=== PATIENT | female | born 1970 | race Caucasian/White ===

== ENCOUNTER 2020-02-17 15:15 | Outpatient (CLI) | payer OTHER, SELFPAY ==
--- NOTE | ~2020-02-17 | MM_ITS ---
EXAMINATION: MM screening kristi BI w case HISTORY: Screening mammogram, family history of breast cancer in her mother. TECHNIQUE: Craniocaudal and mediolateral oblique 3-D tomosynthesis images were obtained and synthetic 2-D images were generated. CAD analysis was submitted and interpreted. COMPARISON: 11/27/2017, 11/11/2016, 12/29/2010 BREAST PARENCHYMAL COMPOSITION: There are scattered areas of fibroglandular density. FINDINGS: There is no evidence of suspicious mass, calcification, or architectural distortion to sugg est malignancy in either breast. There has been no suspicious interval change. IMPRESSION: 1. No mammographic evidence of malignancy. 2. Recommend routine screening mammography in one year. BI-RADS Category 1: Negative Reviewed, dictated and finalized at location A.
== END 2020-02-17 15:16 | disposition home or self-care (01) ==
LOC: ANHIMG 15:18
PROVIDERS: PCP Registered Nurse; Visit Provider Registered Nurse
DX: Z12.31 Encounter for screening mammogram for malignant neoplasm of breast (principal)
CPT/HCPCS: 77063; 77067

== ENCOUNTER 2024-02-06 08:53 | Outpatient (CLI) | payer OTHER, SELFPAY ==
--- NOTE | ~2024-02-06 | XR_ITS ---
EXAMINATION: XR abdomen/kub 1V DATE: 02/06/2024 09:06 INDICATION: Microscopic hematuria. TECHNIQUE: A supine view of the abdomen on 2 radiographs was obtained. COMPARISON: None. FINDINGS: There are no dilated loops of bowel. Surgical clips in the right upper quadrant are likely from cholecystectomy. There is an intrauterine device in expected position. Calcifications in the pel vis are likely phleboliths. IMPRESSION: 1. No visible urolithiasis. Reviewed, dictated and finalized at location A. IMPRESSION: 1. No visible urolithiasis.
== END 2024-02-06 08:54 | disposition home or self-care (01) ==
PROVIDERS: PCP Registered Nurse; Visit Provider Nurse Practitioner Family
DX: R31.29 Other microscopic hematuria (principal)
CPT/HCPCS: 74018

== ENCOUNTER 2024-02-19 07:41 | Outpatient (CLI) | payer OTHER, SELFPAY ==
--- NOTE | 2024-02-19 07:58 | ECG_ITS ---
Test Date: 2024-02-19 08:19:23 Measurements Intervals [place] Rate: 65 P: 35 CT: 192 QRS: 4 QRSD: 122 T: 28 QT: 402 QTc: 419 Interpretive Statements SINUS RHYTHM RIGHT BUNDLE BRANCH BLOCK CONSIDER INFERIOR INFARCT, AGE INDETERMINATE BASELINE ARTIFACT- I, II, III, AVR, AVL, AVF ABNORMAL ECG No previous ECG available for comparison Electronically Signed On 02-19-2024 09:50:12 CDT by Merritt Velez D.O.
[2024-02-19 08:52] LABS: Partial Thromboplastin Time 24.9 Seconds (22.3-36.8); Prothrombin Time 13.1 Seconds (11.1-14.7)
[2024-02-19 08:53] LABS: Anion Gap 6 mmol/L (4-12); Blood Urea Nitrogen 16 mg/dL (7-17); Calcium 9.3 mg/dL (8.4-10.2); Carbon Dioxide 33 mmol/L (22-30); Chloride 98 mmol/L (98-107); Estimated Glomerular Filt Rate > 60; Glucose 123 mg/dL (65-110); Potassium 3.8 mmol/L (3.4-5.0); Sodium 137 mmol/L (137-145)
== END 2024-02-19 07:42 | disposition home or self-care (01) ==
PROVIDERS: Anesthesiology; PCP Registered Nurse; Visit Provider Urology
DX: Z01.812 Encounter for preprocedural laboratory examination (principal); I10 Essential (primary) hypertension; N23 Unspecified renal colic; Z79.899 Other long term (current) drug therapy
CPT/HCPCS: 36415; 80048; 85610; 85730; 87086; 93005

== ENCOUNTER 2024-02-23 04:47 | Day surgery (SDC) | payer OTHER, SELFPAY ==
[2024-02-15 08:54] VITALS: BMI 48.6
--- NOTE | 2024-02-15 09:03 | PC.NURSE ---
Report to the Outpatient Waiting Room, entrance under the green pavilion located off [facility], at time _0930_ on date _[id number]_. Planned Procedure Time: _1130_.? Time changes happen often and if your time is changed the preop area will call you the afternoon before. - You and your visitor will be asked to self-screen and do not enter if you have any COVID symptoms. Please call surgeon if you need to reschedule. - A mask is optional within the hospital at this time. Patients may have clear liquids (water, carbonated beverages, clear teas, apple juice) until 3 hours prior to surgery with a maximum of 20 ounces. - No food from midnight until time of surgery and no smoking Take only the following medications with a SIP of water on the morning of surgery: ___None DO NOT STOP ANY OF YOUR OTHER PRESCRIPTION MEDICATIONS PRIOR TO SURGERY EXCEPT THE FOLLOWING Medications to discontinue per physician Vitamins Date to take last clks__[phone] Krlqnnbdh Zepbound with patient who plans to not take it this week(Monday). Please no make-up, nail belgian, hairspray, perfume, deodorant, or body powder the day of surgery.? No jewelry (including any body piercings) or valuables the day of surgery, leave them at home.? Please take a shower or bath the night before, or the morning of, surgery with an antibacterial soap.? Wear comfortable, loose fitting clothing.? - Jewelry must be removed prior to entering the operating room.? Rings and piercings that are not removed may be cut off. - The hospital will not accept responsibility for valuables.? - Please leave all valuables, including medications, at home the day of surgery. If you are going home after surgery, a licensed cryogenic transport driver must drive you home.? - NO public transportation without another adult if you receive anesthesia. - We recommend that an adult stay with you for 24 hours following discharge. - We also recommend that you do not drive, make important decision, drink alcoholic beverages, or take any drugs that were not prescribed by your health care provider for at least 24 hours after your discharge time. Follow any additional instructions given to you from your surgeon. Telephone instructions given to __Yuridia__and asked if any additional questions and then verbalized understanding. Patient advised to call surgeon office or pre surgery nurse liaison [phone] if any additional questions.
[2024-02-23] VITALS (8 sets, daily range): BP systolic 95–123; BP diastolic 62–78; PULSE 74–97; RESP 12–24; TEMP 35.8–36.4; O2SAT 93–99
--- NOTE | ~2024-02-23 | XR_ITS ---
EXAMINATION: XR abdomen/kub 1V DATE: 02/23/2024 09:37 INDICATION: Left-sided nephrolithiasis for pre lithotripsy evaluation TECHNIQUE: A supine view of the abdomen on 2 radiographs was obtained. COMPARISON: 02/06/2024 FINDINGS: Unchanged 1.2 cm stone projecting over the mid to lower left kidney. Unchanged pattern of likely phle boliths in the pelvis. T-shaped IUD in expected position projecting over the central pelvis. Cholecys tectomy clips in right upper quadrant. Visualized lung bases are clear. Moderate to severe lower lumb ar predominant spondylosis with severe hypertrophic facet osteoarthritis on the left at L4-L5. Left-s ided partial sacralization of L5. Linear lucencies suspicious for bilateral pars intra-articular is d efects at L5 however specificity is limited on AP imaging. Mild right and moderate left sacroiliac os teoarthritis. IMPRESSION: 1. 1.2 cm left renal stone. 2. IUD in expected position. Reviewed, dictated and finalized at location A.
--- NOTE | 2024-02-23 06:29 | WPDHPUPDATE1 ---
History and Physical Update Update Date/Time: 02/23/24 06:29 History and Physical has been reviewed, including an updated exam of the patient. There are NO changes in the patient's condition. Risks, benefits, and alternatives have been discussed and questions answered. Patient agrees to proceed with procedure.
[2024-02-23] MEDS: LACTATED RINGERS 1,000 ML 30 ML IV CONT ×2 (10:05→12:16)
--- NOTE | 2024-02-23 10:09 | WPDANESEPPF ---
Anes - Initial Pre Proc Eval Procedure: Operation Date: 02/23/24 11:30 Proposed Procedures p Left Extracorporeal Shock Wave Lithotripsy, - Zeferino Kumari MD s Cystoscopy, Left Ureteroscopy, Left Retrograde Pyelogram, Possible Left Stent Placement - Zeferino Kumari MD Date/Time: 02/23/24 10:09 Surgeon: Zeferino Kumari MD Pre Op Diagnosis: left renal stone Patient Data Age: 53 Gender: F Height: 1.6 m Weight: 124.5 kg Allergies Allergy/AdvReac Type Severity Reaction Status Date / Time Iodinated Contrast Media Allergy Severe Hives Verified 02/23/24 09:37 Home Medications Medication Instructions Recorded Confirmed Type cholecalciferol (vitamin D3) 50 50 mcg PO DAILY 02/15/24 02/23/24 History mcg (2,000 unit) capsule (Vitamin D3) fexofenadine 180 mg tablet 180 mg PO DAILY 02/15/24 02/23/24 History hydrochlorothiazide 25 mg tablet 25 mg PO HS 02/15/24 02/23/24 History inulin-sorbitol 2 gram chewable 3 tablet PO DAILY 02/15/24 02/23/24 History tablet lisinopril 40 mg tablet 40 mg PO HS 02/15/24 02/23/24 History kcmfnogl-nxil-ttzc 8 mg-folic 400 1 tablet PO DAILY 02/15/24 02/23/24 History mcg-K 50 mcg-lutein 300 mcg tablet (Centrum Silver Women) tirzepatide (weight loss) 2.5 2.5 mg subcut WEEKLY 02/15/24 02/23/24 History mg/0.5 mL subcutaneous pen injector (Zepbound) Patient hx anesthesia problems: none Family hx anesthesia problems: none Results Review: All pre-operative results and documents have been reviewed as part of the pre-operative evaluation. [facility] Family History Family History Other Carcinoma of colon Family history of malignant neoplasm of breast in first degree relative Hypertension Social History Social History Years smoked: 10 Smoking status: Former smoker Tobacco type: cigarettes Smoking end date: 02/14/19 Alcohol intake: current Drinks per week: 2 Living arrangements: with family Spiritual care concerns: No Anes - Eval Final PreProcedure Day of Procedure 02/23/24 10:09 Patient weight: morbidly obese Heart: regular rate and rhythm Lungs: clear to auscultation Airway: Mallampati scale class II Neurological: alert and oriented Last oral intake: >/= 8 hours ASA classification: III Emergent: no Anesthetic plan: proceed Anesthesia type and monitoring: general LMA and standard monitoring Results Review: All pre-operative results and documents have been reviewed as part of the pre-operative evaluation. HTN, preDM, ex smoker quit 2018. Informed Consent: The patient's anesthetic plan and its attendant risks and benefits were discussed with the patient/family/POA. Questions were solicited and answers provided to the satisfaction of the patient/family/POA.
[2024-02-23 10:18] LABS: BEDSIDEPREGUCG Negative (Negative)
[2024-02-23] MEDS: ceFAZolin 3 GM/D5W 100 ML 100 ML IVPB (11:04)
--- NOTE | 2024-02-23 11:40 | W.PM.PROC2 ---
Procedure Note - Detailed Date of Procedure 02/23/24 Pre-op Diagnosis Left renal stone Post-op Diagnosis Other ( 1. Bilateral ureterocele (left larger than right) 2. 10 mm left renal calculus) Procedure Performed Cystoscopy, left retrograde pyelography, left ureteral stent placement, left ESWL Surgeon Zeferino Kumari MD Anesthesia General Description of Procedure Interesting procedure today. After the uneventful induction of LMA anesthetic she has prepped draped in routine sterile fashion while in dorsal lithotomy position. Cystoscopy was undertaken with a 19 F rigid cystoscope. 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 The ureterocele appears to be much larger on left. There was a very small opening which I was, with some difficulty, able to intubated with a 0.035 in glidewire. I then dilated the ureterocele to 10 F with ureteral dilator. Retrograde pyelography with a Hunter shows no filling defects with obvious ureterectasis to the ureterovesical junction. Because she has a large stone opted to place a 6 F variable length stent with proximal coil in the renal pelvis and distal coil in the bladder. We then proceeded with lithotripsy to her 10 mm left renal stone, delivering 2500 shocks at a power up to of 5. Patient tolerated the procedure well was taken recovery room good condition. Drains Yes
== END 2024-02-23 14:13 | disposition home or self-care (01) ==
PROVIDERS: PCP Registered Nurse; Visit Provider Urology
PROC: (CPT 50590; principal; 2024-02-23 11:30)
PROC: (CPT 52352; 2024-02-23 11:30)
DX: N20.0 Calculus of kidney (principal); R31.29 Other microscopic hematuria; I10 Essential (primary) hypertension; E66.01 Morbid (severe) obesity due to excess calories; Z68.42 Body mass index [BMI] 45.0-49.9, adult; Z79.85 Long-term (current) use of injectable non-insulin antidiabetic drugs; Z98.890 Other specified postprocedural states; Z90.49 Acquired absence of other specified parts of digestive tract; Z87.891 Personal history of nicotine dependence; Z80.0 Family history of malignant neoplasm of digestive organs; Z80.3 Family history of malignant neoplasm of breast
CPT/HCPCS: 52332; 50590; 36415; 74018; 80048; 85610; 85730; 87086; 93005; C1758; C1769; C2617; J0690; J2003; J2250; J2405; J2704; J3010; J7120; Q9966

== ENCOUNTER 2024-03-12 10:18 | Outpatient (CLI) | payer OTHER, SELFPAY ==
--- NOTE | ~2024-03-12 | XR_ITS ---
XR abdomen/kub 1V Ordering provider: Ivory Lane, [employer] History: . FU FROM ESWL . Comparison: None. FINDINGS: BOWEL: Nonobstructive bowel gas pattern. ORGANOMEGALY: February 23, 2024 SIGNIFICANT PATHOLOGIC CALCIFICATIONS: Stone in the left kidney lower pole. Left double-J stent. OTHER: No free air is seen under the diaphragm. IMPRESSION: NO ACUTE ABDOMINAL FINDINGS. Stone in the left kidney lower pole. Left double-J stent. Reviewed, dictated and finalized at location A.
== END 2024-03-12 10:19 | disposition home or self-care (01) ==
LOC: ANHIMG 10:20
PROVIDERS: PCP Registered Nurse; Visit Provider Nurse Practitioner Family
DX: N20.0 Calculus of kidney (principal)
CPT/HCPCS: 74018

== ENCOUNTER 2024-04-02 16:06 | Outpatient (CLI) | payer OTHER, SELFPAY ==
--- NOTE | ~2024-04-02 | XR_ITS ---
Exam: Abdomen 1V HISTORY: N20.0 - Calculus of kidney COMPARISON: 03/12/2024 TECHNIQUE: Supine images of the abdomen and pelvis. FINDINGS: Bowel gas pattern is non-obstructive. There is no free air or deep sulci. Redemonstration of a 12 mm calculus projecting over the interpolar region of the left kidney. Interval removal of the double J stent previously seen within the left kidney. No additional calculi project over the bilateral kidneys. Clips within the right upper quadrant consistent with prior cholecystectomy. Intrauterine device projecting over the pelvis Lung bases are unremarkable. Redemonstration of severe hypertrophic facet osteoarthritis at the level of L4/L5. IMPRESSION: Nonspecific, nonobstructive bowel gas pattern. Redemonstration of the 12 mm calculus projecting over the interpolar region of the left kidney. No additional calculi are identified projecting over the bilateral kidneys or along the expected cour se of the bilateral ureters Reviewed, dictated and finalized at location A. [facility] IMPRESSION: Nonspecific, nonobstructive bowel gas pattern. Redemonstration of the 12 mm calculus projecting over the interpolar region of the left kidney. No additional calculi are identified projecting over the bilateral kidneys or a long the expected course of the bilateral ureters
== END 2024-04-02 16:07 | disposition home or self-care (01) ==
LOC: ANHIMG 16:07
PROVIDERS: PCP Registered Nurse; Visit Provider Urology
DX: N20.0 Calculus of kidney (principal)
CPT/HCPCS: 74018

== ENCOUNTER 2024-05-28 08:16 | Outpatient (CLI) | payer OTHER, SELFPAY ==
[2024-05-28 08:57] LABS: Anion Gap 4 mmol/L (4-12); Blood Urea Nitrogen 17 mg/dL (7-17); Calcium 8.9 mg/dL (8.4-10.2); Carbon Dioxide 32 mmol/L (22-30); Chloride 105 mmol/L (98-107); Estimated Glomerular Filt Rate > 60; Glucose 129 mg/dL (65-110); Potassium 3.7 mmol/L (3.4-5.0); Sodium 141 mmol/L (137-145)
--- OUTSIDE RECORDS SUMMARY | 2024-06-03 20:28 | XMS_ITS | Encounter Summary ---
Author Organization [facility] Address [address] [place] [address]. [place] [address] [place] [address] Care Team Providers Care Social Work Instructor Name Role Phone Nisha Stokes GISELA Primary Care Provider [phone] Reason for Visit * Reason Comments Image (SCAN) Encounter Details Date Type Department Care Team (Latest Contact Info) Description 03/12/2024 Scan HEALTH INFO [facility] Scanned, Doc Med Group Image (SCAN) Social History Tobacco Use Types Packs/Day Years Used Date Smoking Tobacco: Former Cigarettes 0.3 5 2 016 - 2020 Passive Smoke Exposure: Past Smokeless Tobacco: Never Alcohol Use Standard Drinks/Week Comments Yes 6.7 (1 standard drink = 0.6 oz p ure alcohol) socially AUDIT-C Answer Date Recorded Frequency of Alcohol Consumption 2-3 times a wee k 09/26/2018 Average Number of Drinks 1 or 2 019 Frequency of Binge Drinking Not on file 12/2018 PHQ-2 Answer Date Recorded Patient Health Questionnaire-2 Score 1 12/07/2023 Comments No Sex and Gender Information Value Date Recorded Sex Assigned at Female 05/07/2024 12:02 PM ILLUSIONIST Legal Sex Female 8:55 PM CDT Gender Identity Female 05/07/2024 12:02 PM ILLUSIONIST Sexual Orientation Not on file documented as of this encounter Plan of Treatment Upcoming Encounters Date Type Department Care Team (Late st Contact Info) Description 06/12/2024 8:20 AM ILLUSIONIST Allied Health/Nurse Visit [facility] Medical Group Family & Internal Medicine [address] [phone] 11/11/2024 9:00 AM CDT Allied Health/Nurse Visit [facility] Medical Group Family & Internal Medicine - [place] [address] [place] [phone] Nisha Stokes APNP [address] [place] [address] documented as of this encounter Procedures Procedure Name Priority Date/Time Associated Diagnosis Comments IMAGE GENERIC 03/12/2024 documented in this encounter Results * IMAGE GENERIC (03/12/2024) Anatomical Region Laterality Modality Other 03/12/2024 us Doc Med [facility] Scanned SCANNING Final Resu lt documented in this encounter Visit Diagnoses Not on filedocumented in this encounter Additional Health Concerns Assessment Noted Time PHQ-9 Depression Total Score: 0 11/18/19 9:27 AM CDT documented as of this encounter Care Teams Social Work Instructor Relationship Specialty Start Date End Date Nisha Stokes APNP [address] [place] [id number] PCP - General NURSE PRACTITIONER 09/20/18 documented as of this encounter
--- OUTSIDE RECORDS SUMMARY | 2024-06-03 20:28 | XMS_ITS | Encounter Summary ---
Author Organization [facility] Address [address] [place] [address]. [place], [place] [address] [place] [id number] Care Team Providers Care Blending Supervisor Name Role Phone Divya Nisha Toño HIGGINS Primary Care Provider [phone] Encounter Details Date Type Department Care Team (Latest Contact Info) Description 01/25/2024 Travel Social History Tobacco Use Types Packs/Day Years [...] Sex Assigned at Female 05/07/2024 12:02 PM MATHEMATICS TECHNICIAN Legal Sex Female 8:55 PM CDT Gender Identity Female 05/07/2024 12:02 PM MATHEMATICS TECHNICIAN Sexual Orientation Not on file documented as of this encounter Plan of Treatment Upcoming Encounters Date Type Department Care Team (Late st Contact Info) Description 06/12/2024 8:20 AM MATHEMATICS TECHNICIAN Allied Health/Nurse Visit [facility] Medical [facility] Family & Internal Medicine [address] [phone] 11/11/2024 9:00 AM CDT Allied Health/Nurse Visit [facility] Family & Internal Medicine [address] [phone] Nisha Stokes APNP [address] [place] [address] documented as of this encounter Visit Diagnoses Not on filedocumented in this encounter Additional Health Concerns Assessment Noted Time PHQ-9 Depression Total Score: 0 11/18/19 22 9:27 AM CDT documented as of this encounter Care Teams Blending Supervisor Relationship Specialty Start Date End Date Nisha Stokes APNP [address] [place] [id number] PCP - General NURSE PRACTITIONER 09/20/18 documented as of this encounter
--- OUTSIDE RECORDS SUMMARY | 2024-06-03 20:28 | XMS_ITS | Data Portability ---
Author Organization [facility] Address [address] [place] [address] [place] [address] Care Team Providers Care Manager Alliance Name Role Phone KARSTEN RICHARD Primary Care Provider Assessment Encounter Date Assessment Date Assessment LastModified by Organization Details LastModified Time 12/03/2021 12/03/2021 Annual gynecological exam performed. Patient will come back in a year unless there are new symptoms. [email or web address] Not available 12/03/2021 10:37:31 09/06/2023 09/06/2023 Annual gynecological exam performed. Patient will come back in a year unless there are new symptoms. Not available 09/06/2023 16:24:33 Plan of Treatment Reminders Order Date Submit Date Provider Last Modified By Organization Details Last Modified Time Details Appointments None recorded. Lab None recorded. Referral None recorded. Procedures None recorded. Surgeries None recorded. Imaging MAMMO, screening, bilateral 2023 024 [email or web address] [facility], [address], [address], [place], [address], 16:03:00 Medication Orders None recorded. Patient TargetsNo targets recorded. Patient InstructionsNo instructions recorded. Reason for Referral None Reported. Results Created Date Observation Date Name Description Value Unit Range Abnormal Flag Note LastModifiedBy Organization Detail LastModifiedTime 12/04/1912/03/2021 IMAGE GUIDE D PAP AND HPV REGAR DLESS image guided Pap, HPV regardless of Pap result SEE RESULT S BELOW CASE REPOR T: Cytol ogy Gynec ologi andry Repor t Case: [id number] Autho david singh Provi ganesh: Winter garza , Brandie Culver cted: 12/03 1256 DIRECTOR OF SOLUTIONS ARCHITECTURE Order ing Locat ion: [place] Patho logcolt Recei rayo: 12/04 0214 First Scree n: Amanda Harris, CT Rescr een: Isabel Cardenas, CT Speci men: Scree margarita Pap - Image d, Cervi x STATE MENT OF ADEQU ACY: Satis facto ry for evalu ation Trans forma tion zone compo nent prese nt FINAL DIAGN OSIS: Negat della for Intra epith elial Lesio n or Katlyn cline (NIL) . Elect usman chino bc d by Isabel Cardenas, CT on 2021 at 8:47 PM ----- ----- ----- ----- ----- ----- ----- ----- ----- ----- ----- ----- ----- ----- ----- ----- ----- ---- HPV RESUL TS: HPV mRNA E6/E7 : No HPV mRNA Detec yaneth NOTE: This high risk HPV mRNA assay detec ts fourt een high- risk HPV types (16, 18, 31, 33, 35, 39, 45, 51, 52, 56, 58, 59, 66, 68) witho ut diffe renti ation . COMME NT: Note: This speci men was revie wed by a Cytot echno logis t and/o r Patho logis t (as indic ated in this repor t) after evalu ation using the Thinp rep Imagi ng Syste m. CLINI ANDRY INFOR MATIO N: Menst rual Statu s: LMP (if appli cable ): Clini andry Histo ry/Pr eviou s Pap: Type of Neopl gucci (if appli cable ): Signi fican t Clini andry Findi ngs: Other Histo ry: Hormo neida (if appli cable ): PAP EDUCA ALIRIO L NOTE: The Pap Test is a scree margarita test with an inher ent false negat della rate. Liqui d-bas ed sampl ing may decre ase, but will not elimi ximena, false negat della resul ts. A negat della resul t does not precl ude the prese nce and/o r devel opmen t of disea se, since the prese nce of abnor mal cells in the sampl e depen ds on the locat ion of the lesio n and sampl ing techn ique. Adriane nued regul ar scree margarita is the best metho d of cance r preve ntion . If repor yaneth cytol ogic findi ng do not corre late with physi andry and/o r histo rical findi ngs, furth er inves tigat ion is recom marta d, as clini josephien baltazar nted. Not Available [facility] [address] [place], [address], 12/08/2021 21:50:05 09/06/19 24 09/06/2023 IMAGE GUIDE D PAP AND HPV REGAR DLESS image guided Pap, HPV regardless of Pap result SEE RESULT S BELOW CASE REPOR T: Cytol ogy Gynec ologi andry Repor t Case: [id number] Autho david singh Provi ganesh: Jimenez Wilson Colle cted: 09/05 1719 DIRECTOR OF SOLUTIONS ARCHITECTURE Order ing Locat ion: [place] Patho logy Recei rayo: 09/06 0231 First Scree n: Marlene Villanueva , CT Rescr een: Carina Toure Speci men: Scree margarita Pap - Image d, Cervi x STATE MENT OF ADEQU ACY: Satis facto ry for evalu ation Trans forma tion zone compo nent prese nt FINAL DIAGN OSIS: Negat della for Intra epith elial Lesio n or Katlyn cline (NIL) . Elect usman chino bc d by Carina Toure on 2023 at 8:14 PM ----- ----- ----- ----- ----- ----- ----- ----- ----- ----- ----- ----- ----- ----- ----- ----- ----- ---- HPV RESUL TS: HPV mRNA E6/E7 : No HPV mRNA Detec yaneth NOTE: This high risk HPV mRNA assay detec ts fourt een high- risk HPV types (16, 18, 31, 33, 35, 39, 45, 51, 52, 56, 58, 59, 66, 68) witho ut diffe renti ation . COMME NT: This speci men was revie wed by a Cytot echno logis t and/o r Patho logis t (as indic ated in this repor t) after evalu ation using the Thinp rep Imagi ng Syste m. CLINI ANDRY INFOR MATIO N: Menst rual Statu s: LMP (if appli cable ): Clini andry Histo ry/Pr eviou s Pap: Type of Neopl gucci (if appli cable ): Signi fican t Clini andry Findi ngs: Other Histo ry: Hormo neida (if appli cable ): PAP EDUCA ALIRIO L NOTE: The Pap Test is a scree margarita test with an inher ent false negat della rate. Liqui d-bas ed sampl ing may decre ase, but will not elimi ximena, false negat della resul ts. A negat della resul t does not precl ude the prese nce and/o r devel opmen t of disea se, since the prese nce of abnor mal cells in the sampl e depen ds on the locat ion of the lesio n and sampl ing techn ique. Adriane nued regul ar scree margarita is the best metho d of cance r preve ntion . If repor yaneth cytol ogic findi ng do not corre late with physi andry and/o r histo rical findi ngs, furth er inves tigat ion is recom marta d, as clini josephine baltazar nted. Not Available [facility] ([facility]) [address], [place], [address], 09/11/2023 21:17:17 Result Notes None recorded. Problems Name Problem SNOMED Code Status Onset Date Resolution Date Notes Provider Name and Address Organization Details Recorded Time SNOMED CT Concept Completed 201712/02/2021 Encntr for drug and alcohol counselor exam (general) (routine) w/o abn findings; Practice ID: [id number] Karsten Michael [facility] 2 17:45:36 Insertio n of intraute rine contrace ptive device Completed 201612/02/2021 Encounter for insertion of intrauter ine contracep tive device;Re corded Elsewhere : No Locati on: [facility] So urce: EHR Chron ic: N Practic e ID: 0001 Bill able Time: 08:15:00 AM Karsten [facility] 2 17:45:37 Pregnanc y test negative [id number] Completed 201612/02/2021 Encounter for test, result negative; Recorded Elsewhere : No Locati on: [facility] So urce: EHR Chron ic: N Practic e ID: 0001 Bill able Time: 08:15:00 AM Karsten [facility] 2 17:45:36 Family planning surveill ance Completed 201112/02/2021 Contracep tive surveilla nce, unspecifi ed;Record ed Elsewhere : No Locati on: [facility] So urce: EHR Chron ic: N Practic e ID: 0001 Bill able Time: 08:45:00 AM Karsten [facility] 2 17:45:36 Removal of intraute rine device Completed 201612/02/2021 Encounter for removal of intrauter ine contracep tive device;Re corded Elsewhere : No Locati on: [facility] So urce: EHR Chron ic: N Practic e ID: 0001 Bill able Time: 09:15:00 AM Karsten [facility] 2 17:45:37 Screenin g for malignan t neoplasm of cervix Completed 201112/02/2021 Screening for malignant neoplasms of the cervix;Re corded Elsewhere : No Locati on: [facility] So urce: EHR Chron ic: N Practic e ID: 0001 Bill able Time: 08:45:00 AM Karsten Michael [facility] [address] 17:45:[address] Concept Completed 201612/02/2021 Encntr for general adult medical exam w/o abnormal findings; Recorded Elsewhere : No Locati on: [facility] So urce: EHR Chron ic: N Practic e ID: 0001 Bill able Time: 02:30:00 PM Karsten Michael [facility] 2 17:45:36 Screenin g for malignan t neoplasm of rectum Completed 201112/02/2021 Screening for malignant neoplasms of the rectum;Re corded Elsewhere : No Locati on: [facility] So urce: EHR Chron ic: N Practic e ID: 0001 Bill able Time: 08:45:00 AM Karsten Michael [facility] 2 17:45:36 Body mass index 30+ - obesity [id number] Completed 201712/02/2021 Body mass index (BMI) 50-59.9 , adult;Rec orded Elsewhere : No Locati on: [facility] So urce: EHR Chron ic: N Practic e ID: 0001 Bill able Time: 06:00:00 PM Karsten Michael [facility] 2 17:45:36 Speciali zed medical examinat ion Completed 201112/02/2021 Gynecolog ical Examinati on;Record ed Elsewhere : No Locati on: [facility] So urce: EHR Chron ic: N Practic e ID: 0001 Bill able Time: 08:45:00 AM Karsten Michael [facility] 2 17:45:37 Contrace ptive sheath status [id number] Completed 201612/02/2021 IUD follow up;Record ed Elsewhere : No Locati on: [facility] So urce: EHR Chron ic: N Practic e ID: 0001 Bill able Time: 03:00:00 PM Karsten Michael [facility] 17:45:36 Screenin g for malignan t neoplasm of colon Completed 201012/02/2021 Special screening for malignant neoplasms , colon;Pra ctice ID: 0001 Karsten [facility] 17:45:36 Problem Notes None recorded. Procedures Surgical History Date Name Laterality Status Provider Name and Address Organization Details Recorded Time 12/04/19 22 Date of Last Pap Smear completed [facility] 09/06/2023 16:26:34 05/22/19 22 Date of Last Mammogram completed [facility] 09/06/2023 16:27:21 10/18/19 18 completed [facility] 12/03/2021 10:39:08 10/18/19 18 Date of Last Colonoscopy completed [facility] 12/03/2021 10:39:08 10/06/19 16 Cholecystectomy completed [facility] 12/03/2021 10:44:19 Imaging Results None recorded. Procedure Notes None recorded. Medical Equipment None Reported. Allergies Allergen ID Allergen Name Allergen Category Reaction Reaction Severity Criticality Documentation Date Start Date Code Code System Note Provider Name and Address Organization Details Recorded Time 09446 lisinopri l medicatio n Not available Not available Not available 05/08/2020 50891 RxNorm Karsten [facility] 10:38:57 91939 iodine medicatio n Not available Not available Not available 05/08/2020 5933 RxNorm Comme nt: [facility]at [facility]; Not Available [facility] 0 14:14:57 20317 fexofenad ine medicatio n Not available Not available Not available 12/03/2021 95959 RxNorm Karsten [place], [place] - [facility] 2 10:39:41 Medications Name Sig Start Date Stop Date Status Note LastModified by Organization Details LastModified Time lisinopri l 20 mg-hydroc hlorothia zide 12.5 mg tablet TAKE 1 TABLET BY MOUTH DAILY. PT NEEDS AN APPOINTM ENT FOR FURTHER REFILLS. 12/03 completed Not Available Not Available Not Available fexofenad ine 180 mg tablet Take 1 tablet every day by oral route. 09/05 completed Not Available Not Available Not Available Advil 100 mg tablet take 2 tablet by oral route 4 - 6 hours as needed with food 11/03 completed Prescrib ed Elsewher e: Yes Loca tion: [facility] odify By: adarsh herrera DateTime : 11/08/19 12 08:45:00 AM Not Available Not Available Not Available cranberry fruit 400 mg capsule 11/03 completed Prescrib ed Elsewher e: Yes Loca tion: [facility] odify By: adarsh herrera DateTime : 11/08/19 12 08:45:00 AM Not Available Not Available Not Available hydrochlo rothiazid e 25 mg tablet TAKE 1 TABLET BY MOUTH EVERY DAY IN THE MORNING active Not Available Not Available No t Available Prozac 10 mg capsule take 2 capsule by oral route every day 12/06 completed Prescrib ed Elsewher e: Yes Loca tion: [facility] odify By: nirav herrera DateTime : 11/08/19 12 08:45:00 AM Not Available Not Available Not Available lisinopri l 40 mg tablet TAKE 1 TABLET BY MOUTH EVERY DAY active Not Available Not Available No t Available lisinopri l 2.5 mg tablet take 1 tablet by oral route every day 12/02 completed Prescrib ed Elsewher e: Yes Loca tion: [facility] odify By: janene randolph DateTime : 11/08/19 12 08:45:00 AM Not Available Not Available Not Available Vitamins and Minerals tablet 11/03 completed Prescrib ed Elsewher e: Yes Loca tion: [facility] deborah [facility] odify By: adarsh herrera DateTime : 11/08/19 12 08:45:00 AM Not Available Not Available Not Available NuvaRing 0.12 mg-0.015 mg/24 hr vaginal insert 1 vaginal ring by vaginal route every month leave in place for 3 weeks, remove for 1 week 11/03 completed Prescrib ed Elsewher e: No [facility] By: adarsh rosariounter DateTime : 09/20/19 12 01:56:55 PM Not Available Not Available Not Available Vitamin D3 active Not Available Not Available Not Available multivita min active Not Available Not Available Not Available Gladis 30 mg/5 mL oral suspensio n 12/02 completed Prescrib ed Elsewher e: Yes Loca tion: [facility] odify By: jnaene randolph DateTime : 11/08/19 12 08:45:00 AM Not Available Not Available Not Available Vitals Date Recorded Body height Body mass index (BMI) Body weight Systolic blood pressure Diastolic blood pressure Provider Name and Address Organization Details Last Updated DateTime 12/03/2021 158.75 cm 53.8 kg/m2 782930.1 2 g 110 mm[Hg] 80 mm[Hg] Karsten Michael [facility] 2 10:38:52 Date Recorded Body height Body mass index (BMI) Body weight Systolic blood pressure Diastolic blood pressure Provider Name and Address Organization Details Last Updated DateTime 09/06/2023 158.75 cm 50.4 kg/m2 001790.8 6 g 122 mm[Hg] 81 mm[Hg] Gloria Laura [facility] 4 16:25:13 Social History Question Answer Notes LastModified by Organizat ion Details LastModified Time Do You Have An Advance Directive? No Information n ot available 12/03/2021 What Is Your Level Of Alcohol Consumption? Occasional Information not available 12/03/2021 How Many Years Have You Consumed Alcohol? 30 Information not available 12/03/2021 Are You Blind Or Do You Have Difficulty Seeing? No Information n ot available 12/03/2021 What Is Your Level Of Caffeine Consumption? Moderate Information not available 12/03/2021 How Much Tobacco Do You Chew? None Information not available 12/03/2021 In The 14 Days Before Symptom Onset, Have You Had Close Contact With A Laboratory-confirm ed COVID-19 While That Case Was Ill? No Information n ot available 12/03/2021 In The 14 Days Before Symptom Onset, Have You Had Close Contact With A Person Who Is Under Investigation For COVID-19 While That Person Was Ill? No Information not available 12/03/2021 Have You Been To An Area Known To Be High Risk For COVID-19? No Information not available 12/03/2021 Are You Deaf Or Do You Have Serious Difficulty Hearing? No Information not available 12/03/2021 What Type Of Diet Are You Following? REGULAR Information n ot available 12/03/2021 What Is The Highest Grade Or Level Of School You Have Completed Or The Highest Degree You Have Received? 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 No Information not available 12/03/2021 Do You Use Protection During Sex? Always Information not available 09/06/2023 Do You Use Your Seat Belt Or Car Seat Routinely? Yes Information not available 12/03/2021 Do You Have Smoke And Carbon Monoxide Detectors In Your Home? Yes Information not available 12/03/2021 How Much Tobacco Do You Smoke? No Information not available 12/03/2021 Do You Feel Stressed (tense, Restless, Nervous, Or Anxious, Or Unable To Sleep At Night)? [id number] Information not available 12/03/2021 Do You Use Any Illicit Or Recreational Drugs? No Information not available 12/03/2021 Do You Use Sunscreen Routinely? Yes Information not available 12/03/2021 Have You Used IV Drugs? No Information not available 12/03/2021 Sex: Unknown Functional Status Question Answer Note LastModified by Organizat ion Details LastModified Time Do you have difficulty walking or climbing stairs? No Information not available 12/03/2021 Are you able to walk? YESWOREST Information not available 12/03/2021 Are you able to care for yourself? Yes Information not available 12/03/2021 Do you have difficulty dressing or bathing? No Information not available 12/03/2021 What is your exercise level? Occasional Information not available 12/03/2021 Mental Status None recorded. Family History Relationship Description Onset Age of this Age Resolved Age Notes LastModified by Organization Details LastModified Time Father Malignant tumor of colon 54 [email or web address] Not available 2023 16:25:26 Father Heart disease Not available 2021 10:42:32 Father Hypertensive disorder Not available 2021 10:42:53 Mother Malignant tumor of breast 38 [email or web address] Not available 2023 16:25:26 Mother Hypercholest erolemia Not available 2021 10:43:24 Mother Hypertensive disorder Not available 2021 10:43:30 Brother Heart disease Not available 2021 10:42:26 Brother Hypercholest erolemia Not available 2021 10:42:42 Brother Hypertensive disorder Not available 2021 10:42:53 Maternal Grandmother Malignant tumor of breast Not available 2021 10:43:10 Paternal Grandfather Hypertensive disorder Not available 2021 10:43:42 Paternal Grandfather Malignant tumor of lung Not available 2021 10:43:52 Medical History Condition Response Allergies (Food, seasonal, environmental ) Y Hypertension Y Gynecological History Statement/Question Response Abnormal Pap N Date of Last Mammogram 05/22/2021 Was last menstrual period normal Y STIs/STDs N HPV Vaccine N Duration of Flow (days) 0 Current Control Method IUD Are cycles usually normal Y Date of Last Colonoscopy 10/17/2017 Frequency of Cycle (Q days) 0 Sexually Active? N IUD Menses Monthly N Age of first menstrual cycle 10 Date of Last Pap Smear 12/03/2021 Sexual Problems? N Desired Control Method None LMP Unknown 10/17/2017 N Obstetrics History GPAL:G 0 P 0 0 0 0 Type Value Living 0 Total 0 Past Encounters Encounter ID Performer Location Encounter Start Date Encounter Closed Date Diagnosis/Indication Diagnosis SNOMED-CT Code Diagnosis ICD10 Code Diagnosis Note [id number] [facility] [address],[place] [address] 12/03/2021 09:48:36 12/03/2021 11:07:14 Gynecologic examination 39655127 Z01.419 Take Calcium with Vitamin D 12-1500mg daily. Do monthly self breast exams. It is advised to get annual flu shot in the fall and she could obtain at [facility] or [facility] care clinic. If you haven't received the Tdap vaccine in the last 10 years you should obtain one as well. Have mammogram yearly, bone density every 2-3 years and colonoscop y every 5-10 years depending on findings and history. Engage in daily exercise of low impact aerobic exercise 45-60 minutes 4-5 times weekly. Avoid tobacco and illicit drugs as well as using moderation with alcohol intake less than 1-2 8 oz beverages daily. This lifestyle behavior pattern will lead to less health conditions and longer life span. If BMI greater than 25 weight watchers or dietary consult advised. Questions have been answered. Patient appears to understand instructio ns, but if you have any further questions call or respond to this email Pap/hpv sentSTD Screen declinedGe netic Screen discussedC olon Screen UTD PCPDexa Screen naRoutine Labs UTD PCPmammo ordered [id number] [facility] [address],[place] [address] 09/06/2023 16:15:33 09/06/2023 21:39:10 Gynecologic examination 21657999 Z01.419 Z11.51 Take Calcium with Vitamin D 12-1500mg daily. Do monthly self breast exams. It is advised to get annual flu shot in the fall and [facility]. If you haven't received the Tdap vaccine in the last 10 years you should obtain one as well. Have mammogram yearly, bone density every 2-3 years and colonoscop y every 5-10 years depending on findings and history. Engage in daily exercise of low impact aerobic exercise 45-60 minutes 4-5 times weekly. Avoid tobacco and illicit drugs as well as using moderation with alcohol intake less than 1-2 8 oz beverages daily. This lifestyle behavior pattern will lead to less health conditions and longer life span. If BMI greater than 25 weight watchers or dietary consult advised. Questions have been answered. Patient appears to understand instructio ns, but if you have any further questions call or respond to this email Pap/hpv sentSTD Screen declinedGe netic Screen discussedC olon Screen UTD PCPDexa Screen naRoutine Labs UTD PCPmammo ordered Screening mammography 24 187394 Z12.31 Health Concerns Section Related Observation LastModified by Organization Detai ls LastModified Time None Recorded Concern Status LastModified by Organization Details LastModified Time None Recorded Advance Directives Directive N: Payers Encounter Date Sequence Insurance Name Policy Number Policy Vega Covered Member ID Vega Member ID Guarantor Name 12/03/2021 1 [facility] [id number] Yuridia Pleitez [id number] Yuridia Pleitez 09/06/[address] [place] [address] [id number] Yuridia Pleitez [id number] Yuridia Pleitez Notes Date Note Type Note Provider Name and Address Organization Details Recorded Time 12/03/2021 text/html Annual GYNReport ed bypatient.History: no gynecologic complaints Menstrual cycle:Normal menses (Amenorrheic on IUD) Urinary symptoms:No hematuria; No incontinence Vulva:No genital lesion Vagina:Normal vaginal discharge Breast:No breast pain; No breast lump; No nipple discharge Current Contraception:Sati sfied with current contraception; Intrauterine device (iud) Sexual complaints:No sexual complaints; No pain during intercourse; Normal libido Menopausal Symptoms:No menopausal symptoms; Normal vaginal lubrication Psychological symptoms:No depression; No anxiety; No PMDD Preventive measures:Encourage self breast examination; Encourage regular exercise; Encourage no tobacco use; Encourage regular mammograms starting age 40; Needs to schedule mammogram; Up to date on colonoscopy screening Vanessa Medina, [facility]- [address], [place], [address], [facility] 12/03/2021 10:59:15 09/06/2023 text/html Annual Last Marker Post-MenopausalRep orted bypatient.Menopaus al Symptoms:no menopausal symptoms; normal vaginal lubrication Vaginal Bleeding:history of menopause having occurred; no history of post menopausal bleeding Urinary Symptoms:no hematuria; no incontinence; no nocturia; no urinary frequency Vulva:no genital lesion; no vulvar atrophy Vagina:normal vaginal discharge; no vaginal atrophy Breast:no breast lump; no nipple discharge; no breast pain Sexual Complaints:no sexual complaints Psychological Symptoms:no depression; no anxiety Preventive Measures:encourage regular mammograms starting age 40; encourage self breast examination; encourage regular exercise; encourage no tobacco use; needs to schedule mammogram; history of recent colonoscopy [facility]- [address], [place], [address], [facility] 09/06/2023 19:14:35 OBGyn Episode No OBEpisode recorded.
--- OUTSIDE RECORDS SUMMARY | 2024-06-03 20:28 | XMS_ITS | Encounter Summary ---
Author Organization [facility] Address [address] [place] [address]. [place], [place] [address] [place] [address] Care Team Providers Care Acute Care Surgeon Name Role Phone Nisha Stokes Primary Care Provider [phone] Reason for Referral * Consultation (Routine) - Authorized Specialty Diagnoses / Procedures Referred By Contac t Referred To Contact HEART & VASCULAR CARE Diagnoses Abnormal EKG Family history of heart disease Procedures OFFICE/OUTPATIENT NEW LOW MDM 30-44 MINUTES OFFICE/OUTPT VISIT,NEW,LEVL IV OFFICE/OUTPT VISIT,NEW,LEVL V OFFICE/OUTPT VISIT,EST,LEVL III OFFICE/OUTPT VISIT,EST,LEVL IV OFFICE/OUTPT VISIT,EST,LEVL V Nisha Stokes APNP [address] [place] [address] Phone: tel: fax: Cole Spivey MD [address] [place] [address] Phone: tel: fax: Referral ID Status Reason Start Date Expiration Date Visits Requested Visits Authorized [id number] Authorized Specialty Services 03/08/2025 100 100 Scheduling Instructions Someone covered by pt's insurance---Dr. Velez, Dr. Spivey Reason for Visit * Reason Comments Hypertension Weight Check Ekg Encounter Details Date Type Department Care Team ([facility] Contact Info) Description 03/08/2024 2:20 PM CDT Office Visit [facility] Family & Internal Medicine - [place] [id number] [place] [address] Nisha Stokes APNP [address] [place] [address] Hypertension; Weight Check; Ekg Social History Tobacco Use Types Packs/Day Years Used Date Smoking Tobacco: Former Cigarettes 0.3 5 2 016 - 2020 Passive Smoke Exposure: Past Smokeless Tobacco: Never Tobacco Cessation:Counseling Given: Yes Alcohol Use Standard Drinks/Week Comments Yes 6.7 [...] Sex Assigned at Female 05/07/2024 12:02 PM CONDITIONER TENDER Legal Sex Female 8:55 PM CDT Gender Identity Female 05/07/2024 12:02 PM CONDITIONER TENDER Sexual Orientation Not on file documented as of this encounter Last Filed Vital Signs Vital Sign Reading Time Taken Comments Blood Pressure 114/68 03/08/2024 11:33 AM CDT Pulse 75 03/08/2024 11:33 AM CDT Temperature 36.2 ??C (97.2 ??F) 03/08/2024 11:33 AM C DT Respiratory Rate 16 03/08/2024 11:33 AM CDT Oxygen Saturation 95% 03/08/2024 11:33 AM CDT Inhaled Oxygen Concentration - - Weight 125 kg (275 lb 9.6 oz) 03/08/2024 11:33 A M CDT Height 160 cm (5' 3 ) 03/08/2024 11:33 AM CDT Body Mass Index 48.82 03/08/2024 11:33 AM CDT documented in this encounter Progress Notes * GISELA Gutierrez - 03/08/2024 2:20 PM CDT Images from the original note were not included. [facility] OFF[facility] VISIT Reason for Visit: Hypertension, Weight Check, and Ekg History of Present Illness: 53 yo female here today to follow up on a couple of different issues. She was on Zepbound, last dose was about a month ago. She has been having some insurance pharmacy issues regarding an increase in her dose. She was on 2.5 mg and we increased the dose to 5 mg and wasunable to obtain from the pharmacy. She has been told her pharmacy was not going to carry the lowe doses. She is also seeing a forestry extension specialist and is losing weight and she feels this is also helpful forher. She is just here now to discuss restarting meds or not. She had an EKG at [facility] prior to lithotripsy which showed SR, RBBB, consider inferior infarct age indeterminate. She has never seen a construction helper, does not have a previous EKG for comparison. Shedoes not have any issues with CP, but does have some SOB with exertion. She does have heart diseaseand stroke history in her family. She has had a recent renal stone. Typically takes her meds at night, wants to know if she can change her HCTZ to AM dosing. I feel this is reasonable. BP controlled today. ROS: Review of Systems Constitutional: Negative for chills and fever. Respiratory: Negative for cough and shortness of breath. Cardiovascular: Negative for chest pain and palpitations. Gastrointestinal: Negative for abdominal pain, diarrhea, nausea and vomiting. Neurological: Negative for dizziness and headaches. Medications: Current Outpatient Medications: cholecalciferol 125 MCG (5000 UT) Tab, Take 1 tablet (5,000 Units total) by mouth daily., Disp: , Rfl: fexofenadine 180 MG tablet, Take 1 tablet (180 mg total) by mouth daily., Disp: , Rfl: hydroCHLOROthiazide (HYDRODIURIL) 25 MG tablet, Take 1 tablet (25 mg total) by mouth every morning., Disp: 90 tablet, Rfl: 3 lisinopril (PRINIVIL) 40 MG tablet, Take 1 tablet (40 mg total) by mouth daily., Disp: 90 tablet, Rfl: 3 Misc Natural Products (FIBER 7 OR), , Disp: , Rfl: Multiple Vitamin (MULTI-VITAMIN) tablet, Take 1 tablet by mouth daily., Disp: , Rfl: tirzepatide (ZEPBOUND) 5 MG/0.5ML injection, Inject 5 mg into the skin once a week. Indications: Weight Loss (Patient not taking: Reported on 03/08/2024), Disp: 2 mL, Rfl: 5 Allergies: Review of patient's allergies indicates: Allergen Reactions Iodine Unknown Seasonal Unknown Medical History: Past Medical History: Diagnosis Date BMI 50.0-59.9, adult ([facility]) 10/13/2017 Elevated liver enzymes 09/29/2017 Hypertension Kidney stone Seasonal allergies 09/18/2020 Vitamin D deficiency 10/13/2017 Surgical History: Past Surgical History: Procedure Laterality Date CHOLECYSTECTOMY HERNIA REPAIR LITHOTRIPSY Social History: Social History Socioeconomic History Marital status: Tobacco Use Smoking status: Former Current packs/day: 0.00 Average packs/day: 0.3 packs/day for 5.0 years (1.3 ttl pk-yrs) Types: Cigarettes Start date: 2015 Quit date: 2020 Years since quittin.7 Passive exposure: Past Smokeless tobacco: Never Vaping Use Vaping status: Never Used Substance and Sexual Activity Alcohol use: Yes Alcohol/week: 6.7 standard drinks of alcohol Types: 3 Glasses of wine, 1 Shots of liquor per week Comment: socially Drug use: No Sexual activity: Not Currently Partners: Male control/protection: I.U.D. Family History: Family History Problem Relation Name Age of Onset Breast Cancer Mother Radha Umana Cancer Mother Radha Umana Breast Hypertension Mother Radha Umana Colon Cancer Father Shaun Umana Stroke Father Shaun Umana Heart Disease Father Shaun Umana Cancer Father Shaun Umana Colon Hypertension Father Shaun Umana Heart Disease Other Stroke Other Hypertension Other PE: Physical Exam Vitals and nursing note reviewed. HENT: Head: Normocephalic and atraumatic. Eyes: General: No scleral icterus. Conjunctiva/sclera: Conjunctivae normal. Neck: Trachea: No tracheal deviation. Cardiovascular: Rate and Rhythm: Normal rate and regular rhythm. Heart sounds: Normal heart sounds. No murmur heard. Pulmonary: Effort: Pulmonary effort is normal. No respiratory distress. Breath sounds: Normal breath sounds. No stridor. No wheezing. Musculoskeletal: General: No deformity. Normal range of motion. Cervical back: Normal range of motion and neck supple. Skin: General: Skin is warm and dry. Findings: No erythema. Neurological: Mental Status: She is alert and oriented to person, place, and time. Gait: Gait is intact. Psychiatric: Mood and Affect: Mood and affect normal. Filed Vitals: 03/08/24 1133 BP: 114/68 Pulse: 75 Resp: 16 Temp: 97.2 ??F (36.2 ??C) TempSrc: Skin SpO2: 95% Weight: 125 kg (275 lb 9.6 oz) Height: 1.6 m (5' 3 ) Labs: Labs Reviewed Diagnoses/Impression: 1. Class 3 severe obesity due to excess calories with serious comorbidity and body mass index (BMI)of 45.0 to 49.9 in adult ([facility]) 2. Abnormal EKG Ambulatory referral to Cardiology, Adult (OTHER) 3. Family history of heart disease Ambulatory referral to Cardiology, Adult (OTHER) 4. Primary hypertension Chronic Recommendations and Plan: 1. Abnormal EKG - Ambulatory referral to Cardiology, Adult (OTHER) 2. Family history of heart disease - Ambulatory referral to Cardiology, Adult (OTHER) 3. Primary hypertension Able to take meds as preferred 4. Class 3 severe obesity due to excess calories with serious comorbidity and body mass index (BMI)of 45.0 to 49.9 in adult ([facility]) She is to continue visits with forestry extension specialist. Suggested 1 pound per week of weight loss. Will hold off on restarting Zepbound for now. She will let me know if she changes her mind. Orders Placed This Encounter Ambulatory referral to Cardiology, Adult (OTHER) Cannot display discharge medications since this is not an admission. PCP: GISELA Gutierrez 03/08/2024 Cosigned by Jarrell Sevilla MD at 03/11/2024 8:23 AM CDT documented in this encounter Plan of Treatment Upcoming Encounters Date Type Department Care Team (Late st Contact Info) Description 06/12/2024 8:20 AM CONDITIONER TENDER Allied Health/Nurse Visit [facility] Family & Internal Medicine [address] [address] 11/11/2024 9:00 AM CDT Allied Health/Nurse Visit [facility] Family & Internal Medicine - [place] [address] [place] [address] Nisha Stokes APNP [address] [place] [address] Scheduled Referrals Name Type Priority Associated Diagnoses Orde r Schedule Ambulatory referral to Cardiology, Adult (OTHER) Referral Routine Abnormal EKG Family history of heart disease Ordered: 03/08/2024 documented as of this encounter Visit Diagnoses Diagnosis Class 3 severe obesity due to excess calories with serious comorbidity and body mass index (BMI) of 45.0 to 49.9 in adult ([facility])- Primary Abnormal EKG Nonspecific abnormal electrocardiogram (ECG) (EKG) Family history of heart disease Primary hypertension Unspecified essential hypertension documented in this encounter Additional Health Concerns Assessment Noted Time PHQ-9 Depression Total Score: 0 11/18/19 22 9:27 AM CDT documented as of this encounter Care Teams Acute Care Surgeon Relationship Specialty Start Date End Date Nisha Stokes APNP [address] [place] [address] PCP - General NURSE PRACTITIONER 09/20/18 documented as of this encounter
--- OUTSIDE RECORDS SUMMARY | 2024-06-03 20:28 | XMS_ITS | Encounter Summary ---
Author Organization [facility] Address [address] [place] [address]. [address] Care Team Providers Care Supervisor Slate Splitting Name Role Phone Nisha Stokes Primary Care Provider [phone] Reason for Referral * Consultation (Routine) - Authorized Specialty Diagnoses / Procedures Referred By Contjudit t Referred To Contact UROLOGY Diagnoses Hematuria Procedures OFFICE/OUTPATIENT NEW LOW MDM 30-44 MINUTES OFFICE/OUTPT VISIT,NEW,LEVL IV OFFICE/OUTPT VISIT,NEW,LEVL V OFFICE/OUTPT VISIT,EST,LEVL III OFFICE/OUTPT VISIT,EST,LEVL IV OFFICE/OUTPT VISIT,EST,LEVL V Nisha Stokes APNP [address] [place] [address] Phone: tel: fax: Ayan Rodriguez MD [address] [place] [address] Phone: tel: fax: Referral ID Status Reason Start Date Expiration Date Visits Requested Visits Authorized [id number] Authorized Specialty Services 12/27/2023 01/27/2025 100 100 Reason for Visit * Reason Onset Date Comments Lab Results 12/27/2023 Encounter Details Date Type Department Care Team (Late st Contact Info) Description 12/27/2023 Telephone [facility] Family & Internal Medicine [address] [phone] Nisha Stokes, GISELA [address] [place] [address] Lab Results Social History Tobacco Use Types Packs/Day Years [...] Sex Assigned at Female 05/07/2024 12:02 PM FLAT KNITTER Legal Sex Female 8:55 PM CDT Gender Identity Female 05/07/2024 12:02 PM FLAT KNITTER Sexual Orientation Not on file documented as of this encounter Progress Notes * Maranda Hoff MA - 12/27/2023 12:47 PM CDT Patient informed. Referral placed tn * Maranda Hoff MA - 12/27/2023 12:45 PM CDT ----- Message from Nisha Stokes sent at 12/26/2023 5:00 PM CDT ----- Lipids stable. Cont meds as ordered Glu 116, sl elevated---HGB A1C stable at 6.2. Still prediabetic Blood in urine--was she on her cycle? If not, she needs to see urology documented in this encounter Plan of Treatment Upcoming Encounters Date Type Department Care Team (Late st Contact Info) Description 06/12/2024 8:20 AM FLAT KNITTER Allied Health/Nurse Visit [facility] Family & Internal Medicine - [place] [address] [place] [address] 11/11/2024 9:00 AM CDT Allied Health/Nurse Visit [facility] Family & Internal [address] [address] Nisha Stokes APNP [address] [place] [address] Scheduled Referrals Name Type Priority Associated Diagnoses Orde r Schedule Ambulatory referral to Urology ([facility]) Referral Routine Hematuria Ordered: 12/27/2023 documented as of this encounter Visit Diagnoses Diagnosis Hematuria- Primary Hematuria, unspecified documented in this encounter Additional Health Concerns Assessment Noted Time PHQ-9 Depression Total Score: 0 11/18/19 22 9:27 AM CDT documented as of this encounter Care Teams Supervisor Slate Splitting Relationship Specialty Start Date End Date Nisha Stokes APNP [address] [place] [address] PCP - General NURSE PRACTITIONER 09/20/18 documented as of this encounter
--- OUTSIDE RECORDS SUMMARY | 2024-06-03 20:28 | XMS_ITS | Encounter Summary ---
Author Organization [facility] Address [address] [place] [address]. [place] [address] [place] [address] Care Team Providers Care School Psychologist Assistant Name Role Phone Nisha Stokes Primary Care Provider Reason for Visit * Reason Onset Date Comments Lab Results 05/16/2024 Encounter Details Date Type Department Care Team (Late st Contact Info) Description 05/16/2024 Telephone [facility] Family & Internal Medicine [facility] [address] [place] [address] Nisha Stokes APNP [address] [place] [address] Lab Results Social History Tobacco Use Types [...] Sex Assigned at Female 05/07/2024 12:02 PM GROUNDS MAINTENANCE WORKER Legal Sex Female 8:55 PM CDT Gender Identity Female 05/07/2024 12:02 PM GROUNDS MAINTENANCE WORKER Sexual Orientation Not on file documented as of this encounter Progress Notes * Dafen Fuller MA - 05/16/2024 3:10 PM CST Pt v/u. She is currently out of state. Rx has been sent to pharmacy in [place], [place] at pt request. ----- Message from Dr. Porter Abdalla sent at 05/16/2024 8:04 AM GROUNDS MAINTENANCE WORKER ----- Pt's culture shows a bacteria that may not be covered by the given agent. Recommend cefdinir 300 mgBID for 10 days. Stop current antibiotic. NDS MAINTENANCE WORKER NDS MAINTENANCE WORKER documented in this encounter Plan of Treatment Upcoming Encounters Date Type Department Care Team (Late st Contact Info) Description 06/12/2024 8:20 AM GROUNDS MAINTENANCE WORKER Allied Health/Nurse Visit [facility] Family & Internal Medicine [address] [address] 11/11/2024 9:00 AM CDT Allied Health/Nurse Visit [facility] Family & Internal [address] [address] Nisha Stokes APNP [address] [place] [address] documented as of this encounter Visit Diagnoses Diagnosis UTI (urinary tract infection)- Primary Urinary tract infection, site not specified documented in this encounter Additional Health Concerns Assessment Noted Time PHQ-9 Depression Total Score: 0 11/18/19 9:27 AM CDT documented as of this encounter Care Teams School Psychologist Assistant Relationship Specialty Start Date End Date Nisha Stokes APNP [address] [place] [address] PCP - General NURSE PRACTITIONER 09/20/18 documented as of this encounter
--- OUTSIDE RECORDS SUMMARY | 2024-06-03 20:28 | XMS_ITS | Encounter Summary ---
Author Organization [facility] Address [address] [place] [address]. [place], [place] [address] [place] [address] Care Team Providers Care Terrazzo Roller Name Role Phone Divya, Nisha Toño HIGGINS Primary Care Provider [phone] Encounter Details Date Type Department Care Team (Latest Contact Info) Description 03/08/2024 Travel Social History Tobacco Use Types Packs/Day [...] Sex Assigned at Female 05/07/2024 12:02 PM SOLDERING MACHINE OPERATOR AUTOMATIC Legal Sex Female 8:55 PM CDT Gender Identity Female 05/07/2024 12:02 PM SOLDERING MACHINE OPERATOR AUTOMATIC Sexual Orientation Not on file documented as of this encounter Plan of Treatment Upcoming Encounters Date Type Department Care Team (Late st Contact Info) Description 06/12/2024 8:20 AM SOLDERING MACHINE OPERATOR AUTOMATIC Allied Health/Nurse Visit [facility] Family & Internal Medicine [address] [address] 11/11/2024 9:00 AM CDT Allied Health/Nurse Visit [facility] Family & Internal Medicine [address] [address] Nisha Stokes APNP [address] [place] [address] documented as of this encounter Visit Diagnoses Not on filedocumented in this encounter Additional Health Concerns Assessment Noted Time PHQ-9 Depression Total Score: 0 11/18/19 22 9:27 AM CDT documented as of this encounter Care Teams Terrazzo Roller Relationship Specialty Start Date End Date Nisha Stokes APNP [address] [place] [address] PCP - General NURSE PRACTITIONER 09/20/18 documented as of this encounter
--- OUTSIDE RECORDS SUMMARY | 2024-06-03 20:28 | XMS_ITS | Encounter Summary ---
Author Organization [facility] Address [address] [place] [address]. [place], [place] [address] [place] [address] Care Team Providers Care Claims Processor Name Role Phone Nisha Stokes Primary Care Provider [phone] Reason for Visit * Reason Comments Weight Check Encounter Details Date Type Department Care Team (Late st Contact Info) Description 01/25/2024 3:20 PM CDT Office Visit [facility] Family & Internal Medicine [place] [address] [place] [phone] Nisha Stokes APNP [facility] [place] [address] Weight Check Social History Tobacco Use Types Packs/Day Years [...] Sex Assigned at Female 05/07/2024 12:02 PM COUNTER SUPERVISOR Legal Sex Female 8:55 PM CDT Gender Identity Female 05/07/2024 12:02 PM COUNTER SUPERVISOR Sexual Orientation Not on file documented as of this encounter Last Filed Vital Signs Vital Sign Reading Time Taken Comments Blood Pressure 116/72 01/25/2024 3:31 PM CDT Pulse 91 01/25/2024 3:31 PM CDT Temperature 36.4 ??C (97.6 ??F) 01/25/2024 3:31 PM CD T Respiratory Rate 16 01/25/2024 3:31 PM CDT Oxygen Saturation 96% 01/25/2024 3:31 PM CDT Inhaled Oxygen Concentration - - Weight 126.8 kg (279 lb 9.6 oz) 01/25/2024 3:31 PM CDT Height 160 cm (5' 3 ) 01/25/2024 3:31 PM CDT Body Mass Index 49.53 01/25/2024 3:31 PM CDT documented in this encounter Progress Notes * GISELA Gutierrez - 01/25/2024 3:20 PM CDT Images from the original note were not included. [facility] OFF[facility] VISIT Reason for Visit: Weight Check History of Present Illness: 53-year-old female here today to follow-up on her weight. Her last visit with me 6 weeks ago she was started on Zepbound 2.5 mg. She has lost 6 lbs in the last month. Overall, she had some nausea and vomiting, but this has resolved. She notes that her appetite has been curved and she finds this helpful. No issues with constipation. Drinks water throughout the day.Denies any abd pain. She would be interested in increasing her meds. ROS: Review of Systems Constitutional: Negative for chills, fever and malaise/fatigue. Respiratory: Negative for cough and shortness of breath. Cardiovascular: Negative for chest pain and palpitations. Gastrointestinal: Positive for nausea and vomiting. Negative for abdominal pain, blood in stool, constipation, diarrhea, heartburn and melena. Neurological: Negative for dizziness and headaches. Medications: [...] the skin once a week. Indications: Weight Loss, Disp: 2 mL, Rfl: 5 Allergies: Review of patient's allergies indicates: Allergen Reactions Iodine Unknown Seasonal Unknown Medical History: Past Medical History: Diagnosis Date BMI 50.0-59.9, adult ([facility]) 10/13/2017 Elevated liver enzymes 09/29/2017 Hypertension Seasonal allergies 09/18/2020 Vitamin D deficiency 10/13/2017 Surgical History: Past Surgical History: Procedure Laterality Date CHOLECYSTECTOMY HERNIA REPAIR Social History: Social History Socioeconomic History Marital status: Tobacco Use Smoking status: Former Current packs/day: 0.00 Average packs/day: 0.3 packs/day for 5.0 years (1.3 ttl pk-yrs) Types: Cigarettes Start date: 2015 Quit date: 2020 Years since quittin.6 Passive exposure: Past Smokeless tobacco: Never Vaping [...] regular rhythm. Heart sounds: Normal heart sounds. Pulmonary: Effort: Pulmonary effort is normal. No [...] Affect: Mood and affect normal. Filed Vitals: 01/25/24 1531 BP: 116/72 Pulse: 91 Resp: 16 Temp: 97.6 ??F (36.4 ??C) TempSrc: Skin SpO2: 96% Weight: 126.8 kg (279 lb 9.6 oz) Height: 1.6 m (5' 3 ) Labs: Labs Reviewed Diagnoses/Impression: 1. Class 3 severe obesity due to excess calories with serious comorbidity and body mass index (BMI)of 45.0 to 49.9 in adult ([facility]) tirzepatide (ZEPBOUND) 5 MG/0.5ML injection Recommendations and Plan: 1. Class 3 severe obesity due to excess calories with serious comorbidity and body mass index (BMI)of 45.0 to 49.9 in adult ([facility]) - tirzepatide (ZEPBOUND) 5 MG/0.5ML injection; Inject 5 mg into the skin once a week. Indications: Weight Loss Dispense: 2 mL; Refill: 5 Will increase the Mounjaro to 5 mg once weekly. Continue lower calorie, high protein diet Follow up in 2 months Orders Placed This Encounter [facility] (FIBER 7 OR) tirzepatide (ZEPBOUND) 5 MG/0.5ML injection Cannot display discharge medications since this is not an admission. PCP: GISELA Gutierrez 01/25/2024 documented in this encounter Plan of Treatment Upcoming Encounters Date Type Department Care Team (Late st Contact Info) Description 06/12/2024 8:20 AM COUNTER SUPERVISOR Allied Health/Nurse Visit [facility] Family & Internal Medicine [address] [address] 11/11/2024 9:00 AM CDT Allied Health/Nurse Visit [facility] Family & Internal Medicine - [place] [address] [place] [address] Nisha Stokes APNP [address] [place] [address] documented as of this encounter Visit Diagnoses Diagnosis Class 3 severe obesity due to excess calories with serious comorbidity and body mass index (BMI) of 45.0 to 49.9 in adult ([facility])- Primary documented in this encounter Additional Health Concerns Assessment Noted Time PHQ-9 Depression Total Score: 0 11/18/19 9:27 AM CDT documented as of this encounter Care Teams Claims Processor Relationship Specialty Start Date End Date Nisha Stokes APNP [address] [place] [address] PCP - General NURSE PRACTITIONER 09/20/18 documented as of this encounter
--- OUTSIDE RECORDS SUMMARY | 2024-06-03 20:28 | XMS_ITS | Encounter Summary ---
Author Organization [facility] Address [facility] [place] [address] [place] [address] Care Team Providers Care Weatherization And Housing Inspector Name Role Phone Nisha Stokes Primary Care Provider [phone] Reason for Referral * Consultation (Routine) - Authorized Specialty Diagnoses / Procedures Referred By Contac t Referred To Contact NUTRITION Diagnoses Prediabetes Procedures OFFICE/OUTPATIENT NEW LOW MDM 30-44 MINUTES OFFICE/OUTPT VISIT,NEW,LEVL IV OFFICE/OUTPT VISIT,NEW,LEVL V OFFICE/OUTPT VISIT,EST,LEVL III OFFICE/OUTPT VISIT,EST,LEVL IV OFFICE/OUTPT VISIT,EST,LEVL V Nisha Stokes APNP [address] [place] [address] Phone: tel: fax: Referral ID Status Reason Start Date Expiration Date V isits Requested Visits Authorized [id number] Authorized 02/12/2024 02/08/2025 99 99 Scheduling Instructions Adelia Bailey at [facility] Nutrition Counseling Reason for Visit * Reason Onset Date Comments Referral Request 02/09/2024 Encounter Details Date Type Department Care Team (Latest Contact Info) Description 02/09/2024 MyChart Message Enc [facility] Group Family & Internal Medicine [facility] [address] [place] [address] Nisha Stokes APNP [address] [place] [address] Need documentation of diagnosis Social History Tobacco Use Types Packs/Day Years [...] Sex Assigned at Female 05/07/2024 12:02 PM SENIOR HR MANAGER Legal Sex Female 8:55 PM CDT Gender Identity Female 05/07/2024 12:02 PM SENIOR HR MANAGER Sexual Orientation Not on file documented as of this encounter Progress Notes * Mackenzie Valerio MA - 02/12/2024 7:53 AM CDTAddended by: MACKENZIE VALERIO on: 02/12/2024 07:53 AM Modules accepted: Orders * Mackenzie Valerio MA - 02/12/2024 7:47 AM CDT Referral ordered. Faxed to number provided by pt along with last A1c result. * Mackenzie Valerio MA - 02/09/2024 12:24 PM CDTAddended by: MACKENZIE VALERIO on: 02/09/2024 12:24 PM Modules accepted: Orders documented in this encounter Plan of Treatment Upcoming Encounters Date Type Department Care Team (Late st Contact Info) Description 06/12/2024 8:20 AM SENIOR HR MANAGER Allied Health/Nurse Visit [facility] Family & Internal Medicine [address] [id number] [place] [address] 11/11/2024 9:00 AM CDT Allied Health/Nurse Visit [facility] Family & Internal [address] [address] Nisha Stokes APNP [address] [place] [address] Scheduled Referrals Name Type Priority Associated Diagnoses Orde r Schedule Ambulatory Referral to Dietitian/Nutrition Referral Routine Prediabetes Ordered: 02/12/2024 documented as of this encounter Visit Diagnoses Diagnosis Prediabetes- Primary Other abnormal glucose documented in this encounter Additional Health Concerns Assessment Noted Time PHQ-9 Depression Total Score: 0 11/18/19 22 9:27 AM CDT documented as of this encounter Care Teams Weatherization And Housing Inspector Relationship Specialty Start Date End Date Nisha Stokes APNP [address] [place] [address] PCP - General NURSE PRACTITIONER 09/20/18 documented as of this encounter
--- OUTSIDE RECORDS SUMMARY | 2024-06-03 20:28 | XMS_ITS | Encounter Summary ---
Author Organization [facility] Address [address] [place] [address]. [place], [place] [address] [place] [address] Care Team Providers Care Dress Operator Name Role Phone Divya Nisha Toño HIGGINS Primary Care Provider [phone] Encounter Details Date Type Department Care Team (Latest Contact Info) Description 05/07/2024 Travel Social History Tobacco Use Types Packs/Day [...] Sex Assigned at Female 05/07/2024 12:02 PM WORKFORCE MANAGEMENT ANALYST Legal Sex Female 8:55 PM CDT Gender Identity Female 05/07/2024 12:02 PM WORKFORCE MANAGEMENT ANALYST Sexual Orientation Not on file documented as of this encounter Plan of Treatment Upcoming Encounters Date Type Department Care Team (Late st Contact Info) Description 06/12/2024 8:20 AM WORKFORCE MANAGEMENT ANALYST Allied Health/Nurse Visit [facility] Medical [facility] Family & Internal Medicine [address] [address] 11/11/2024 9:00 AM CDT Allied Health/Nurse Visit [facility] Family & Internal Medicine [address] [address] Nisha Stokes APNP [address] [place] [address] documented as of this encounter Visit Diagnoses Not on filedocumented in this encounter Additional Health Concerns Assessment Noted Time PHQ-9 Depression Total Score: 0 11/18/19 22 9:27 AM CDT documented as of this encounter Care Teams Dress Operator Relationship Specialty Start Date End Date Nisha Stokes APNP [address] [place] [address] PCP - General NURSE PRACTITIONER 09/20/18 documented as of this encounter
--- OUTSIDE RECORDS SUMMARY | 2024-06-03 20:28 | XMS_ITS | Encounter Summary ---
Author Organization [facility] Address [address] [place] [address]. [place] [address] [place] [address] Care Team Providers Care Automation Tester Name Role Phone Nisha Stokes GISELA Primary Care Provider [phone] Reason for Visit * Reason Comments Image (SCAN) Encounter Details Date Type Department Care Team (Latest Contact Info) Description 04/02/2024 Scan HEALTH INFO [facility] Scanned, Doc Med [...] Sex Assigned at Female 05/07/2024 12:02 PM POWERHOUSE HELPER Legal Sex Female 8:55 PM CDT Gender Identity Female 05/07/2024 12:02 PM POWERHOUSE HELPER Sexual Orientation Not on file documented as of this encounter Plan of Treatment Upcoming Encounters Date Type Department Care Team (Late st Contact Info) Description 06/12/2024 8:20 AM POWERHOUSE HELPER Allied Health/Nurse Visit [facility] Medical Group Family & Internal Medicine [address] [address] 11/11/2024 9:00 AM CDT Allied Health/Nurse Visit [facility] Medical Group Family & Internal Medicine - [place] [address] [place] [address] Nisha Stokes APNP [address] [place] [address] documented as of this encounter Procedures Procedure Name Priority Date/Time Associated Diagnosis Comments IMAGE GENERIC 04/02/2024 documented in this encounter Results * IMAGE GENERIC (04/02/2024) Anatomical Region Laterality Modality Other 04/02/2024 us Doc Med Group Scanned SCANNING Final Resu lt documented in this encounter Visit Diagnoses Not on filedocumented in this encounter Additional Health Concerns Assessment Noted Time PHQ-9 Depression Total Score: 0 11/18/19 22 9:27 AM CDT documented as of this encounter Care Teams Automation Tester Relationship Specialty Start Date End Date Nisha Stokes APNP [address] [place] [address] PCP - General NURSE PRACTITIONER 09/20/18 documented as of this encounter
--- OUTSIDE RECORDS SUMMARY | 2024-06-03 20:28 | XMS_ITS | Encounter Summary ---
Author Organization [facility] Address [address] [place] [address]. [place], [place] [address] [place] [address] Care Team Providers Care Employment Services Director Name Role Phone Nisha Stokes Primary Care Provider Reason for Visit * Reason Onset Date Comments Information 05/06/2024 Appointment Request 05/06/2024 Encounter Details Date Type Department Care Team (Late st Contact Info) Description 05/06/2024 MyCImage Searchert Message Enc [facility] Medical [facility] Family & Internal Medicine [address] [place] [phone] Nisha Stokes APNP [address] [place] [address] Possible uti Social History Tobacco Use Types Packs/Day Years [...] Sex Assigned at Female 05/07/2024 12:02 PM BULK MAIL TECHNICIAN Legal Sex Female 8:55 PM CDT Gender Identity Female 05/07/2024 12:02 PM BULK MAIL TECHNICIAN Sexual Orientation Not on file documented as of this encounter Progress Notes * Rodolfo Wyatt, RTR - 05/06/2024 1:55 PM CST Called and scheduled pt. For appt tomorrow at 12p and informed pt. We will more than likely want a UA so to try and make sure not to use bathroom right before appt. Pt. States understanding. MAIL TECHNICIAN * Porter Abdalla DO - 05/06/2024 1:47 PM CST Can schedule appointment with myself for tomorrow. MAIL TECHNICIAN documented in this encounter Plan of Treatment Upcoming Encounters Date Type Department Care Team (Late st Contact Info) Description 06/12/2024 8:20 AM BULK MAIL TECHNICIAN Allied Health/Nurse Visit [facility] Family & Internal [address] [phone] 11/11/2024 9:00 AM CDT Allied Health/Nurse Visit [facility] Family & Internal [address] [address] Nisha Stokes APNP [address] [place] [address] documented as of this encounter Visit Diagnoses Not on filedocumented in this encounter Additional Health Concerns Assessment Noted Time PHQ-9 Depression Total Score: 0 11/18/19 9:27 AM CDT documented as of this encounter Care Teams Employment Services Director Relationship Specialty Start Date End Date Nisha Stokes APNP [address] [place] [address] PCP - General NURSE PRACTITIONER 09/20/18 documented as of this encounter
--- OUTSIDE RECORDS SUMMARY | 2024-06-03 20:28 | XMS_ITS | Encounter Summary ---
Author Organization [facility] Address [address] [place] [address]. [place], [place] [address] [place] [address] Care Team Providers Care Aerobics Instructor Name Role Phone Divya, Nisha Toño HIGGINS Primary Care Provider Encounter Details Date Type Department Care Team (Latest Contact Info) Description 05/07/2024 - 05/07/2024 11:59 PM GRINDING SUPERVISOR Hospital Encounter [facility] [address] [place] [address] Porter Abdalla P, DO [address] [place] [address] Discharge Disposition: Home or Self Care (Routine Discharge) Social History Tobacco Use Types Packs/Day Years [...] Sex Assigned at Female 05/07/2024 12:02 PM GRINDING SUPERVISOR Legal Sex Female 8:55 PM CDT Gender Identity Female 05/07/2024 12:02 PM GRINDING SUPERVISOR Sexual Orientation Not on file documented as of this encounter Medications at Time of Discharge cholecalciferol 125 MCG (5000 UT) Tab Take 1 tablet (5,000 Units total) by mouth daily. fexofenadine 180 MG tablet Take 1 tablet (180 mg total) by mouth daily. hydroCHLOROthiazid e (HYDRODIURIL) 25 MG tabletIndications: Primary hypertension Take 1 tablet (25 mg total) by mouth every morning. 90 tablet 3 12/07/2023 lisinopril (PRINIVIL) 40 MG tabletIndications: Primary hypertension Take 1 tablet (40 mg total) by mouth daily. 90 tablet 3 12/07/2023 Misc Natural Products (FIBER 7 OR) Multiple Vitamin (MULTI-VITAMIN) tablet Take 1 tablet by mouth daily. sulfamethoxazole-t rimethoprim (BACTRIM DS) 800-160 MG tabletIndications: UTI symptoms Take 1 tablet by mouth 2 (two) times daily for 10 days. 20 tablet 05/07/2024 05/17/2024 documented as of this encounter Plan of Treatment Upcoming Encounters Date Type Department Care Team (Late st Contact Info) Description 06/12/2024 8:20 AM GRINDING SUPERVISOR Allied Health/Nurse Visit [facility] Medical [facility] Family & Internal Medicine [address] [address] 11/11/2024 9:00 AM CDT Allied Health/Nurse Visit [facility] Family & Internal Medicine [address] [phone] Nisha Stokes APNP [address] [place] [address] documented as of this encounter Visit Diagnoses Not on filedocumented in this encounter Additional Health Concerns Assessment Noted Time PHQ-9 Depression Total Score: 0 11/18/19 9:27 AM CDT documented as of this encounter Care Teams Aerobics Instructor Relationship Specialty Start Date End Date Nisha Stokes APNP [address] [place] [address] PCP - General NURSE PRACTITIONER 09/20/18 documented as of this encounter
--- OUTSIDE RECORDS SUMMARY | 2024-06-03 20:28 | XMS_ITS | Continuity of Care Document ---
Author Organization [facility] Address [address] [address] Care Team Providers Care Assembly Inspector Name Role Phone Divya, GHOST WRITER Nisha Primary Care Provider MD Zeferino Kumari Attending Provider Care Teams Patient Care Team Team Status: Active Member Role Status Gordon Stokes , GHOST WRITER Primary Care Provider Active Visit Care Team Team Status: Inactive Member Role Status Gordon Stokes , GHOST WRITER Primary Care Provider Active Zeferino Kumari MD Attending Provider Active Visit Care Team Team Status: Inactive Member Role Status Gordon Stokes , GHOST WRITER Primary Care Provider Active Zeferino Kumari MD Attending Provider Active Visit Care Team Team Status: Inactive Member Role Status Gordon Stokes , GHOST WRITER Primary Care Provider Active Ivory Lane , INDUSTRIAL MAINTENANCE REPAIRER Attending Provider Active Chief Complaint and Reason for Visit Chief Complaint Microscopic hematuri a Testing 02-23-2024 left renal stone Allergies, Adverse Reactions, Alerts Allergen Type Severity Reaction Last Updated Verified Status Iodinated Contrast Media Allergy Severe Hives February 22 9:37am Yes Active Social History Smoking Status Status Start Date End Date Date of Observa tion Ex-smoker (finding) February 14, 2019 February 15, 2024 8:54am Observation Status Observation Response Date of Response alcohol intake current February 15, 2024 8:54am Additional Data Assigned Sex Female Gender Identity Cisgender/Not transg edilma (finding) Family History Relationship Condition Age at Onset Recorded Date/T anshu Not Specified Family history of ma lignant neoplasm of breast in first degree relative Unknown Carcinoma of colon Unknown Hypertension Unknown Problems Active Problems Medical Problem Onset Date Status Left renal stone Active Medications Medication Status Dose Units Route Directions Qty Days St art Date End Date Instructions Fexofenadine Active 180 MG PO DAILY Jan 12:00am Hydrochlorothi azide Active 25 MG PO BEDTIME 2023 12:00am Lisinopril Active 40 MG PO BEDTIME [facility] 2023 12:00am Cholecalcifero l (Vitamin D3) (Vitamin D3) 50 mcg (2,000 unit) Capsule Active 50 MCG PO DAILY 2023 12:00am Inulin-Sorbito l Active 3 TABLET PO DAILY 2023 12:00am Cimplsjb-Lzt-R farzana-Fa-Vit K-Lut (Centrum Silver Women) 8 mg iron-400 mcg-50 mcg Tablet Active 1 TABLET PO DAILY 2023 12:00am Tirzepatide (Weight Loss) (Zepbound) 2.5 mg/0.5 mL pen injector Active 2.5 MG SUB-Q WEEKLY 2023 12:00am Sundays Hydrocodone-Ac etaminophen Active 1 - 2 TABLET PO Q6H February 23, 2024 Cephalexin Active 500 MG PO Q8H 9 2023 12:00am Immunizations Immunization Event Date Not Given Reason Dose Number Blending Machine Feeder Lot Number Vaccine Information Statement (VIS) Detail Tetanus, Diphtheria, Pertussis (Tdap) August 03, 2009 Tetanus, Diphtheria, Pertussis (Tdap) September 04, 2017 Procedures Procedure Date Performed Status Extracorporeal Shock Wave Lithotripsy (Left) Oct nayan2023 11:30am completed Cysto, RPG, Stone Ext, Stent Placement (Left) Oc tober 2023 11:30am completed Urine Culture February 19, 2024 completed Procedure Notes Author Zeferino [facility] February 23, 2024 11:42am Note Date/Time February 23, 2024 11 :[address] [place], [place] [address] [address] [place] [address] Operative Note Signed Patient: Yuridia Pleitez MR#: [id number] : 1970 Acct:[id number] Age: 53 ADM Date: 02/23/24 Loc: ANHSURGERY Attending Dr: Zeferino Kumari M.D. cc: Zeferino Kumari MD; Divya, Nisha TORIBIO~ Procedure Note - Detailed Date of Procedure 02/23/24 Pre-op Diagnosis Left renal stone Post-op Diagnosis Other ( 1. Bilateral ureterocele (left larger than right) 2. 10 mm left renalcalculus) Procedure Performed Cystoscopy, left retrograde pyelography, left ureteral stent placement, left ESWL Surgeon Zeferino Kumari MD Anesthesia General Description of Procedure Interesting procedure today. After the uneventful induction of LMA anesthetic she has prepped draped in routine sterile fashion while in dorsal lithotomy position. Cystoscopy was undertaken with a 19 F rigid cystoscope. 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 The ureterocele appears to be much larger on left. There was a very small opening which I was, with some difficulty, able to intubated with a 0.035 in glidewire. I then dilated the ureterocele to 10 F with ureteraldilator. Retrograde pyelography with a [place] shows no filling defects with obvious ureterectasis to the ureterovesical junction. Because she has a large stone opted to place a 6 F variable length stent with proximal coil in the renalpelvis and distal coil in the bladder. We then proceeded with lithotripsy to her 10 mm left renal stone, delivering 2500 shocks at a power up to of 5. Patient tolerated the procedure well was taken recovery room good condition. Drains Yes This report may have been done utilizing a voice recognition system. Attempts have been made to correct errors. However, there may be uncorrected grammatical,spelling, and recognition errors present. Report Initialized date/time: Zeferino Kumari MD 02/23/24 / 1143 Electronically signed by: Zeferino Kumari MD 02/23/24 114 Relevant Diagnostic Tests and/or Laboratory Data Laboratory Results Test Date/Time Result Interpretation Reference Range Result Comment Performing Site Prothrombin Time February 19, 2024 8:13am 13.1 s 11.1-14.7 [facility] [id number] [address] [place] [address] Prothromb Time International Ratio February 19, 2024 8:13am 1.0 INR Indication---- ----- 0.9 - 1.1 Patients not on anticoagulant therapy.2.0 - 3.0 Routine therapy.2.5 - 3.5 Recurrent myocardial infarction or mechanical prosthetic valves. [facility] [id number] [address] [place] [address] Activated Partial Thromboplast Time February 19, 2024 8:13am 24.9 s 22.3-36.8 [facility] [id number] [address] [place] [address] Sodium Level February 19, 2024 8:13am 137 mmol/L 137-145 [facility] [id number] [address] [place] [address] Potassium Level February 19, 2024 8:13am 3.8 mmol/L 3.4-5.0 [facility] [id number] [address] [place] [address] Chloride Level February 19, 2024 8:13am 98 mmol/L 98-107 [facility] [id number] [address] [place] [address]326 Carbon Dioxide Level February 19, 2024 8:13am 33 mmol/L Above high normal [facility] [id number] [address] [place] [address] Anion Gap February 19, 2024 8:13am 6 mmol/L 4-12 [facility] [id number] [address] [place] [address] Blood Urea Nitrogen February 19, 2024 8:13am 16 mg/dL - [facility] [id number] [address] [place] [address] Creatinine February 19, 2024 8:13am 0.80 mg/dL 0.7-1.0 [facility] [id number] [address] [place] [address] Estimat Glomerular Filtration Rate February 19, 2024 8:13am > 60 >59 > OR = 60 ml/min/1.73 square metersThe MDRD formula used to calculate the eGFR result has not been validated in patients > 70 years of age. [facility] [id number] [address] [place] [address] Estimated Creatinine Clearance Calc February 19, 2024 8:13am Not Reportable [facility] [id number] [address] [place] [address] Glucose Level February 19, 2024 8:13am 123 mg/dL Above high normal 65-110 [facility] [id number] [address] [place] [address] Calcium Level February 19, 2024 8:13am 9.3 mg/dL 8.4-10.2 [facility] [id number] [address] [place] [address] Bedside Urine HCG, Qualitative February 23, 2024 9:25am Negative Negative Negative Telcor POC Microbiology Results Procedure Source Result Collection Date/Time Result Date/Time Result Comment Performing Site Urine Culture Clean Catch Midstream February 19, 2024 8:13am February 21, 2024 4:54pm [facility] Diagnostic Imaging Reports Author Jarrell [facility] February 23, 2024 9:46am Report Date/Time February 23, 2024 9: 47[address] [address] XRay Report Signed Patient: Yuridia Pleitez : 1970 MR#: [id number] Age: 53 Acct:[id number] Loc: ANHSURGERY ADM Date: 02/23/[address]: Zeferino Kumari M.D. Ordering Physician: Zeferino Kumari MD Date of Service: 02/23/24 Procedure(s): XR abdomen/kub 1V Accession Number(s): [id number] cc: Zeferino Kumari MD; Divya, Nisha TORIBIO~ EXAMINATION: XR abdomen/kub 1V DATE: 02/23/2024 09:37 INDICATION: Left-sided nephrolithiasis for pre lithotripsy evaluation TECHNIQUE: A supine view of the abdomen on 2 radiographs was obtained. COMPARISON: 02/06/2024 FINDINGS: Unchanged 1.2 cm stone projecting over the mid to lower left kidney. Unchanged pattern of likely phleboliths in the pelvis. T-shaped IUD in expected position projecting over the central pelvis. Cholecystectomy clips in right upper quadrant. Visualized lung bases are clear. Moderate to severe lower lumbar predominant spondylosis with severe hypertrophic facet osteoarthritis on the left at L4-L5. Left-sided partial sacralization of L5. Linear lucencies suspicious for bilateral pars intra-articular is defects at L5 however specificity is limited on AP imaging. Mild right and moderate left sacroiliac osteoarthritis. IMPRESSION: 1. 1.2 cm left renal stone. 2. IUD in expected position. Reviewed, dictated and finalized at location A. Dictated By: Jarrell Storm MD 02/23/24 0940 Signed By: <Electronically signed by Jarrell Storm MD in OV> 02/23/24 0946 Vital Signs Vital Reading Result Reference Range Collection Date/Time Height 63 [in_i] February 15, 2024 8:54am Weight 124.10 kg February 22 9:47am Body Temperature 97.6 [degF] 97.6-99.6 February 12:16pm Heart Rate 74 /min 60-100 February 22 1:55pm Respiratory rate 12 /min -February 1:55pm Oxygen saturation by Pulse oximetry 95 % 90-100 February 23, 2024 1: 15pm BP Systolic 115 mm[Hg] 100-140 February 22 1:55pm BP Diastolic 74 mm[Hg] 60-90 February 22 1:55pm BMI (Body Mass Index) 48.6 kg/m2 2023 8:54am Inhaled oxygen flow rate 1 L/min Feb 1:00pm Insurance Providers Guarantor Yuridia Pleitez Address [address] [place] [address] [place] [address] Contact Info. Home Phone: Payer Policy Id Coverage Id Subscriber's Name Subscriber Id Effective Date Expiration Date Self Pay Self N/A [facility] [id number] Yuridia Ramsay Pleitez [id number] 2017 Encounters Encounter Location(s) Arrival/Admit Date Discharge/Depart Date Provider(s) [facility] February 06, 2024 8:53am February 06, 2024 8:54am [address] , INDUSTRIAL MAINTENANCE REPAIRER [facility] February 19, 2024 7:41am February 19, 2024 7:42am Zeferino Kumari MD [facility] Day [facility] Surgery February 23, 2024 4:47am February 23, 2024 2:13pm Zeferino Kumari MD Plan of Treatment Future Tests Future scheduled test information is unavailable Pending Tests Test Name Ordered Date Scheduled Date XR abdomen/kub 1V February 23, 2024 11:43am 2 We eks Future Visits Future appointment information is unavailable Referrals to Other Providers Reason for Referral Referral Start Date Provider Provider Contact Information Provider Address Zeferino Kumari MD Work Phone: [phone] [place] [address] Future Procedures Procedure Name Ordered Date Scheduled Date Outpatient Surgery Discharge February 23, 2024 1 1:43am February 23, 2024 12:00am Future Medications Future medication information is unavailable Patient Instructions Patient instructions are unavailable Goals Acute Goals Author Authored Date Pt will Experience Minimal A nxiety Patient will Demonstrate/Verbalize Minimal Anxiety Prior to Surgery 1. Russell Patient by Explaining Room & Equipment 2. Allow Patient to Verbalize and Answer Questions 3. Monitor Patient Comfort i.e. Provide Warm Blankets 4. Indicate Special Needs r/t Development Age 5. Provide Emotional Support and Reassuring Atmosphere 6. Describe Sequence of Events During Pre-Op Period 7. Confirm Written and Verbal Consent for Operative Procedure HITESH MELGAR R.N. [facility] February 23, 2024 10:17am Demonstrate/Verbalize Minima l Pain Pt will Demonstrate/Verbalize Minimal Pain to Surgical Intervention 1. Assess Location, Duration, and Intensity of Pain 2. Change Position as Allowed 3. Use Therapeutic Communication 4. Relay Complaints of Pain to Primary Nurse Adelita [facility] February 23, 2024 12:24pm Minimal Nausea Patient will Verbalize Minimal Nausea Prior to Discharge 1. Assess Prior History of Post-Op Nausea 2. Monitor Intake and Output 3. Administer Adequate IV Fluids 4. Limit PO Intake 5. Administer Antiemetics as Ordered 6. Apply Supplemental Oxygen 7. Minimize Movement of Patient [facility] February 23, 2024 1:44pm Phase 2 Knowledge Deficit Patient will Demonstrate Knowledge Related to Outpatient Surgery Teaching Topics and Avoid Potential Injury 1. Medication Effects and Unwanted Outcomes 2. Proper Positioning & Ambulation 3. Diet/Activity - Restrictions and Progression 4. Application and Use of Appliances 5. Wound Care - Signs of Infection 6. Follow Up Appointments & Available Resources after Discharge [facility] February 23, 2024 1:44pm Demonstrate/Verbalize Minima l Pain Pt will Demonstrate/Verbalize Minimal Pain to Surgical Intervention 1. Assess Location, Duration, and Intensity of Pain 2. Change Position as Allowed 3. Use Therapeutic Communication 4. Relay Complaints of Pain to Primary Nurse [facility] February 23, 2024 1:44pm Hospital Discharge Instructions Additional Instructions 1) Activity: No driving or important decisions [id number]. No lifting/straining >15lbs. [id number]. 2) Strain urine until one stone fragment retrieved. Bring that fragment to your follow-up visit. 3) Diet: resume normal pre-admission diet. 4) Follow-up: 2-3 weeks with KUB / call for appointment ([phone]) 5) Prescription for pain medications was sent to your pharmacy -> to be picked- up only if needed. Page 1 of 1 [facility] PHYSICIAN ORDERS PATIENT CARE AFTER LITHOTRIPSY HIGH FLUID VOLUME TO PREVENT KIDNEY STONES A high fluid volume will result in a high urine output, which will decrease your kidney???s abilityto form kidney stones. HOW MUCH FLUID You should be drinking more than your think is enough; two or three quarts a day is our recommendation. A gallon of fluid should be consumed if you have a rigorous exercise program or if you are exposed to extreme heat. WHAT TYPE OF FLUID Water is the best fluid, and you should try to drink as much as possible. Other allowed fluids are: one to two cups of coffee a day, diet white sodas (rukhsana darrel, 7-Up, Sprite, etc.), fruit juices (apple, orange, grapefruit, pineapple), flavored seltzer and sugar-free powder packaged liquids. WHAT TO AVOID Hot or iced tea, yael (limit to 8-12 ounces per day) AM I DRINKING ENOUGH Your urine should be as clear as water. For the first few months you may want to check your progress by measuring your urine for a 24-hour interval. Your volume should be over two quarts. OTHER RECOMMENDATIONS Most stones are believed to form at night. It is important for you to drink one to two 10 ounce glasses of fluid before you go to bed. It is important that you wake to urinate. Then drink one to two more glasses of fluid. HOW LONG WILL I NEED TO DO THIS For the rest of your life to prevent kidney stones. HELPFUL HINTS 1. Never pass a water fountain without taking a drink. 2. Purchase a two quart thermos bottle, fill with fluid daily: a. At work, do not leave until finished b. On the go, do not go home until finished c. At home, finish daily As you have previously been told, treatment with ESWL does not make your stone magically disappear. The purpose of ESWL is to pulverize stones so that the fragments can be passed through the urinary tract. You may or may not be passing stone fragments when you leave the hospital. If you are not, do not be alarmed as some patients do not begin passing fragments until several weeks or, occasionally, one to two months after treatment. A high intake of fluids, at least 8 glasses for several days, will help the fragments pass. If you have passed stone fragments in the hospital and have given them to your nurse, you need not save any more fragments. However, if you have not passed any fragments prior to leaving the hospital, please strain your urine with the strainer which your nurse will give to you. Please save some stone fragments and give them to your urologist so that he can have them analyzed. You may have red-tinged urine for up to 24 hours following ESWL. You may also notice slight bruising on the treated side. Most patients after treatment will be placed on an antibiotic for approximately one week. Also, all patients will be given a prescription for pain medication, although the passage of small fragments is usually painless. You should resume taking any medication you were taking before lithotripsy unless you have been told to discontinue them. You can resume normal activities after discharge from the hospital. Walking and mild exercise is beneficial; physical activity will help stone fragments pass. However, if you are taking prescribed pain medication, you should not drive, operate any machinery, or sign any legal documents. If you have red-tinged urine longer than 72 hours, have persistent nausea and vomiting, experience severe pain which is unrelieved by the pain medication which was prescribed for you, or if you have fever greater than 101 degrees, you should call your urologist. Even if you do not experience any problems, you should call him and schedule an appointment for approximately 2 weeks after treatment at which time an x-ray may be taken of your kidneys. If you have any problems, please call your urologist. If you cannot reach your doctor, please call the exchange at . YOU HAVE AN ORDER FOR A KUB XRAY TO BE COMPLETED AT [facility] IN YOUR ELECTRONIC MEDICAL RECORD. THIS MUST BE COMPLETED IMMEDIATELY PRIOR TO YOUR FOLLOW UP APPOINTMENT.?? History & Physical Note Author Zeferino Kumari [facility] February 23, 2024 10:57am Note Date/Time February 23, 2024 6: 29am [facility] [address] [place] [address] History & Physical Update Signed with Addenda Patient: Yuridia Pleitez MR#: [id number] : 1970 Acct:[id number] Age: 53 ADM Date: 02/23/24 Loc: ANHSURGERY Attending Dr: Zeferino Kumari M.D. cc: ~ ADDENDUM Procedure: Left ESWL, cystoscopy, left retrograde pyelogram, possible left ureteroscopy and left stent placement. Addendum Documented By: Zeferino Kumari MD 02/23/24 1057 Addendum Signed By: <Electronically signed by Zeferino Kumari MD>02/22 105 History and Physical Update Update Date/Time: 02/23/24 06:29 History and Physical has been reviewed, including an updated exam of the patient. There are NO changes in the patient's condition. Risks, benefits, and alternatives have been discussed and questions answered. Patient agrees to proceed with procedure. This report may have been done utilizing a voice recognition system. Attempts have been made to correct errors. However, there may be uncorrected grammatical,spelling, and recognition errors present. Report Initialized date/time: Zeferino Kumari MD 02/23/24628 Electronically signed by: Zeferino Kumari MD 02/23/24628 Progress Note Author Albert Gabbywestonedu [facility] February 23, 2024 10:10am Note Date/Time February 23, 2024 10 :10am [facility] [address] [place] [address] Anesthesiology Progress Note Signed Patient: Yuridia Pleitez MR#: [id number] : 1970 Acct:[id number] Age: 53 ADM Date: 02/23/24 Loc: ANHSURGERY Attending Dr: Zeferino Kumari M.D. cc: ~ Anes - Initial Pre Proc Eval Procedure: Operation Date: 02/23/24 11:30 Proposed Procedures p Left Extracorporeal Shock Wave Lithotripsy, - Zeferino Kumari MD s Cystoscopy, Left Ureteroscopy, Left Retrograde Pyelogram, Possible Left Stent Placement - Zeferino Kumari MD Date/Time: 02/23/24 10:09 Surgeon: Zeferino Kumari MD Pre Op Diagnosis: left renal stone Patient Data Age: 53 Gender: F Height: 1.6 m Weight: 124.5 kg Allergies Allergy/AdvReac Type Severity Reaction Status Date / Time Iodinated Contrast Media Allergy Severe Hives Verified 02/23/24 09:37 Home Medications Medication Instructions Recorded Confirmed Type cholecalciferol (vitamin D3) 50 50 mcg PO DAILY 02/15/24 02/23/24 History mcg (2,000 unit) capsule (Vitamin D3) fexofenadine 180 mg tablet 180 mg PO DAILY 02/15/24 02/23/24 History hydrochlorothiazide 25 mg tablet 25 mg PO HS 02/15/24 02/23/24 History inulin-sorbitol 2 gram chewable 3 tablet PO DAILY 02/15/24 02/23/24 History tablet lisinopril 40 mg tablet 40 mg PO HS 02/15/24 02/23/24 History kkksfgcw-iykq-zffc 8 mg-folic 400 1 tablet PO DAILY 02/15/24 02/23/24 History mcg-K 50 mcg-lutein 300 mcg tablet (Centrum Silver Women) tirzepatide (weight loss) 2.5 2.5 mg subcut WEEKLY 02/15/24 02/23/24 History mg/0.5 mL subcutaneous pen injector (Zepbound) Patient hx anesthesia problems: none Family hx anesthesia problems: none Results Review: All pre-operative results and documents have been reviewed as part of the pre-operative evaluation. PMFSH Family History Family History Other Carcinoma of colon Family history of malignant neoplasm of breast in first degree relative Hypertension Social History Social History Years smoked: 10 Smoking status: Former smoker Tobacco type: cigarettes Smoking end date: 02/14/19 Alcohol intake: current Drinks per week: 2 Living arrangements: with family Spiritual care concerns: No Anes - Eval Final PreProcedure Day of Procedure 02/23/24 10:09 Patient weight: morbidly obese Heart: regular rate and rhythm Lungs: clear to auscultation Airway: Mallampati scale class II Neurological: alert and oriented Last oral intake: >/= 8 hours ASA classification: III Emergent: no Anesthetic plan: proceed Anesthesia type and monitoring: general LMA and standard monitoring Results Review: All pre-operative results and documents have been reviewed as part of the pre-operative evaluation. HTN, preDM, ex smoker quit 2018. Informed Consent: The patient's anesthetic plan and its attendant risks and benefits were discussed with the patient/family/POA. Questions were solicited and answers provided to the satisfaction of the patient/family/POA. This report may have been done utilizing a voice recognition system. Attempts have been made to correct errors. However, there may be uncorrected grammatical,spelling, and recognition errors present. Report Initialized date/time: Albert Jones DO 02/23/24 / 1010 Electronically signed by: Albert Jones DO 02/23/24 1010
--- OUTSIDE RECORDS SUMMARY | 2024-06-03 20:28 | XMS_ITS | Encounter Summary ---
Author Organization [facility] Address [address] [place] [address]. [place] [address] [place] [address] Care Team Providers Care Credit Collections Rep Name Role Phone Nisha Stokes GISELA Primary Care Provider [phone] Reason for Visit * Reason Comments Lab (SCAN) ECG (SCAN) Encounter Details Date Type Department Care Team (Late Contact Info) Description 02/19/2024 Scan HEALTH INFO SRVCS Scanned, Doc Med Group Lab (SCAN); ECG (SCAN) Social History Tobacco Use Types Packs/Day [...] Sex Assigned at Female 05/07/2024 12:02 PM FROZEN PIE MAKER Legal Sex Female 8:55 PM CDT Gender Identity Female 05/07/2024 12:02 PM FROZEN PIE MAKER Sexual Orientation Not on file documented as of this encounter Plan of Treatment Upcoming Encounters Date Type Department Care Team (Late Contact Info) Description 06/12/2024 8:20 AM FROZEN PIE MAKER Allied Health/Nurse Visit [facility] Family & Internal Medicine [address] [phone] 11/11/2024 9:00 AM CDT Allied Health/Nurse Visit [facility] Family & Internal Medicine - [place] [address] [place] [address] Nisha Stokes APNP [address] [place] [address] documented as of this encounter Procedures Procedure Name Priority Date/Time Associated Diagnosis Comments ECG GENERIC (SCAN ORDER) 02/19/2024 OUTSIDE PT/INR (SCAN ORDER) 02/19/2024 OUTSIDE LAB (SCAN ORDER) 02/19/2024 OUTSIDE LAB (SCAN ORDER) 02/19/2024 documented in this encounter Results * OUTSIDE PT/INR (SCAN ORDER) (02/19/2024) 02/19/2024 [facility] Scanned SCANNING Final Resu lt * OUTSIDE LAB (SCAN ORDER) (02/19/2024) 02/19/2024 [facility] Scanned SCANNING Final Resu lt * OUTSIDE LAB (SCAN ORDER) (02/19/2024) 02/19/2024 Result [facility] Scanned SCANNING Final Resu lt * ECG GENERIC (SCAN ORDER) (02/19/2024) 02/19/2024 Result [facility] Scanned SCANNING Final Resu lt documented in this encounter Visit Diagnoses Not on filedocumented in this encounter Additional Health Concerns Assessment Noted Time PHQ-9 Depression Total Score: 0 11/18/19 22 9:27 AM CDT documented as of this encounter Care Teams Credit Collections Rep Relationship Specialty Start Date End Date Nisha Stokes APNP [address] [place] [address] PCP - General NURSE PRACTITIONER 09/20/18 documented as of this encounter
--- OUTSIDE RECORDS SUMMARY | 2024-06-03 20:28 | XMS_ITS | Encounter Summary ---
Author Organization [facility] Address Formerly [facility] [place] [address] [place] [address] Care Team Providers Care Grades 1 Thru 6 Visiting Teacher Name Role Phone Divya, Nisha HIGGINS Primary Care Provider Reason for Visit * Reason Comments UTI Dysuria, decreased o utput. The patient is currently being treated for a kidney stone. The patient has a procedure scheduled for 05/2023. The patient states she had a teledoc visit and was prescribed an abx for 5 days. Encounter Details Date Type Department Care Team (Late st Contact Info) Description 05/07/2024 12:00 PM FIELD ASSISTANT Office Visit [facility] Group Family & Internal Medicine - [address] [phone] Porter Abdalla, [address] [place] [address] [phone] UTI (Dysuria, decreased output. The patient is currently being treated for a kidney stone. The patient has a procedure scheduled for 05/2023. The patient states she had a teledoc visit and was prescribed an abx for 5 days. ) Social History Tobacco Use Types Packs/Day Years [...] Sex Assigned at Female 05/07/2024 12:02 PM FIELD ASSISTANT Legal Sex Female 8:55 PM CDT Gender Identity Female 05/07/2024 12:02 PM FIELD ASSISTANT Sexual Orientation Not on file documented as of this encounter Last Filed Vital Signs Vital Sign Reading Time Taken Comments Blood Pressure 114/70 05/07/2024 12:04 PM FIELD ASSISTANT Pulse 100 05/07/2024 12:04 PM FIELD ASSISTANT Temperature 36.8 ??C (98.2 ??F) 05/07/2024 1 2:04 PM FIELD ASSISTANT Respiratory Rate 16 05/07/2024 12:0 4 PM FIELD ASSISTANT Oxygen Saturation 98% 05/07/2024 12: 04 PM FIELD ASSISTANT Inhaled Oxygen Concentration - - Weight 122.1 kg (269 lb 1.6 oz) 024 12:04 PM FIELD ASSISTANT Height 160 cm (5' 3 ) 05/07/2024 12:04 PM FIELD ASSISTANT Body Mass Index 47.67 05/07/2024 12:04 PM FIELD ASSISTANT documented in this encounter Progress Notes * Porter Abdalla, - 05/07/2024 12:00 PM CST Images from the original note were not included. GENERAL OFFICE VISIT Encounter Date: 05/07/2024 Chief Complaint: 53-year-old female presents for UTI (Dysuria, decreased output. The patient is currently being treated for a kidney stone. The patient has a procedure scheduled for 05/2023. The patient states she had a teledoc visit and was prescribed an abx for 5 days. ) HPI: Patient presents for urinary symptoms. Symptoms began 3 weeks ago. Symptoms include burning with urination, dull pain, and potential bladder spasms, and varying volumes. Pt has not taken Azo today. Pt has already been treated with Macrobid. Pt has been treated for kidney stones previously. Review of Systems Constitutional: Negative for fever. Gastrointestinal: Negative for vomiting. Genitourinary: See HPI Patient Active Problem List Diagnosis Elevated liver enzymes Hypertension Vitamin D deficiency Seasonal allergies Past Medical History: Diagnosis Date BMI 50.0-59.9, adult (CMS/HCC [facility]) 10/13/2017 Elevated liver enzymes 09/29/2017 Hypertension Kidney stone Seasonal allergies 09/18/2020 Vitamin D deficiency 10/13/2017 Past Surgical History: Procedure Laterality Date CHOLECYSTECTOMY HERNIA REPAIR LITHOTRIPSY Family History Problem Relation Name Age of Onset Breast Cancer Mother Radha Umana Cancer Mother Radha Umana Breast Hypertension Mother Radha Umana Colon Cancer Father Shaun Umana Stroke Father Shaun Umana Heart Disease Father Shaun Umana Cancer Father Shaun Umana Colon Hypertension Father Shaun Umana Heart Disease Other Stroke Other Hypertension Other Social History Tobacco Use Smoking status: Former Current packs/day: 0.00 Average packs/day: 0.3 packs/day for 5.0 years (1.3 ttl pk-yrs) Types: Cigarettes Start date: 2015 Quit date: 2020 Years since quittin.9 Passive exposure: Past Smokeless tobacco: Never Vaping Use Vaping status: Never Used Substance Use Topics Alcohol use: Yes Alcohol/week: 6.7 standard drinks of alcohol Types: 3 Glasses of wine, 1 Shots of liquor per week Comment: socially Drug use: No Immunization History Administered Date(s) Administered FLUCELVAX (ccIIV3, TRIVALENT, 0.5mL) 01/22/2024 Fluzone 6 Months+ Quad (0.5 mL Prefilled Syringe) 02/12/2020 Hepatitis B(Engerix B Adult) 05/07/2024 Influenza Adult (Generic) 02/13/2020, 02/01/2021, 02/06/2022 MODERNA COVID-19 (12+) MRNA, LNP-S, PF, 100 MCG/ 0.5 ML DOSE 10/09/2020, 11/09/2020 MODERNA COVID-19 (CNC GRINDER BOOSTER), MRNA, LNP-S, PF, 50 MCG/ 0.25 ML DOSE 06/12/2021, 10/16/2021 PFIZER COVID-19 (12+) MRNA, LNP-S, PF, TARAS-SUCROSE, 30 MCG/0.3 ML (COMIRNATY) 01/22/2024 Pneumococcal (Pneumovax 23) 11/17/2021 Shingrix 06/12/2021, 10/16/2021 Tdap (Generic) 09/04/2017 Current Outpatient Medications Medication Sig Dispense Refill cholecalciferol 125 MCG (5000 UT) Tab Take 1 tablet (5,000 Units total) by mouth daily. fexofenadine 180 MG tablet Take 1 tablet (180 mg total) by mouth daily. hydroCHLOROthiazide (HYDRODIURIL) 25 MG tablet Take 1 tablet (25 mg total) by mouth every morning. 90 tablet 3 lisinopril (PRINIVIL) 40 MG tablet Take 1 tablet (40 mg total) by mouth daily. 90 tablet 3 Misc Natural Products (FIBER 7 OR) Multiple Vitamin (MULTI-VITAMIN) tablet Take 1 tablet by mouth daily. sulfamethoxazole-trimethoprim (BACTRIM DS) 800-160 MG tablet Take 1 tablet by mouth 2 (two) times daily for 10 days. 20 tablet 0 No current facility-administered medications for this visit. Review of patient's allergies indicates: Allergen Reactions Iodine Unknown and Hives Seasonal Unknown Objective: Filed Vitals: 05/07/24 1204 BP: 114/70 Pulse: 100 Resp: 16 Temp: 98.2 ??F (36.8 ??C) TempSrc: Skin SpO2: 98% Weight: 122.1 kg (269 lb 1.6 oz) Height: 1.6 m (5' 3 ) Physical Exam Vitals and nursing note reviewed. HENT: Head: Normocephalic and atraumatic. Right Ear: External ear normal. Left Ear: External ear normal. Eyes: Conjunctiva/sclera: Conjunctivae normal. Cardiovascular: Rate and Rhythm: Normal rate and regular rhythm. Heart sounds: Normal heart sounds. No murmur heard. No friction rub. No gallop. Pulmonary: Effort: Pulmonary effort is normal. No respiratory distress. Breath sounds: Normal breath sounds. No wheezing or rales. Abdominal: Palpations: Abdomen is soft. Tenderness: There is no abdominal tenderness. There is no right CVA tenderness or left CVA tenderness. Neurological: Mental Status: She is alert. Office Visit on 05/07/2024 Component Date Value Ref Range Status COLOR (U) 05/07/2024 DARK YELLOW YELLOW Final TRANSPARENCY 05/07/2024 TURBID (A) CLEAR Final GLUCOSE (U) 05/07/2024 NEGATIVE NEGATIVE MG/DL Final BILIRUBIN (U) 05/07/2024 1+ (SMALL) (A) NEGATIVE Final KETONES MG/DL (U) 05/07/2024 15 (SMALL 1+) (A) NEGATIVE MG/DL Final SPECIFIC GRAVITY (U) 05/07/2024 1.025 1.001 - 1.035 Final BLOOD (U) 05/07/2024 MODERATE (Non Hemolyzed, Intact, About 50 rbc/uL) (A) NEGATIVE Final U PH 05/07/2024 5.5 5.0 - 9.0 Final PROTEIN (U) 05/07/2024 2+ (100) (A) NEGATIVE mg/dL Final UROBILINOGEN 05/07/2024 0.2 0.2 - 1.0 EU/dL = mg/dL Final NITRITES 05/07/2024 NEGATIVE NEGATIVE MG/DL Final LEUKOCYTES (U) 05/07/2024 1+ (SMALL) (A) NEGATIVE Final Assessment & Plan: Yuridia was seen today for uti. Diagnoses and all orders for this visit: UTI symptoms - URINALYSIS AUTO DIP - URINE BACTERIA CULTURE; Future - URINE BACTERIA CULTURE - sulfamethoxazole-trimethoprim (BACTRIM DS) 800-160 MG tablet; Take 1 tablet by mouth 2 (two) times daily for 10 days. Need for prophylactic vaccination against hepatitis B virus - [82362] Engerix Adult - 3 dose (Hep B) Benign essential microscopic hematuria - URINE BACTERIA CULTURE; Future - URINE BACTERIA CULTURE Discussion/Summary: Will treat as per above; discussed side effect profile. Discussed conservative and expected management. Will order urine culture today, but may not be able to process given small amount of urine. Call back if worsening or not improving as expected. Will also give Hep B vaccine today. F/u with regular appointments otherwise. Pt v/u. Porter Abdalla DO D ASSISTANT documented in this encounter Plan of Treatment Upcoming Encounters Date Type Department Care Team (Late st Contact Info) Description 06/12/2024 8:20 AM FIELD ASSISTANT Allied Health/Nurse Visit [facility] Family & Internal Medicine [address] [address] 11/11/2024 9:00 AM CDT Allied Health/Nurse Visit [facility] Family & Internal Medicine [address] [phone] Nisha Stokes ToñoGISELA [address] [place] [address] documented as of this encounter Procedures Procedure Name Priority Date/Time Associated Diagnosis Comments URINE BACTERIA CULTURE Routine 05/07/2024 12:20 PM FIELD ASSISTANT UTI symptoms Benign essential microscopic hematuria URINALYSIS AUTO DIP Routine 05/07/2024 UTI symptoms documented in this encounter Results * URINE BACTERIA CULTURE (05/07/2024 12:20 PM FIELD ASSISTANT) SPEC DESCRIPTION URINE CLEAN CATCH 05/07/2024 12:20 PM FIELD ASSISTANT [facility] SPECIAL REQUESTS NO SPECIAL REQUEST 05/07/2024 12:20 PM FIELD ASSISTANT [facility] CULTURE RESULT EQUAL OR >100,000 CFU/mL ENTEROCOCCUS FAECALIS 05/10/2024 9:55 AM FIELD ASSISTANT [facility] URINE SPECIMEN OBTAINED BY CLEAN CATCH PROCEDURE / Unknown 05/07/2024 12:20 PM FIELD ASSISTANT 05/07/2024 6:25 PM FIELD ASSISTANT Narrative Organism Antibiotic Method Susceptibility Enterococcus faecalis AMPICILLIN TARIK (VITEK) Sensitive Enterococcus faecalis NITROFURANTOIN TARIK (VITEK) Sensitive Enterococcus faecalis GENT. SYNERGY SCREEN TARIK (VITEK) Sensitive Enterococcus faecalis LINEZOLID TARIK (VITEK) Sensitive Enterococcus faecalis PENICILLIN G TARIK (VITEK) Sensitive Enterococcus faecalis STR. SYNERGY SCR TARIK (VITEK) Sensitive Enterococcus faecalis TETRACYCLINE TARIK (VITEK) Resistant Enterococcus faecalis TIGECYCLINE TARIK (VITEK) Sensitive Enterococcus faecalis VANCOMYCIN TARIK (VITEK) Sensitive us Porter Abdalla DO MICROBIOLOGY - GENERAL O RDERABLES Final Result [facility] [address] [place] [address], [phone] * (ABNORMAL) URINALYSIS AUTO DIP (05/07/2024) COLOR (U) DARK YELLOW YELLOW [facility] TRANSPARENCY TURBID(A) CLEAR [facility] GLUCOSE (U) NEGATIVE NEGATIVE MG/DL [facility] BILIRUBIN (U) 1+ (SMALL)(A) NEGATIVE [facility] KETONES MG/DL (U) 15 (SMALL 1+)(A) NEGATIVE MG/DL [facility] SPECIFIC GRAVITY (U) 1.025 1.001 - 1.035 [facility] BLOOD (U) MODERATE (Non Hemolyzed, Intact, About 50 rbc/uL)(A) NEGATIVE [facility] U PH 5.5 5.0 - 9.0 [facility] PROTEIN (U) 2+ (100)(A) NEGATIVE mg/dL [facility] UROBILINOGEN 0.2 0.2 - 1.0 EU/dL = mg/dL [facility] NITRITES NEGATIVE NEGATIVE MG/DL [facility] LEUKOCYTES (U) 1+ (SMALL)(A) NEGATIVE [facility] URINE SPECIMEN OBTAINED BY CLEAN CATCH PROCEDURE / Unknown 05/07/2024 us Porter Abdalla DO URINE ORDERABLES Final R esult Performing Organization Address City/State/[facility] [place] [address], documented in this encounter Visit Diagnoses Diagnosis UTI symptoms- Primary Need for prophylactic vaccination against hepatitis B virus Need for prophylactic vaccination and inoculation against viral hepatitis Benign essential microscopic hematuria Microscopic hematuria documented in this encounter Additional Health Concerns Assessment Noted Time PHQ-9 Depression Total Score: 0 11/18/19 22 9:27 AM CDT documented as of this encounter Care Teams Grades 1 Thru 6 Visiting Teacher Relationship Specialty Start Date End Date Nisha Stokes APNP [address] [place] [address] PCP - General NURSE PRACTITIONER 09/20/18 documented as of this encounter
--- OUTSIDE RECORDS SUMMARY | 2024-06-03 20:28 | XMS_ITS | Encounter Summary ---
Author Organization [facility] Address [address] [place] [address]. [place] [address] [place] [address] Care Team Providers Care Credit Risk Manager Name Role Phone Nisha Stokes GISELA Primary Care Provider [phone] Reason for Visit * Reason Comments Image (SCAN) Encounter Details Date Type Department Care Team (Latest Contact Info) Description 02/06/2024 Scan HEALTH INFO SRVCS Scanned, Doc Med [...] Sex Assigned at Female 05/07/2024 12:02 PM WHEEL ALIGNER Legal Sex Female 8:55 PM CDT Gender Identity Female 05/07/2024 12:02 PM WHEEL ALIGNER Sexual Orientation Not on file documented as of this encounter Plan of Treatment Upcoming Encounters Date Type Department Care Team (Late st Contact Info) Description 06/12/2024 8:20 AM WHEEL ALIGNER Allied Health/Nurse Visit [facility] Medical Group Family & Internal Medicine [address] [phone] 11/11/2024 9:00 AM CDT Allied Health/Nurse Visit [facility] Family & Internal Medicine - [place] [address] [place] [address] Nisha Stokes APNP [facility] [place] [address] documented as of this encounter Procedures Procedure Name Priority Date/Time Associated Diagnosis Comments IMAGE GENERIC 02/06/2024 IMAGE GENERIC 02/06/2024 documented in this encounter Results * IMAGE GENERIC (02/06/2024) Anatomical Region Laterality Modality Other 02/06/2024 us [facility] Scanned SCANNING Final Resu lt * IMAGE GENERIC (02/06/2024) Anatomical Region Laterality Modality Other 02/06/2024 [facility] Scanned SCANNING Final Resu lt documented in this encounter Visit Diagnoses Not on filedocumented in this encounter Additional Health Concerns Assessment Noted Time PHQ-9 Depression Total Score: 0 11/18/19 22 9:27 AM CDT documented as of this encounter Care Teams Credit Risk Manager Relationship Specialty Start Date End Date Nisha Stokes APNP [address] [place] [address] PCP - General NURSE PRACTITIONER 09/20/18 documented as of this encounter
--- OUTSIDE RECORDS SUMMARY | 2024-06-03 20:28 | XMS_ITS | Clinical Summary ---
Author Organization [facility] Address [facility] [place] [address] [place] [address] Care Team Providers Care Shoddy Mill Worker Name Role Phone Nisha Stokes Primary Care Provider Allergies Active Allergy Reactions Criticality Noted Date Comments Iodine Unknown,Hives Medium 09/04/2017 Seasonal Unknown 09/26/2018 Medications cholecalciferol 125 MCG (5000 UT) Tab Take 1 tablet (5,000 Units total) by mouth daily. Active fexofenadine 180 MG tablet Take 1 tablet (180 mg total) by mouth daily. Active Multiple Vitamin (MULTI-VITAMIN) tablet Take 1 tablet by mouth daily. Active lisinopril (PRINIVIL) 40 MG tabletIndication s:Primary hypertension Take 1 tablet (40 mg total) by mouth daily. 90 tablet 3 12/07/19 24 Active hydroCHLOROthiaz tamia (HYDRODIURIL) 25 MG tabletIndication s:Primary hypertension Take 1 tablet (25 mg total) by mouth every morning. 90 tablet 3 12/07/19 24 Active Misc Natural Products (FIBER 7 OR) Active cefdinir (OMNICEF) 300 MG Cap capsuleIndicatio ns:UTI (urinary tract infection) Take 1 capsule (300 mg total) by mouth 2 (two) times daily. 20 capsule 05/16/20 24 Active tirzepatide (ZEPBOUND) 5 MG/0.5ML injectionIndicat ions:Weight Loss Inject 5 mg into the skin once a week. Indications : Weight Loss 2 mL 5 01/25/20 24 024 Discontinued sulfamethoxazole -trimethoprim (BACTRIM DS) 800-160 MG tabletIndication s:UTI symptoms Take 1 tablet by mouth 2 (two) times daily for 10 days. 20 tablet 05/07/20 24 024 Active Problems Problem Noted Date Diagnosed Date Seasonal allergies 09/18/2020 Vitamin D deficiency 10/13/2017 Elevated liver enzymes 09/29/2017 Hypertension 09/04/2017 Resolved Problems Problem Noted Date Diagnosed Date Resolved Date BMI 50.0-59.9, adult ([facility]) 10/13/2017 01/25/2024 Encounters Date Type Department Care Team Description 05/16/2024 Telephone [facility] Family Internal [address] [phone] Nisha Stokes APNP Lab Results 05/07/2024 12:00 PM FRONT ELEVATOR OPERATOR Office Visit [address] [phone] Porter bAdalla, DO UTI (Dysuria, decreased output. The patient is currently being treated for a kidney stone. The patient has a procedure scheduled for 05/2023. The patient states she had a teledoc visit and was prescribed an abx for 5 days. ) 05/07/2024 - 05/07/2024 11:59 PM FRONT ELEVATOR OPERATOR Hospital Encounter [facility] [address] [place] [address] Porter Abdalla, DO Discharge Disposition: Home or Self Care (Routine Discharge) 05/07/2024 Travel 05/06/2024 [facility] Message Enc [facility] Internal [address] [phone] Nisha Stokes APNP Possible uti 04/02/2024 Scan [facility] INFO SRVCS Scanned, Doc Med Group Image (SCAN) 03/12/2024 Scan [facility] INFO SRVCS Scanned, Doc Med Group Image (SCAN) 03/08/2024 2:20 PM CDT Office Visit [facility] Internal [address] [address] Nisha tSokes APNP Hypertension; Weight Check; Ekg 03/08/2024 Travel from Last 3 Months Immunizations Name Administration Dates Next Due FLUCELVAX (ccIIV3, TRIVALENT, 0.5mL) 01/22/2024 Fluzone 6 Months+ Quad (0.5 mL Prefilled Syringe) 02/12/2020 Hepatitis B(Engerix B Adult) 05/07/2024 Influenza Adult (Generic) 02/06/2022,02/01/2021, 02/13/2020 MODERNA COVID-19 (12+) MRNA, LNP-S, PF, 100 MCG/ 0.5 ML DOSE 11/09/2020,10/09/2020 MODERNA COVID-19 (DIRECTOR OF CASEWORK SERVICES RA CHANTEL), MRNA, LNP-S, PF, 50 MCG/ 0.25 ML DOSE 10/16/2021,06/12/2021 Pneumococcal (Pneumovax 23) 11/17/2021 Shingrix 10/16/2021,06/12/2021 Tdap (Generic) 09/04/2017 Family History Medical History Relation Comments Cancer Father Colon Colon Cancer Father Heart Disease Father Hypertension Father Stroke Father Breast Cancer Mother Cancer Mother Breast Hypertension Mother Heart Disease Other Hypertension Other Stroke Other Relation Status Comments Father Mother Other Social History Tobacco Use Types Packs/Day Years Used Date Smoking Tobacco: Former Cigarettes 0.3 5 2 - 2020 Passive Smoke Exposure: Past Smokeless [...] Sex Assigned at Female 05/07/2024 12:02 PM FRONT ELEVATOR OPERATOR Legal Sex Female 8:55 PM CDT Gender Identity Female 05/07/2024 12:02 PM FRONT ELEVATOR OPERATOR Sexual Orientation Not on file Last Filed Vital Signs Vital Sign Reading Time Taken Comments Blood Pressure 114/70 05/07/2024 12:04 PM FRONT ELEVATOR OPERATOR Pulse 100 05/07/2024 12:04 PM FRONT ELEVATOR OPERATOR Temperature 36.8 ??C (98.2 ??F) 05/07/2024 1 2:04 PM FRONT ELEVATOR OPERATOR Respiratory Rate 16 05/07/2024 12:0 4 PM FRONT ELEVATOR OPERATOR Oxygen Saturation 98% 05/07/2024 12: 04 PM FRONT ELEVATOR OPERATOR Inhaled Oxygen Concentration - - Weight 122.1 kg (269 lb 1.6 oz) 024 12:04 PM FRONT ELEVATOR OPERATOR Height 160 cm (5' 3 ) 05/07/2024 12:04 PM FRONT ELEVATOR OPERATOR Body Mass Index 47.67 05/07/2024 12:04 PM FRONT ELEVATOR OPERATOR Plan of Treatment Upcoming Encounters Date Type Department Care Team (Late st Contact Info) Description 06/12/2024 8:20 AM FRONT ELEVATOR OPERATOR Allied Health/Nurse Visit [facility] Family & Internal [address] [phone] 11/11/2024 9:00 AM CDT Allied Health/Nurse Visit [facility] Internal [address] [phone] Nisha Stokes, GISELA [address] [place] [id number] Health Maintenance Due Date Last Done Comments Cervical Cancer Screening Pap with HPV Testing (Age 30 to 64) Every 5 Years 09/14/1999 Hepatitis B Vaccines (2 of 3 - 19+ 3-dose series) 06/04/2024 05/07/2024 Annual Physical 12/06/2024 12/07/2023, 10/21, 09/18/2020, Additional history exists Mammogram Screening 12/06/2024 02/17/2020 Postpone d from 02/16/2022 (Going to Outside Clinic) Cervical Cancer Screening Pap Smear (Age 30 to 64) Every 3 Years 09/05/2026 09/06/2023, 12/03/2021 Cervical Cancer Screening with HPV 09/05/2026 DTaP, Tdap and Td Vaccines (2 - Td or Tdap) 09/05/2027 09/04/2017 Colorectal Cancer Screening Colonoscopy (10 Years) 10/18/2027 10/17/2017 Hepatitis C Completed 09/26/2017 Zoster Vaccines Completed 10/16/2021, 06/12/2021 Pneumococcal Vaccine: Pediatrics (0 to 5 Years) and At-Risk Patients (6 to 64 Years) Aged Out 11/17/2021 No longer eligible based on patient's age to complete this topic COVID-19 Vaccine Completed 01/22/2024, , 06/12/2021, Additional history exists Influenza Adult Completed 01/22/2024, 01/20, 02/01/2021, Additional history exists Meningococcal Vaccine Aged Out No liana taty eligible based on patient's age to complete this topic RSV Immunizations Under 20 Months Aged Out No longer eligible based on patient's age to complete this topic Procedures Procedure Name Priority Date/Time Associated Diagnosis Comments URINE BACTERIA CULTURE Routine 05/07/2024 12:20 PM FRONT ELEVATOR OPERATOR UTI symptoms Benign essential microscopic hematuria URINALYSIS AUTO DIP Routine 05/07/2024 UTI symptoms IMAGE GENERIC 04/02/2024 IMAGE GENERIC 03/12/2024 MAMMOGRAM GENERIC (SCAN ORDER) 02/17/2020 COLONOSCOPY GENERIC (SCAN ORDER) 10/17/2017 HEPATITIS C ANTIBODY Routine 09/26/2017 8:32 AM CDT from Last 3 Months or Most Recently Relevant to Health Maintenance Results * URINE BACTERIA CULTURE (05/07/2024 12:20 PM FRONT ELEVATOR OPERATOR) SPEC DESCRIPTION URINE CLEAN CATCH 05/07/2024 12:20 PM FRONT ELEVATOR OPERATOR [facility] SPECIAL REQUESTS NO SPECIAL REQUEST 05/07/2024 12:20 PM FRONT ELEVATOR OPERATOR [facility] CULTURE RESULT EQUAL OR >100,000 CFU/mL ENTEROCOCCUS FAECALIS 05/10/2024 9:55 AM FRONT ELEVATOR OPERATOR [facility] URINE SPECIMEN OBTAINED BY CLEAN CATCH PROCEDURE / Unknown 05/07/2024 12:20 PM FRONT ELEVATOR OPERATOR 05/07/2024 6:25 PM FRONT ELEVATOR OPERATOR Narrative Organism Antibiotic Method Susceptibility Enterococcus faecalis [...] Sensitive Enterococcus faecalis VANCOMYCIN TARIK (VITEK) Sensitive Porter Abdalla DO MICROBIOLOGY - GENERAL O RDERABLES Final Result Performing Organization Address [facility] Co de Phone Number [facility] [address] [place] [address], [place] [phone] * (ABNORMAL) URINALYSIS AUTO DIP (05/07/2024) COLOR (U) DARK YELLOW YELLOW [facility] TRANSPARENCY TURBID(A) CLEAR [facility] GLUCOSE (U) NEGATIVE NEGATIVE MG/DL [facility] BILIRUBIN (U) 1+ (SMALL)(A) NEGATIVE [facility] KETONES MG/DL (U) 15 (SMALL 1+)(A) NEGATIVE MG/DL [facility] SPECIFIC GRAVITY (U) 1.025 1.001 - 1.035 [facility] BLOOD (U) MODERATE (Non Hemolyzed, Intact, About 50 rbc/uL)(A) NEGATIVE [facility] U PH 5.5 5.0 - 9.0 [facility] PROTEIN (U) 2+ (100)(A) NEGATIVE mg/dL [facility] UROBILINOGEN 0.2 0.2 - 1.0 EU/dL = mg/dL [facility] NITRITES NEGATIVE NEGATIVE MG/DL [facility] LEUKOCYTES (U) 1+ (SMALL)(A) NEGATIVE [facility] URINE SPECIMEN OBTAINED BY CLEAN CATCH PROCEDURE / Unknown 05/07/2024 Porter Abdalla DO URINE ORDERABLES Final R esult Performing Organization Address [facility]/State/ZIP Co de Phone Number [facility] [place] [id number] [place] [address], [place] * IMAGE GENERIC (04/02/2024) Only the most recent of2 resultswithin the time period is included. Anatomical Region Laterality Modality Other 04/02/2024 us Doc [facility] Scanned SCANNING Final Resu lt * MAMMOGRAM GENERIC (02/17/2020) Anatomical Region Laterality Modality Other 02/17/2020 Narrative 02/17/2020 Ordered by an unspecified provider. us Documents Scanned SCANNING Final Result * COLONOSCOPY GENERIC (10/17/2017) 10/17/2017 Narrative 10/17/2017 Ordered by an unspecified provider. us Documents Scanned SCANNING Final Result * HEPATITIS C ANTIBODY (09/26/2017 8:32 AM CDT) HEPATITIS C AB <0.1 0.0 - 0.9 s/co ratio [facility] TO EPIC CONVERSION Comment: Result Comment: ?Negative: ? < 0.8 ?Indeterminate: 0.8 - 0.9 ? Positive: ? > 0.9 ? . ?The CDC recommends that a positive HCV antibody result ?be followed up with a HCV Nucleic Acid Amplification ?test ([id number]). 09/26/2017 8:32 AM CDT 09/26/2017 8:32 AM CDT Narrative [facility] TO EPIC CONVERSION - 10/04/2017 1:14 PM CDT [id number] 8:49PM by Nisha Stokes: ??Will discuss labs at upcoming appt on 10/13/2017 Result Communication: No patient communication needed at this time us Nisha [facility] Final Resul t [facility] TO EPIC CONVERSION from Last 3 Months or Most Recently Relevant to Health Maintenance Insurance [facility] Care Teams Shoddy Mill Worker Relationship Specialty Start Date End Date Nisha Stokes APNP [address] [place] [id number] PCP - General NURSE PRACTITIONER 09/20/18
--- OUTSIDE RECORDS SUMMARY | 2024-06-03 20:28 | XMS_ITS | Encounter Summary ---
Author Organization [facility] Address [address] [place] [address]. [place], [place] [address] [place] [address] Care Team Providers Care Wire Inserter Name Role Phone Nisha Stokes GISELA Primary Care Provider [phone] Encounter Details Date Type Department Care Team (Latest Contact Info) Description 02/22/2024 Scan HEALTH INFO SRVCS Scanned, Doc Med Group Social History Tobacco Use Types Packs/Day Years [...] Sex Assigned at Female 05/07/2024 12:02 PM METAL GAUGE MAKER Legal Sex Female 8:55 PM CDT Gender Identity Female 05/07/2024 12:02 PM METAL GAUGE MAKER Sexual Orientation Not on file documented as of this encounter Plan of Treatment Upcoming Encounters Date Type Department Care Team (Late st Contact Info) Description 06/12/2024 8:20 AM METAL GAUGE MAKER Allied Health/Nurse Visit [facility] Medical Group Family & Internal Medicine [address] [phone] 11/11/2024 9:00 AM CDT Allied Health/Nurse Visit [facility] Family & Internal Medicine - [place] [address] [place] [address] Nisha Stokes APNP [facility] [place] [address] documented as of this encounter Visit Diagnoses Not on filedocumented in this encounter Additional Health Concerns Assessment Noted Time PHQ-9 Depression Total Score: 0 11/18/19 22 9:27 AM CDT documented as of this encounter Care Teams Wire Inserter Relationship Specialty Start Date End Date Nisha Stokes APNP [address] [place] [phone] PCP - General NURSE PRACTITIONER 09/20/18 documented as of this encounter
--- OUTSIDE RECORDS SUMMARY | 2024-06-03 20:28 | XMS_ITS | Encounter Summary ---
Author Organization [facility] Address [address] [place] [address]. [place] [address] [place] [address] Care Team Providers Care Director Of Sleep Name Role Phone Nisha Stokes GISELA Primary Care Provider [phone] Reason for Visit * Reason Comments Image (SCAN) Procedure (SCAN) Lab (SCAN) Encounter Details Date Type Department Care Team ([facility] Contact Info) Description 02/23/2024 Scan HEALTH INFO SRVCS Scanned, Doc Med Group Image (SCAN); Procedure (SCAN); Lab (SCAN) Social History Tobacco Use Types Packs/Day [...] Sex Assigned at Female 05/07/2024 12:02 PM ART MANAGER Legal Sex Female 8:55 PM CDT Gender Identity Female 05/07/2024 12:02 PM ART MANAGER Sexual Orientation Not on file documented as of this encounter Plan of Treatment Upcoming Encounters Date Type Department Care Team ([facility] Contact Info) Description 06/12/2024 8:20 AM ART MANAGER Allied Health/Nurse Visit [facility] Medical Group Family & Internal Medicine [address] [phone] 11/11/2024 9:00 AM CDT Allied Health/Nurse Visit [facility] Medical Group Family & Internal Medicine - [place] [address] [place] [address] Nisha Stokes APNP [address] [place] [address] documented as of this encounter Procedures Procedure Name Priority Date/Time Associated Diagnosis Comments OUTSIDE LAB (SCAN ORDER) 02/23/2024 IMAGE GENERIC 02/23/2024 PROCEDURE GENERIC (SCAN ORDER) 02/23/2024 documented in this encounter Results * PROCEDURE GENERIC (SCAN ORDER) (02/23/2024) 02/23/2024 [facility] Scanned SCANNING Final Resu lt * OUTSIDE LAB (SCAN ORDER) (02/23/2024) 02/23/2024 [facility] Scanned SCANNING Final Resu lt * IMAGE GENERIC (02/23/2024) Anatomical Region Laterality Modality Other 02/23/2024 [facility] Scanned SCANNING Final Resu lt documented in this encounter Visit Diagnoses Not on filedocumented in this encounter Additional Health Concerns Assessment Noted Time PHQ-9 Depression Total Score: 0 11/18/19 22 9:27 AM CDT documented as of this encounter Care Teams Director Of Sleep Relationship Specialty Start Date End Date Nisha Stokes APNP [address] [place] [id number] PCP - General NURSE PRACTITIONER 09/20/18 documented as of this encounter
--- OUTSIDE RECORDS SUMMARY | 2024-06-03 20:29 | XMS_ITS | Encounter Summary ---
Author Organization [facility] Address Formerly [facility] [facility] [place] [address] [place] [address] Care Team Providers Care Red Hat Engineer Name Role Phone Nisha Stokes Primary Care Provider [phone] Reason for Referral * Consultation (Routine) - Authorized Specialty Diagnoses / Procedures Referred By Contjudit t Referred To Contact GASTROENTEROLOGY Diagnoses Colon cancer screening Nisha Stokes APNP [address] [place] [address] Phone: tel: fax: [facility] - Gastroenterology [address] [facility] [address] [facility] [address] [place] [address] Phone: tel: fax: Referral ID Status Reason Start Date Expiration Date V isits Requested Visits Authorized [id number] Authorized 12/07/2023 01/06/2025 99 99 Scheduling Instructions Pt wishes to have done at [place] [facility] Reason for Visit * Reason Comments Physical Encounter Details Date Type Department Care Team (Late st Contact Info) Description 12/07/2023 8:20 AM CDT Office Visit [facility] Family & Internal Medicine - [address] [phone] Nisha Stokes APNP [address] [place], [place] [phone] Physical Social History Tobacco Use Types Packs/Day Years Used Date Smoking Tobacco: Former Cigarettes 0.3 5 2 016 - 2020 Passive Smoke Exposure: Past Smokeless Tobacco: Never Tobacco Cessation:Counseling Given: Not Answered Alcohol Use Standard Drinks/Week Comments Yes 6.7 [...] Sex Assigned at Female 05/07/2024 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 Legal Sex Female 8:55 PM CDT Gender Identity Female 05/07/2024 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 Sexual Orientation Not on file documented as of this encounter Last Filed Vital Signs Vital Sign Reading Time Taken Comments Blood Pressure 116/66 12/07/2023 8:20 AM CDT Pulse 75 12/07/2023 8:20 AM CDT Temperature 36.2 ??C (97.2 ??F) 12/07/2023 8:20 AM CD T Respiratory Rate 16 12/07/2023 8:20 AM CDT Oxygen Saturation 96% 12/07/2023 8:20 AM CDT Inhaled Oxygen Concentration - - Weight 129.7 kg (285 lb 14.4 oz) 12/07/2023 8:20 AM CDT Height 160 cm (5' 3 ) 12/07/2023 8:20 AM CDT Body Mass Index 50.64 12/07/2023 8:20 AM CDT documented in this encounter Progress Notes * GISELA Gutierrez - 12/07/2023 8:20 AM CDT Images from the original note were not included. [facility] OFFICE VISIT Reason for Visit: Physical History of Present Illness: The patient is being seen for a health maintenance evaluation. General Health: good Dental Health: Sees dentist regularly Vision Health: Last eye exam < 1 year ago Hearing Health: No hearing problems Immunizations Needed: UTD Weight: Body mass index is 50.64 kg/m??. Physical Activity: Some walking in small time amounts daily Cervical Cancer Screening: due this year----has IUD in place, sees RIGHT OF WAY CLEARER. Breast Cancer Screening: Due and has order at home Colorectal Cancer Screening: Due, referral placed today Metabolic Screening: Patient needs to be screened today. Labs ordered. PHQ-9 Screening Score: 1 Smoking Status: Smoking status: Quit smoking 3 years ago Types: Cigarettes Smokeless tobacco: Never Used Chronic health conditions: HTN - BP is OK today. She is taking meds as ordered. Tolerates well, no bothersome side effects. She denies any CP, SOB, LUKE, dizziness, heart palpitations or lower extremity edema. BMI - > 50 - Weight stable. Has tried to alter her diet but is having issues with regular exercise. She is motivated to lose weight. She denies any family hx of thyroid CA. We have been monitoringher for diabetes. Will check HGB A1C with upcoming labs. ROS: Review of Systems Constitutional: Negative for chills, fever, malaise/fatigue and weight loss. HENT: Negative for congestion, ear pain, sinus pain and sore throat. Respiratory: Negative for cough, shortness of breath and wheezing. Cardiovascular: Negative for chest pain, palpitations and leg swelling. Gastrointestinal: Negative for abdominal pain, constipation, diarrhea, heartburn, nausea and vomiting. Genitourinary: Negative for dysuria, frequency and urgency. Musculoskeletal: Negative for back pain, falls, joint pain and myalgias. Neurological: Negative for dizziness, speech change, loss of consciousness, weakness and headaches. Medications: Current Outpatient Medications: cholecalciferol [...] mouth daily., Disp: 90 tablet, Rfl: 3 Multiple Vitamin (MULTI-VITAMIN) tablet, Take 1 tablet by mouth daily., Disp: , Rfl: Allergies: Review of patient's allergies indicates: Allergen Reactions Iodine Unknown Seasonal Unknown Medical History: Past Medical History: Diagnosis Date BMI 50.0-59.9, adult (CMS/HCC HHS/HCC) 10/13/2017 Elevated liver enzymes 09/29/2017 Hypertension Seasonal allergies 09/18/2020 Vitamin D deficiency 10/13/2017 Surgical History: Past Surgical History: Procedure Laterality Date CHOLECYSTECTOMY HERNIA REPAIR Social History: Social History Socioeconomic History Marital status: Tobacco Use Smoking status: Former Current packs/day: 0.00 Average packs/day: 0.3 packs/day for 5.0 years (1.3 ttl pk-yrs) Types: Cigarettes Start date: 2015 Quit date: 2020 Years since quittin.5 Passive exposure: Past Smokeless tobacco: Never Vaping [...] Vitals and nursing note reviewed. HENT: Head: Atraumatic. Eyes: General: No scleral icterus. Conjunctiva/sclera: Conjunctivae normal. Neck: Thyroid: No thyromegaly. Vascular: No JVD. Trachea: No tracheal deviation. Cardiovascular: Rate and Rhythm: Normal rate and regular rhythm. Heart sounds: No murmur heard. No friction rub. No gallop. Pulmonary: Effort: Pulmonary effort is normal. No respiratory distress. Breath sounds: Normal breath sounds. No wheezing or rales. Chest: Chest wall: No tenderness. Abdominal: General: Bowel sounds are normal. There is no distension. Palpations: Abdomen is soft. There is no mass. Tenderness: There is no abdominal tenderness. There is no guarding or rebound. Musculoskeletal: General: No tenderness. Normal range of motion. Cervical back: Normal range of motion and neck supple. Lymphadenopathy: Cervical: No cervical adenopathy. Skin: General: Skin is warm and dry. Coloration: Skin is not pale. Findings: No erythema or rash. Neurological: Mental Status: She is alert and oriented to person, place, and time. Gait: Gait is intact. Deep Tendon Reflexes: Reflexes are normal and symmetric. Psychiatric: Mood and Affect: Mood and affect normal. Filed Vitals: 12/07/23 0820 BP: 116/66 Pulse: 75 Resp: 16 Temp: 97.2 ??F (36.2 ??C) TempSrc: Skin SpO2: 96% Weight: 129.7 kg (285 lb 14.4 oz) Height: 1.6 m (5' 3 ) Labs: Labs Reviewed Diagnoses/Impression: 1. General medical examination CBC W/DIFF AUTOMATED LIPID PANEL TSH W/REFLEX COMPREHENSIVE METABOLIC PANEL 2. Colon cancer screening Ambulatory referral to Gastroenterology (OTHER) 3. Primary hypertension Chronic LIPID PANEL TSH W/REFLEX URIC ACID BLOOD COMPREHENSIVE METABOLIC PANEL URINALYSIS lisinopril (PRINIVIL) 40 MG tablet hydroCHLOROthiazide (HYDRODIURIL) 25 MG tablet 4. BMI 50.0-59.9, adult ([facility]/HCC [facility]) Chronic CBC W/DIFF AUTOMATED LIPID PANEL TSH W/REFLEX COMPREHENSIVE METABOLIC PANEL HEMOGLOBIN, GLYCOSYLATED 5. Vitamin D deficiency Chronic VITAMIN D, 25 OH ([facility] ONLY) 6. Seasonal allergies Chronic 7. Hyperglycemia HEMOGLOBIN, GLYCOSYLATED Recommendations and Plan: 1. General medical examination - CBC W/DIFF AUTOMATED; Future - LIPID PANEL; Future - TSH W/REFLEX; Future - COMPREHENSIVE METABOLIC PANEL; Future - CBC W/DIFF AUTOMATED - LIPID PANEL - TSH W/REFLEX - COMPREHENSIVE METABOLIC PANEL Doing well. Will continue to discuss breast cancer screening and screen per patient preference and guidelines. Self-breast exams are a level D recommendation by the USPSTF. Follow up with PCM if any abnormalities are noted. Mammograms should continue annually. Reviewed with the patient BMI, blood pr essure, diet, exercise, and encouraged healthy lifestyle choices. I recommended weight-bearing exercise to decrease risks of osteoporosis. Screened for substance use, risk factors for STIs, diet and exercise habits, and symptoms of depression. Colon screening starting at 45. Recommended preventive immunizations according to age. 2. Colon cancer screening - Ambulatory referral to Gastroenterology (OTHER) 3. Primary hypertension - LIPID PANEL; Future - TSH W/REFLEX; Future - URIC ACID BLOOD; Future - COMPREHENSIVE METABOLIC PANEL; Future - URINALYSIS; Future - LIPID PANEL - TSH W/REFLEX - URIC ACID BLOOD - COMPREHENSIVE METABOLIC PANEL - URINALYSIS - lisinopril (PRINIVIL) 40 MG tablet; Take 1 tablet (40 mg total) by mouth daily. Dispense: 90 tablet; Refill: 3 - hydroCHLOROthiazide (HYDRODIURIL) 25 MG tablet; Take 1 tablet (25 mg total) by mouth every morning. Dispense: 90 tablet; Refill: 3 Stable. Cont meds 4. BMI 50.0-59.9, adult ([facility]/HCC HHS/HCC) - CBC W/DIFF AUTOMATED; Future - LIPID PANEL; Future - TSH W/REFLEX; Future - COMPREHENSIVE METABOLIC PANEL; Future - CBC W/DIFF AUTOMATED - LIPID PANEL - TSH W/REFLEX - COMPREHENSIVE METABOLIC PANEL - HEMOGLOBIN, GLYCOSYLATED; Future - HEMOGLOBIN, GLYCOSYLATED TLC's and lifestyle changes conducive to weight loss discussed today 5. Vitamin D deficiency - VITAMIN D, 25 OH ([facility] ONLY); Future - VITAMIN D, 25 OH ([facility] ONLY) 6. Seasonal allergies Stable. Cont meds 7. Hyperglycemia - HEMOGLOBIN, GLYCOSYLATED; Future - HEMOGLOBIN, GLYCOSYLATED More plan after results Orders Placed This Encounter CBC W/DIFF AUTOMATED LIPID PANEL TSH W/REFLEX URIC ACID BLOOD COMPREHENSIVE METABOLIC PANEL URINALYSIS VITAMIN D, 25 OH ([facility] ONLY) HEMOGLOBIN, GLYCOSYLATED Ambulatory referral to Gastroenterology (OTHER) lisinopril (PRINIVIL) 40 MG tablet hydroCHLOROthiazide (HYDRODIURIL) 25 MG tablet Cannot display discharge medications since this is not an admission. 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 Allied Health/Nurse Visit [facility] Family & Internal Medicine [address] [phone] 11/11/2024 9:00 AM CDT Allied Health/Nurse Visit [facility] Family & Internal Medicine [address] [phone] Nisha Stokes APNP [address] [place] [address] Scheduled Referrals Name Type Priority Associated Diagnoses Orde r Schedule Ambulatory referral to Gastroenterology (OTHER) Referral Routine Colon cancer screening Ordered: 12/07/2023 documented as of this encounter Procedures Procedure Name Priority Date/Time Associated Diagnosis Comments TSH W/REFLEX Routine 12/23/2023 8:57 AM CDT General medical examination Primary hypertension BMI 50.0-59.9, adult ([facility]) VITAMIN D, 25 OH TOTAL Routine 12/23/2023 8:57 AM CDT Vitamin D deficiency COMPREHENSIVE METABOLIC PANEL Routine 12/23/2023 8:57 AM CDT General medical examination Primary hypertension BMI 50.0-59.9, adult ([facility] HHS/HCC) LIPID PANEL Routine 12/23/2023 8:57 AM CDT General medical examination Primary hypertension BMI 50.0-59.9, adult ([facility] HHS/[facility]) CBC W/DIFF AUTOMATED Routine 12/23/2023 8:57 AM CDT General medical examination BMI 50.0-59.9, adult ([facility] HHS/[facility]) URIC ACID BLOOD Routine 12/23/2023 8:57 AM CDT Primary hypertension HEMOGLOBIN, GLYCOSYLATED Routine 12/23/2023 8:56 AM CDT BMI 50.0-59.9, adult ([facility] HHS/HCC) Hyperglycemia URINALYSIS Routine 12/23/2023 8:56 AM CDT Primary hypertension URINALYSIS MICRO ONLY 12/23/2023 8:56 AM CDT documented in this encounter Results * VITAMIN D, 25 OH ([facility] ONLY) (12/23/2023 8:57 AM CDT) VITAMIN D 25 HYDROXY S/P/B 51.7 30.0 - 100.0 ng/mL [facility] 1 Comment: Vitamin D deficiency has been defined by the [place] of [employer] and an Endocrine Society practice guideline as a level of serum 25-OH vitamin D less than 20 ng/mL (1,2). The Endocrine Society went on to further define vitamin D insufficiency as a level between 21 and 29 ng/mL (2). 1. IOM ([place] of Medicine). 2010. Dietary reference ?? intakes for calcium and D. [place]: The ?? National [employer]. 2. Jose MF, Maria Elena SALCEDO, Roxane LUKE, et al. ?? Evaluation, treatment, and prevention of vitamin D ?? deficiency: an Endocrine Society clinical practice ?? guideline. JCEM. 2010; 96(7):1911-30. 12/23/2023 8:57 AM CDT 12/23/2023 Narrative [facility] - 12/24/2023 12:07 PM CDT Performed at: ??01 - [address] ??[id number] Graphics Intern: Jovanny Hayden PhD, Phone: ??[phone] Nisha HIGGINS LABORATORY Final Resul t [facility] [address] [place] [address] [facility] 1 * (ABNORMAL) COMPREHENSIVE METABOLIC PANEL (12/23/2023 8:57 AM CDT) GLUCOSE 116(H) 70 - 99 mg/dL [facility] 1 BUN 19 6 - 24 mg/dL [facility] 1 CREATININE S/P/B 0.89 0.57 - 1.00 mg/dL [facility] 1 GFR ESTIMATE 77 >59 mL/min/1.7 3 [facility] 1 BUN CREATININE RATIO 21 9 - 23 [facility] 1 SODIUM S/P/B 138 134 - 144 mmol/L [facility] 1 POTASSIUM S/P/B 3.8 3.5 - 5.2 mmol/L [facility] 1 CHLORIDE S/P/B 98 96 - 106 mmol/L [facility] 1 CO2 27 20 - 29 mmol/L [facility] 1 CALCIUM S/P/B 10.1 8.7 - 10.2 mg/dL [facility] 1 TOTAL PROTEIN S/P/B 6.8 6.0 - 8.5 g/dL [facility] 1 ALBUMIN S/P/B 4.0 3.8 - 4.9 g/dL [facility] 1 GLOBULIN 2.8 1.5 - 4.5 g/dL [facility] 1 BILIRUBIN TOTAL S/P/B 0.3 0.0 - 1.2 mg/dL [facility] 1 ALKALINE PHOSPHATASE S/P/B 97 44 - 121 IU/L [facility] 1 AST 24 0 - 40 IU/L [facility] 1 ALT 26 0 - 32 IU/L [facility] 1 12/23/2023 8:57 AM CDT 12/23/2023 Narrative [facility] - 12/24/2023 12:07 PM CDT Performed at: ??01 - [address] ??[id number] Graphics Intern: Jovanny Hayden PhD, Phone: ??[phone] Nisha HIGGINS LABORAT[facility] Final Resul t Performing Organization Address [facility] Phone Number [facility] [address] [place] [address] [facility] * URIC ACID BLOOD (12/23/2023 8:57 AM CDT) URIC ACID 5.7 3.0 - 7.2 mg/dL [facility] 1 Comment:Therapeutic target f or gout patients: <6.0 12/23/2023 8:57 AM CDT 12/23/2023 Narrative [facility] - 12/24/2023 12:07 PM CDT Performed at: ??[address] - [address] ??[id number] Graphics Intern: Jovanny Hayden PhD, Phone: ??[phone] Nisha HIGGINS LABORAT[facility] Final Resul t Performing Organization Address [facility] de Phone Number [facility] [address] [phone] [facility] 1 * TSH W/REFLEX (12/23/2023 8:57 AM CDT) Pathologist [facility] TSH 1.700 0.450 - 4.50 uIU/mL [facility] 1 12/23/2023 8:57 AM CDT 12/23/2023 Narrative [facility] - 12/24/2023 12:07 PM CDT Performed at: ??01 - [facility] [address] ??[id number] Graphics Intern: Jovanny Hayden PhD, Phone: ??[phone] Nisha HIGGINS LABORAT[facility] Final Resul t Performing Organization Address [facility] Phone Number [facility] [address] [place] [address] [facility] 1 * (ABNORMAL) LIPID PANEL (12/23/2023 8:57 AM CDT) [facility] CHOLESTEROL 177 100 - 199 mg/dL [facility] 1 TRIGLYCERIDES 130 0 - 149 mg/dL [facility] 1 HDL 52 >39 mg/dL [facility] 1 VLDL CALCULATION 23 5 - 40 mg/dL [facility] 1 LDL (CALCULATED) 102(H) 0 - 99 mg/dL [facility] 1 12/23/2023 8:57 AM CDT 12/23/2023 Narrative [facility] - 12/24/2023 12:07 PM CDT Performed at: ??01 - [facility] [address] ??[id number] Graphics Intern: Jovanny Hayden PhD, Phone: ??[phone] Nisha HIGGINS LABORAT[facility] Final Resul t Performing Organization Address [facility] [place] [address] [facility] 1 * CBC W/DIFF AUTOMATED (12/23/2023 8:57 AM CDT) Pathologist [facility] WBC 7.5 3.4 - 10.8 x10E3/uL [facility] 1 RBC 4.99 3.77 - 5.28 x10E6/uL [facility] 1 HGB 15.2 11.1 - 15.9 g/dL [facility] 1 HCT 46.5 34.0 - 46.6 % [facility] 1 MCV 93 79 - 97 fL [facility] 1 MCH 30.5 26.6 - 33.0 pg [facility] 1 MCHC 32.7 31.5 - 35.7 g/dL [facility] 1 RDW 13.5 11.7 - 15.4 % [facility] 1 PLATELET COUNT 283 150 - 450 x10E3/uL [facility] 1 NEUTROPHILS % 53 Not Estab. % [facility] 1 LYMPHOCYTES % 34 Not Estab. % [facility] 1 MONOCYTES % 7 Not Estab. % [facility] 1 EOSINOPHILS % 5 Not Estab. % [facility] 1 BASOPHILS % 1 Not Estab. % [facility] 1 ABS. NEUTROPHILS 4.0 1.4 - 7.0 x10E3/uL [facility] 1 ABS. LYMPHOCYTES 2.6 0.7 - 3.1 x10E3/uL [facility] 1 MONOCYTES 0.5 0.1 - 0.9 x10E3/uL [facility] 1 ABS. EOSINOPHILS 0.4 0.0 - 0.4 x10E3/uL [facility] 1 ABS. BASOPHILS 0.1 0.0 - 0.2 x10E3/uL [facility] 1 ABS. IMMATURE GRANULOCYTES 0 Not Estab. % [facility] 1 ABS. IMMATURE GRANULOCYTES 0.0 0.0 - 0.1 x10E3/uL [facility] 1 12/23/2023 8:57 AM CDT 12/23/2023 Narrative [facility] - 12/24/2023 12:07 PM CDT Performed at: ??01 - [facility] [address] ??[id number] Graphics Intern: Jovanny Hayden PhD, Phone: ??[phone] us Nisha HIGGINS [facility]ORAT[facility] Final Resul t [facility] [address] [place] [address] [facility] 1 * (ABNORMAL) URINALYSIS MICRO ONLY (12/23/2023 8:56 AM CDT) WBC/HPF 0-5 0 - 5 /hpf [facility] 1 RBC/HPF >30(A) 0 - 2 /hpf [facility] 1 EPI/HPF 0-10 0 - 10 /hpf [facility] 1 URINE CASTS 1 QTY None seen None seen /lpf [facility] 1 BACTERIA (U) Few None seen/ [facility] 1 12/23/2023 8:56 AM CDT 12/23/2023 Narrative [facility] - 12/24/2023 12:07 PM CDT Performed at: ??01 - [facility] ??[id number] Graphics Intern: Jovanny Hayden PhD, Phone: ??[phone] Nisha HIGGINS URINE ORDERABLES Final Resu lt Performing Organization Address [facility] de Phone Number [place] [address] [facility] 1 * (ABNORMAL) HEMOGLOBIN, GLYCOSYLATED (12/23/2023 8:56 AM CDT) HGB A1C 6.2(H) 4.8 - 5.6 % [facility] 1 Comment: ? Prediabetes: 5.7 - 6.4 ? Diabetes: >6.4 ? Glycemic control for adults with diabetes: <7.0 12/23/2023 8:56 AM CDT 12/23/2023 Narrative [facility] - 12/24/2023 12:07 PM CDT Performed at: ?? - [facility] ??[id number] Graphics Intern: Jovanny Hayden PhD, Phone: ??[phone] Nisha HIGGINS LABORAT[facility] Final Resul t Performing Organization Address [facility] de Phone Number [facility] [address] [phone] [facility] 1 * (ABNORMAL) URINALYSIS (12/23/2023 8:56 AM CDT) SPECIFIC GRAVITY (U) 1.012 1.005 - 1.03 [facility] 1 PH (U) 6.5 5.0 - 7.5 [facility] 1 COLOR (U) Yellow Yellow [facility] 1 APPEARANCE SEMEN Clear Clear [facility] 1 LEUK ESTERASE (U) Trace(A) Negative [facility] 1 PROTEIN (U) Trace Negative/T [facility] 1 GLUCOSE (U) Negative Negative [facility] 1 KETONES MG/DL (U) Negative Negative [facility] 1 BLOOD (U) 3+(A) Negative [facility] 1 BILIRUBIN (U) Negative Negative [facility] 1 UROBILINOGEN 0.2 0.2 - 1.0 mg/dL [facility] 1 NITRITES Negative Negative [facility] 1 MICROSCOPIC DESCRIPTION See below: [facility] 1 Comment:Microscopic was cristóbal cated and was performed. URINE SPECIMEN OBTAINED BY CLEAN CATCH PROCEDURE / Unknown 12/23/2023 8:56 AM CDT 12/23/2023 Narrative [facility] - 12/24/2023 12:07 PM CDT Performed at: ??01 - [facility] [address] ??[id number] Graphics Intern: Jovanny Hayden PhD, Phone: ??[phone] us Nisha HIGGINS URINE ORDERABLES Final Resu lt Performing Organization Address City/State/[facility] Co de Phone Number [facility] [address] [place] [address] [facility] 1 documented in this encounter Visit Diagnoses Diagnosis General medical examination- Primary Unspecified general medical examination Colon cancer screening Special screening for malignant neoplasms, colon Primary hypertension Unspecified essential hypertension BMI 50.0-59.9, adult ([facility]) Body Mass Index 50.0-59.9, adult Vitamin D deficiency Unspecified vitamin D deficiency Seasonal allergies Allergic rhinitis, cause unspecified Hyperglycemia Other abnormal glucose documented in this encounter Additional Health Concerns Assessment Noted Time PHQ-9 Depression Total Score: 0 11/18/19 22 9:27 AM CDT documented as of this encounter Care Teams Red Hat Engineer Relationship Specialty Start Date End Date Nisha Stokes APNP [address] [place] [address] PCP - General NURSE PRACTITIONER 09/20/18 documented as of this encounter
--- OUTSIDE RECORDS SUMMARY | 2024-06-03 20:29 | XMS_ITS | Encounter Summary ---
Author Organization [facility] Address Formerly [facility] [place] [address] [place] [address] Care Team Providers Care Marine Service Operator Name Role Phone Nisha Stokes Primary Care Provider [phone] Reason for Referral * Consultation (Routine) - Closed Specialty Diagnoses / Procedures Referred By Laura holden Referred To Contact GASTROENTEROLOGY Diagnoses Colon cancer screening Nisha Stokes APNP [address] [place] [address] Phone: tel: fax: Ricardo Gibbs MD [address] [facility] [address] [facility] [address] [place] [address] Phone: tel: fax: Referral ID Status Reason Start Date Expiration Date Visits Re quested Visits Authorized [id number] Closed 11/17/2021 12/18/2022 99 99 * Imaging (Routine) - Closed Specialty Diagnoses / Procedures Referred By Laura holden Referred To Contact RADIOLOGY Diagnoses Encounter for screening mammogram for malignant neoplasm of breast Procedures MG SCREENING HOWARD DIGI Nisha Stokes APNP [address] [id number] Phone: tel: fax: [facility] [address] [place] [address] Phone: tel: fax: Referral ID Status Reason Start Date Expiration Date Visits Re quested Visits Authorized [id number] Closed 11/17/2021 11/18/2022 1 1 Reason for Visit * Reason Comments Physical Encounter Details Date Type Department Care Team (Late st Contact Info) Description 11/17/2021 8:20 AM CDT Office Visit [facility] Family & Internal Medicine - [id number] [place] [address] Nisha Stokes APNP [address] [place] [address] Physical Social History Tobacco Use Types Packs/Day Years Used Date Smoking Tobacco: Some Days Cigarettes Smokeless Tobacco: Never Alcohol Use Standard Drinks/Week Comments Yes 0 (1 standard drink = 0.6 oz pur e alcohol) AUDIT-C Answer Date Recorded Frequency of Alcohol Consumption 2-3 times a wee k 09/26/2018 Average Number of Drinks 1 or 2 019 Frequency of Binge Drinking Not on file 12/2018 PHQ-2 Answer Date Recorded PHQ-2 Score - If the patient scores above 3, please move on to questions 3-9 0 11/17/2021 Comments Unknown Sex and Gender Information Value Date Recorded Sex Assigned at Female 05/07/2024 12:02 PM MANAGER CARD Legal Sex Female 8:55 PM CDT Gender Identity Female 05/07/2024 12:02 PM MANAGER CARD Sexual Orientation Not on file COVID-19 Exposure Response Date Recorded In the last 10 days, have yo u been in contact with someone who was confirmed or suspected to have Coronavirus/COVID-19? No / Unsure 11/17/2021 8:00 AM CDT documented as of this encounter Last Filed Vital Signs Vital Sign Reading Time Taken Comments Blood Pressure 140/100 11/17/2021 9:24 AM CDT Pulse 69 11/17/2021 8:16 AM CDT Temperature 36.2 ??C (97.2 ??F) 11/17/2021 8:16 AM CD T Respiratory Rate 14 11/17/2021 8:16 AM CDT Oxygen Saturation 98% 11/17/2021 8:16 AM CDT Inhaled Oxygen Concentration - - Weight 139.3 kg (307 lb) 11/17/2021 8:16 AM CDT Height 160 cm (5' 3 ) 11/17/2021 8:16 AM CDT Body Mass Index 54.38 11/17/2021 8:16 AM CDT documented in this encounter Patient Instructions * Attachments The following attachments cannot be sent through Care Everywhere. * DASH Diet (Belarusian) documented in this encounter Progress Notes * GISELA Gutierrez - 11/17/2021 8:20 AM CDT Images from the original note were not included. [facility] FAMILY AND INTERNAL MEDICINE OFFICE VISIT Reason for Visit: Physical History of Present Illness: The patient is being seen for a health maintenance evaluation. General Health: good Dental Health: Sees dentist regularly Vision Health: Last eye exam < 1 year ago Hearing Health: No hearing problems Immunizations Needed: UTD, due for pneumovax Weight: Body mass index is 54.38 kg/m??. Physical Activity: Some walking in small time amounts daily Cervical Cancer Screening: due this year----due to have IUD removed Breast Cancer Screening: Due and Ordered today Colorectal Cancer Screening: Due Metabolic Screening: Patient needs to be screened today. PHQ-9 Screening Score: 0 Smoking Status: Smoking status: Current Some Day Smoker Types: Cigarettes Smokeless tobacco: Never Used Chronic health conditions: HTN - BP is quite elevated today. She is taking meds as ordered. Tolerates well, no bothersome sideeffects. She denies any CP, SOB, LUKE, dizziness, heart palpitations or lower extremity edema. BMI - > 50 - She has gained weight recently. Has tried to alter her diet but is having issues with regular exercise. She is motivated to lose weight. ROS: Review of Systems Constitutional: Negative for chills and fever. Eyes: Negative for blurred vision and double vision. Respiratory: Negative for cough and shortness of breath. Cardiovascular: Negative for chest pain and palpitations. Gastrointestinal: Negative for abdominal pain, diarrhea, nausea and vomiting. Musculoskeletal: Negative for myalgias. Neurological: Negative for dizziness and headaches. Psychiatric/Behavioral: Negative for depression. The patient is not nervous/anxious. Medications: Current Outpatient Medications: ??? cholecalciferol 125 MCG (5000 UT) Tab, Take 5,000 Units by mouth daily. , Disp: , Rfl: ??? fexofenadine 180 MG tablet, Take 1 tablet by mouth daily., Disp: , Rfl: ??? hydroCHLOROthiazide 25 MG tablet, Take 1 tablet (25 mg total) by mouth every morning., Disp: 90tablet, Rfl: 3 ??? lisinopril 40 MG tablet, Take 1 tablet (40 mg total) by mouth daily., Disp: 90 tablet, Rfl: 3 ??? Multiple Vitamin (MULTI-VITAMIN) tablet, Take 1 tablet by mouth daily. , Disp: , Rfl: Allergies: Allergies Allergen Reactions ??? Iodine Unknown ??? Seasonal Unknown Medical History: Past Medical History: Diagnosis Date ??? BMI 50.0-59.9, adult (CMS/HCC) 10/13/2017 ??? Elevated liver enzymes 09/29/2017 ??? Hypertension ??? Seasonal allergies 09/18/2020 ??? Vitamin D deficiency 10/13/2017 Surgical History: Past Surgical History: Procedure Laterality Date ??? CHOLECYSTECTOMY ??? HERNIA REPAIR Social History: Social History Socioeconomic History ??? Marital status: Tobacco Use ??? Smoking status: Current Some Day Smoker Types: Cigarettes ??? Smokeless tobacco: Never Used Vaping Use ??? Vaping Use: Never used Substance and Sexual Activity ??? Alcohol use: Yes ??? Drug use: No ??? Sexual activity: Yes control/protection: I.U.D. Family History: Family History Problem Relation Name Age of Onset ??? Breast Cancer Mother ??? Colon Cancer Father ??? Stroke Father ??? Heart Disease Father ??? Heart Disease Other ??? Stroke Other ??? Hypertension Other PE: Physical Exam Vitals and nursing note reviewed. HENT: Head: Atraumatic. Right Ear: Tympanic membrane normal. Left Ear: Tympanic membrane normal. Mouth/Throat: Mouth: Mucous membranes are moist. Pharynx: No posterior oropharyngeal erythema. Eyes: General: No scleral icterus. Extraocular Movements: Extraocular movements intact. Conjunctiva/sclera: Conjunctivae normal. Pupils: Pupils are equal, round, and reactive to light. Neck: Thyroid: No thyromegaly. Vascular: No JVD. [...] Affect: Mood and affect normal. Filed Vitals: 11/17/21 0816 11/17/21 0924 BP: (!) 162/100 (!) 140/100 Pulse: 69 Resp: 14 Temp: 97.2 ??F (36.2 ??C) SpO2: 98% Weight: (!) 139.3 kg (307 lb) Height: 5' 3 (1.6 m) Labs: Labs Reviewed Diagnoses/Impression: 1. Routine medical exam CBC W/DIFF AUTOMATED LIPID PANEL TSH W/REFLEX URINALYSIS WI REFLEX TO CULTURE COMPREHENSIVE METABOLIC PANEL VENIPUNC ARM DRAW 2. Primary hypertension TSH W/REFLEX URINALYSIS WI REFLEX TO CULTURE COMPREHENSIVE METABOLIC PANEL VENIPUNC ARM DRAW lisinopril 40 MG tablet hydroCHLOROthiazide 25 MG tablet 3. BMI 50.0-59.9, adult (CMS/HCC) Chronic CBC W/DIFF AUTOMATED LIPID PANEL TSH W/REFLEX URINALYSIS WI REFLEX TO CULTURE COMPREHENSIVE METABOLIC PANEL VENIPUNC ARM DRAW 4. Vitamin D deficiency Chronic VITAMIN D, 25 OH VENIPUNC ARM DRAW 5. Encounter for screening mammogram for malignant neoplasm of breast MG SCREENING HOWARD DIGI 6. Need for prophylactic vaccination against Streptococcus pneumoniae (pneumococcus) [94033] Pneumovax 23 (Pneumococcal) 7. Colon cancer screening Ambulatory referral to Gastroenterology (OTHER) Recommendations and Plan: 1. Routine medical exam - CBC W/DIFF AUTOMATED; Future - LIPID PANEL; Future - TSH W/REFLEX; Future - URINALYSIS WI REFLEX TO CULTURE; Future - COMPREHENSIVE METABOLIC PANEL; Future - VENIPUNC ARM DRAW 2. Primary hypertension - TSH W/REFLEX; Future - URINALYSIS WI REFLEX TO CULTURE; Future - COMPREHENSIVE METABOLIC PANEL; Future - VENIPUNC ARM DRAW - lisinopril 40 MG tablet; Take 1 tablet (40 mg total) by mouth daily. Dispense: 90 tablet; Refill:3 - hydroCHLOROthiazide 25 MG tablet; Take 1 tablet (25 mg total) by mouth every morning. Dispense: 90 tablet; Refill: 3 BP elevated---did not necessarily improve upon recheck. Med dose changes made today. Would like forpt to monitor her BP at home and send me results in the next couple of weeks. Will make med adjustments at that time if needed. 3. BMI 50.0-59.9, adult ([facility]) - CBC W/DIFF AUTOMATED; Future - LIPID PANEL; Future - TSH W/REFLEX; Future - URINALYSIS WI REFLEX TO CULTURE; Future - COMPREHENSIVE METABOLIC PANEL; Future - VENIPUNC ARM DRAW TLC's and dietary changes conducive to weight loss discussed with pt today. 4. Vitamin D deficiency - VITAMIN D, 25 OH; Future - VENIPUNC ARM DRAW 5. Encounter for screening mammogram for malignant neoplasm of breast - MG SCREENING HOWARD DIGI Orders Placed This Encounter ??? VENIPUNC ARM DRAW ??? CBC W/DIFF AUTOMATED ??? LIPID PANEL ??? TSH W/REFLEX ??? VITAMIN D, 25 OH ??? URINALYSIS WI REFLEX TO CULTURE ??? COMPREHENSIVE METABOLIC PANEL ??? Ambulatory referral to Gastroenterology (OTHER) ??? MG SCREENING HOWARD DIGI ??? [[id number]] Pneumovax 23 (Pneumococcal) ??? lisinopril 40 MG tablet ??? hydroCHLOROthiazide 25 MG tablet Cannot display discharge medications since this is not an admission. PCP: GISELA Gutierrez 11/17/2021 documented in this encounter Plan of Treatment Upcoming Encounters Date Type Department Care Team (Late st Contact Info) Description 06/12/2024 8:20 AM MANAGER CARD Allied Health/Nurse Visit [facility] Family & Internal Medicine [address] [place] [address] 11/11/2024 9:00 AM CDT Allied Health/Nurse Visit [facility] Family & Internal Medicine - [address] [phone] Nisha Stokes APNP [address] [place] [address] Scheduled Orders Name Type Priority Associated Diagnoses Orde r Schedule MG SCREENING HOWARD DIGI MAMMO Routine Encounter for screening mammogram for malignant neoplasm of breast Ordered: 11/17/2021 Scheduled Referrals Name Type Priority Associated Diagnoses Orde r Schedule Ambulatory referral to Gastroenterology (OTHER) Referral Routine Colon cancer screening Ordered: 11/17/2021 documented as of this encounter Procedures Procedure Name Priority Date/Time Associated Diagnosis Comments URINALYSIS WI REFLEX TO CULTURE Routine 11/17/2021 12:17 PM CDT Routine medical exam Primary hypertension BMI 50.0-59.9, adult (CMS/HCC HHS/HCC) TSH W/REFLEX Routine 11/17/2021 12:17 PM CDT Routine medical exam Primary hypertension BMI 50.0-59.9, adult (CMS/HCC HHS/HCC) COMPREHENSIVE METABOLIC PANEL Routine 11/17/2021 12:17 PM CDT Routine medical exam Primary hypertension BMI 50.0-59.9, adult (CMS/HCC HHS/HCC) LIPID PANEL Routine 11/17/2021 12:17 PM CDT Routine medical exam BMI 50.0-59.9, adult (CMS/HCC HHS/HCC) CBC W/DIFF AUTOMATED Routine 11/17/2021 12:17 PM CDT Routine medical exam BMI 50.0-59.9, adult (CMS/HCC HHS/HCC) VITAMIN D, 25 OH Routine 11/17/2021 12:1 7 PM CDT Vitamin D deficiency COLLECTION VENOUS BLOOD VENIPUNCTURE Routine 11/17/2021 8:58 AM CDT Routine medical exam Primary hypertension BMI 50.0-59.9, adult (CMS/HCC HHS/HCC) Vitamin D deficiency documented in this encounter Results * (ABNORMAL) COMPREHENSIVE METABOLIC PANEL (11/17/2021 12:17 PM CDT) [facility] SODIUM S/P/B 141 136 - 145 MMOL/L 11/17/2021 3:43 PM CDT [facility] [place] POTASSIUM S/P/B 3.9 3.5 - 5.1 MMOL/L 11/17/2021 3:43 PM CDT [facility] [place] CHLORIDE S/P/B 103 98 - 107 MMOL/L 11/17/2021 3:43 PM CDT [facility] [place] CO2 30.9 21 - 32 MMOL/L 11/17/2021 3:43 PM CDT [facility] [place] GLUCOSE 116(H) 70 - 99 MG/DL 11/17/2021 3:43 PM CDT [facility] BUN 8 7 - 18 MG/DL 11/17/2021 3:43 PM CDT [facility] CREATININE S/P/B 0.67 0.55 - 1.02 MG/DL 11/17/2021 3:43 PM CDT [facility] [place] CALCIUM S/P/B 8.8 8.4 - 10.5 MG/DL 11/17/2021 3:43 PM CDT [facility] [place] BILIRUBIN TOTAL S/P/B 0.4 0.2 - 1.0 MG/DL 11/17/2021 3:43 PM CDT [facility] ALKALINE PHOSPHATASE S/P/B 79 41 - 108 U/L 11/17/2021 3:43 PM CDT [facility] AST 31 15 - 37 U/L 11/17/2021 3:43 PM CDT [facility] ALT 51 14 - 59 U/L 11/17/2021 3:43 PM CDT -[facility] TOTAL PROTEIN S/P/B 7.0 6.4 - 8.2 G/DL 11/17/2021 3:43 PM CDT [facility] ALBUMIN S/P/B 3.5 3.4 - 5.0 G/DL 11/17/2021 3:43 PM CDT [facility] ANION GAP 7.1 5 - 15 MMOL/L 11/17/2021 3:43 PM CDT [facility] Comment:REFERENCE RANGE NOT ESTABLISHED OSMOLALITY (CALC) 291 MOSM/KG 022 3:43 PM CDT [facility] Comment:REFERENCE RANGE NOT ESTABLISHED GFR ESTIMATE >90 >90 ML/MIN/1. 73 M2 11/17/2021 3:43 PM CDT [facility] GFR NOTES GFR REFERENCE S: 11/17/2021 3:43 PM CDT [facility] Comment: THE ESTIMATED GFR IS CALCULATED USING THE 2020 CKD-EPI EQUATION. THE FOLLOWING CATEGORIES FOR GRADING RENAL FUNCTION ARE RECOMMENDED BY THE INTERNATIONAL SOCIETY OF NEPHROLOGY (KDIGO 2012 CLINICAL PRACTICE GUIDELINE). G1,NORMAL OR HIGH: >89 ml/min/1.73 m2 G2,MILDLY DECREASED: 60-89 ml/min/1.73 m2 G3A,MILDLY TO MODERATELY DECREASED: 45-59 ml/min/1.73 m2 G3B,MODERATELY TO SEVERELY DECREASED: 30-44 ml/min/1.73 m2 G4,SEVERELY DECREASED: 15-29 ml/min/1.73 m2 G5,KIDNEY FAILURE: <15 ml/min/1.73 m2 11/17/2021 12:1 7 PM CDT us Nisha [facility] Final Resul t -[facility] [place] [address] [place] [address], * (ABNORMAL) URINALYSIS WI REFLEX TO CULTURE (11/17/2021 12:17 PM CDT) COLOR (U) YELLOW 11/17/2021 3:11 PM CDT [facility] TRANSPARENCY CLEAR CLEAR 11/17/2021 3:11 PM T [facility] SPECIFIC GRAVITY (U) 1.020 1.003 - 1.040 11/17/2021 3:11 PM CDT [facility] U PH 7.0 5.0 - 9.0 11/17/2021 3:11 PM CDT [facility] PROTEIN (U) NEGATIVE NEGATIVE 11/17/2021 3:11 PM CDT [facility] URINE GLUCOSE NEGATIVE NEGATIVE 11/17/2021 3:11 PM T [facility] KETONES MG/DL (U) NEGATIVE NEGATIVE 11/17/2021 3:11 PM T [facility] BILIRUBIN (U) NEGATIVE NEGATIVE 11/17/2021 3:11 PM T [facility] BLOOD (U) 3+(A) NEGATIVE 11/17/2021 3:11 PM T [facility] UROBILINOGEN 0.2 0.0 - 2.0 EU/DL 11/17/2021 3:11 PM T [facility] NITRITES NEGATIVE NEGATIVE 11/17/2021 3:11 PM T [facility] LEUKOCYTES (U) NEGATIVE NEGATIVE 11/17/2021 3:11 PM T [facility] REFLEX URINE CULTURE: CULTURE IS NOT INDICATED 11/17/2021 3:11 PM T [facility] RBC/HPF 15-20(A) 0 - 3 /HPF 11/17/2021 3:11 PM T [facility] WBC/HPF 0-3 0 - 3 /HPF 11/17/2021 3:11 PM CDT [facility] EPI/HPF 4-9 /HPF 11/17/2021 3:11 PM CDT [facility] BACTERIA (U) NONE SEEN NONE SEEN 11/17/2021 3:11 PM CDT [facility] URINE SPECIMEN OBTAINED BY CLEAN CATCH PROCEDURE / Unknown 11/17/2021 12:17 PM CDT Nisha [facility] ORDERABLES Final Resu lt Performing Organization Address [facility] de Phone Number [facility] [address] [place] [address], * VITAMIN D, 25 OH (11/17/2021 12:17 PM CDT) VITAMIN D 25 HYDROXY TOTAL S/P/B 54.6 30 - 100 NG/ML 11/17/2021 3:43 PM CDT [facility] Comment: ? DEFICIENT ??<20 ?INSUFFICIENT 20-30 ?SUFFICIENT 30-100 11/17/2021 12:1 7 PM CDT Nisha [facility] Final Resul t Performing Organization Address [facility] de Phone Number [address] [address], * TSH W/REFLEX (11/17/2021 12:17 PM CDT) TSH 1.495 0.358 - 3.740 uIU/ML 11/17/2021 3:43 PM CDT [facility] 11/17/2021 12:1 7 PM CDT Nisha [facility] Final Resul t Performing Organization Address [facility] de Phone Number [facility] [address] [place] [address], * (ABNORMAL) LIPID PANEL (11/17/2021 12:17 PM CDT) Pathologist [facility] CHOLESTEROL 177 <200 MG/DL 11/17/2021 3:43 PM CDT [facility] TRIGLYCERIDES 84 <150 MG/DL 11/17/2021 3:43 PM CDT [facility] HDL 48 >40 MG/DL 11/17/2021 3:43 PM CDT [facility] LDL-C 112(H) <100 MG/DL 11/17/2021 3:43 PM CDT [facility] VLDL CALCULATION 17 5 - 28 MG/DL 11/17/2021 3:43 PM CDT [facility] CHOL/HDL RATIO 3.7 0.0 - 4.0 11/17/2021 3:43 PM CDT [facility] LDL/HDL 2.3(H) 0.41 - 2.13 11/17/2021 3:43 PM CDT [facility] NON HDL CHOLESTEROL 129 <140 MG/DL 11/17/2021 3:43 PM CDT [facility] 11/17/2021 12:1 7 PM CDT Nisha [facility] Final Resul t [facility] [address] [place] [address], * (ABNORMAL) CBC W/DIFF AUTOMATED (11/17/2021 12:17 PM CDT) Pathologist [facility] WBC 5.5 4.0 - 10.8 x10'3/uL 11/17/2021 3:02 PM CDT [facility] RBC 4.78 4.10 - 5.40 x10'6/uL 11/17/2021 3:02 PM CDT [facility] HGB 14.1 12.0 - 16.0 G/DL 11/17/2021 3:02 PM CDT [facility] HCT 43.3 36.0 - 47.0 % 11/17/2021 3:02 PM CDT [facility] MCV 90.6 78.0 - 100.0 FL 11/17/2021 3:02 PM CDT [facility] MCH 29.5 27.0 - 31.0 PG 11/17/2021 3:02 PM CDT [facility] MCHC 32.6(L) 33.0 - 36.0 G/DL 11/17/2021 3:02 PM T [facility] RDW 13.9 11.5 - 14.5 % 11/17/2021 3:02 PM T [facility] PLT 291 150 - 350 x10'3/uL 11/17/2021 3:02 PM CDT [facility] MPV 9.3 7.4 - 10.4 FL 11/17/2021 3:02 PM [facility] DIFFERENTIAL TYPE AUTOMATED DIFFERENTIAL 11/17/2021 3:02 PM [facility] NEUTROPHILS % 58.1 % 11/17/2021 3:02 PM [facility] LYMPHOCYTES % 30.3 % 11/17/2021 3:02 PM CDT [facility] MONOCYTES % 8.0 % 11/17/2021 3:02 PM CDT [facility] EOSINOPHILS % 2.9 % 11/17/2021 3:02 PM CDT [facility] BASOPHILS % 0.5 % 11/17/2021 3:02 PM CDT [facility] IMMATURE GRANS % 0.2 % 11/17/2021 3:02 PM T [facility] ABS. NEUTROPHILS 3.21 1.60 - 8.30 x10'3/uL 11/17/2021 3:02 PM CDT [facility] ABS. LYMPHOCYTES 1.67 0.80 - 4.70 x10'3/uL 11/17/2021 3:02 PM CDT [facility] ABS. MONOCYTES 0.44 0.00 - 1.50 x10'3/uL 11/17/2021 3:02 PM CDT [facility] ABS. EOSINOPHILS 0.16 0.00 - 0.40 x10'3/uL 11/17/2021 3:02 PM CDT [facility] ABS. BASOPHILS 0.03 0.00 - 0.20 x10'3/uL 11/17/2021 3:02 PM CDT [facility] ABS. IMMATURE GRANULOCYTES 0.01 0.00 - 0.03 x10'3/uL 11/17/2021 3:02 PM CDT [facility] 11/17/2021 12:1 7 PM CDT us Nisha [facility] Final Resul t [facility] [address] [place] [address], documented in this encounter Visit Diagnoses Diagnosis Routine medical exam- Primary Routine general medical examination at a health care facility Primary hypertension Unspecified essential hypertension BMI 50.0-59.9, adult ([facility]) Body Mass Index 50.0-59.9, adult Vitamin D deficiency Unspecified vitamin D deficiency Encounter for screening mammogram for malignant neoplasm of breast Other screening mammogram Need for prophylactic vaccination against Streptococcus pneumoniae (pneumococcus) Need for prophylactic vaccination against streptococcus pneumoniae (pneumococcus) Colon cancer screening Special screening for malignant neoplasms, colon documented in this encounter Additional Health Concerns Assessment Noted Time PHQ-9 Depression Total Score: 0 11/18/19 22 9:27 AM CDT documented as of this encounter Care Teams Marine Service Operator Relationship Specialty Start Date End Date Nisha Stokes APNP [facility] [place] [address] PCP - General NURSE PRACTITIONER 09/20/18 documented as of this encounter
--- OUTSIDE RECORDS SUMMARY | 2024-06-03 20:29 | XMS_ITS | Encounter Summary ---
Author Organization [facility] Address [address] [place] [address]. [place], [place] [address] [place] [id number] Care Team Providers Care Traffic Sign Supervisor Name Role Phone Nisha Stokes Primary Care Provider [phone] Reason for Visit * Reason Comments Follow Up Encounter Details Date Type Department Care Team (Late st Contact Info) Description 09/26/2018 9:00 AM CDT Office Visit [facility] Medical [facility] Family & Internal Medicine [id number] [place] [address] Nisha Stokes APNP [address], [place] [id number] Follow Up Social History Tobacco Use Types Packs/Day Years [...] 12/2018 PHQ-2 Answer Date Recorded PHQ-2 Score 0 09/26/2018 Comments Unknown Sex and Gender Information Value Date Recorded Sex Assigned at Female 05/07/2024 12:02 PM HYSTER MACHINE OPERATOR Legal Sex Female 8:55 PM CDT Gender Identity Female 05/07/2024 12:02 PM HYSTER MACHINE OPERATOR Sexual Orientation Not on file documented as of this encounter Last Filed Vital Signs Vital Sign Reading Time Taken Comments Blood Pressure 138/90 09/26/2018 9:04 AM CDT Pulse 69 09/26/2018 9:04 AM CDT Temperature 36.3 ??C (97.4 ??F) 09/26/2018 9:04 AM CD T Respiratory Rate 16 09/26/2018 9:04 AM CDT Oxygen Saturation 96% 09/26/2018 9:04 AM CDT Inhaled Oxygen Concentration - - Weight 130.6 kg (288 lb) 09/26/2018 9:04 AM CDT Height 160 cm (5' 3 ) 09/26/2018 9:04 AM CDT Body Mass Index 51.02 09/26/2018 9:04 AM CDT documented in this encounter Progress Notes * Merle Briceno MA - 09/26/2018 9:00 AM CDTAddended by: MERLE BRICENO on: 09/26/2018 02:25 PM Modules accepted: Orders * GISELA Gutierrez - 09/26/2018 9:00 AM CDT Images from the original note were not included. [facility] FAMILY AND INTERNAL MEDICINE OFFICE VISIT Reason for Visit: Follow Up History of Present Illness: Pt is here today for routine physical. HTN -blood pressure is somewhat controlled at today's visit at 138/90. She denies any chest pain, shortness breath, headache, dizziness, heart palpitations or lower extremity edema. She tolerates hermedications well. Denies any bothersome side effects including a cough or facial swelling. Monitorsher BP at home and states results are in the 130/80 range. Pap - Sees BUSINESS PROFESSOR. Has Mirena in place. Colonoscopy - 2018 - Clear--follow up in [address] Gibbs. Mammo - sees BUSINESS PROFESSOR who orders this. Denies any abnormals. Due for labs. Will be ordered today. Immunizations - updated Tdap in 2018. Keeps up with eye and dental exams. Sees dentist every 6 months[address] dr once yearly. She denies any signs and symptoms of depression or anxiety time. Denies any HI or SI. Feels safe athome. She has no new complaints or concerns ROS: Review of Systems Constitutional: Negative for chills, fever, malaise/fatigue and weight loss. HENT: Negative for congestion, ear pain, hearing loss, sinus pain and sore throat. Eyes: Negative for blurred vision and double vision. Respiratory: Negative for cough, shortness of breath and wheezing. Cardiovascular: Negative for chest pain, palpitations and leg swelling. Gastrointestinal: Negative for abdominal pain, constipation, diarrhea, heartburn, nausea and vomiting. Genitourinary: Negative for dysuria, frequency and urgency. Musculoskeletal: Negative for back pain, falls, joint pain and myalgias. Skin: Negative for itching and rash. Neurological: Negative for dizziness, speech change, loss of consciousness, weakness and headaches. Psychiatric/Behavioral: Negative for depression and suicidal ideas. The patient is not nervous/anxious. Medications: Current Outpatient Medications: ??? Cholecalciferol (VITAMIN D3) 65475 units Cap, , Disp: , Rfl: ??? fexofenadine 180 MG tablet, Take 1 tablet by mouth daily., Disp: , Rfl: ??? lisinopril-hydrochlorothiazide 20-12.5 MG tablet, Take 1 tablet by mouth daily., Disp: 180 tablet, Rfl: 1 ??? Multiple Vitamin (MULTI-VITAMIN) tablet, , Disp: , Rfl: ??? Vitamins-Lipotropics (BALANCE B-100) Tab, , Disp: , Rfl: Allergies: Allergies Allergen Reactions ??? Iodine Unknown ??? Seasonal Unknown Medical History: Past Medical History: Diagnosis Date ??? BMI 50.0-59.9, adult ([facility]/HCC) 10/13/2017 ??? Elevated liver enzymes 09/29/2017 ??? Hypertension ??? Vitamin D deficiency 10/13/2017 Surgical History: Past Surgical History: Procedure Laterality Date ??? CHOLECYSTECTOMY ??? HERNIA REPAIR Social History: Social History Socioeconomic History ??? Marital status: Unknown Spouse name: Not on file ??? Number of children: Not on file ??? Years of education: Not on file ??? Highest education level: Not on file Occupational History ??? Not on file Social Needs ??? Financial resource strain: Not on file ??? Food insecurity: Worry: Not on file Inability: Not on file ??? Transportation needs: Medical: Not on file Non-medical: Not on file Tobacco Use ??? Smoking status: Current Some Day Smoker Types: Cigarettes ??? Smokeless tobacco: Never Used Substance and Sexual Activity ??? Alcohol use: Yes Frequency: 2-3 times a week Drinks per session: 1 or 2 ??? Drug use: No ??? Sexual activity: Yes control/protection: IUD Lifestyle ??? Physical activity: Days per week: Not on file Minutes per session: Not on file ??? Stress: Not on file Relationships ??? Social connections: Talks on phone: Not on file Gets together: Not on file Attends adventism service: Not on file Active member of club or organization: Not on file Attends meetings of clubs or organizations: Not on file Relationship status: Not on file ??? Intimate partner violence: Fear of current or ex partner: Not on file Emotionally abused: Not on file Physically abused: Not on file Forced sexual activity: Not on file Other Topics Concern ??? Not on file Social History Narrative ??? Not on file Family History: Family History Problem Relation Name Age of Onset ??? Breast Cancer Mother ??? Colon Cancer Father ??? Stroke Father ??? Heart Disease Father ??? Heart Disease Other ??? Stroke Other ??? Hypertension Other PE: Physical Exam Constitutional: She is oriented to person, place, and time and well-developed, well-nourished, and in no distress. No distress. HENT: Head: Normocephalic and atraumatic. Mouth/Throat: Oropharynx is clear and moist. No oropharyngeal exudate. Eyes: Conjunctivae and EOM are normal. Pupils are equal, round, and reactive to light. No scleral icterus. Neck: Normal range of motion. Neck supple. No JVD present. No tracheal deviation present. No thyromegaly present. Cardiovascular: Normal rate, regular rhythm, normal heart sounds and intact distal pulses. Exam reveals no gallop and no friction rub. No murmur heard. Pulmonary/Chest: Effort normal and breath sounds normal. No stridor. No respiratory distress. She has no wheezes. She has no rales. She exhibits no tenderness. Abdominal: Soft. Bowel sounds are normal. She exhibits no distension and no mass. There is no tenderness. There is no rebound and no guarding. Musculoskeletal: Normal range of motion. She exhibits no edema, tenderness or deformity. Lymphadenopathy: She has no cervical adenopathy. Neurological: She is alert and oriented to person, place, and time. She has normal reflexes. Gait normal. Skin: Skin is warm and dry. No rash noted. She is not diaphoretic. No erythema. No pallor. Psychiatric: Mood and affect normal. Nursing note and vitals reviewed. Filed Vitals: 09/26/18 0904 BP: 138/90 Pulse: 69 Resp: 16 Temp: 97.4 ??F (36.3 ??C) SpO2: 96% Weight: 130.6 kg (288 lb) Height: 5' 3 (1.6 m) Labs: Labs Reviewed Diagnoses/Impression: 1. Healthcare maintenance 2. Elevated liver enzymes CBC W/DIFF AUTOMATED COMPREHENSIVE METABOLIC PANEL LIPID PANEL TSH W/REFLEX URIC ACID BLOOD URINALYSIS AUTO DIP VITAMIN D, 25 OH 3. Asymptomatic microscopic hematuria CBC W/DIFF AUTOMATED COMPREHENSIVE METABOLIC PANEL LIPID PANEL TSH W/REFLEX URIC ACID BLOOD URINALYSIS AUTO DIP VITAMIN D, 25 OH 4. Hyperglycemia CBC W/DIFF AUTOMATED COMPREHENSIVE METABOLIC PANEL LIPID PANEL TSH W/REFLEX URIC ACID BLOOD URINALYSIS AUTO DIP VITAMIN D, 25 OH 5. Essential hypertension CBC W/DIFF AUTOMATED COMPREHENSIVE METABOLIC PANEL LIPID PANEL TSH W/REFLEX URIC ACID BLOOD URINALYSIS AUTO DIP VITAMIN D, 25 OH 6. Vitamin D deficiency CBC W/DIFF AUTOMATED COMPREHENSIVE METABOLIC PANEL LIPID PANEL TSH W/REFLEX URIC ACID BLOOD URINALYSIS AUTO DIP VITAMIN D, 25 OH 7. BMI 50.0-59.9, adult (CMS/HCC) Chronic Recommendations and Plan: 1. Elevated liver enzymes - CBC W/DIFF AUTOMATED; Future - COMPREHENSIVE METABOLIC PANEL; Future - LIPID PANEL; Future - TSH W/REFLEX; Future - URIC ACID BLOOD; Future - URINALYSIS AUTO DIP - VITAMIN D, 25 OH; Future 2. Asymptomatic microscopic hematuria - CBC W/DIFF AUTOMATED; Future - COMPREHENSIVE METABOLIC PANEL; Future - LIPID PANEL; Future - TSH W/REFLEX; Future - URIC ACID BLOOD; Future - URINALYSIS AUTO DIP - VITAMIN D, 25 OH; Future 3. Hyperglycemia - CBC W/DIFF AUTOMATED; Future - COMPREHENSIVE METABOLIC PANEL; Future - LIPID PANEL; Future - TSH W/REFLEX; Future - URIC ACID BLOOD; Future - URINALYSIS AUTO DIP - VITAMIN D, 25 OH; Future 4. Essential hypertension - CBC W/DIFF AUTOMATED; Future - COMPREHENSIVE METABOLIC PANEL; Future - LIPID PANEL; Future - TSH W/REFLEX; Future - URIC ACID BLOOD; Future - URINALYSIS AUTO DIP - VITAMIN D, 25 OH; Future Blood pressure somewhat controlled today. She is to continue her current medications.. We will continue to monitor. She will continue to monitor her blood pressure at home and if her blood pressure is consistently greater than 130/80 at home she will let me know. 5. Vitamin D deficiency - CBC W/DIFF AUTOMATED; Future - COMPREHENSIVE METABOLIC PANEL; Future - LIPID PANEL; Future - TSH W/REFLEX; Future - URIC ACID BLOOD; Future - URINALYSIS AUTO DIP - VITAMIN D, 25 OH; Future 6. Healthcare maintenance Routine fasting labs ordered today. We will plan after results. Patient is to continue with routine dental and eye exams. Her size encouraged. Working up to 30 minutes of cardiovascular exercise 4 to 5 days/week. Colonoscopy not indicated at this time. 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 7. BMI 51 Weight loss encouraged today. Therapeutic lifestyle changes and dietary changes conducive to weightloss were discussed today. Per week of weight loss. We will continue to monitor. Orders Placed This Encounter ??? CBC W/DIFF AUTOMATED ??? COMPREHENSIVE METABOLIC PANEL ??? LIPID PANEL ??? TSH W/REFLEX ??? URIC ACID BLOOD ??? URINALYSIS AUTO DIP ??? VITAMIN D, 25 OH Cannot display discharge medications since this is not an admission. PCP: GISELA Gutierrez 09/26/2018 documented in this encounter Plan of Treatment Upcoming Encounters Date Type Department Care Team (Late st Contact Info) Description 06/12/2024 8:20 AM HYSTER MACHINE OPERATOR Allied Health/Nurse Visit [facility] Medical [facility] Family & Internal Medicine [address] [phone] 11/11/2024 9:00 AM CDT Allied Health/Nurse Visit [facility] Family & Internal Medicine [address] [place] [address] Nisha Stokes APNP [address] [place] [address] Scheduled Orders Name Type Priority Associated Diagnoses Orde r Schedule VENIPUNC ARM DRAW Procedures Routine Elevated liver enzymes Asymptomatic microscopic hematuria Hyperglycemia Essential hypertension Vitamin D deficiency Healthcare maintenance BMI 50.0-59.9, adult ([facility]/HCC HHS/HCC) Ordered: 09/26/2018 documented as of this encounter Results * VITAMIN D, 25 OH (09/26/2018 9:48 AM CDT) Pathologist [facility] VITAMIN D 25 HYDROXY S/P/B 47 30 - 100 NG/ML 09/26/2018 8:25 PM CDT [facility] Comment: ? INTERPRETATION ? DEFICIENT ??<20 ? INSUFFICIENT 20-29 ?SUFFICIENT 30-100 09/26/2018 9:48 AM CDT Nisha [facility]GINS [facility] Final Resul t Performing Organization Address [facility] Co de Phone Number [facility] [address] [place] [address], * URIC ACID BLOOD (09/26/2018 9:48 AM CDT) [facility] URIC ACID 4.7 2.6 - 6.0 MG/DL 09/26/2018 8:41 PM CDT [facility] 09/26/2018 9:48 AM CDT Nisha [facility]IGGINS [facility] Final Resul t Performing Organization Address City/[facility] Co de Phone Number [facility] [address] [place] [address], [place] [phone] * TSH W/REFLEX (09/26/2018 9:48 AM CDT) Pathologist [facility] TSH 1.000 0.358 - 3.74 uIU/ML 09/26/2018 8:41 PM CDT [facility] Comment: HIGH DOSES OF BIOTIN MAY INTERFERE WITH THIS TEST RESULT. CORRELATION TO CLINICAL HISTORY AND PRESENTATION RECOMMENDED. FREE T4 NOT INDICATED 09/26/2018 9:48 AM CDT us Nisha Lundberg Divya [facility] Final Resul t [facility] [address] [place] [address], * LIPID PANEL (09/26/2018 9:48 AM CDT) CHOLESTEROL 153 <200 MG/DL 09/26/2018 8:41 PM CDT [facility] TRIGLYCERIDES 132 <150 MG/DL 09/26/2018 8:41 PM CDT [facility] HDL 42 >40.0 MG/DL 09/26/2018 8:41 PM CDT [facility] LDL (CALCULATED) 85 <100 MG/DL 09/27/19 19 8:41 PM CDT [facility] NON HDL CHOLESTEROL 111 <130 MG/DL 09/26 8:41 PM T [facility] CHOL/HDL RATIO 3.6 0.0 - 4.5 09/26/2018 8:41 PM CDT [facility] VLDL CALCULATION 26 5 - 55 MG/DL 09/26/2018 8:41 PM CDT [facility] LIPID INTERPRETATION 09/26/2018 8:41 PM CDT [facility] Comment: NIH CONCENSUS REPORT RECOMMENDATIONS: ?ADULT ?CHILD ??LOW RISK: ?CHOLESTEROL ? <200 ? <170 ?TRIGLYCERIDE ?<150 ?--- ?HDL ? >=60 ?--- ?LDL ? <100 ? <110 ??BORDERLINE: ?CHOLESTEROL ? 200-239 ?? 170-199 ?TRIGLYCERIDE ?150-199 ? --- ?HDL ?40-59 ?--- ?LDL ? 100-159 ?? 110-129 ??HIGH RISK: ?CHOLESTEROL ? >=240 ?>=200 ?TRIGLYCERIDE ?>=200 ? --- ?HDL ?<40 ?--- ?LDL ? >=160 ?>=130 09/26/2018 9:48 AM CDT us Nisha Stokes APNP LABORATORY Final Resul t [facility] [address] [place] [address], * (ABNORMAL) COMPREHENSIVE METABOLIC PANEL (09/26/2018 9:48 AM CDT) GLUCOSE 102(H) 70 - 99 MG/DL 09/26/2018 8:41 PM CDT [facility] BUN 15 7 - 18 MG/DL 09/26/2018 8:41 PM CDT [facility] CREATININE S/P/B 0.76 0.55 - 1.02 MG/DL 09/26/2018 8:41 PM CDT [facility] SODIUM S/P/B 141 136 - 145 MMOL/L 09/26/2018 8:41 PM CDT [facility] POTASSIUM S/P/B 3.8 3.5 - 5.1 MMOL/L 09/26/2018 8:41 PM CDT [facility] CHLORIDE S/P/B 106 100 - 108 MMOL/L 09/26/2018 8:41 PM T [facility] CO2 30.1 21 - 32 MMOL/L 09/26/2018 8:41 PM CDT [facility] CALCIUM S/P/B 8.7 8.5 - 10.1 MG/DL 09/26/2018 8:41 PM CDT [facility] BILIRUBIN TOTAL S/P/B 0.5 0.2 - 1.2 MG/DL 09/26/2018 8:41 PM T [facility] TOTAL PROTEIN S/P/B 6.8 6.4 - 8.2 G/DL 09/26/2018 8:41 PM T [facility] ALBUMIN S/P/B 3.6 3.4 - 5.0 G/DL 09/26/2018 8:41 PM CDT [facility] AST 22 15 - 37 U/L 09/26/2018 8:41 PM CDT [facility] ALT 33 14 - 55 U/L 09/26/2018 8:41 PM T [facility] ALKALINE PHOSPHATASE S/P/B 84 50 - 136 U/L 09/26/2018 8:41 PM T [facility] ANION GAP 8.7 8 - 20 MMOL/L 09/26/2018 8:41 PM CDT [facility] BUN CREATININE RATIO 19.8 6 - 26 09/26/2018 8:41 PM CDT [facility] A/G RATIO 1.1 1.0 - 2.0 RATIO 09/26/2018 8:41 PM CDT [facility] EGFR NON-AFR. AMER. >90 >90 ML/MIN/1.7 3 M2 09/26/2018 8:41 PM CDT [facility] EGFR AFR. AMER. >90 >90 ML/MIN/1.7 3 M2 09/26/2018 8:41 PM CDT [facility] Comment: NOTE: eGFR is not calculated for patients <18 years of age. This is an estimated GFR (CKD EPI) and should not be used for calculating drug doses. 09/26/2018 9:48 AM CDT us Nisha HIGGINS [facility] Final Resul t [facility] [address] [place] [address], * CBC W/DIFF AUTOMATED (09/26/2018 9:48 AM CDT) WBC 7.3 4.5 - 11.0 x10'3/uL 09/26/2018 8:14 PM CDT [facility] RBC 4.77 4.20 - 5.40 x10'6/uL 09/26/2018 8:14 PM CDT [facility] HGB 14.3 12.0 - 16.0 G/DL 09/26/2018 8:14 PM CDT [facility] HCT 44.6 38.0 - 48.0 % 09/26/2018 8:14 PM CDT [facility] MCV 93.5 81.0 - 99.0 FL 09/26/2018 8:14 PM CDT [facility] MCH 30.0 27.0 - 31.0 PG 09/26/2018 8:14 PM CDT [facility] MCHC 32.1 32.0 - 36.0 G/DL 09/26/2018 8:14 PM CDT [facility] RDW 14.2 11.5 - 14.5 % 09/26/2018 8:14 PM CDT [facility] PLT 308 130 - 400 x10'3/uL 09/26/2018 8:14 PM CDT [facility] MPV 9.6 9.3 - 12.2 FL 09/26/2018 8:14 PM CDT [facility] DIFFERENTIAL TYPE AUTOMATED DIFFERENTIAL 09/26/2018 8:14 PM CDT [facility] NEUTROPHILS % 62.4 % 09/26/2018 8:14 PM CDT [facility] LYMPHOCYTES % 25.0 % 09/26/2018 8:14 PM CDT [facility] MONOCYTES % 8.2 % 09/26/2018 8:14 PM CDT [facility] EOSINOPHILS 3.6 % 09/26/2018 8:14 PM CDT [facility] BASOPHILS 0.5 % 09/26/2018 8:14 PM CDT [facility] IMMATURE GRANS % 0.3 % 09/27/19 19 8:14 PM CDT [facility] ABS. NEUTROPHILS TOTAL 4.54 1.80 - 7.70 x10'3/uL 09/26/2018 8:14 PM CDT [facility] ABS. LYMPHOCYTES 1.82 1.00 - 4.80 x10'3/uL 09/26/2018 8:14 PM CDT [facility] ABS. MONOCYTES 0.60 0.24 - 0.86 x10'3/uL 09/26/2018 8:14 PM CDT [facility] ABS. EOSINOPHILS 0.26 0.04 - 0.36 x10'3/uL 09/26/2018 8:14 PM CDT [facility] ABS. BASOPHILS 0.04 0.01 - 0.08 x10'3/uL 09/26/2018 8:14 PM CDT [facility] ABS. IMMATURE GRANULOCYTES 0.02 0.00 - 0.49 x10'3/uL 09/26/2018 8:14 PM CDT [facility] 09/26/2018 9:48 AM CDT Nisha [facility] Final Resul t [facility] [address] [place] [address], documented in this encounter Visit Diagnoses Diagnosis Healthcare maintenance- Primary Routine general medical examination at a health care facility Elevated liver enzymes Nonspecific elevation of levels of transaminase or lactic acid dehydrogenase (LDH) Asymptomatic microscopic hematuria Hyperglycemia Other abnormal glucose Essential hypertension Unspecified essential hypertension Vitamin D deficiency Unspecified vitamin D deficiency BMI 50.0-59.9, adult ([facility]) Body Mass Index 50.0-59.9, adult documented in this encounter Care Teams Traffic Sign Supervisor Relationship Specialty Start Date End Date Nisha Stokes APNP [address] [place] [phone] PCP - General NURSE PRACTITIONER 09/20/18 documented as of this encounter
--- OUTSIDE RECORDS SUMMARY | 2024-06-03 20:29 | XMS_ITS | Encounter Summary ---
Author Organization [facility] Address [address] [place] [address]. [place], [place] [id number] [place] [phone] Care Team Providers Care Director Of Recruitment And Admissions Name Role Phone Nisha Stokes Primary Care Provider Reason for Visit * Reason Comments Hyperglycemia Encounter Details Date Type Department Care Team (Late st Contact Info) Description 12/02/2021 8:00 AM CDT Allied Health/Nurse Visit [facility] Family & Internal Medicine [facility] [address] [place] [address] Nisha Stokes APNP [address] [place], [place] [id number] Hyperglycemia Social History Tobacco Use Types Packs/Day Years [...] Sex Assigned at Female 05/07/2024 12:02 PM 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 No / Unsure 12/02/2021 7:35 AM CDT documented as of this encounter Plan of Treatment Upcoming Encounters Date Type Department Care Team (Late st Contact Info) Description 06/12/2024 8:20 AM COMMERCIAL FISHER Allied Health/Nurse Visit [facility] Family & Internal [address] [phone] 11/11/2024 9:00 AM CDT Allied Health/Nurse Visit [facility] Family & Internal [address] [phone] Nisha Stokes APNP [address] [place] [phone] documented as of this encounter Procedures Procedure Name Priority Date/Time Associated Diagnosis Comments COLLECT.CAPILLARY (FNGR,HEEL,EAR) Routine 12/02/2021 Blood glucose elevated HEMOGLOBIN, GLYCOSYLATED Routine 12/02/2021 Blood glucose elevated documented in this encounter Results * COLLECT.CAPILLARY (FNGR,HEEL,EAR) (12/02/2021) Nisha HIGGINS PROCEDURES-UNRESULTED Final Result * A1C (BACK OFFICE) (12/02/2021) HGB A1C 5.7 % [facility] 12/02/2021 Nisha [facility]IGGINS [facility] Final Resul t [address] [address], documented in this encounter Visit Diagnoses Diagnosis Blood glucose elevated- Primary Other abnormal glucose documented in this encounter Additional Health Concerns Assessment Noted Time PHQ-9 Depression Total Score: 0 11/18/19 9:27 AM CDT documented as of this encounter Care Teams Director Of Recruitment And Admissions Relationship Specialty Start Date End Date Nisha Stokes APNP [address] [place] [id number] PCP - General NURSE PRACTITIONER 09/20/18 documented as of this encounter
--- OUTSIDE RECORDS SUMMARY | 2024-06-03 20:29 | XMS_ITS | Encounter Summary ---
Author Organization [facility] Address [address] [place] [address]. [place] [address] [place] [address] Care Team Providers Care Oracle Scm Consultant Name Role Phone Nisha Stokes Primary Care Provider [phone] Reason for Visit * Reason Onset Date Comments Results 09/21/2020 Encounter Details Date Type Department Care Team (Late st Contact Info) Description 09/21/2020 Telephone [facility] Medical Group Family & Internal Medicine [facility] [address] [place] [address] Nisha Stokes APNP [address] [place] [address] Results Social History Tobacco Use Types Packs/Day [...] please move on to questions 3-9 0 09/18/2020 Comments Unknown Sex and Gender Information Value Date Recorded Sex Assigned at Female 05/07/2024 12:02 PM ANIMAL HUSBANDRY MANAGER Legal Sex Female 8:55 PM CDT Gender Identity Female 05/07/2024 12:02 PM ANIMAL HUSBANDRY MANAGER Sexual Orientation Not on file COVID-19 Exposure Response Date Recorded In the last month, have you been in contact with someone who was confirmed or suspected to have Coronavirus / COVID-19? No / Unsure 09/17/2020 1:26 PM CDT documented as of this encounter Progress Notes * Maggy Rob MA - 09/28/2020 12:44 PM CDT Pt v/u to labs. She says she is taking 5,000 IU daily she thinks her vitamin d is high because she's in [place] and she is getting more sun. V/u to recheck urine when she is back in town. BB 09/28/2020 * Maggy Rob MA - 09/28/2020 12:41 PM CDT ----- Message from GISELA Gutierrez sent at 09/28/2020 12:32 PM CDT ----- Glucose noted in urine--I did check a HGB Z4M--zy diabetes--but pre diabetes. I would like to repeat her urine when she is back in town. Other labs reviewed in other result note * Maggy Rob MA - 09/21/2020 9:47 AM CDT Called lab and they added on a HGB A1c. BB 09/21/2020 * Maggy Rob MA - 09/21/2020 9:44 AM CDT ----- Message from GISELA Gutierrez sent at 09/21/2020 9:40 AM CDT ----- Vit D3 elevated---how much daily Vit D is she taking? Lipids sl elevated---reduce animal fats and carbs in diet. Glucose elevated at 110 and protein and glucose noted in urine, along with a trace of blood. Add on a HGB A1C please---Dx: Hyperglycemia---would like to have the HGB A1c results before notifying pt of labs. documented in this encounter Plan of Treatment Upcoming Encounters Date Type Department Care Team (Late st Contact Info) Description 06/12/2024 8:20 AM ANIMAL HUSBANDRY MANAGER Allied Health/Nurse Visit [facility] Family & Internal [address] [phone] 11/11/2024 9:00 AM CDT Allied Health/Nurse Visit [address] [address] Nisha Stokes APNP [address] [place] [id number] documented as of this encounter Results * (ABNORMAL) HEMOGLOBIN, GLYCOSYLATED (09/18/2020 8:56 AM CDT) HGB A1C 5.9(H) 3.80 - 5.60 % 09/21/2020 11:31 AM CDT [facility] ESTIMATED AVG GLUCOSE 123(H) 74 - 106 MG/DL 09/21/2020 11:31 AM CDT [facility] 09/18/2020 8:56 AM CDT [facility] Final Resul t [facility] [address] [place] [address], documented in this encounter Visit Diagnoses Diagnosis Hyperglycemia- Primary Other abnormal glucose documented in this encounter Additional Health Concerns Assessment Noted Time PHQ-9 Depression Total Score: 0 09/19/19 21 9:34 AM CDT documented as of this encounter Care Teams Oracle Scm Consultant Relationship Specialty Start Date End Date Nisha Stokes APNP [address] [place] [address] PCP - General NURSE PRACTITIONER 09/20/18 documented as of this encounter
--- OUTSIDE RECORDS SUMMARY | 2024-06-03 20:29 | XMS_ITS | Encounter Summary ---
Author Organization [facility] Address [address] [place] [address]. [place] [address] [place] [address] Care Team Providers Care Darkroom Technician Name Role Phone Nisha Stokes GISELA Primary Care Provider [phone]- [phone] Reason for Visit * Reason Comments Dilated Eye Exam (SCAN) Encounter Details Date Type Department Care Team ([facility] Contact Info) Description 11/26/2022 Scan HEALTH INFO [facility] Scanned, Doc Med Group Dilated Eye Exam (SCAN) Social History Tobacco Use Types Packs/Day Years Used Date Smoking Tobacco: Former Cigarettes 0.3 5 2 016 - 2020 Passive Smoke Exposure: Past Smokeless Tobacco: Never Alcohol Use Standard Drinks/Week Comments Yes 0 (1 standard drink = 0.6 oz pur e alcohol) socially AUDIT-C Answer Date Recorded Frequency of Alcohol Consumption 2-3 times a wee k 09/26/2018 Average Number of Drinks 1 or 2 019 Frequency of Binge Drinking Not on file 12/2018 PHQ-2 Answer Date Recorded Patient Health Questionnaire-2 Score 0 09/22/2022 Comments No Sex and Gender Information Value Date Recorded Sex Assigned at Female 05/07/2024 12:02 PM CLOTH PRINTING INSPECTOR Legal Sex Female 8:55 PM CDT Gender Identity Female 05/07/2024 12:02 PM CLOTH PRINTING INSPECTOR Sexual Orientation Not on file documented as of this encounter Plan of Treatment Upcoming Encounters Date Type Department Care Team ([facility] Contact Info) Description 06/12/2024 8:20 AM CLOTH PRINTING INSPECTOR Allied Health/Nurse Visit [facility] Medical [facility] Family & Internal Medicine [address] [address] 11/11/2024 9:00 AM CDT Allied Health/Nurse Visit [facility] Medical Group Family & Internal Medicine - [place] [address] [place] [address] Nisha Stokes APNP [address] [place] [address] documented as of this encounter Procedures Procedure Name Priority Date/Time Associated Diagnosis Comments DIABETIC RETINOPATHY EXAM (NEGATIVE)(SCAN ORDER) Routine 11/26/2022 documented in this encounter Results * DIABETIC RETINOPATHY EXAM (NEGATIVE)(SCAN) (11/26/2022) us Doc Med Group Scanned SCANNING Final Resu lt [facility] documented in this encounter Visit Diagnoses Not on filedocumented in this encounter Additional Health Concerns Assessment Noted Time PHQ-9 Depression Total Score: 0 11/18/19 22 9:27 AM CDT documented as of this encounter Care Teams Darkroom Technician Relationship Specialty Start Date End Date Nisha Stokes APNP [facility] [place] [address] PCP - General NURSE PRACTITIONER 09/20/18 documented as of this encounter
--- OUTSIDE RECORDS SUMMARY | 2024-06-03 20:29 | XMS_ITS | Encounter Summary ---
Author Organization [facility] Address [address] [place] [address]. [place] [address] [place] [address] Care Team Providers Care Medical Biller/Coder Name Role Phone Nisha Stokes Primary Care Provider Reason for Visit * Reason Onset Date Comments Lab Results 12/20/2019 Encounter Details Date Type Department Care Team (Late st Contact Info) Description 12/20/2019 Telephone [facility] Medical Group Family & Internal Medicine [facility] [address] [place] [address] Nisha Stokes APNP [address] [place] [address] Lab Results Social History Tobacco [...] PHQ-2 Answer Date Recorded PHQ-2 Score 0 12/17/2019 Comments Unknown Sex and Gender Information Value Date Recorded Sex Assigned at Female 05/07/2024 12:02 PM DISTRICT OR DISTRICT OFFICE DIRECTOR Legal Sex Female 8:55 PM CDT Gender Identity Female 05/07/2024 12:02 PM DISTRICT OR DISTRICT OFFICE DIRECTOR Sexual Orientation Not on file COVID-19 Exposure Response Date Recorded In the last month, have you been in contact with someone who was confirmed or suspected to have Coronavirus / COVID-19? No / Unsure 12/17/2019 8:47 AM CDT documented as of this encounter Progress Notes * Reina Burciaga RN - 12/20/2019 4:03 PM CDT Spoke to patient; verbalized understanding. * Reina Burciaga RN - 12/20/2019 3:57 PM CDT ----- Message from GISELA Gutierrez sent at 12/20/2019 3:38 PM CDT ----- HGB A1C 5.9---still pre diabetic. Lipids sl elevated---continue lower chol diet. Weight loss. Remainder of labs stable documented in this encounter Plan of Treatment Upcoming Encounters Date Type Department Care Team (Late st Contact Info) Description 06/12/2024 8:20 AM DISTRICT OR DISTRICT OFFICE DIRECTOR Allied Health/Nurse Visit [facility] Medical [facility] Family & Internal [address] [address] 11/11/2024 9:00 AM CDT Allied Health/Nurse Visit [facility] Family & Internal [place] [address] [place] [address] Nisha Stokes APNP [address] [place] [address] documented as of this encounter Visit Diagnoses Not on filedocumented in this encounter Care Teams Medical Biller/Coder Relationship Specialty Start Date End Date Nisha Stokes APNP [facility] [place] [address] PCP - General NURSE PRACTITIONER 09/20/18 documented as of this encounter
--- OUTSIDE RECORDS SUMMARY | 2024-06-03 20:29 | XMS_ITS | Encounter Summary ---
Author Organization [facility] Address [address] [place] [address]. [place] [address] [place] [address] Care Team Providers Care Wire Harness Assembler Name Role Phone Nisha Stokes Toño HIGGINS Primary Care Provider Encounter Details Date Type Department Care Team (Latest Contact Info) Description 12/02/2021 Travel Social History Tobacco Use Types Packs/Day [...] Sex Assigned at Female 05/07/2024 12:02 PM FLOOR WAXER Legal Sex Female 8:55 PM CDT Gender Identity Female 05/07/2024 12:02 PM FLOOR WAXER Sexual Orientation Not on file COVID-19 Exposure Response Date Recorded In the last 10 days, have yo u been in contact with someone who was confirmed or suspected to have Coronavirus/COVID-19? No / Unsure 12/02/2021 7:35 AM CDT documented as of this encounter Plan of Treatment Upcoming Encounters Date Type Department Care Team (Late st Contact Info) Description 06/12/2024 8:20 AM FLOOR WAXER Allied Health/Nurse Visit [facility] Medical Group Family & Internal Medicine - [address] [address] 11/11/2024 9:00 AM CDT Allied Health/Nurse Visit [facility] Medical Group Family & Internal Medicine - [address] [address] Nisha Stokes APNP [address] [place] [address] documented as of this encounter Visit Diagnoses Not on filedocumented in this encounter Additional Health Concerns Assessment Noted Time PHQ-9 Depression Total Score: 0 11/18/19 9:27 AM CDT documented as of this encounter Care Teams Wire Harness Assembler Relationship Specialty Start Date End Date Nisha Stokes APNP [address] [place] [address] PCP - General NURSE PRACTITIONER 09/20/18 documented as of this encounter
--- OUTSIDE RECORDS SUMMARY | 2024-06-03 20:29 | XMS_ITS | Encounter Summary ---
Author Organization [facility] Address [address] [place] [address]. [place], [place] [address] [place] [address] Care Team Providers Care Manager Material Name Role Phone Unavailable Primary Care Provider Unavailabl e Encounter Details Date Type Department Care Team (Latest Contact Info) Description 11/27/2017 Abstract [facility] Medical Group Social History Tobacco Use Types Packs/Day Years Used Date Smoking Tobacco: Never Assessed Comments Unknown Sex and Gender Information Value Date Recorded Sex Assigned at Female 05/07/2024 12:02 PM FINANCIAL REP Legal Sex Female 8:55 PM CDT Gender Identity Female 05/07/2024 12:02 PM FINANCIAL REP Sexual Orientation Not on file documented as of this encounter Plan of Treatment Upcoming Encounters Date Type Department Care Team (Late st Contact Info) Description 06/12/2024 8:20 AM FINANCIAL REP Allied Health/Nurse Visit [facility] Medical [facility] Family & Internal Medicine [address] [address] 11/11/2024 9:00 AM CDT Allied Health/Nurse Visit [facility] Family & Internal Medicine [address] [address] Nisha Stokes APNP [address] [place] [address] documented as of this encounter Visit Diagnoses Not on filedocumented in this encounter
--- OUTSIDE RECORDS SUMMARY | 2024-06-03 20:29 | XMS_ITS | Encounter Summary ---
Author Organization [facility] Address [address] [place] [address]. [place] [address] [place] [address] Care Team Providers Care Sales Representative Gas Service Name Role Phone Unavailable Primary Care Provider Unavailabl e Encounter Details Date Type Department Care Team (Latest Contact Info) Description 03/12/2018 Abstract [facility] Medical Group , Generic ConversionMD Social History Tobacco Use Types Packs/Day Years Used Date Smoking Tobacco: Never Assessed Comments Unknown Sex and Gender Information Value Date Recorded Sex Assigned at Female 05/07/2024 12:02 PM INSURANCE COUNSELOR Legal Sex Female 8:55 PM CDT Gender Identity Female 05/07/2024 12:02 PM INSURANCE COUNSELOR Sexual Orientation Not on file documented as of this encounter Progress Notes * Generic Conversion MD [place] - 03/12/2018 3:00 PM CDT Message Recorded as Task Date: 03/12/2018 10:51 AM, Created By: Brittany Adair Task Name: Medical Complaint Callback Assigned To: [facility] Nurse Team Regarding Patient: Yuridia Pleitez, Status: In Progress Comment: Brittany Adair - 12 Mar 2018 10:51 AM TASK CREATED pt calling in because she thought her hydroclorothiazide was supposed to be lowered and the dosage of her new rx kept the dosage roughly the same. she is just double checking this is the correct dosage you would like her on cb: [phone] Nisha Sotkes - 12 Mar 2018 1:13 PM TASK REASSIGNED: Previously Assigned To Nisha Stokes Prescription should be lisinopril/HCTZ 20/12.5, one tablet, once daily. Shabana Tijerina - 12 Mar 2018 3:00 PM TASK IN PROGRESS Shabana Tijerina - 12 Mar 2018 3:02 PM TASK EDITED rx directions corrected. patient informed with understanding voiced Signatures Electronically signed by : Shabana Tijerina, ; Mar 12 2018 3:02PM INSURANCE COUNSELOR (Author) documented in this encounter Plan of Treatment Upcoming Encounters Date Type Department Care Team (Late st Contact Info) Description 06/12/2024 8:20 AM INSURANCE COUNSELOR Allied Health/Nurse Visit [facility] Family & Internal [address] [address] 11/11/2024 9:00 AM CDT Allied Health/Nurse Visit [facility] Family Internal [address] [address] Nisha Stokes, GISELA [address] [place] [address] documented as of this encounter Visit Diagnoses Not on filedocumented in this encounter
--- OUTSIDE RECORDS SUMMARY | 2024-06-03 20:29 | XMS_ITS | Encounter Summary ---
Author Organization [facility] Address [address] [place] [address]. [place], [place] [address] [place] [address] Care Team Providers Care Fishing Captain Name Role Phone Unavailable Primary Care Provider Unavailabl e Encounter Details Date Type Department Care Team (Late st Contact Info) Description 08/24/2018 Orders Only [facility] Family & Internal Medicine [address] [address] Yolette Santoyo MA Social History Tobacco Use Types Packs/Day Years Used Date Smoking Tobacco: Never Smokeless Tobacco: Never Comments Unknown Sex and Gender Information Value Date Recorded Sex Assigned at Female 05/07/2024 12:02 PM DEHYDROGENATION OPERATOR Legal Sex Female 8:55 PM CDT Gender Identity Female 05/07/2024 12:02 PM DEHYDROGENATION OPERATOR Sexual Orientation Not on file documented as of this encounter Plan of Treatment Upcoming Encounters Date Type Department Care Team (Late st Contact Info) Description 06/12/2024 8:20 AM DEHYDROGENATION OPERATOR Allied Health/Nurse Visit [facility] Family & Internal Medicine [address] [address] 11/11/2024 9:00 AM CDT Allied Health/Nurse Visit [facility] Family & Internal [address] [address] Nisha Stokes APNP [address] [place] [address] documented as of this encounter Visit Diagnoses Not on filedocumented in this encounter
--- OUTSIDE RECORDS SUMMARY | 2024-06-03 20:29 | XMS_ITS | Encounter Summary ---
Author Organization [facility] Address [address] [place] [address]. [place] [address] [place] [address] Care Team Providers Care Hearing Aid Dispenser Name Role Phone Unavailable Primary Care Provider Unavailabl e Encounter Details Date Type Department Care Team (Late st Contact Info) Description 10/13/2017 Abstract [facility] Family & Internal Medicine [id number] [place] [address] Nisha Stokes APNP [address] [place] [address] Social History Tobacco Use Types Packs/Day Years Used Date Smoking Tobacco: Never Assessed Comments Unknown Sex and Gender Information Value Date Recorded Sex Assigned at Female 05/07/2024 12:02 PM KAIAKO KOHANGA REO Legal Sex Female 8:55 PM CDT Gender Identity Female 05/07/2024 12:02 PM KAIAKO KOHANGA REO Sexual Orientation Not on file documented as of this encounter Last Filed Vital Signs Vital Sign Reading Time Taken Comments Blood Pressure 112/86 10/13/2017 8:06 AM CDT Pulse 76 10/13/2017 8:06 AM CDT Temperature - - Respiratory Rate - - Oxygen Saturation - - Inhaled Oxygen Concentration - - Weight 135.6 kg (299 lb) 10/13/2017 8:06 AM CDT Height 160 cm (5' 3 ) 10/13/2017 8:06 AM CDT Body Mass Index 52.97 10/13/2017 8:06 AM CDT documented in this encounter Progress Notes * GISELA Gutierrez - 10/13/2017 8:00 AM CDT Reason For Visit Chronic Recheck Visit Chief Complaint Patient is here for follow up on depression . History of Present Illness PHQ-9 Depression Questionnaire: Over the past 2 weeks, how often have you been bothered by the following problems? 1.) Little interest or pleasure in doing things? Not at all. 2.) Feeling down, depressed or hopeless? Not at all. 3.) Trouble falling asleep or sleeping too much? Not at all. 4.) Feeling tired or having little energy? Not at all. 5.) Poor appetite or overeating? Not at all. 6.) Feeling bad about yourself, or that you are a failure, or have let yourself or your family down? Not at all. 7.) Trouble concentrating on things, such as reading a newspaper or watching television? Not at all. 8.) Moving or speaking so slowly that other people could have noticed, or the opposite, moving or speaking faster than usual? Not at all. 9.) Thoughts that you would be off or of hurting yourself in some way? Not at all. HPI Free Text: Pt here today for follow up on depression. Is slow weaning off of fluoxetine. She states she feels fine and is having no side effects of difficulty weaning. PHQ-9 score today is 0. Labs were drawn today and will be reviewed. Liver enzymes were slightly elevated. Hep B and C were both negative. States she normally has this result with her labs and has been told in the past she has fatty liver. TG's elevated. Glu 139, HGB A1C 6.0. Vit D slightly low at 6.0. Denies any abd pain,N/V/D. Hypertension (Follow-Up): The patient presents for follow-up of primary hypertension. The patient states she has been doing well with her blood pressure control since the last visit. She has no comorbid illnesses. She has no significant interval events. Symptoms: The patient is currently asymptomatic. Associated symptoms include no headache, no focal neurologic deficits and no memory loss. Home monitoring: The patient is not checking blood pressure at home.. Medications: the patient is adherent with her medication regimen. She denies medication side effects.. Medication(s): a diuretic and an LAURA inhibitor. Disease Management: the patient is doing well with her blood pressure goals.. Review of Systems Constitutional, Cardiovascular, Respiratory, Gastrointestinal, Genitourinary, Neurological and Psychiatric review of systems normal except as noted. Active Problems 1. Allergic rhinitis (477.9) (J30.9) 2. Cerumen impaction (380.4) (H61.20) 3. Depression (311) (F32.9) 4. Elevated liver enzymes (790.5) (R74.8) 5. Encounter for screening colonoscopy (V76.51) (Z12.11) 6. Hematuria (599.70) (R31.9) 7. Hyperglycemia (790.29) (R73.9) 8. Hypertension (401.9) (I10) 9. Need for tetanus booster (V03.7) (Z23) Surgical History 1. History of cholecystectomy Family History 1. Family history of malignant neoplasm of breast (V16.3) (Z80.3) 2. Family history of colon cancer (V16.0) (Z80.0) ?? Father was diagnosed at age 54 3. Family history of cardiac disorder (V17.49) (Z82.49) 4. Family history of cerebrovascular accident (CVA) (V17.1) (Z82.3) 5. Family history of hypertension (V17.49) (Z82.49) Social History ?? Never a smoker ?? Non-smoker (V49.89) (Z78.9) Current Meds 1. Gladis Allergy 180 MG Oral Tablet; TAKE 1 TABLET BY MOUTH EVERY DAY; Therapy: (Recorded:[id number]) to Recorded 2. Balance B-100 Oral Tablet; Therapy: (Recorded:82Kzm6319) to Recorded 3. FLUoxetine HCl - 10 MG Oral Capsule; Take one capsule daily; Therapy: 13Oft9846 to (Evaluate:68Tnc4623) Requested for: 55Upk8975; Last Rx:[id number] Ordered 4. Lisinopril-Hydrochlorothiazide 20-25 MG Oral Tablet; TAKE ONE TABLET BY MOUTH ONCE DAILY Requested for: 93Jsm3681; Last Rx:[id number] Ordered 5. Multi-Vitamin Oral Tablet; TAKE 1 TABLET BY MOUTH EVERY OTHER DAY AM (HOLD); Therapy: (Recorded:05Jzz7460) to Recorded Allergies 1. Iodine SOLN Vitals Recorded: 13Oct2017 08:06AM Temperature 98 F Heart Rate 76 Respiration 16 Systolic 112 Diastolic 86 O2 Saturation 98 Height 5 ft 3 in Weight 299 lb BMI Calculated 52.97 BSA Calculated 2.29 Physical Exam Constitutional General appearance: No acute distress, well appearing and well nourished. Pulmonary Respiratory effort: No increased work of breathing or signs of respiratory distress. Auscultation of lungs: Clear to auscultation. Cardiovascular Auscultation of heart: Normal rate and rhythm, normal S1 and S2, without murmurs. Examination of extremities for edema and/or varicosities: Normal. Abdomen Abdomen: Non-tender, no masses. Musculoskeletal Gait and station: Normal. Psychiatric Orientation to person, place, and time: Normal. Mood and affect: Normal. Counseling The patient was counseled regarding instructions for management, risk factor reductions, patient and family education, impressions, risks and benefits of treatment options and importance of compliance with treatment. total time of encounter was 20 minutes and 15 minutes was spent counseling. Assessment 1. Hypertension (401.9) (I10) 2. Elevated liver enzymes (790.5) (R74.8) 3. Hyperglycemia (790.29) (R73.9) 4. Vitamin D deficiency (268.9) (E55.9) 5. BMI 50.0-59.9, adult (V85.43) (Z68.43) Plan BMI 50.0-59.9, adult 1. Begin or continue regular aerobic exercise. Gradually work up to at least 3 sessions of 30 minutes of exercise a week.; Status:Complete; Done: 07Qoy6883 Ordered; For:BMI 50.0-59.9, adult; Ordered By:Nisha Stokes; 2. Call if: You are considering suicide.; Status:Complete; Done: 07Ueb3120 Ordered; For:BMI 50.0-59.9, adult; Ordered By:Nisha Stokes; 3. Diets that are low in carbohydrates and high in protein are very popular for weight loss.; Status:Complete; Done: 96Mbd3524 Ordered; For:BMI 50.0-59.9, adult; Ordered By:Nisha Stokes; 4. Call if: You are having difficulty sleeping (insomnia).; Status:Complete; Done: 73Sni6938 Ordered; For:BMI 50.0-59.9, adult; Ordered By:Nisha Stokes; 5. We encourage all of our patients to exercise regularly. 30 minutes of exercise or physical activity five or more days a week is recommended for children and adults.; Status:Complete; Done: 86Oow7494 Ordered; For:BMI 50.0-59.9, adult; Ordered By:Nisha Stokes; 6. Call if: You are urinating too frequently.; Status:Complete; Done: 73Cqk0233 Ordered; For:BMI 50.0-59.9, adult; Ordered By:Nisha Stokes; 7. Call if: You feel thirsty most of the time.; Status:Complete; Done: 61Ail1166 Ordered; For:BMI 50.0-59.9, adult; Ordered By:Nisha Stokes; 8. Call if: You feel your heart is beating very fast or skipping beats.; Status:Complete; Done: 17Bwf2932 Ordered; For:BMI 50.0-59.9, adult; Ordered By:Nisha Stokes; 9. Call if: You have feelings of extreme sadness and feelings of hopelessness.; Status:Complete; Done: 32Wtx5882 Ordered; For:BMI 50.0-59.9, adult; Ordered By:Nisha Stokes; 10. Call if: You have pain in your abdomen.; Status:Complete; Done: 06Cvz3006 Ordered; For:BMI 50.0-59.9, adult; Ordered By:Nisha Stokes; 11. Call if: You have symptoms of sleep apnea.; Status:Complete; Done: 43Yit0184 Ordered; For:BMI 50.0-59.9, adult; Ordered By:Nisha Stokes; 12. Call 911 if: You have sudden or severe chest pain with shortness of breath, rapid breathing, or cough.; Status:Complete; Done: 13Mcw4721 Ordered; For:BMI 50.0-59.9, adult; Ordered By:Nisha Stokes; 13. Seek Immediate Medical Attention if: You experience a new kind of chest pain (angina) or pressure.; Status:Complete; Done: 25Tpl3424 Ordered; For:BMI 50.0-59.9, adult; Ordered By:Nisha Stokes; Depression, Hypertension 14. Follow-up visit in 6 months Outpatient Follow-up Status: Hold For - Scheduling Requested for: [id number] Ordered; For: Depression, Hypertension; Ordered By: Nisha Stokes Performed: Due: 27Oct2017; Last Updated By: Yolette Santoyo; 10/13/2017 8:44:12 AM Hypertension 15. We encourage you to begin to make lifestyle changes to help control your blood pressure. These may include losing weight, increasing your activity level, limiting salt in your diet, decreasing alcohol intake, and eating a diet low in fat and rich in fruits and vegetables.; Status:Complete; Done: 40Euy3978 Ordered; For:Hypertension; Ordered By:Nisha Stokes; 16. Call if: You become dizzy or lightheaded, especially when you stand up after sitting for a while.; Status:Complete; Done: 48Tlm2518 Ordered; For:Hypertension; Ordered By:Nisha Stokes; 17. We want to put you on the DASH diet for 2000 calories.; Status:Complete; Done: 35Mdb1611 Ordered; For:Hypertension; Ordered By:Nisha Stokes; 18. Call if: You develop double vision (see two of everything).; Status:Complete; Done: 02Yzk9763 Ordered; For:Hypertension; Ordered By:Nisha Stokes; 19. Call if: Your blood pressure is frequently higher than 140/90.; Status:Complete; Done: 82Cti2283 Ordered; For:Hypertension; Ordered By:Nisha Stokes; 20. Call 781 if: You experience a new kind of chest pain (angina) or pressure.; Status:Complete; Done: 62Gii1810 Ordered; For:Hypertension; Ordered By:Nisha Stokes; 21. Call 911 if: You have any symptoms of a stroke.; Status:Complete; Done: 75Saz6168 Ordered; For:Hypertension; Ordered By:Nisha Stokes; 22. Seek Immediate Medical Attention if: You have a severe headache that will not go away.; Status:Complete; Done: 15Ayv6764 Ordered; For:Hypertension; Ordered By:Nisha Stokes; 23. Seek Immediate Medical Attention if: Your blood pressure is greater than 250/120 for 2 consecutive readings.; Status:Complete; Done: 87Rll7258 Ordered; For:Hypertension; Ordered By:Nisha Stokes; HTN - Stable. Continue meds. Elevated liver enzymes - SL elevation. Pt asymptomatic. Hep B and C neg. Plan to recheck in next 3-6 months, Hyperglycemia - A1C 6.0. Basic diabetic dietary principles discussed. Wt loss encouraged. Signatures Electronically signed by : Nisha Stokes APN; Oct 13 2017 9:19AM KAIAKO KOHANGA REO (Author) documented in this encounter Plan of Treatment Upcoming Encounters Date Type Department Care Team (Late st Contact Info) Description 06/12/2024 8:20 AM KAIAKO KOHANGA REO Allied Health/Nurse Visit [facility] Family & Internal Medicine [address] [phone] 11/11/2024 9:00 AM CDT Allied Health/Nurse Visit [facility] Family & Internal [address] [address] Nisha Stokes APNP [facility] [address] [place] [address] documented as of this encounter Visit Diagnoses Not on filedocumented in this encounter
--- OUTSIDE RECORDS SUMMARY | 2024-06-03 20:29 | XMS_ITS | Encounter Summary ---
Author Organization [facility] Address [address] [place] [address]. [place], [place] [address] [place] [address] Care Team Providers Care Interlocking Machine Operator Name Role Phone Nisha Stokes Primary Care Provider [phone] Reason for Visit * Reason Comments Hypertension Patient presents for follow up HTN Encounter Details Date Type Department Care Team (Late st Contact Info) Description 09/22/2022 9:40 AM CDT Office Visit [facility] Family & Internal Medicine [phone] [place] [address] Nisha Stokes APNP [address] [place], [place] [id number] Hypertension (Patient presents for follow up HTN) Social History Tobacco Use Types Packs/Day Years Used Date Smoking Tobacco: Former Cigarettes 0.3 5 2 016 - 2020 Passive Smoke Exposure: Past Smokeless Tobacco: Never Tobacco Cessation:Counseling Given: No Alcohol Use Standard Drinks/Week Comments Yes 0 [...] Sex Assigned at Female 05/07/2024 12:02 PM EVENT MANAGER Legal Sex Female 8:55 PM CDT Gender Identity Female 05/07/2024 12:02 PM EVENT MANAGER Sexual Orientation Not on file COVID-19 Exposure Response Date Recorded In the last 10 days, have yo u been in contact with someone who was confirmed or suspected to have Coronavirus/COVID-19? No / Unsure 09/22/2022 9:21 AM CDT documented as of this encounter Last Filed Vital Signs Vital Sign Reading Time Taken Comments Blood Pressure 124/80 09/22/2022 9:46 AM CDT Pulse 77 09/22/2022 9:46 AM CDT Temperature 36.4 ??C (97.6 ??F) 09/22/2022 9:46 AM CD T Respiratory Rate 22 09/22/2022 9:46 AM CDT Oxygen Saturation 95% 09/22/2022 9:46 AM CDT Inhaled Oxygen Concentration - - Weight 130.3 kg (287 lb 3.2 oz) 09/22/2022 9:46 AM CDT Height 160 cm (5' 3 ) 09/22/2022 9:46 AM CDT Body Mass Index 50.88 09/22/2022 9:46 AM CDT documented in this encounter Progress Notes * GISELA Gutierrez - 09/22/2022 9:40 AM CDT Images from the original note were not included. [facility] FAMILY AND INTERNAL MEDICINE OFFICE VISIT Reason for Visit: Hypertension (Patient presents for follow up HTN) History of Present Illness: 52 yo female here today to follow up on her chronic health conditions. HTN - BP is good today. She is taking meds as ordered. Tolerates well, no bothersome side effects. She denies any CP, SOB, LUKE, dizziness, heart palpitations or lower extremity edema. BMI - > 50 - She has lost 20 lbs since her last visit with me. She is motivated to continue to lose weight. She has reduced carbs in her diet and has decreased total caloric intake. ROS: Review of Systems Constitutional: Negative for [...] Medical History: Diagnosis Date BMI 50.0-59.9, adult (CMS/HCC) 10/13/2017 Elevated liver enzymes 09/29/2017 Hypertension Seasonal allergies 09/18/2020 Vitamin D deficiency 10/13/2017 Surgical History: Past Surgical History: Procedure Laterality Date CHOLECYSTECTOMY HERNIA REPAIR Social History: Social History Socioeconomic History Marital status: Tobacco Use Smoking status: Former Packs/day: 0.25 Years: 5.00 Pack years: 1.25 Types: Cigarettes Quit date: 2020 Years since quittin.3 Passive exposure: Past Smokeless tobacco: Never Vaping Use Vaping Use: Never used Substance and Sexual Activity Alcohol use: Yes Comment: socially Drug use: No Sexual activity: Yes control/protection: I.U.D. Family History: Family History Problem Relation Name Age of Onset Breast Cancer Mother Colon Cancer Father Stroke Father Heart Disease Father Heart Disease Other Stroke Other Hypertension Other [...] Affect: Mood and affect normal. Filed Vitals: 09/22/22 0946 BP: 124/80 Pulse: 77 Resp: 22 Temp: 97.6 ??F (36.4 ??C) TempSrc: Temporal SpO2: 95% Weight: 130.3 kg (287 lb 3.2 oz) Height: 5' 3 (1.6 m) Labs: Labs Reviewed Diagnoses/Impression: 1. Primary hypertension hydroCHLOROthiazide (HYDRODIURIL) 25 MG tablet lisinopril (PRINIVIL) 40 MG tablet Recommendations and Plan: 1. Primary hypertension - hydroCHLOROthiazide (HYDRODIURIL) 25 MG tablet; Take 1 tablet (25 mg total) by mouth every morning. Dispense: 90 tablet; Refill: 3 - lisinopril (PRINIVIL) 40 MG tablet; Take 1 tablet (40 mg total) by mouth daily. Dispense: 90 tablet; Refill: 3 Stable. Continue meds. Follow up in 3-6 months for routine physical. Orders Placed This Encounter hydroCHLOROthiazide (HYDRODIURIL) 25 MG tablet lisinopril (PRINIVIL) 40 MG tablet Cannot display discharge medications since this is not an admission. PCP: GISELA Gutierrez 09/22/2022 documented in this encounter Plan of Treatment Upcoming Encounters Date Type Department Care Team (Late st Contact Info) Description 06/12/2024 8:20 AM EVENT MANAGER Allied Health/Nurse Visit [facility] Family & Internal Medicine [address] [address] 11/11/2024 9:00 AM CDT Allied Health/Nurse Visit [facility] Family & Internal Medicine [address] [address] Nisha Stokes APNP [address] [place] [address] documented as of this encounter Visit Diagnoses Diagnosis Primary hypertension Unspecified essential hypertension documented in this encounter Additional Health Concerns Assessment Noted Time PHQ-9 Depression Total Score: 0 11/18/19 9:27 AM CDT documented as of this encounter Care Teams Interlocking Machine Operator Relationship Specialty Start Date End Date Nisha Stokes APNP [address] [place] [address] PCP - General NURSE PRACTITIONER 09/20/18 documented as of this encounter
--- OUTSIDE RECORDS SUMMARY | 2024-06-03 20:29 | XMS_ITS | Encounter Summary ---
Author Organization [facility] Address [address] [place] [address]. [place], [place] [address] [place] [address] Care Team Providers Care Finish Molder Name Role Phone Nisha Stokes Toño HIGGINS Primary Care Provider [phone] Reason for Visit * Reason Comments Cough Dry Fatigue Congestion Sinus Problem Clear sinus drainage x 1 week Encounter Details Date Type Department Care Team (Late st Contact Info) Description 05/02/2019 3:40 PM CUSTOMER SERVICE TECHNICIAN Office Visit [facility] Family & Internal Medicine [facility] [address] [place] [address] Porter Abdalla, [address] [place], [place] [id number] Cough (Dry ); Fatigue; Congestion; Sinus Problem (Clear sinus drainage x 1 week ) Social History Tobacco Use Types Packs/Day [...] Sex Assigned at Female 05/07/2024 12:02 PM CUSTOMER SERVICE TECHNICIAN Legal Sex Female 8:55 PM CDT Gender Identity Female 05/07/2024 12:02 PM CUSTOMER SERVICE TECHNICIAN Sexual Orientation Not on file documented as of this encounter Last Filed Vital Signs Vital Sign Reading Time Taken Comments Blood Pressure 124/68 05/02/2019 3:44 PM CUSTOMER SERVICE TECHNICIAN Pulse 101 05/02/2019 3:44 PM CUSTOMER SERVICE TECHNICIAN Temperature 37.7 ??C (99.8 ??F) 05/02/2019 3:44 PM CS T Respiratory Rate 16 05/02/2019 3:44 PM CUSTOMER SERVICE TECHNICIAN Oxygen Saturation 92% 05/02/2019 3:44 PM CUSTOMER SERVICE TECHNICIAN Inhaled Oxygen Concentration - - Weight 125.9 kg (277 lb 8 oz) 05/02/2019 3:44 PM CUSTOMER SERVICE TECHNICIAN Height 160 cm (5' 3 ) 05/02/2019 3:44 PM CUSTOMER SERVICE TECHNICIAN Body Mass Index 49.16 05/02/2019 3:44 PM CUSTOMER SERVICE TECHNICIAN documented in this encounter Progress Notes * Porter Abdalla, - 05/02/2019 3:40 PM CST GENERAL OFFICE VISIT Encounter Date: 05/02/2019 Chief Complaint: 48-year-old female presents for Cough (Dry ); Fatigue; Congestion; and Sinus Problem (Clear sinus drainage x 1 week ) . HPI: Patient states symptoms have been present for 7 days. Symptoms include dry cough, nasal congestion,chest congestion, one day of watery stools (which has since improved), difficulty sleeping from coughing, and rib pain. Cough has become productive but is still clear. No chills, but she will feel hot and sweaty. Pertinent negatives include Abdominal Pain, Chest Pain and Rash. Patient has No sick contacts. OTC medications tried include Mucinex DM, robitussin. States this feels similar to past respiratory illnesses she has had. Review of Systems Constitutional: Negative for chills and fever. HENT: See HPI Eyes: Negative for discharge. Respiratory: See HPI Cardiovascular: Negative for chest pain. Gastrointestinal: Negative for abdominal pain, nausea and vomiting. Musculoskeletal: Negative for myalgias. Skin: Negative for rash. Patient Active Problem List Diagnosis ??? BMI 50.0-59.9, adult (CMS/HCC) ??? Elevated liver enzymes ??? Hypertension ??? Vitamin D deficiency Past Medical History: Diagnosis Date ??? BMI 50.0-59.9, adult (CMS/HCC) 10/13/2017 ??? Elevated liver enzymes 09/29/2017 ??? Hypertension ??? Vitamin D deficiency 10/13/2017 Past Surgical History: Procedure Laterality Date ??? CHOLECYSTECTOMY ??? HERNIA REPAIR Family History Problem Relation Name Age of Onset ??? Breast Cancer Mother ??? Colon Cancer Father ??? Stroke Father ??? Heart Disease Father ??? Heart Disease Other ??? Stroke Other ??? Hypertension Other Social History Socioeconomic History ??? Marital status: [...] file Gets together: Not on file Attends moravian service: Not on file Active member of [...] Social History Narrative ??? Not on file Immunization History Administered Date(s) Administered ??? Tdap (Generic) 09/04/2017 Current Outpatient Medications Medication Sig Dispense Refill ??? azithromycin (ZITHROMAX) 250 MG tablet Take 2 tabs daily the first day, then take 1 tab daily 6tablet 0 ??? cholecalciferol (VITAMIN D3) 125 MCG (5000 UT) Tab Take 5,000 Units by mouth daily. ??? fexofenadine 180 MG tablet Take 1 tablet by mouth daily. ??? guaifenesin-codeine (CHERATUSSIN AC) 100-10 MG/5ML syrup Take 5 mLs by mouth nightly as needed for Cough. Indications: Cough 180 mL 0 ??? lisinopril-hydrochlorothiazide 20-12.5 MG tablet Take 1 tablet by mouth daily. 180 tablet 1 ??? methylPREDNISolone, CONSUELO, 4 MG tablet 6 TABLETS ON DAY ONE, 5 TABLETS DAY TWO, 4 TABLETS DAY THREE, 3 TABLETS DAY FOUR, 2 TABLETS DAY FIVE, AND 1 TABLET DAY SIX 1 each 0 ??? Multiple Vitamin (MULTI-VITAMIN) tablet Take 1 tablet by mouth daily. ??? Vitamins-Lipotropics (BALANCE B-100) Tab Take one Tab every other day No current facility-administered medications for this visit. Current Outpatient Medications on File Prior to Visit Medication Sig ??? cholecalciferol (VITAMIN D3) 125 MCG (5000 UT) Tab Take 5,000 Units by mouth daily. ??? fexofenadine 180 MG tablet Take 1 tablet by mouth daily. ??? lisinopril-hydrochlorothiazide 20-12.5 MG tablet Take 1 tablet by mouth daily. ??? Multiple Vitamin (MULTI-VITAMIN) tablet Take 1 tablet by mouth daily. ??? Vitamins-Lipotropics (BALANCE B-100) Tab Take one Tab every other day No current facility-administered medications on file prior to visit. Allergies Allergen Reactions ??? Iodine Unknown ??? Seasonal Unknown Objective: Filed Vitals: 05/02/19 1544 BP: 124/68 Pulse: 101 Resp: 16 Temp: 99.8 ??F (37.7 ??C) SpO2: 92% Weight: 125.9 kg (277 lb 8 oz) Height: 5' 3 (1.6 m) Physical Exam Constitutional: She is oriented to person, place, and time and well-developed, well-nourished, and in no distress. HENT: Head: Normocephalic and atraumatic. Right Ear: Tympanic membrane, external ear and ear canal normal. Left Ear: Tympanic membrane, external ear and ear canal normal. Nose: Nose normal. Mouth/Throat: Oropharynx is clear and moist. No oropharyngeal exudate. Eyes: Conjunctivae are normal. Neck: Neck supple. Cardiovascular: Normal rate, regular rhythm and normal heart sounds. Exam reveals no gallop and no friction rub. No murmur heard. HR around 92-94 Pulmonary/Chest: Effort normal and breath sounds normal. No respiratory distress. She has no wheezes. She has no rales. Abdominal: Soft. Bowel sounds are normal. There is no tenderness. Musculoskeletal: She exhibits no edema. Lymphadenopathy: She has no cervical adenopathy. Neurological: She is alert and oriented to person, place, and time. Skin: Skin is warm and dry. No rash noted. Psychiatric: Affect normal. Nursing note and vitals reviewed. Assessment & Plan: Yuridia was seen today for cough, fatigue, congestion and sinus problem. Diagnoses and all orders for this visit: Bronchitis - azithromycin (ZITHROMAX) 250 MG tablet; Take 2 tabs daily the first day, then take 1 tab daily - guaifenesin-codeine (CHERATUSSIN AC) 100-10 MG/5ML syrup; Take 5 mLs by mouth nightly as needed for Cough. Indications: Cough - methylPREDNISolone, CONSUELO, 4 MG tablet; 6 TABLETS ON DAY ONE, 5 TABLETS DAY TWO, 4 TABLETS DAY THREE, 3 TABLETS DAY FOUR, 2 TABLETS DAY FIVE, AND 1 TABLET DAY SIX Cough - INFLUENZA A & B Discussion/Summary: Most consistent with bronchitis. Will treat as per above. Call back if not improving. Red flag symptoms discussed, including worsening SOB and calf swelling, and need to go to ER if they present. Pt v/u. Porter Abdalla DO OMER SERVICE TECHNICIAN documented in this encounter Plan of Treatment Upcoming Encounters Date Type Department Care Team (Late st Contact Info) Description 06/12/2024 8:20 AM CUSTOMER SERVICE TECHNICIAN Allied Health/Nurse Visit [facility] Family & Internal Medicine [address] [address] 11/11/2024 9:00 AM CDT Allied Health/Nurse Visit [facility] Family & Internal [address] [address] Nisha Stokes APNP [address] [place] [address] documented as of this encounter Procedures Procedure Name Priority Date/Time Associated Diagnosis Comments INFLUENZA A & B Routine 05/02/2019 Cough documented in this encounter Results * INFLUENZA A & B (05/02/2019) INFULENZA A AB NEGATIVE NEGATIVE [facility] INFLUENZA B AB NEGATIVE NEGATIVE [facility] Internal Control: VALID VALID [facility] NASAL STRUCTURE / Unknown 05/02/2019 us Porter Abdalla DO MICROBIOLOGY - GENERAL O RDERABLES Final Result [address] [address], documented in this encounter Visit Diagnoses Diagnosis Bronchitis- Primary Bronchitis, not specified as acute or chronic Cough documented in this encounter Care Teams Finish Molder Relationship Specialty Start Date End Date Nisha Stokes APNP [address] [place] [address] PCP - General NURSE PRACTITIONER 09/20/18 documented as of this encounter
--- OUTSIDE RECORDS SUMMARY | 2024-06-03 20:29 | XMS_ITS | Encounter Summary ---
Author Organization [facility] Address [address] [place] [address]. [place] [address] [place] [address] Care Team Providers Care Night Time Nanny Name Role Phone Divya Nisha Toño HIGGINS Primary Care Provider [phone] Encounter Details Date Type Department Care Team (Latest Contact Info) Description 05/13/2019 Scan HEALTH INFO SRVCS Scanned, Documents Social History Tobacco Use Types Packs/Day Years [...] Sex Assigned at Female 05/07/2024 12:02 PM SUPERVISOR OF RESEARCH Legal Sex Female 8:55 PM CDT Gender Identity Female 05/07/2024 12:02 PM SUPERVISOR OF RESEARCH Sexual Orientation Not on file documented as of this encounter Plan of Treatment Upcoming Encounters Date Type Department Care Team (Late st Contact Info) Description 06/12/2024 8:20 AM SUPERVISOR OF RESEARCH Allied Health/Nurse Visit [facility] Group Family & Internal Medicine [address] [address] 11/11/2024 9:00 AM CDT Allied Health/Nurse Visit [facility] Medical [facility] Family & Internal Medicine [address] [address] Nisha Stokes APNP [address] [place] [address] documented as of this encounter Visit Diagnoses Not on filedocumented in this encounter Care Teams Night Time Nanny Relationship Specialty Start Date End Date Nisha Stokes APNP [address] [place] [address] PCP - General NURSE PRACTITIONER 09/20/18 documented as of this encounter
--- OUTSIDE RECORDS SUMMARY | 2024-06-03 20:29 | XMS_ITS | Encounter Summary ---
Author Organization [facility] Address [address] [place] [address]. [place], [place] [address] [place] [address] Care Team Providers Care Foreign Broadcast Specialist Name Role Phone Unavailable Primary Care Provider Unavailabl e Encounter Details Date Type Department Care Team (Latest Contact Info) Description 10/17/2017 Abstract [facility] Medical Group Social History Tobacco Use Types Packs/Day Years Used Date Smoking Tobacco: Never Assessed Comments Unknown Sex and Gender Information Value Date Recorded Sex Assigned at Female 05/07/2024 12:02 PM CUTTING TABLE OPERATOR Legal Sex Female 8:55 PM CDT Gender Identity Female 05/07/2024 12:02 PM CUTTING TABLE OPERATOR Sexual Orientation Not on file documented as of this encounter Plan of Treatment Upcoming Encounters Date Type Department Care Team (Late st Contact Info) Description 06/12/2024 8:20 AM CUTTING TABLE OPERATOR Allied Health/Nurse Visit [facility] Medical [facility] Family & Internal Medicine [address] [address] 11/11/2024 9:00 AM CDT Allied Health/Nurse Visit [facility] Family & Internal Medicine [address] [address] Nisha Stokes APNP [address] [place] [address] documented as of this encounter Visit Diagnoses Not on filedocumented in this encounter
--- OUTSIDE RECORDS SUMMARY | 2024-06-03 20:29 | XMS_ITS | Encounter Summary ---
Author Organization [facility] Address [address] [place] [address]. [place] [address] [place] [address] Care Team Providers Care Death Claim Clerk Name Role Phone Nisha Stokes Toño HIGGINS Primary Care Provider [phone] Reason for Visit * Reason Comments Mammogram (SCAN) Encounter Details Date Type Department Care Team ([facility] Contact Info) Description 02/17/2020 Scan [facility] INFO SRVCS Scanned, Documents Mammogram (SCAN) Social History Tobacco Use Types Packs/Day [...] Sex Assigned at Female 05/07/2024 12:02 PM CONSULTANT NURSE Legal Sex Female 8:55 PM CDT Gender Identity Female 05/07/2024 12:02 PM CONSULTANT NURSE Sexual Orientation Not on file documented as of this encounter Plan of Treatment Upcoming Encounters Date Type Department Care Team ([facility] Contact Info) Description 06/12/2024 8:20 AM CONSULTANT NURSE Allied Health/Nurse Visit [facility] Medical Group Family & Internal Medicine [address] [phone] 11/11/2024 9:00 AM CDT Allied Health/Nurse Visit [facility] Family & Internal Medicine - [place] [address] [place] [address] Nisha Stokes APNP [address] [place] [address] documented as of this encounter Procedures Procedure Name Priority Date/Time Associated Diagnosis Comments MAMMOGRAM GENERIC (SCAN ORDER) 02/17/2020 documented in this encounter Results * MAMMOGRAM GENERIC (02/17/2020) Anatomical Region Laterality Modality Other 02/17/2020 Narrative 02/17/2020 Ordered by an unspecified provider. us Documents Scanned SCANNING Final Result documented in this encounter Visit Diagnoses Not on filedocumented in this encounter Care Teams Death Claim Clerk Relationship Specialty Start Date End Date Nisha Stokes APNP [address] [place] [address] PCP - General NURSE PRACTITIONER 09/20/18 documented as of this encounter
--- OUTSIDE RECORDS SUMMARY | 2024-06-03 20:29 | XMS_ITS | Encounter Summary ---
Author Organization [facility] Address [address] [place] [address]. [place] [address] [place] [address] Care Team Providers Care Supervisor Pleating Name Role Phone Nisha Stokes Toño HIGGINS Primary Care Provider [phone] Reason for Visit * Reason Comments Colonoscopy Report (SCAN) Encounter Details Date Type Department Care Team ([facility] Contact Info) Description 10/17/2017 Scan [facility] INFO SRVCS Scanned, Documents Colonoscopy Report (SCAN) Social History Tobacco Use Types Packs/Day Years Used Date Smoking Tobacco: Never Assessed AUDIT-C Answer Date Recorded Frequency of Alcohol [...] Sex Assigned at Female 05/07/2024 12:02 PM CALL CENTER COORDINATOR Legal Sex Female 8:55 PM CDT Gender Identity Female 05/07/2024 12:02 PM CALL CENTER COORDINATOR Sexual Orientation Not on file COVID-19 Exposure Response Date Recorded In the last 10 days, have yo u been in contact with someone who was confirmed or suspected to have Coronavirus/COVID-19? No / Unsure 11/17/2021 8:00 AM CDT documented as of this encounter Plan of Treatment Upcoming Encounters Date Type Department Care Team ([facility] Contact Info) Description 06/12/2024 8:20 AM CALL CENTER COORDINATOR Allied Health/Nurse Visit [facility] Medical Group Family & Internal Medicine [place] [phone] 11/11/2024 9:00 AM CDT Allied Health/Nurse Visit [facility] Group Family & Internal Medicine - [address] [address] Nisha Stokes APNP [address] [place] [address] documented as of this encounter Procedures Procedure Name Priority Date/Time Associated Diagnosis Comments COLONOSCOPY GENERIC (SCAN ORDER) 10/17/2017 documented in this encounter Results * COLONOSCOPY GENERIC (10/17/2017) 10/17/2017 Narrative 10/17/2017 Ordered by an unspecified provider. us Documents Scanned SCANNING Final Result documented in this encounter Visit Diagnoses Not on filedocumented in this encounter Care Teams Supervisor Pleating Relationship Specialty Start Date End Date Nisha Stokes APNP [address] [place] [address] PCP - General NURSE PRACTITIONER 09/20/18 documented as of this encounter
--- OUTSIDE RECORDS SUMMARY | 2024-06-03 20:29 | XMS_ITS | Encounter Summary ---
Author Organization [facility] Address [address] [place] [address]. [place], [place] [address] [place] [address] Care Team Providers Care Lab Asst Name Role Phone Divya Nisha Toño HIGGINS Primary Care Provider [phone] Encounter Details Date Type Department Care Team (Latest Contact Info) Description 09/17/2020 Travel Social History Tobacco Use Types Packs/Day [...] Sex Assigned at Female 05/07/2024 12:02 PM SHAKER REPAIRER Legal Sex Female 8:55 PM CDT Gender Identity Female 05/07/2024 12:02 PM SHAKER REPAIRER Sexual Orientation Not on file COVID-19 Exposure Response Date Recorded In the last month, have you been in contact with someone who was confirmed or suspected to have Coronavirus / COVID-19? No / Unsure 09/17/2020 1:26 PM CDT documented as of this encounter Plan of Treatment Upcoming Encounters Date Type Department Care Team (Late st Contact Info) Description 06/12/2024 8:20 AM SHAKER REPAIRER Allied Health/Nurse Visit [facility] Medical Group Family & Internal Medicine [address] [address] 11/11/2024 9:00 AM CDT Allied Health/Nurse Visit [facility] Medical Group Family & Internal Medicine - [address] [phone] Nisha Stokes APNP [address] [place] [address] documented as of this encounter Visit Diagnoses Not on filedocumented in this encounter Care Teams Lab Asst Relationship Specialty Start Date End Date Nisha Stokes APNP [address] [place] [address] PCP - General NURSE PRACTITIONER 09/20/18 documented as of this encounter
--- OUTSIDE RECORDS SUMMARY | 2024-06-03 20:29 | XMS_ITS | Encounter Summary ---
Author Organization [facility] Address [address] [place] [address]. [place] [address] [place] [address] Care Team Providers Care Restaurant Crew Member Name Role Phone Unavailable Primary Care Provider Unavailabl e Encounter Details Date Type Department Care Team (Latest Contact Info) Description 10/04/2017 Abstract [facility] Medical Group Social History Tobacco Use Types Packs/Day Years Used Date Smoking Tobacco: Never Assessed Comments Unknown Sex and Gender Information Value Date Recorded Sex Assigned at Female 05/07/2024 12:02 PM CAMP MANAGER Legal Sex Female 8:55 PM CDT Gender Identity Female 05/07/2024 12:02 PM CAMP MANAGER Sexual Orientation Not on file documented as of this encounter Progress Notes * GISELA Gutierrez - 10/04/2017 8:49 PM CDT Verified Results *Urine dip auto In Office 26Sep2017 08:44AM Nisha Stokes Test Name Result Flag Reference Color Yellow Clarity Cloudy Glucose Negative Bilirubin Negative Ketones Negative Specific [place] 1.025 Blood Non Hemolyzed-Trace A pH 5.5 5.0 - 7.0 Protein Negative Urobilinogen 0.2 E.U./dL Nitrites neg Leukocytes Negative LC-CBC With Differential/Platelet [id number] 26Sep2017 08:32AM Nisha Stokes Test Name Result Flag Reference WBC 9.0 x10E3/uL 3.4-10.8 RBC 4.82 x10E6/uL 3.77-5.28 Hemoglobin 14.3 g/dL 11.1-15.9 Hematocrit 43.7 % 34.0-46.6 MCV 91 fL 79-97 MCH 29.7 pg 26.6-33.0 MCHC 32.7 g/dL 31.5-35.7 RDW 14.4 % 12.3-15.4 Platelets 332 x10E3/uL 150-379 Neutrophils 64 % Not Estab. Lymphs 22 % Not Estab. Monocytes 11 % Not Estab. Eos 3 % Not Estab. Basos 0 % Not Estab. Immature Cells Neutrophils (Absolute) 5.7 x10E3/uL 1.4-7.0 Lymphs (Absolute) 2.0 x10E3/uL 0.7-3.1 Monocytes(Absolute) 1.0 x10E3/uL H 0.1-0.9 Eos (Absolute) 0.3 x10E3/uL 0.0-0.4 Baso (Absolute) 0.0 x10E3/uL 0.0-0.2 Immature Granulocytes 0 % Not Estab. Immature Grans (Abs) 0.0 x10E3/uL 0.0-0.1 NRBC Hematology Comments: LC-Comp. Metabolic Panel ( CMP ) [id number] 08:32AM Nisha Stokes Test Name Result Flag Reference Glucose, Serum 139 mg/dL H 65-99 BUN 18 mg/dL 6-24 Creatinine, Serum 0.66 mg/dL 0.57-1.00 eGFR If NonAfricn Am 105 mL/min/1.73 >59 eGFR If Africn Am 121 mL/min/1.73 >59 BUN/Creatinine Ratio 27 H 9-23 Sodium, Serum 140 mmol/L 134-144 Potassium, Serum 3.6 mmol/L 3.5-5.2 Chloride, Serum 98 mmol/L 96-106 Carbon Dioxide, Total 25 mmol/L 18-29 Calcium, Serum 9.2 mg/dL 8.7-10.2 Protein, Total, Serum 6.8 g/dL 6.0-8.5 Albumin, Serum 4.1 g/dL 3.5-5.5 Globulin, Total 2.7 g/dL 1.5-4.5 A/G Ratio 1.5 1.2-2.2 Bilirubin, Total 0.2 mg/dL 0.0-1.2 Alkaline Phosphatase, S 77 IU/L 39-117 AST (SGOT) 27 IU/L 0-40 ALT (SGPT) 45 IU/L H 0-32 LC-Lipid Panel [id number] 26Sep2017 08:32AM Nisha Stokes Test Name Result Flag Reference Cholesterol, Total 148 mg/dL 100-199 Triglycerides 165 mg/dL H 0-149 HDL Cholesterol 41 mg/dL >39 VLDL Cholesterol Jesús 33 mg/dL 5-40 LDL Cholesterol Calc 74 mg/dL 0-99 Comment: LC-TSH reflex to T4F [id number] 26Sep2017 08:32AM Nisha Stokes Test Name Result Flag Reference TSH 2.620 uIU/mL 0.450-4.500 LC-Uric Acid, Serum [id number] 26Sep2017 08:32AM Divya Nisha Test Name Result Flag Reference Uric Acid, Serum 5.3 mg/dL 2.5-7.1 Therapeutic target for gout patients: <6.0 LC-Vitamin D, 25-Hydroxy [id number] 08:32AM Nisha Stokes Test Name Result Flag Reference Vitamin D, 25-Hydroxy 26.1 ng/mL L 30.0-100.0 Vitamin D deficiency has been defined by the [employer] and an Endocrine Society practice guideline as a level of serum 25-OH vitamin D less than 20 ng/mL (1,2). The Endocrine Society went on to further define vitamin D insufficiency as a level between 21 and 29 ng/mL (2). 1. IOM ([employer]). 2010. Dietary reference intakes for calcium and D. [place]: The National Academies Press. 2. Jose MF, Maria Elena SALCEDO, Roxane LUKE, et al. Evaluation, treatment, and prevention of vitamin D deficiency: an Endocrine Society clinical practice guideline. JCEM. 2010; 96(7):1911-30. LC-UA Microscopic Only [id number] 26Sep2017 08:32AM Divya Nisha Test Name Result Flag Reference WBC 0-5 /hpf 0 - 5 RBC 0-2 /hpf 0 - 2 Epithelial Cells (non renal) >10 /hpf A 0 - 10 Epithelial Cells (renal) Casts Present /lpf A None seen Cast Type Hyaline casts N/A Crystals Present A N/A Crystal Type Amorphous Sediment N/A Mucus Threads Present Not Estab. Bacteria Few None seen/Few Yeast Trichomonas Comment LC-Hemoglobin A1c [id number] 26Sep2017 08:32AM Divya Nisha Test Name Result Flag Reference Hemoglobin A1c 6.0 % H 4.8-5.6 . Pre-diabetes: 5.7 - 6.4 Diabetes: >6.4 Glycemic control for adults with diabetes: <7.0 LC-HCV Antibody [id number] 08:32AM Nisha Stokes Test Name Result Flag Reference Hep C Virus Ab <0.1 s/co ratio 0.0-0.9 Negative: < 0.8 Indeterminate: 0.8 - 0.9 Positive: > 0.9 . The CDC recommends that a positive HCV antibody result be followed up with a HCV Nucleic Acid Amplification test ([id number]). LC-Hep Be Ag [id number] 08:32AM Nisha Stokes Test Name Result Flag Reference Hep Be Ag Negative Negative LC-Written Authorization [id number] 08:32AM Nisha Stokes Test Name Result Flag Reference Written Authorization Written Authorization Received. Authorization received from DAYANARA BOATENG CMA 10-04-2017 Logged by Jolie Craig documented in this encounter Plan of Treatment Upcoming Encounters Date Type Department Care Team (Late st Contact Info) Description 06/12/2024 8:20 AM CAMP MANAGER Allied Health/Nurse Visit [facility] Family & Internal Medicine [address] [phone] 11/11/2024 9:00 AM CDT Allied Health/Nurse Visit [facility] Family & Internal [address] [address] Nisha Stokes APNP [address] [place] [address] documented as of this encounter Visit Diagnoses Not on filedocumented in this encounter
--- OUTSIDE RECORDS SUMMARY | 2024-06-03 20:29 | XMS_ITS | Encounter Summary ---
Author Organization [facility] Address [address] [place] [address]. [place], [place] [address] [place] [address] Care Team Providers Care Potato Peeler Name Role Phone Nisha Stokes Toño HIGGINS Primary Care Provider [phone]- [phone] Encounter Details Date Type Department Care Team (Latest Contact Info) Description 09/21/2021 Travel Social History Tobacco Use Types Packs/Day [...] Sex Assigned at Female 05/07/2024 12:02 PM PROPERTY MASTER Legal Sex Female 8:55 PM CDT Gender Identity Female 05/07/2024 12:02 PM PROPERTY MASTER Sexual Orientation Not on file COVID-19 Exposure Response Date Recorded In the last 10 days, have yo u been in contact with someone who was confirmed or suspected to have Coronavirus/COVID-19? No / Unsure 09/21/2021 8:53 AM CDT documented as of this encounter Plan of Treatment Upcoming Encounters Date Type Department Care Team (Late st Contact Info) Description 06/12/2024 8:20 AM PROPERTY MASTER Allied Health/Nurse Visit [facility] Family & Internal Medicine - [address] [address] 11/11/2024 9:00 AM CDT Allied Health/Nurse Visit [facility] Family & Internal Medicine - [address] [address] Nisha Stokes APNP [address] [place] [address] documented as of this encounter Visit Diagnoses Not on filedocumented in this encounter Additional Health Concerns Assessment Noted Time PHQ-9 Depression Total Score: 0 09/19/19 21 9:34 AM CDT documented as of this encounter Care Teams Potato Peeler Relationship Specialty Start Date End Date Nisha Stokes APNP [address] [place] [address] PCP - General NURSE PRACTITIONER 09/20/18 documented as of this encounter
--- OUTSIDE RECORDS SUMMARY | 2024-06-03 20:29 | XMS_ITS | Encounter Summary ---
Author Organization [facility] Address [address] [place] [address]. [place], [place] [address] [place] [address] Care Team Providers Care Dermatology Procedural Physician Name Role Phone Nisha Stokes Primary Care Provider Reason for Visit * Reason Comments URI nasal drainage, coug h, sinus pressure Encounter Details Date Type Department Care Team (Late st Contact Info) Description 10/10/2018 10:20 AM CDT Office Visit [facility] Family & Internal Medicine [address] [place] [address] Nisha Stokes APNP [address] [place], [place] [phone] URI (nasal drainage, cough, sinus pressure) Social History Tobacco Use Types Packs/Day Years [...] Sex Assigned at Female 05/07/2024 12:02 PM 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 Legal Sex Female 8:55 PM CDT Gender Identity Female 05/07/2024 12:02 PM 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 Sexual Orientation Not on file documented as of this encounter Last Filed Vital Signs Vital Sign Reading Time Taken Comments Blood Pressure 127/79 10/10/2018 10:24 AM CDT Pulse 75 10/10/2018 10:24 AM CDT Temperature 36.9 ??C (98.5 ??F) 10/10/2018 10:24 AM C DT Respiratory Rate 18 10/10/2018 10:24 AM CDT Oxygen Saturation 92% 10/10/2018 10:24 AM CDT Inhaled Oxygen Concentration - - Weight 127.5 kg (281 lb) 10/10/2018 10:24 AM CDT Height 160 cm (5' 3 ) 10/10/2018 10:24 AM CDT Body Mass Index 49.78 10/10/2018 10:24 AM CDT documented in this encounter Patient Instructions * Patient Instructions* GISELA Gutierrez - 10/10/2018 10:20 AM CDT Images from the original note were not included. Patient Education Patient Education Bacterial Upper Respiratory Infection, Adult About this topic Germs cause this health problem. You have signs in your nose, windpipe, voice box or larynx, throat, ears, or lungs that last for days or weeks. It often spreads from a person who is sick to some other person from close contact. This health problem may include: ?? Sore throat. This is pharyngitis. ?? Swelling of the lining of the nose. This is rhinitis. ?? Swelling of the sinuses with pain in the face, forehead, or upper teeth. This is sinusitis. ?? Swelling of the nose and throat. This is nasopharyngitis. ?? Swelling of the upper part of the voice box. This is epiglottitis. ?? Swelling of the voice box. This is laryngitis. ?? Ear pain. This may be otitis media or an ear infection. ?? Cough What are the causes? The main cause is an infection by certain germs. What can make this more likely to happen? ?? Cold or winter season ?? Low immune system ?? Close contact with someone who has an upper respiratory infection ?? Allergies or asthma ?? Working in a school or day care center What are the main signs? ?? Cough or sneezing ?? Sore throat ?? Runny or stuffy nose ?? Ear pain ?? Fever ?? Headache ?? Muscle pain ?? Tired ?? Weakness How does the doctor diagnose this health problem? Your doctor will do an exam and ask about your history. Your doctor will check your nose, throat, and lungs. The doctor may order: ?? Lab tests ?? Throat swab ?? Chest x-ray ?? CT or MRI scan How does the doctor treat this health problem? Your doctor may give you drugs to treat or prevent infection. You may also be given other drugs based on your condition. Talk to your doctor about what drugs you need to take. What lifestyle changes are needed? You need to rest while you are getting better. If your throat is sore, don't talk too much. This will rest your voice and throat. What drugs may be needed? The doctor may order drugs to: ?? Help with pain and swelling ?? Fight an infection ?? Dry up a stuffy nose ?? Stop wheezing ?? Control coughing What can be done to prevent this health problem? ?? Wash your hands often with soap and water for at least 20 seconds, especially after coughing or sneezing. Alcohol-based hand sanitizers also work to kill the virus. ?? If you are sick, cover your mouth and nose with tissue when you cough or sneeze. You can also cough into your elbow. Throw away tissues in the trash and wash your hands after touching used tissues. ?? Do not get too close (kissing, hugging) to people who are sick. ?? Do not share towels or hankies with anyone who is sick. ?? Stay away from crowded places. ?? Get a flu shot each year. Where can I learn more? [employer] https://familydoctor.org/antibiotic-resistance/ Centers for Disease Control and Prevention http://www.cdc.gov/getsmart/antibiotic-use/URI/index.html NHS Choices http://www.nhs.uk/conditions/Xlbatpubgdn-soapo-fdgotoesb/Pages/Introduction.aspx Last Reviewed Date 2017-08-11 Consumer Information Use and Disclaimer This information is not specific medical advice and does not replace information you receive from your health care provider. This is only a brief summary of general information. It does NOT include all information about conditions, illnesses, injuries, tests, procedures, treatments, therapies, discharge instructions or life-style choices that may apply to you. You must talk with your health care provider for complete information about your health and treatment options. This information should not be used to decide whether or not to accept your health care provider???s advice, instructions or recommendations. Only your health care provider has the knowledge and training to provide advice that is right for you. Copyright Copyright ?? 2019 [employer]. and its affiliates and/or licensors. All rights reserved. Patient Education Patient Education Sinusitis in Adults The Basics Written by the doctors and editors at [facility] What is sinusitis???--??Sinusitis is a condition that can cause a stuffy nose, pain in the face, and yellow or green discharge (mucus) from the nose. The sinuses are hollow areas in the bones of the face (figure 1). They have a thin lining that normally makes a small amount of mucus. When this lining gets infected, it swells and makes extra mucus. This causes symptoms. Sinusitis can occur when a person gets sick with a cold. The germs causing the cold can also infectthe sinuses. Many times, a person feels like his or her cold is getting better. But then he or she gets sinusitis and begins to feel sick again. What are the symptoms of sinusitis???--??Common symptoms of sinusitis include: ?? Stuffy or blocked nose ?? Thick yellow or green discharge from the nose ?? Pain in the teeth ?? Pain or pressure in the face - This often feels worse when a person bends forward. People with sinusitis can also have other symptoms that include: ?? Fever ?? Cough ?? Trouble smelling ?? Ear pressure or fullness ?? Headache ?? Bad breath ?? Feeling tired Most of the time, symptoms start to improve in 7 to 10 days. Should I see a doctor or nurse???--??See your doctor or nurse if your symptoms last more than 10 days, or if your symptoms get better at first but then get worse. Sometimes, sinusitis can lead to serious problems. See your doctor or nurse right away (do not wait10 days) if you have: ?? Fever higher than 102??F (38.9??C) ?? Sudden and severe pain in the face and head ?? Trouble seeing or seeing double ?? Trouble thinking clearly ?? Swelling or redness around one or both eyes ?? A stiff neck Is there anything I can do on my own to feel better???--??Yes. To reduce your symptoms, you can: ?? Take an jgfr-ctz-gkiyzhy pain reliever to reduce the pain ?? Rinse your nose and sinuses with salt water a few times a day - Ask your doctor or nurse about the best way to do this. Antihistamines do not improve symptoms of sinusitis. Common antihistamines include diphenhydramine (sample brand name: Benadryl), chlorpheniramine (sample brand name: Chlor-Trimeton), loratadine (sample brand name: Claritin), and cetirizine (sample brand name: Zyrtec). They can treat allergies, butnot sinus infections, and could increase your discomfort by drying the lining of your nose and sinuses, or making you tired. Your doctor might also prescribe a steroid nose spray to reduce the swelling in your nose. (Steroidnose sprays do not contain the same steroids that some athletes take illegally.) How is sinusitis treated???--??Most of the time, sinusitis does not need to be treated with antibiotic medicines. This is because most sinusitis is caused by viruses - not bacteria - and antibiotics do not kill viruses. Many people get over sinus infections without antibiotics. Some people with sinusitis do need treatment with antibiotics. If your symptoms have not improved after 10 days, ask your doctor if you should take antibiotics. Your doctor might recommend that you wait 1 more week to see if your symptoms improve. But if you have symptoms such as a fever or a lot of pain, he or she might prescribe antibiotics. It is important to follow your doctor's instructions about taking your antibiotics. What if my symptoms do not get better???--??If your symptoms do not get better, talk with your doctor or nurse. He or she might order tests to figure out why you still have symptoms. These can include: ?? CT scan or other imaging tests - Imaging tests create pictures of the inside of the body. ?? A test to look inside the sinuses - For this test, a doctor puts a thin tube with a camera on the end into the nose and up into the sinuses. Some people get a lot of sinus infections or have symptoms that last at least 3 months. These people can have a different type of sinusitis called chronic sinusitis. Chronic sinusitis can be causedby different things. For example, some people have growths in their nose or sinuses that are called polyps. Other people have allergies that cause their symptoms. Chronic sinusitis can be treated in different ways. If you have chronic sinusitis, talk with your doctor about which treatments are right for you. All topics are updated as new evidence becomes available and our peer review process is complete. This topic retrieved from [employer] on: May 29, 2018. Topic 53235 Version 13.0 Release: 26.5.5 - C27.6 ?2019??[employer]. and/or its affiliates.??All rights reserved. figure 1: Sinuses of the face This??drawing shows the sinuses of the face. Graphic 04585 Version 7.0 Consumer Information Use and Disclaimer This information is not specific medical advice and does not replace information you receive from your health care provider. This is only a brief summary of general information. It does NOT include all information about conditions, illnesses, injuries, tests, procedures, treatments, therapies, discharge instructions or life-style choices that may apply to you. You must talk with your health care provider for complete information about your health and treatment options. This information should not be used to decide whether or not to accept your health care provider's advice, instructions or recommendations. Only your health care provider has the knowledge and training to provide advice that is right for you.The use of [employer] content is governed by the [employer] Terms of Use. ??2019 [employer]. All rights reserved. Copyright ?2019??[employer] and/or its affiliates.??All rights reserved. documented in this encounter Progress Notes * GISELA Gutierrez - 10/10/2018 10:20 AM CDT Images from the original note were not included. [facility] FAMILY AND INTERNAL MEDICINE OFFICE VISIT Reason for Visit: URI (nasal drainage, cough, sinus pressure) History of Present Illness: Pt here today with complaints of sinus pain and pressure, upper teeth pain, cough (productive-yellow), yellow nasal drainage, frontal LUKE for over a week. She has seasonal allergies which usually endsup in a sinus infection at least once per year. She has treated OTC with Mucinex and advil which hethinks helps a little. She has been drinking hot tea as well. ROS: Review of Systems Constitutional: Positive for chills, fever and malaise/fatigue. HENT: Positive for congestion, ear pain, sinus pain and sore throat. Negative for hearing loss and tinnitus. Eyes: Negative for blurred vision and double vision. Respiratory: Positive for cough and sputum production. Negative for hemoptysis, shortness of breathand wheezing. Cardiovascular: Negative for chest pain, palpitations and leg swelling. Gastrointestinal: Negative for abdominal pain, blood in stool, constipation, diarrhea, heartburn, melena, nausea and vomiting. Skin: Negative for itching and rash. Neurological: Negative for dizziness and headaches. Medications: Current Outpatient Medications: ??? amoxicillin-clavulanate 875-125 MG tablet, Take 1 tablet (875 mg total) by mouth 2 (two) times daily for 10 days., Disp: 20 tablet, Rfl: 0 ??? benzonatate 100 MG capsule, Take 1 capsule (100 mg total) by mouth 3 (three) times daily as needed for Cough., Disp: 20 capsule, Rfl: 0 ??? Cholecalciferol (VITAMIN D3) 97070 units Cap, , Disp: , Rfl: ??? [...] file Gets together: Not on file Attends episcopal service: Not on file Active member of [...] No distress. HENT: Head: Normocephalic and atraumatic. Right Ear: External ear normal. Left Ear: External ear normal. Mouth/Throat: No oropharyngeal exudate. Bilateral maxillary sinus pain and pressure. Slight erythema of oropharynx Eyes: Conjunctivae and EOM are normal. No scleral icterus. Neck: Normal range of motion. Neck supple. No tracheal deviation present. Cardiovascular: Normal rate, regular rhythm and normal heart sounds. No murmur heard. Pulmonary/Chest: Effort normal and breath sounds normal. No stridor. No respiratory distress. She has no wheezes. She has no rales. Musculoskeletal: Normal range of motion. She exhibits no deformity. Lymphadenopathy: She has no cervical adenopathy. Neurological: She is alert and oriented to person, place, and time. Gait normal. Skin: Skin is warm and dry. No rash noted. She is not diaphoretic. No erythema. No pallor. Psychiatric: Mood and affect normal. Nursing note and vitals reviewed. Filed Vitals: 10/10/18 1024 BP: 127/79 Pulse: 75 Resp: 18 Temp: 98.5 ??F (36.9 ??C) SpO2: 92% Weight: 127.5 kg (281 lb) Height: 5' 3 (1.6 m) Labs: Labs Reviewed Diagnoses/Impression: 1. Acute non-recurrent maxillary sinusitis amoxicillin-clavulanate 875-125 MG tablet 2. Cough benzonatate 100 MG capsule Recommendations and Plan: 1. Acute non-recurrent maxillary sinusitis - amoxicillin-clavulanate 875-125 MG tablet; Take 1 tablet (875 mg total) by mouth 2 (two) times daily for 10 days. Dispense: 20 tablet; Refill: 0 ?? Started on Augmentin. Advised of risks, benefits and side effects ?? Instructed to perform sinus rinses twice daily ?? Instructed to follow up if no improvement ?? Pt education given 2. Cough - benzonatate 100 MG capsule; Take 1 capsule (100 mg total) by mouth 3 (three) times daily as needed for Cough. Dispense: 20 capsule; Refill: 0 Advised of risks, benefits and side effects. Orders Placed This Encounter ??? amoxicillin-clavulanate 875-125 MG tablet ??? benzonatate 100 MG capsule Cannot display discharge medications since this is not an admission. PCP: GISELA Gutierrez 10/10/2018 documented in this encounter Plan of Treatment Upcoming Encounters Date Type Department Care Team (Late st Contact Info) Description 06/12/2024 8:20 AM 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 Allied Health/Nurse Visit [facility] Family & Internal Medicine [address] [place] [address] 11/11/2024 9:00 AM CDT Allied Health/Nurse Visit [facility] Family & Internal Medicine [address] [address] Nisha Stokes APNP [address] [place] [address] documented as of this encounter Visit Diagnoses Diagnosis Acute non-recurrent maxillary sinusitis- Primary Cough documented in this encounter Care Teams Dermatology Procedural Physician Relationship Specialty Start Date End Date Nisha Stokes APNP [address] [place] [address] PCP - General NURSE PRACTITIONER 09/20/18 documented as of this encounter
--- OUTSIDE RECORDS SUMMARY | 2024-06-03 20:29 | XMS_ITS | Encounter Summary ---
Author Organization [facility] Address [address] [place] [address]. [place], [place] [address] [place] [address] Care Team Providers Care Post Adoption Coordinator Name Role Phone Divya Nisha Toño HIGGINS Primary Care Provider [phone] Encounter Details Date Type Department Care Team (Latest Contact Info) Description 12/07/2023 Travel Social History Tobacco Use Types Packs/Day [...] Sex Assigned at Female 05/07/2024 12:02 PM CHANGE OF ADDRESS CLERK Legal Sex Female 8:55 PM CDT Gender Identity Female 05/07/2024 12:02 PM CHANGE OF ADDRESS CLERK Sexual Orientation Not on file documented as of this encounter Plan of Treatment Upcoming Encounters Date Type Department Care Team (Late st Contact Info) Description 06/12/2024 8:20 AM CHANGE OF ADDRESS CLERK Allied Health/Nurse Visit [facility] Family & Internal Medicine [address] [address] 11/11/2024 9:00 AM CDT Allied Health/Nurse Visit [facility] Family & Internal Medicine [address] [address] Nisha Stokes APNP [address] [place] [address] documented as of this encounter Visit Diagnoses Not on filedocumented in this encounter Additional Health Concerns Assessment Noted Time PHQ-9 Depression Total Score: 0 11/18/19 22 9:27 AM CDT documented as of this encounter Care Teams Post Adoption Coordinator Relationship Specialty Start Date End Date Nisha Stokes APNP [address] [place] [address] PCP - General NURSE PRACTITIONER 09/20/18 documented as of this encounter
--- OUTSIDE RECORDS SUMMARY | 2024-06-03 20:29 | XMS_ITS | Encounter Summary ---
Author Organization [facility] Address [address] [place] [address]. [place] [address] [place] [address] Care Team Providers Care Central Office Frame Wirer Name Role Phone Nisha Stokes Primary Care Provider [phone]- [phone] Reason for Visit * Reason Onset Date Comments Lab Results 09/28/2018 Encounter Details Date Type Department Care Team (Late st Contact Info) Description 09/28/2018 Telephone [facility] [address] [place] [address] Nisha Stokes APNP [address] [place] [address] Lab Results Social History Tobacco [...] Sex Assigned at Female 05/07/2024 12:02 PM KOSHER DIETARY SERVICE SUPERVISOR Legal Sex Female 8:55 PM CDT Gender Identity Female 05/07/2024 12:02 PM KOSHER DIETARY SERVICE SUPERVISOR Sexual Orientation Not on file documented as of this encounter Progress Notes * Davida Saldaña MA - 09/28/2018 7:36 AM CDT Spoke with pt and informed of the following. * Davida Saldaña MA - 09/28/2018 7:35 AM CDT ----- Message from GISELA Gutierrez sent at 09/27/2018 9:56 PM CDT ----- Let pt know HGB A1C 6.3. Up from 6.0 last year. Still prediabetic. Diabetes starts at 6.5. Treatment at this time---weight loss, exercise and decreasing ing carb intake in diet. documented in this encounter Plan of Treatment Upcoming Encounters Date Type Department Care Team (Late st Contact Info) Description 06/12/2024 8:20 AM KOSHER DIETARY SERVICE SUPERVISOR [facility] Family & Internal [address] [address] 11/11/2024 9:00 AM CDT Allied Health/Nurse Visit [facility] Family Internal [address] [phone] Nisha Stokes APNP [address] [place] [address] documented as of this encounter Visit Diagnoses Not on filedocumented in this encounter Care Teams Central Office Frame Wirer Relationship Specialty Start Date End Date Nisha Stokes APNP [facility] [place] [address] PCP - General NURSE PRACTITIONER 09/20/18 documented as of this encounter
--- OUTSIDE RECORDS SUMMARY | 2024-06-03 20:29 | XMS_ITS | Encounter Summary ---
Author Organization [facility] Address [address] [place] [address]. [place], [place] [address] [place] [address] Care Team Providers Care Contour Path Tape Mill Operator Name Role Phone Nisha Stokes Toño HIGGINS Primary Care Provider Encounter Details Date Type Department Care Team (Latest Contact Info) Description 11/17/2021 Travel Social History Tobacco Use Types Packs/Day [...] Sex Assigned at Female 05/07/2024 12:02 PM YARN SALVAGER Legal Sex Female 8:55 PM CDT Gender Identity Female 05/07/2024 12:02 PM YARN SALVAGER Sexual Orientation Not on file COVID-19 Exposure Response Date Recorded In the last 10 days, have yo u been in contact with someone who was confirmed or suspected to have Coronavirus/COVID-19? No / Unsure 11/17/2021 8:00 AM CDT documented as of this encounter Plan of Treatment Upcoming Encounters Date Type Department Care Team (Late st Contact Info) Description 06/12/2024 8:20 AM YARN SALVAGER Allied Health/Nurse Visit [facility] Family & Internal Medicine - [address] [address] 11/11/2024 9:00 AM CDT Allied Health/Nurse Visit [facility] Family & Internal Medicine - [address] [address] Nisha Stokes APNP [address] [place] [address] documented as of this encounter Visit Diagnoses Not on filedocumented in this encounter Additional Health Concerns Assessment Noted Time PHQ-9 Depression Total Score: 0 11/18/19 9:27 AM CDT documented as of this encounter Care Teams Contour Path Tape Mill Operator Relationship Specialty Start Date End Date Nisha Stokes APNP [address] [place] [address] PCP - General NURSE PRACTITIONER 09/20/18 documented as of this encounter
--- OUTSIDE RECORDS SUMMARY | 2024-06-03 20:29 | XMS_ITS | Encounter Summary ---
Author Organization [facility] Address [address] [place] [address]. [place] [address] [place] [address] Care Team Providers Care Acetylene Torch Burner Name Role Phone Nisha Stokes Primary Care Provider Encounter Details Date Type Department Care Team (Late st Contact Info) Description 11/24/2021 Appsemblert Message Enc [facility] Medical Group Family & Internal Medicine [facility] [address] [place] [address] Nisha Stokes APNP [address] [place], [place] [phone] Colonoscopy order Social History Tobacco Use Types Packs/Day Years [...] Sex Assigned at Female 05/07/2024 12:02 PM CONVERSION WORKER Legal Sex Female 8:55 PM CDT Gender Identity Female 05/07/2024 12:02 PM CONVERSION WORKER Sexual Orientation Not on file COVID-19 Exposure Response Date Recorded In the last 10 days, have yo u been in contact with someone who was confirmed or suspected to have Coronavirus/COVID-19? No / Unsure 11/17/2021 8:00 AM CDT documented as of this encounter Plan of Treatment Upcoming Encounters Date Type Department Care Team (Late st Contact Info) Description 06/12/2024 8:20 AM CONVERSION WORKER Allied Health/Nurse Visit [facility] & Internal [address] [address] 11/11/2024 9:00 AM CDT Allied Health/Nurse Visit [address] [address] Nisha Stokes APNP [address] [place] [address] documented as of this encounter Visit Diagnoses Not on filedocumented in this encounter Additional Health Concerns Assessment Noted Time PHQ-9 Depression Total Score: 0 11/18/19 9:27 AM CDT documented as of this encounter Care Teams Acetylene Torch Burner Relationship Specialty Start Date End Date Nisha Stokes APNP [address] [place] [address] PCP - General NURSE PRACTITIONER 09/20/18 documented as of this encounter
--- OUTSIDE RECORDS SUMMARY | 2024-06-03 20:29 | XMS_ITS | Encounter Summary ---
Author Organization [facility] Address [address] [place] [address]. [place], [place] [phone] [place] [address] Care Team Providers Care Prefitter Name Role Phone Nisha Stokes Primary Care Provider Reason for Visit * Reason Onset Date Comments Prior Authorization 12/11/2023 Zepbound 2.5 mg Encounter Details Date Type Department Care Team (Late st Contact Info) Description 12/11/2023 Telephone [facility] Medical Group Family & Internal Medicine [place] [id number] [place] [address] Nisha Stokes APNP [address] [place] [address] Prior Authorization (Zepbound 2.5mg ) Social History Tobacco Use Types Packs/Day [...] Sex Assigned at Female 05/07/2024 12:02 PM TOW DRIVER Legal Sex Female 8:55 PM CDT Gender Identity Female 05/07/2024 12:02 PM TOW DRIVER Sexual Orientation Not on file documented as of this encounter Progress Notes * Edie Brothers MA - 12/11/2023 11:54 AM CDT Images from the original note were not included. 12/11/23: PA approved for Zepbound 2.5mg, la,rma Approved Prior authorization approved Payer: [employer] [phone] Note from payer: Request Reference Number: [id number]. ZEPBOUND INJ 2.5MG is approved through 06/12/2024. Your patient may now fill this prescription and it will be covered. Approval Details Authorization number: [id number] Authorized from December 11, 2023 to June 12, 2024 Electronic appeal: Not supported View History * Edie Brothers MA - 12/11/2023 11:02 AM CDT 12/11/23: PA pending (via [employer]) for Zepbound 2.5mg, la,rma documented in this encounter Plan of Treatment Upcoming Encounters Date Type Department Care Team (Late st Contact Info) Description 06/12/2024 8:20 AM TOW DRIVER Allied Health/Nurse Visit [facility] Medical [facility] Family & Internal Medicine [address] [address] 11/11/2024 9:00 AM CDT Allied Health/Nurse Visit [facility] Family & Internal [address] [address] Nisha Stokes APNP [address] [place] [address] documented as of this encounter Visit Diagnoses Not on filedocumented in this encounter Additional Health Concerns Assessment Noted Time PHQ-9 Depression Total Score: 0 11/18/19 22 9:27 AM CDT documented as of this encounter Care Teams Prefitter Relationship Specialty Start Date End Date Nisha Stokes APNP [address] [place] [address] PCP - General NURSE PRACTITIONER 09/20/18 documented as of this encounter
--- OUTSIDE RECORDS SUMMARY | 2024-06-03 20:29 | XMS_ITS | Encounter Summary ---
Author Organization [facility] Address [address] [place] [address]. [place] [address] [place] [address] Care Team Providers Care Spray Gun Sizer Name Role Phone Nisha Stokes Primary Care Provider Reason for Visit * Reason Onset Date Comments Lab Order 09/22/2022 Encounter Details Date Type Department Care Team (Late st Contact Info) Description 09/22/2022 Telephone [facility] Medical Group Family & Internal Medicine [facility] [address] [place] [address] Nisha Stokes APNP [address] [place] [address] Lab Order Social History Tobacco Use Types Packs/Day Years [...] Sex Assigned at Female 05/07/2024 12:02 PM ELECTRICAL RESEARCH ENGINEER Legal Sex Female 8:55 PM CDT Gender Identity Female 05/07/2024 12:02 PM ELECTRICAL RESEARCH ENGINEER Sexual Orientation Not on file COVID-19 Exposure Response Date Recorded In the last 10 days, have yo u been in contact with someone who was confirmed or suspected to have Coronavirus/COVID-19? No / Unsure 09/22/2022 9:21 AM CDT documented as of this encounter Progress Notes * GISELA Gutierrez - 09/22/2022 10:11 AM CDT Labs ordered documented in this encounter Plan of Treatment Upcoming Encounters Date Type Department Care Team (Late st Contact Info) Description 06/12/2024 8:20 AM ELECTRICAL RESEARCH ENGINEER Allied Health/Nurse Visit [facility] Family & Internal [address] [address] 11/11/2024 9:00 AM CDT Allied Health/Nurse Visit [address] [address] Nisha Stokes APNP [address] [place] [address] Scheduled Orders Name Type Priority Associated Diagnoses Orde r Schedule CBC W/DIFF AUTOMATED Lab Routine Routine medical exam BMI 50.0-59.9, adult ([facility]) Expected: 09/22/2022, Expires: 09/23/2023 LIPID PANEL Lab Routine Routine medical exam BMI 50.0-59.9, adult ([facility]) Expected: 09/22/2022, Expires: 09/23/2023 TSH W/REFLEX Lab Routine Routine medical exam BMI 50.0-59.9, adult ([facility]) Expected: 09/22/2022, Expires: 09/23/2023 VITAMIN D, 25 OH Lab Routine Vitamin D deficiency Expected: 09/22/2022, Expires: 09/23/2023 URINALYSIS WI REFLEX TO CULTURE Lab Routine Routine medical exam Primary hypertension BMI 50.0-59.9, adult ([facility]) Expected: 09/22/2022, Expires: 09/23/2023 COMPREHENSIVE METABOLIC PANEL Lab Routine Routine medical exam Primary hypertension BMI 50.0-59.9, adult ([facility]) Expected: 09/22/2022, Expires: 09/23/2023 documented as of this encounter Visit Diagnoses Diagnosis Routine medical exam- Primary Routine general medical examination at a health care facility Primary hypertension Unspecified essential hypertension BMI 50.0-59.9, adult ([facility]) Body Mass Index 50.0-59.9, adult Vitamin D deficiency Unspecified vitamin D deficiency documented in this encounter Additional Health Concerns Assessment Noted Time PHQ-9 Depression Total Score: 0 11/18/19 22 9:27 AM CDT documented as of this encounter Care Teams Spray Gun Sizer Relationship Specialty Start Date End Date Nisha Stokes APNP [address] [place] [address] PCP - General NURSE PRACTITIONER 09/20/18 documented as of this encounter
--- OUTSIDE RECORDS SUMMARY | 2024-06-03 20:29 | XMS_ITS | Encounter Summary ---
Author Organization [facility] Address [address] [place] [address]. [place] [address] [place] [address] Care Team Providers Care Windows Systems Architect Name Role Phone Nisha Stokes Primary Care Provider [phone] Reason for Visit * Reason Onset Date Comments Lab Results 09/27/2018 Encounter Details Date Type Department Care Team (Late st Contact Info) Description 09/27/2018 Telephone [facility] Medical Group Family & Internal Medicine [facility] [address] [place] [address] Nisha Stokes APNP [address] [place] [address] Lab Results Social History Tobacco [...] Sex Assigned at Female 05/07/2024 12:02 PM CHILD ADVOCATE Legal Sex Female 8:55 PM CDT Gender Identity Female 05/07/2024 12:02 PM CHILD ADVOCATE Sexual Orientation Not on file documented as of this encounter Progress Notes * Davida Saldaña MA - 09/27/2018 12:22 PM CDT Spoke with pt and informed of the following. I spoke with the lab and they said they will add this on for us. * Davida Saldaña MA - 09/27/2018 12:18 PM CDT ----- Message from GISELA Gutierrez sent at 09/27/2018 11:14 AM CDT ----- Let pt know her glucose was sl elevated at 102. ---add on a HGB A1C if not too late. Other labs unremarkable. documented in this encounter Plan of Treatment Upcoming Encounters Date Type Department Care Team (Late st Contact Info) Description 06/12/2024 8:20 AM CHILD ADVOCATE Allied Health/Nurse Visit [facility] Family & Internal [address] [address] 11/11/2024 9:00 AM CDT Allied Health/Nurse Visit [facility] Internal [address] [address] Nisha Stokes APNP [address] [place] [address] documented as of this encounter Results * HEMOGLOBIN, GLYCOSYLATED (09/26/2018 12:35 PM CDT) HGB A1C 6.3 4.2 - 6.3 % 09/27/2018 1:02 PM CDT [facility] Comment: ADA GUIDELINES 2010 5.7 TO 6.4% INCREASED RISK OF DIABETES > OR = 6.5% CONSISTENT WITH DIABETES ESTIMATED AVG GLUCOSE 134 mg/dL 09/27/2018 1:02 PM CDT [facility] 09/26/2018 12:3 5 PM CDT [facility] Final Resul t [facility] [address] [place] [address], documented in this encounter Visit Diagnoses Diagnosis Elevated glucose- Primary Other abnormal glucose documented in this encounter Care Teams Windows Systems Architect Relationship Specialty Start Date End Date Nisha Stokes APNP [address] [place] [address] PCP - General NURSE PRACTITIONER 09/20/18 documented as of this encounter
--- OUTSIDE RECORDS SUMMARY | 2024-06-03 20:29 | XMS_ITS | Encounter Summary ---
Author Organization [facility] Address [address] [place] [address]. [place], [place] [address] [place] [address] Care Team Providers Care Invertebrate Paleontologist Name Role Phone Nisha Stokes Primary Care Provider Encounter Details Date Type Department Care Team (Late st Contact Info) Description 12/08/2023 Bloomerangt Message Enc [facility] Medical Group Family & Internal Medicine [facility] [address] [place] [address] Nisha Stokes APNP [address] [place], [place] [phone] Drug names Social History Tobacco Use Types Packs/Day Years [...] Sex Assigned at Female 05/07/2024 12:02 PM ANALOG IC DESIGN ARCHITECT Legal Sex Female 8:55 PM CDT Gender Identity Female 05/07/2024 12:02 PM ANALOG IC DESIGN ARCHITECT Sexual Orientation Not on file documented as of this encounter Progress Notes * GISELA Gutierrez - 12/08/2023 2:54 PM CDT Wegovy or Zepbound * Maranda Hoff MA - 12/08/2023 2:42 PM CDTFrom: Yuridia Pleitez To: Nisha Stokes Sent: 12/08/2023 8:15 AM CDT Subject: Drug names Nisha, I need the name of the weight loss drug to check for coverage. If you could send their namesto me, I can look them up to determine if they are covered. Thanks! documented in this encounter Plan of Treatment Upcoming Encounters Date Type Department Care Team (Late st Contact Info) Description 06/12/2024 8:20 AM ANALOG IC DESIGN ARCHITECT Allied Health/Nurse Visit [facility] Family & Internal Medicine [address] [address] 11/11/2024 9:00 AM CDT Allied Health/Nurse Visit [facility] Family & Internal [address] [address] Nisha Stokes APNP [address] [place] [address] documented as of this encounter Visit Diagnoses Diagnosis BMI 50.0-59.9, adult ([facility] Primary Body Mass Index 50.0-59.9, adult documented in this encounter Additional Health Concerns Assessment Noted Time PHQ-9 Depression Total Score: 0 11/18/19 22 9:27 AM CDT documented as of this encounter Care Teams Invertebrate Paleontologist Relationship Specialty Start Date End Date Nisha Stokes APNP [address] [place] [address] PCP - General NURSE PRACTITIONER 09/20/18 documented as of this encounter
--- OUTSIDE RECORDS SUMMARY | 2024-06-03 20:29 | XMS_ITS | Encounter Summary ---
Author Organization [facility] Address [address] [place] [address]. 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 fexofenadine 180 MG tablet Take 1 tablet (180 mg total) by mouth daily. Multiple Vitamin (MULTI-VITAMIN) tablet Take 1 tablet by mouth daily. lisinopril-hydroc hlorothiazide 20-12.5 MG tabletIndications :Hypertension Take 1 tablet by mouth daily. 180 tablet 1 09/20/2018 10/22/2019 Vitamins-Lipotrop ics (BALANCE B-100) Tab Take by mouth every other day. Take one Tab every other day 11/17/2021 documented as of this encounter Progress Notes * GISELA Gutierrez - 09/27/2018 11:14 AM CDT Let pt know her glucose was sl elevated at 102. ---add on a HGB A1C if not too late. Other labs unremarkable. documented in this encounter Plan of Treatment Upcoming Encounters Date Type Department Care Team (Late st Contact Info) Description 06/12/2024 8:20 AM FORMING PRESS OPERATOR Allied Health/Nurse Visit [facility] Medical [facility] Family & Internal Medicine [address] [address] 11/11/2024 9:00 AM CDT Allied Health/Nurse Visit [facility] Family & Internal [address] [address] Nisha Stokes APNP [address] [place] [address] documented as of this encounter Procedures Procedure Name Priority Date/Time Associated Diagnosis Comments TSH W/REFLEX Routine 09/26/2018 9:48 AM CDT Elevated liver enzymes Asymptomatic microscopic hematuria Hyperglycemia Essential hypertension Vitamin D deficiency COMPREHENSIVE METABOLIC PANEL Routine 09/26/2018 9:48 AM CDT Elevated liver enzymes Asymptomatic microscopic hematuria Hyperglycemia Essential hypertension Vitamin D deficiency LIPID PANEL Routine 09/26/2018 9:48 AM CDT Elevated liver enzymes Asymptomatic microscopic hematuria Hyperglycemia Essential hypertension Vitamin D deficiency CBC W/DIFF AUTOMATED Routine 09/26/2018 9:48 AM CDT Elevated liver enzymes Asymptomatic microscopic hematuria Hyperglycemia Essential hypertension Vitamin D deficiency VITAMIN D, 25 OH Routine 09/26/2018 9:48 AM CDT Elevated liver enzymes Asymptomatic microscopic hematuria Hyperglycemia Essential hypertension Vitamin D deficiency URIC ACID BLOOD Routine 09/26/2018 9:48 AM CDT Elevated liver enzymes Asymptomatic microscopic hematuria Hyperglycemia Essential hypertension Vitamin D deficiency documented in this encounter Results * VITAMIN D, 25 OH (09/26/2018 9:48 AM CDT) VITAMIN D 25 HYDROXY S/P/B 47 30 - 100 NG/ML 09/26/2018 8:25 PM CDT [facility] Comment: ? INTERPRETATION ? DEFICIENT ??<20 ? INSUFFICIENT 20-29 ?SUFFICIENT 30-100 09/26/2018 9:48 AM CDT [facility] Final Resul t Performing Organization Address [facility] Co de Phone Number [facility] [address] [place] [address], * URIC ACID BLOOD (09/26/2018 9:48 AM CDT) URIC ACID 4.7 2.6 - 6.0 MG/DL 09/26/2018 8:41 PM CDT [facility] 09/26/2018 9:48 AM CDT [facility] Final Resul t [facility] [address] [place] [address], * TSH W/REFLEX (09/26/2018 9:48 AM CDT) TSH 1.000 0.358 - 3.74 uIU/ML 09/26/2018 8:41 PM CDT [facility] Comment: HIGH DOSES OF BIOTIN MAY INTERFERE WITH THIS TEST RESULT. CORRELATION TO CLINICAL HISTORY AND PRESENTATION RECOMMENDED. FREE T4 NOT INDICATED 09/26/2018 9:48 AM CDT N[facility] Final Resul t Performing Organization Address [facility] Co de Phone Number [facility] [address] [place] [address], * LIPID PANEL (09/26/2018 9:48 AM CDT) CHOLESTEROL 153 <200 MG/DL 09/26/2018 8:41 PM CDT [facility] TRIGLYCERIDES 132 <150 MG/DL 09/26/2018 8:41 PM CDT [facility] HDL 42 >40.0 MG/DL 09/26/2018 8:41 PM CDT [facility] LDL (CALCULATED) 85 <100 MG/DL 09/27/19 19 8:41 PM CDT [facility] NON HDL CHOLESTEROL 111 <130 MG/DL 09/26 8:41 PM CDT [facility] CHOL/HDL RATIO 3.6 0.0 - 4.5 09/26/2018 8:41 PM CDT [facility] VLDL CALCULATION 26 5 - 55 MG/DL 09/26/2018 8:41 PM CDT [facility] LIPID INTERPRETATION 09/26/2018 8:41 PM CDT [facility] Comment: NIH CONCENSUS REPORT RECOMMENDATIONS: ?ADULT [...] Nisha Stokes APNP LABORATORY Final Resul t [facility] [address] [place] [address], * (ABNORMAL) COMPREHENSIVE METABOLIC PANEL (09/26/2018 9:48 AM CDT) GLUCOSE 102(H) 70 - 99 MG/DL 09/26/2018 8:41 PM CDT [facility] BUN 15 7 - 18 MG/DL 09/26/2018 8:41 PM CDT [facility] CREATININE S/P/B 0.76 0.55 - 1.02 MG/DL 09/26/2018 8:41 PM CDT [facility] SODIUM S/P/B 141 136 - 145 MMOL/L 09/26/2018 8:41 PM CDT [facility] POTASSIUM S/P/B 3.8 3.5 - 5.1 MMOL/L 09/26/2018 8:41 PM CDT [facility] CHLORIDE S/P/B 106 100 - 108 MMOL/L 09/26/2018 8:41 PM CDT [facility] CO2 30.1 21 - 32 MMOL/L 09/26/2018 8:41 PM CDT [facility] CALCIUM S/P/B 8.7 8.5 - 10.1 MG/DL 09/26/2018 8:41 PM CDT [facility] BILIRUBIN TOTAL S/P/B 0.5 0.2 - 1.2 MG/DL 09/26/2018 8:41 PM CDT [facility] TOTAL PROTEIN S/P/B 6.8 6.4 - 8.2 G/DL 09/26/2018 8:41 PM CDT [facility] ALBUMIN S/P/B 3.6 3.4 - 5.0 G/DL 09/26/2018 8:41 PM CDT [facility] AST 22 15 - 37 U/L 09/26/2018 8:41 PM CDT [facility] ALT 33 14 - 55 U/L 09/26/2018 8:41 PM CDT [facility] ALKALINE PHOSPHATASE S/P/B 84 50 - 136 U/L 09/26/2018 8:41 PM CDT [facility] ANION GAP 8.7 8 - 20 MMOL/L 09/26/2018 8:41 PM CDT [facility] BUN CREATININE RATIO 19.8 6 - 26 09/26/2018 8:41 PM CDT [facility] A/G RATIO 1.1 1.0 - 2.0 RATIO 09/26/2018 8:41 PM CDT [facility] EGFR NON-AFR. AMER. >90 >90 ML/MIN/1.7 3 M2 09/26/2018 8:41 PM CDT [facility] EGFR AFR. AMER. >90 >90 ML/MIN/1.7 3 M2 09/26/2018 8:41 PM CDT [facility] Comment: NOTE: eGFR is not calculated for patients <18 years of age. This is an estimated GFR (CKD EPI) and should not be used for calculating drug doses. 09/26/2018 9:48 AM CDT [facility] Final Resul t [facility] [address] [place] [address], [place] [phone] * CBC W/DIFF AUTOMATED (09/26/2018 9:48 AM CDT) WBC 7.3 4.5 - 11.0 x10'3/uL 09/26/2018 8:14 PM CDT [facility] RBC 4.77 4.20 - 5.40 x10'6/uL 09/26/2018 8:14 PM CDT [facility] HGB 14.3 12.0 - 16.0 G/DL 09/26/2018 8:14 PM CDT [facility] HCT 44.6 38.0 - 48.0 % 09/26/2018 8:14 PM CDT [facility] MCV 93.5 81.0 - 99.0 FL 09/26/2018 8:14 PM CDT [facility] MCH 30.0 27.0 - 31.0 PG 09/26/2018 8:14 PM CDT [facility] MCHC 32.1 32.0 - 36.0 G/DL 09/26/2018 8:14 PM CDT [facility] RDW 14.2 11.5 - 14.5 % 09/26/2018 8:14 PM CDT [facility] PLT 308 130 - 400 x10'3/uL 09/26/2018 8:14 PM CDT [facility] MPV 9.6 9.3 - 12.2 FL 09/26/2018 8:14 PM CDT [facility] DIFFERENTIAL TYPE AUTOMATED DIFFERENTIAL 09/26/2018 8:14 PM CDT [facility] NEUTROPHILS % 62.4 % 09/26/2018 8:14 PM CDT [facility] LYMPHOCYTES % 25.0 % 09/26/2018 8:14 PM CDT [facility] MONOCYTES % 8.2 % 09/26/2018 8:14 PM CDT [facility] EOSINOPHILS 3.6 % 09/26/2018 8:14 PM CDT [facility] BASOPHILS 0.5 % 09/26/2018 8:14 PM CDT [facility] IMMATURE GRANS % 0.3 % 09/27/19 19 8:14 PM CDT [facility] ABS. NEUTROPHILS TOTAL 4.54 1.80 - 7.70 x10'3/uL 09/26/2018 8:14 PM CDT [facility] ABS. LYMPHOCYTES 1.82 1.00 - 4.80 x10'3/uL 09/26/2018 8:14 PM CDT [facility] ABS. MONOCYTES 0.60 0.24 - 0.86 x10'3/uL 09/26/2018 8:14 PM CDT [facility] ABS. EOSINOPHILS 0.26 0.04 - 0.36 x10'3/uL 09/26/2018 8:14 PM CDT [facility] ABS. BASOPHILS 0.04 0.01 - 0.08 x10'3/uL 09/26/2018 8:14 PM CDT [facility] ABS. IMMATURE GRANULOCYTES 0.02 0.00 - 0.49 x10'3/uL 09/26/2018 8:14 PM CDT [facility] 09/26/2018 9:48 AM CDT [facility] Final Resul t [facility] [address] [place] [address], documented in this encounter Visit Diagnoses Diagnosis Elevated liver enzymes Nonspecific elevation of levels of transaminase or lactic acid dehydrogenase (LDH) Asymptomatic microscopic hematuria Hyperglycemia Other abnormal glucose Essential hypertension Unspecified essential hypertension Vitamin D deficiency Unspecified vitamin D deficiency documented in this encounter Care Teams Animal Cop Relationship Specialty Start Date End Date Nisha Stokes APNP [address] [place] [id number] PCP - General NURSE PRACTITIONER 09/20/18 documented as of this encounter
--- OUTSIDE RECORDS SUMMARY | 2024-06-03 20:29 | XMS_ITS | Encounter Summary ---
Author Organization [facility] Address [facility] [place] [address] [place] [address] Care Team Providers Care Financial Risk Manager Name Role Phone Nisha Stokes Primary Care Provider [phone] Reason for Referral * Imaging (Routine) - Closed Specialty Diagnoses / Procedures Referred By Contac t Referred To Contact Diagnoses Breast cancer screening Procedures MG SCREENING HOWARD DIGI Nisha Stokes APNP [address] [place] [address] Phone: tel: fax: [address] [address] Phone: tel: fax: Referral ID Status Reason Start Date Expiration Date Visits Re quested Visits Authorized [id number] Closed 12/17/2019 12/17/2020 99 99 Reason for Visit * Reason Comments Hypertension med check Encounter Details Date Type Department Care Team (Late st Contact Info) Description 12/17/2019 9:20 AM CDT Office Visit [facility] Family & Internal Medicine - [place] [address] [place] [address] Nisha Stokes APNP [address] [place] [address] Hypertension (med check) Social History Tobacco Use Types Packs/Day Years Used Date Smoking Tobacco: Some Days Cigarettes Smokeless Tobacco: Never Alcohol Use Standard Drinks/Week Comments Yes 0 (1 standard drink = 0.6 oz pur e alcohol) AUDIT-C Answer Date Recorded Frequency of Alcohol Consumption 2-3 times a alea santos 09/26/2018 Average Number of Drinks 1 or 2 019 Frequency of Binge Drinking Not on file 12/2018 PHQ-2 Answer Date Recorded PHQ-2 Score 0 12/17/2019 Comments Unknown Sex and Gender Information Value Date Recorded Sex Assigned at Female 05/07/2024 12:02 PM POCKET OPERATOR Legal Sex Female 8:55 PM CDT Gender Identity Female 05/07/2024 12:02 PM POCKET OPERATOR Sexual Orientation Not on file COVID-19 Exposure Response Date Recorded In the last month, have you been in contact with someone who was confirmed or suspected to have Coronavirus / COVID-19? No / Unsure 12/17/2019 8:47 AM CDT documented as of this encounter Last Filed Vital Signs Vital Sign Reading Time Taken Comments Blood Pressure 132/86 12/17/2019 9:52 AM CDT Pulse 76 12/17/2019 9:19 AM CDT Temperature 37.6 ??C (99.6 ??F) 12/17/2019 9:19 AM CD T Respiratory Rate 18 12/17/2019 9:19 AM CDT Oxygen Saturation 97% 12/17/2019 9:19 AM CDT Inhaled Oxygen Concentration - - Weight 136.1 kg (300 lb) 12/17/2019 9:19 AM CDT Height 160 cm (5' 3 ) 12/17/2019 9:19 AM CDT Body Mass Index 53.14 12/17/2019 9:19 AM CDT documented in this encounter Progress Notes * Carolyn Gilbert RRT - 12/17/2019 9:20 AM CDTAddended by: CAROLYN GILBERT on: 12/17/2019 10:15 AM Modules accepted: Orders * Carolyn Gilbert RRT - 12/17/2019 9:20 AM CDTAddended by: CAROLYN GILBERT on: 12/17/2019 10:26 AM Modules accepted: Orders * Nisha Stokes, GISELA - 12/17/2019 9:20 AM CDT Images from the original note were not included. [facility]INE OFFICE VISIT Reason for Visit: Hypertension (med check) History of Present Illness: 49-year-old female here today for follow-up of her chronic health conditions. She has a diagnosis of hypertension and currently takes lisinopril hydrochlorothiazide which she tolerates well denying any bothersome side effects including cough or facial edema. She denies any chest pain, shortness breath, headache, days, heart palpitations or lower extremity edema. She is due for routine fasting labs and these will be ordered today. She did see her eye doctor in the past couple of months who told her because of some exanthem noted on her eyes she needs to have her cholesterol screened. These will be ordered today. She is due for routine screening mammogram and this will be ordered today as well. Her last colonoscopy was done [place] [address] Van and her last Pap smear was done in 2018. She is followed by [facility]. She notes that she has gained some weight over the past year and notes that she has not really changed her eating habits but she has stopped exercising. Her last hemoglobin A1c was 6.3 and this was added on due to an elevated blood sugar. We will recheck both her glucose and hemoglobin A1c with today's labs. She denies any polyuria, polydipsia. PHQ 2 was negative today. She denies any issues currently with anxiety or depression. ROS: Review of Systems Constitutional: Negative for chills, fever and malaise/fatigue. HENT: Negative for congestion and sore throat. Eyes: Negative for blurred vision and double vision. Respiratory: Negative for cough, shortness of breath and wheezing. Cardiovascular: Negative for chest pain, palpitations and leg swelling. Gastrointestinal: Negative for abdominal pain and vomiting. Genitourinary: Negative for dysuria, frequency and urgency. Musculoskeletal: Negative for myalgias. Neurological: Negative for dizziness and headaches. Psychiatric/Behavioral: Negative for depression and suicidal ideas. The patient is not nervous/anxious. Medications: Current Outpatient Medications: ??? cholecalciferol (VITAMIN D3) 125 MCG (5000 UT) Tab, Take 5,000 Units by mouth daily. , Disp: , Rfl: ??? fexofenadine 180 MG tablet, Take 1 tablet by mouth daily., Disp: , Rfl: ??? lisinopril-hydroCHLOROthiazide 20-12.5 MG tablet, Take 1 tablet by mouth daily. Patient must beseen for further refills. Virtual Visits now available, Disp: 90 tablet, Rfl: 0 ??? Multiple Vitamin (MULTI-VITAMIN) tablet, Take 1 tablet by mouth daily. , Disp: , Rfl: ??? Vitamins-Lipotropics (BALANCE B-100) Tab, Take one Tab every other day, Disp: , Rfl: Allergies: Allergies Allergen Reactions [...] file Gets together: Not on file Attends cheondoism service: Not on file Active member of [...] normal. Left Ear: External ear normal. Eyes: Pupils are equal, round, and reactive to light. Conjunctivae and EOM are normal. No scleral icterus. Neck: Normal range of motion. Neck supple. No tracheal deviation present. No thyromegaly present. Cardiovascular: Normal rate, regular rhythm and normal heart sounds. No murmur heard. Pulmonary/Chest: Effort normal and breath sounds normal. No stridor. No respiratory distress. She has no wheezes. She has no rales. Musculoskeletal: Normal range of motion. She exhibits no deformity. Neurological: She is alert and oriented to person, place, and time. Gait normal. Skin: Skin is warm and dry. No rash noted. No erythema. No pallor. Psychiatric: Mood and affect normal. Nursing note and vitals reviewed. Filed Vitals: 12/17/19 0919 12/17/19 0952 BP: 140/86 132/86 Pulse: 76 Resp: 18 Temp: 99.6 ??F (37.6 ??C) SpO2: 97% Weight: 136.1 kg (300 lb) Height: 5' 3 (1.6 m) Labs: Labs Reviewed Diagnoses/Impression: 1. Essential hypertension TSH W/REFLEX URINALYSIS WI REFLEX TO CULTURE URIC ACID BLOOD COMPREHENSIVE METABOLIC PANEL Chronic 2. BMI 50.0-59.9, adult (CMS/HCC) CBC W/DIFF AUTOMATED LIPID PANEL TSH W/REFLEX URIC ACID BLOOD COMPREHENSIVE METABOLIC PANEL HEMOGLOBIN, GLYCOSYLATED Chronic 3. Vitamin D deficiency VITAMIN D, 25 OH Chronic 4. Routine medical exam CBC W/DIFF AUTOMATED LIPID PANEL TSH W/REFLEX VITAMIN D, 25 OH URINALYSIS WI REFLEX TO CULTURE URIC ACID BLOOD COMPREHENSIVE METABOLIC PANEL HEMOGLOBIN, GLYCOSYLATED 5. Breast cancer screening MG SCREENING HOWARD DIGI Recommendations and Plan: 1. Essential hypertension - TSH W/REFLEX; Future - URINALYSIS WI REFLEX TO CULTURE; Future - URIC ACID BLOOD; Future - COMPREHENSIVE METABOLIC PANEL; Future - TSH W/REFLEX - URINALYSIS WI REFLEX TO CULTURE - URIC ACID BLOOD - COMPREHENSIVE METABOLIC PANEL Blood pressure elevated initially, improved upon recheck. Patient is tolerating her medications well. For now, she is to continue current dose of lisinopril-hydrochlorothiazide. 2. BMI 50.0-59.9, adult ([facility]) - CBC W/DIFF AUTOMATED; Future - LIPID PANEL; Future - TSH W/REFLEX; Future - URIC ACID BLOOD; Future - COMPREHENSIVE METABOLIC PANEL; Future - HEMOGLOBIN, GLYCOSYLATED; Future - CBC W/DIFF AUTOMATED - LIPID PANEL - TSH W/REFLEX - URIC ACID BLOOD - COMPREHENSIVE METABOLIC PANEL - HEMOGLOBIN, GLYCOSYLATED Therapeutic lifestyle changes and dietary changes conducive to weight loss were discussed with patient today. We will continue to monitor. 3. Vitamin D deficiency - VITAMIN D, 25 OH; Future - VITAMIN D, 25 OH 4. Routine medical exam - CBC W/DIFF AUTOMATED; Future - LIPID PANEL; Future - TSH W/REFLEX; Future - VITAMIN D, 25 OH; Future - URINALYSIS WI REFLEX TO CULTURE; Future - URIC ACID BLOOD; Future - COMPREHENSIVE METABOLIC PANEL; Future - HEMOGLOBIN, GLYCOSYLATED; Future - CBC W/DIFF AUTOMATED - LIPID PANEL - TSH W/REFLEX - VITAMIN D, 25 OH - URINALYSIS WI REFLEX TO CULTURE - URIC ACID BLOOD - COMPREHENSIVE METABOLIC PANEL - HEMOGLOBIN, GLYCOSYLATED 5. Breast cancer screening - MG SCREENING HOWARD DIGI Orders Placed This Encounter ??? CBC W/DIFF AUTOMATED ??? LIPID PANEL ??? TSH W/REFLEX ??? VITAMIN D, 25 OH ??? URINALYSIS WI REFLEX TO CULTURE ??? URIC ACID BLOOD ??? COMPREHENSIVE METABOLIC PANEL ??? HEMOGLOBIN, GLYCOSYLATED ??? MG SCREENING HOWARD DIGI Cannot display discharge medications since this is not an admission. PCP: GISELA Gutierrez 12/17/2019 * GISELA Gutierrez - 12/17/2019 9:20 AM CDT HGB A1C 5.9---still pre diabetic. Lipids sl elevated---continue lower chol diet. Weight loss. Remainder of labs stable documented in this encounter Plan of Treatment Upcoming Encounters Date Type Department Care Team (Late st Contact Info) Description 06/12/2024 8:20 AM POCKET OPERATOR Allied Health/Nurse Visit [facility] Family & Internal [address] [address] 11/11/2024 9:00 AM CDT Allied Health/Nurse Visit [facility] Internal [address] [address] Nisha Stokes APNP [address] [place] [address] Scheduled Orders Name Type Priority Associated Diagnoses Orde r Schedule MG SCREENING HOWARD DIGI MAMMO Routine Breast cancer screening Ordered: 12/17/2019 documented as of this encounter Procedures Procedure Name Priority Date/Time Associated Diagnosis Comments URINALYSIS WI REFLEX TO CULTURE 12/19/2019 8:09 AM CDT TSH W/REFLEX Routine 12/19/2019 8:09 AM CDT Essential hypertension BMI 50.0-59.9, adult ([facility]) Routine medical exam HEMOGLOBIN, GLYCOSYLATED Routine 12/19/2019 8:09 AM CDT BMI 50.0-59.9, adult ([facility]) Routine medical exam URINALYSIS MICRO ONLY 12/19/2019 8:09 AM CDT COMPREHENSIVE METABOLIC PANEL Routine 12/19/2019 8:09 AM CDT Essential hypertension BMI 50.0-59.9, adult ([facility]) Routine medical exam LIPID PANEL Routine 12/19/2019 8:09 AM CDT BMI 50.0-59.9, adult ([facility]) Routine medical exam CBC W/DIFF AUTOMATED Routine 12/19/2019 8:09 AM CDT BMI 50.0-59.9, adult ([facility]) Routine medical exam VITAMIN D, 25 OH 12/19/2019 8:09 AM CDT URIC ACID BLOOD Routine 12/19/2019 8:09 AM CDT Essential hypertension BMI 50.0-59.9, adult ([facility]) Routine medical exam documented in this encounter Results * VITAMIN D, 25 OH (12/19/2019 8:09 AM CDT) VITAMIN D 25 HYDROXY S/P/B 50.0 30.0 - 100.0 ng/mL [facility] 1 Comment: Vitamin D deficiency has been defined by the [place] of Medicine and an Endocrine Society practice guideline as a level of serum 25-OH vitamin D less than 20 ng/mL (1,2). The Endocrine Society went on to further define vitamin D insufficiency as a level between 21 and 29 ng/mL (2). 1. IOM ([place] of [employer]). 2010. Dietary reference ?? intakes for calcium and D. [place]: The ?? National Academies Press. 2. Jose MF, Maria Elena SACLEDO, Roxane LUKE, et al. ?? Evaluation, treatment, and prevention of vitamin D ?? deficiency: an Endocrine Society clinical practice ?? guideline. JCEM. 2010; 96(7):1911-30. 12/19/2019 8:09 AM CDT 12/19/2019 Narrative [facility] - 12/20/2019 8:13 AM CDT Performed at: ??01 - [facility] [address], [place], [place] ??[id number] Toll Line Inspector: Jovanny Hayden PhD, Phone: ??[phone] Nisha HIGGINS LABORATORY Final Resul t [facility] [address] [id number] [facility] 1 * URINALYSIS MICRO ONLY (12/19/2019 8:09 AM CDT) WBC/HPF 0-5 0 - 5 /hpf [facility] 1 RBC/HPF 0-2 0 - 2 /hpf [facility] 1 EPI/HPF 0-10 0 - 10 /hpf [facility] 1 BACTERIA (U) Few None seen/ [facility] 1 12/19/2019 8:09 AM CDT 12/19/2019 Narrative [facility] - 12/20/2019 8:13 AM CDT Performed at: ??01 - [facility] [address] ??[id number] Toll Line Inspector: Jovanny Hayden PhD, Phone: ??[phone] us Nisha Stokes APNP URINE ORDERABLES Final Resu lt Performing Organization Address City/State/[facility] Co de Phone Number [facility] [address] [place] [address] [facility] 1 * URINALYSIS WI REFLEX TO CULTURE (12/19/2019 8:09 AM CDT) Pathologist [facility] SPECIFIC GRAVITY (U) 1.018 1.005 - 1.03 [facility] 1 PH (U) 5.5 5.0 - 7.5 [facility] 1 COLOR (U) Yellow Yellow [facility] 1 APPEARANCE SEMEN Clear Clear [facility] 1 LEUK ESTERASE (U) Negative Negative [facility] 1 PROTEIN (U) Negative Negative/T [facility] 1 GLUCOSE (U) Negative Negative [facility] 1 KETONES MG/DL (U) Negative Negative [facility] 1 BLOOD (U) Negative Negative [facility] 1 BILIRUBIN (U) Negative Negative [facility] 1 UROBILINOGEN 0.2 0.2 - 1.0 mg/dL [facility] 1 NITRITES Negative Negative [facility] 1 MICROSCOPIC DESCRIPTION Comment [facility] 1 Comment:Microscopic follows if indicated. MICROSCOPIC DESCRIPTION See below: [facility] 1 Comment:Microscopic was cristóbal cated and was performed. REFLEX ADDED Comment [facility] 1 Comment:This specimen will n ot reflex to a Urine Culture. 12/19/2019 8:09 AM CDT 12/19/2019 Narrative [facility] - 12/20/2019 8:13 AM CDT Performed at: ??01 - [facility] ??[id number] Toll Line Inspector: Jovanny Hayden PhD, Phone: ??[phone] Nisha HIGGINS URINE ORDERABLES Final Resu lt Performing Organization Address [facility] de Phone Number [facility] [address] [place] [address] [facility] 1 * (ABNORMAL) HEMOGLOBIN, GLYCOSYLATED (12/19/2019 8:09 AM CDT) HGB A1C 5.9(H) 4.8 - 5.6 % [facility] 1 Comment: ? Prediabetes: 5.7 - 6.4 ? Diabetes: >6.4 ? Glycemic control for adults with diabetes: <7.0 12/19/2019 8:09 AM CDT 12/19/2019 Narrative [facility] - 12/20/2019 8:13 AM CDT Performed at: ??01 - [facility] ??[id number] Toll Line Inspector: Jovanny Hayden PhD, Phone: ??[phone] Nisha HIGGINS LABORATORY Final Resul t Performing Organization Address [facility] de Phone Number [facility] [address] [place] [address] [facility] 1 * (ABNORMAL) COMPREHENSIVE METABOLIC PANEL (12/19/2019 8:09 AM CDT) GLUCOSE 123(H) 65 - 99 mg/dL [facility] 1 BUN 16 6 - 24 mg/dL [facility] 1 CREATININE S/P/B 0.76 0.57 - 1.00 mg/dL [facility] 1 EGFR NON-AFR. AMER. 92 >59 mL/min/1.7 3 [facility] 1 EGFR AFR. AMER. 106 >59 mL/min/1.7 3 [facility] 1 BUN CREATININE RATIO 21 9 - 23 [facility] 1 SODIUM S/P/B 138 134 - 144 mmol/L [facility] 1 POTASSIUM S/P/B 4.2 3.5 - 5.2 mmol/L [facility] 1 CHLORIDE S/P/B 99 96 - 106 mmol/L [facility] 1 CO2 27 20 - 29 mmol/L [facility] 1 CALCIUM S/P/B 9.5 8.7 - 10.2 mg/dL [facility] 1 TOTAL PROTEIN S/P/B 6.8 6.0 - 8.5 g/dL [facility] 1 ALBUMIN S/P/B 4.2 3.8 - 4.8 g/dL [facility] 1 GLOBULIN 2.6 1.5 - 4.5 g/dL [facility] 1 A/G RATIO 1.6 1.2 - 2.2 [facility] 1 BILIRUBIN TOTAL S/P/B 0.3 0.0 - 1.2 mg/dL [facility] 1 ALKALINE PHOSPHATASE S/P/B 85 39 - 117 IU/L [facility] 1 AST 22 0 - 40 IU/L [facility] 1 ALT 27 0 - 32 IU/L [facility] 1 12/19/2019 8:09 AM CDT 12/19/2019 Narrative [facility] - 12/20/2019 8:13 AM CDT Performed at: ??01 - [facility] [address] ??[id number] Toll Line Inspector: Jovanny Hayden PhD, Phone: ??[phone] Nisha HIGGINS LABORATORY Final Resul t [facility] [address] [place] [address] [facility] 1 * URIC ACID BLOOD (12/19/2019 8:09 AM CDT) URIC ACID 4.8 2.5 - 7.1 mg/dL [facility] 1 Comment:Therapeutic target f or gout patients: <6.0 12/19/2019 8:09 AM CDT 12/19/2019 Narrative [facility] - 12/20/2019 8:13 AM CDT Performed at: ??01 - [facility] ??[id number] Toll Line Inspector: Jovanny Hayden PhD, Phone: ??[phone] Nisha HIGGINS LABORATORY Final Resul t Performing Organization Address [facility] de Phone Number [facility] [address] [place] [address] [facility] 1 * TSH W/REFLEX (12/19/2019 8:09 AM CDT) TSH 2.280 0.450 - 4.50 uIU/mL [facility] 1 12/19/2019 8:09 AM CDT 12/19/2019 Narrative [facility] - 12/20/2019 8:13 AM CDT Performed at: ?? - [facility] ??[id number] Toll Line Inspector: Jovanny Hayden PhD, Phone: ??[phone] Nisha HIGGINS LABORATORY Final Resul t Performing Organization Address [facility] de Phone Number [facility] [address] [place] [address] [facility] 1 * (ABNORMAL) LIPID PANEL (12/19/2019 8:09 AM CDT) CHOLESTEROL 176 100 - 199 mg/dL [facility] 1 TRIGLYCERIDES 122 0 - 149 mg/dL [facility] 1 HDL 50 >39 mg/dL [facility] 1 VLDL CALCULATION 24 5 - 40 mg/dL [facility] 1 LDL (CALCULATED) 102(H) 0 - 99 mg/dL [facility] 1 12/19/2019 8:09 AM CDT 12/19/2019 Narrative [facility] - 12/20/2019 8:13 AM CDT Performed at: ??01 - [facility] ??[id number] Toll Line Inspector: Jovanny Hayden PhD, Phone: ??[phone] Nisha H Divya APNP LABORATORY Final Resul t [facility] [address] [place] [address] [facility] 1 * CBC W/DIFF AUTOMATED (12/19/2019 8:09 AM CDT) WBC 6.9 3.4 - 10.8 x10E3/uL [facility] 1 RBC 4.74 3.77 - 5.28 x10E6/uL [facility] 1 HGB 14.3 11.1 - 15.9 g/dL [facility] 1 HCT 42.9 34.0 - 46.6 % [facility] 1 MCV 91 79 - 97 fL [facility] 1 MCH 30.2 26.6 - 33.0 pg [facility] 1 MCHC 33.3 31.5 - 35.7 g/dL [facility] 1 RDW 13.5 11.7 - 15.4 % [facility] 1 PLATELET COUNT 293 150 - 450 x10E3/uL [facility] 1 NEUTROPHILS % 59 Not Estab. % [facility] 1 LYMPHOCYTES % 28 Not Estab. % [facility] 1 MONOCYTES % 9 Not Estab. % [facility] 1 EOSINOPHILS % 4 Not Estab. % [facility] 1 BASOPHILS % 0 Not Estab. % [facility] 1 ABS. NEUTROPHILS 4.1 1.4 - 7.0 x10E3/uL [facility] 1 ABS. LYMPHOCYTES 1.9 0.7 - 3.1 x10E3/uL [facility] 1 MONOCYTES 0.6 0.1 - 0.9 x10E3/uL [facility] 1 ABS. EOSINOPHILS 0.3 0.0 - 0.4 x10E3/uL [facility] 1 ABS. BASOPHILS 0.0 0.0 - 0.2 x10E3/uL [facility] 1 ABS. IMMATURE GRANULOCYTES 0 Not Estab. % [facility] 1 ABS. IMMATURE GRANULOCYTES 0.0 0.0 - 0.1 x10E3/uL [facility] 1 12/19/2019 8:09 AM CDT 12/19/2019 Narrative [facility] - 12/20/2019 8:13 AM CDT Performed at: ??01 - [facility] [address] ??[id number] Toll Line Inspector: Jovanny Hayden PhD, Phone: ??[phone] us Nisha HIGGINS LABORATORY Final Resul t [facility] [address] [place] [address] [facility] 1 documented in this encounter Visit Diagnoses Diagnosis Essential hypertension- Primary Unspecified essential hypertension BMI 50.0-59.9, adult ([facility]) Body Mass Index 50.0-59.9, adult Vitamin D deficiency Unspecified vitamin D deficiency Routine medical exam Routine general medical examination at a health care facility documented in this encounter Care Teams Financial Risk Manager Relationship Specialty Start Date End Date Nisha Stokes APNP [address] [place] [address] PCP - General NURSE PRACTITIONER 09/20/18 documented as of this encounter
--- OUTSIDE RECORDS SUMMARY | 2024-06-03 20:29 | XMS_ITS | Encounter Summary ---
Author Organization [facility] Address [address] [place] [address]. [place] [address] [place] [address] Care Team Providers Care Guitar Technician Name Role Phone Nisha Stokes Primary Care Provider Reason for Visit * Reason Onset Date Comments Results 12/03/2021 Encounter Details Date Type Department Care Team (Late st Contact Info) Description 12/03/2021 Telephone [facility] Family [facility] Internal Medicine [facility] [address] [place] [address] Nisha Stokes APNP [address] [place] [address] Results Social History Tobacco Use [...] Sex Assigned at Female 05/07/2024 12:02 PM SPEECH PATHOLOGY SUPERVISOR Legal Sex Female 8:55 PM CDT Gender Identity Female 05/07/2024 12:02 PM SPEECH PATHOLOGY SUPERVISOR Sexual Orientation Not on file COVID-19 Exposure Response Date Recorded In the last 10 days, have yo u been in contact with someone who was confirmed or suspected to have Coronavirus/COVID-19? No / Unsure 12/02/2021 7:35 AM CDT documented as of this encounter Progress Notes * Maggy Rob MA - 12/03/2021 10:44 AM CDT Pt notified and v/u to this. BB 12/03/2021 * Maggy Rob MA - 12/03/2021 10:44 AM CDT ----- Message from GISELA Gutierrez sent at 12/02/2021 8:36 PM CDT ----- HGB A1C WNL documented in this encounter Plan of Treatment Upcoming Encounters Date Type Department Care Team (Late st Contact Info) Description 06/12/2024 8:20 AM SPEECH PATHOLOGY SUPERVISOR Allied Health/Nurse Visit [facility] Family & Internal [address] [address] 11/11/2024 9:00 AM CDT Allied Health/Nurse Visit [facility] Family & Internal [address] [address] Nisha Stokes APNP [address] [place] [address] documented as of this encounter Visit Diagnoses Not on filedocumented in this encounter Additional Health Concerns Assessment Noted Time PHQ-9 Depression Total Score: 0 11/18/19 9:27 AM CDT documented as of this encounter Care Teams Guitar Technician Relationship Specialty Start Date End Date Nisha Stokes APNP [address] [place] [address] PCP - General NURSE PRACTITIONER 09/20/18 documented as of this encounter
--- OUTSIDE RECORDS SUMMARY | 2024-06-03 20:29 | XMS_ITS | Encounter Summary ---
Author Organization [facility] Address [address] [place] [address]. [place], [place] [address] [place] [address] Care Team Providers Care Cmm Inspector Name Role Phone Unavailable Primary Care Provider Unavailabl e Encounter Details Date Type Department Care Team (Latest Contact Info) Description 10/17/2017 Scan HEALTH INFO [facility] Scanned, Documents Social History Tobacco Use Types Packs/Day Years Used Date Smoking Tobacco: Never Assessed Comments Unknown Sex and Gender Information Value Date Recorded Sex Assigned at Female 05/07/2024 12:02 PM PIT CRANE OPERATOR Legal Sex Female 8:55 PM CDT Gender Identity Female 05/07/2024 12:02 PM PIT CRANE OPERATOR Sexual Orientation Not on file documented as of this encounter Plan of Treatment Upcoming Encounters Date Type Department Care Team (Late st Contact Info) Description 06/12/2024 8:20 AM PIT CRANE OPERATOR Allied Health/Nurse Visit [facility] Family & Internal Medicine [address] [address] 11/11/2024 9:00 AM CDT Allied Health/Nurse Visit [facility] Family & Internal Medicine [address] [phone] Nisha Stokes APNP [address] [place] [address] documented as of this encounter Visit Diagnoses Not on filedocumented in this encounter
--- OUTSIDE RECORDS SUMMARY | 2024-06-03 20:29 | XMS_ITS | Encounter Summary ---
Author Organization [facility] Address [address] [place] [address]. [place] [address] [place] [address] Care Team Providers Care Bank Worker Name Role Phone Divya Nisha Toño HIGGINS Primary Care Provider Encounter Details Date Type Department Care Team (Latest Contact Info) Description 02/13/2020 Scan HEALTH INFO SRVCS Scanned, Documents Social [...] Sex Assigned at Female 05/07/2024 12:02 PM TWISTING FRAME FIXER Legal Sex Female 8:55 PM CDT Gender Identity Female 05/07/2024 12:02 PM TWISTING FRAME FIXER Sexual Orientation Not on file documented as of this encounter Plan of Treatment Upcoming Encounters Date Type Department Care Team (Late st Contact Info) Description 06/12/2024 8:20 AM TWISTING FRAME FIXER Allied Health/Nurse Visit [facility] Medical Group Family & Internal Medicine [address] [address] 11/11/2024 9:00 AM CDT Allied Health/Nurse Visit [facility] Medical [facility] Family & Internal Medicine [address] [address] Nisha Stokes APNP [address] [place] [address] documented as of this encounter Visit Diagnoses Not on filedocumented in this encounter Care Teams Bank Worker Relationship Specialty Start Date End Date Nisha Stokes APNP [address] [place] [address] PCP - General NURSE PRACTITIONER 09/20/18 documented as of this encounter
--- OUTSIDE RECORDS SUMMARY | 2024-06-03 20:29 | XMS_ITS | Encounter Summary ---
Author Organization [facility] Address [address] [place] [address]. [place] [address] [place] [address] Care Team Providers Care Bogger Operator Name Role Phone Unavailable Primary Care Provider Unavailabl e Encounter Details Date Type Department Care Team (Late st Contact Info) Description 02/26/2018 Abstract [facility] Medical Group Family & Internal Medicine - [place] [id number] [place] [address] Nisha Stokes APNP [address] [place] [address] Social History Tobacco Use Types Packs/Day Years Used Date Smoking Tobacco: Never Assessed Comments Unknown Sex and Gender Information Value Date Recorded Sex Assigned at Female 05/07/2024 12:02 PM HAT BLOCK BENCH HAND Legal Sex Female 8:55 PM CDT Gender Identity Female 05/07/2024 12:02 PM HAT BLOCK BENCH HAND Sexual Orientation Not on file documented as of this encounter Last Filed Vital Signs Vital Sign Reading Time Taken Comments Blood Pressure 90/59 02/26/2018 9:04 AM CDT Pulse 75 02/26/2018 9:04 AM CDT Temperature - - Respiratory Rate - - Oxygen Saturation - - Inhaled Oxygen Concentration - - Weight 132.7 kg (292 lb 8 oz) 02/26/2018 9:04 AM CDT Height 160 cm (5' 3 ) 02/26/2018 9:04 AM CDT Body Mass Index 51.81 02/26/2018 9:04 AM CDT documented in this encounter Progress Notes * GISELA Gutierrez - 02/26/2018 9:00 AM CDT Reason For Visit Chronic Recheck Visit Chief Complaint Patient is here for follow up on HTN and Vitamin D deficiency. History of Present Illness HPI Free Text: Pt here today for follow up of HTN. BP is a little low today, but states she has recently changed jobs and is under a lot less stress. She denies any CP, SOB, LUKE, dizziness, heart palpitations, lowerextremity edema or light headed ness. She has no new complaints or concerns. Hypertension (Follow-Up): The patient presents for follow-up of primary hypertension. The patient states she has been stable with her blood pressure control since the last visit. She has no significant interval events. Symptoms: The patient is currently asymptomatic. Associated symptoms include no headache, no focal neurologic deficits and no memory loss. Home monitoring: The patient checks her blood pressure sporadically.. Blood pressure control has been good. Medications: the patient is adherent with her medication regimen. She denies medication side effects.. Medication(s): a diuretic and an LAURA inhibitor. Review of Systems Constitutional, Cardiovascular, Respiratory and Neurological review of systems normal except as noted. Active Problems 1. Allergic rhinitis (477.9) (J30.9) 2. BMI 50.0-59.9, adult (V85.43) (Z68.43) 3. Cerumen impaction (380.4) (H61.20) 4. Depression (311) (F32.9) 5. Elevated liver enzymes (790.5) (R74.8) 6. Encounter for screening colonoscopy (V76.51) (Z12.11) 7. Hematuria (599.70) (R31.9) 8. Hyperglycemia (790.29) (R73.9) 9. Hypertension (401.9) (I10) 10. Need for tetanus booster (V03.7) (Z23) 11. Vitamin D deficiency (268.9) (E55.9) Surgical History 1. History of cholecystectomy Family History Mother 1. Family history of malignant neoplasm of breast (V16.3) (Z80.3) Father 2. Family history of colon cancer (V16.0) (Z80.0) ?? Father was diagnosed at age 54 Family History 3. Family history of cardiac disorder (V17.49) (Z82.49) 4. Family history of cerebrovascular accident (CVA) (V17.1) (Z82.3) 5. Family history of hypertension (V17.49) (Z82.49) Social History ?? Never a smoker ?? Non-smoker (V49.89) (Z78.9) Immunizations Tdap --- Series1: 04-Sep-2017 Current Meds 1. Gladis Allergy 180 MG Oral Tablet; TAKE 1 TABLET BY MOUTH EVERY DAY; Therapy: (Recorded:04Sep2017) to Recorded Dispense: 0 Days ; #:90 Tablet; Refill: 0; ELIF = N; Record; Last Updated By: Yolette Santoyo; 09/04/2017 2:50:34 PM 2. Balance B-100 Oral Tablet; Therapy: (Recorded:04Sep2017) to Recorded Dispense: 0 Days ; #: Sufficient; Refill: 0; ELIF = N; Record; Last Updated By: Yolette Santoyo; 09/04/2017 2:50:34 PM 3. Lisinopril-Hydrochlorothiazide 20-25 MG Oral Tablet; TAKE ONE TABLET BY MOUTH ONCE DAILY Requested for: 04Sep2017; Last Rx:04Sep2017 Ordered Rx By: Nisha Stokes; Dispense: 90 Days ; #:90 Tablet; Refill: 1; For: Hypertension; ELIF = N; Verified Transmission to [id number]; Last Updated By: Katelin Enrique; 02/26/2018 9:35:22 AM 4. Multi-Vitamin Oral Tablet; TAKE 1 TABLET BY MOUTH EVERY OTHER DAY AM (HOLD); Therapy: (Recorded:04Sep2017) to Recorded Dispense: 0 Days ; #: Sufficient Tablet; Refill: 0; ELIF = N; Record; Last Updated By: Yolette Santoyo;09/04/2017 2:50:34 PM 5. Vitamin D3 98275 UNIT Oral Capsule; Therapy: (Recorded:26Feb2018) to Recorded Dispense: 0 Days ; #: Sufficient; Refill: 0; ELIF = N; Record; Last Updated By: Yolette Santoyo; 02/26/2018 9:04:23 AM Allergies 1. Iodine SOLN Recorded By: Yolette Santoyo; 09/04/2017 2:50:34 PM Vitals Recorded: 26Feb2018 09:04AM Temperature 97.2 F Heart Rate 75 Respiration 16 Systolic 90 Diastolic 59 O2 Saturation 94 Height 5 ft 3 in Weight 292 lb 8 oz BMI Calculated 51.81 BSA Calculated 2.27 Physical Exam Lymphatic Palpation of lymph nodes in other areas: No lymphadenopathy. Skin Inspection of eccrine and apocrine glands: Normal. Constitutional General appearance: No acute distress, well appearing and well nourished. Eyes Conjunctiva and lids: No swelling, erythema or discharge. Pulmonary Respiratory effort: No increased work of breathing or signs of respiratory distress. Auscultation of lungs: Clear to auscultation. Cardiovascular Auscultation of heart: Normal rate and rhythm, normal S1 and S2, without murmurs. Examination of extremities for edema and/or varicosities: Normal. Musculoskeletal Gait and station: Normal. Skin Skin and subcutaneous tissue: Normal without rashes or lesions. Psychiatric Orientation to person, place, and time: Normal. Mood and affect: Normal. Assessment 1. Hypertension (401.9) (I10) 2. BMI 50.0-59.9, adult (V85.43) (Z68.43) Counseling The patient was counseled regarding instructions for management, risk factor reductions, patient and family education, impressions, risks and benefits of treatment options and importance of compliance with treatment. total time of encounter was 20 minutes and 15 minutes was spent counseling. Plan BMI 50.0-59.9, adult 1. Call if: You are considering suicide.; Status:Complete; Done: 26Feb2018 Ordered; For:BMI 50.0-59.9, adult; Ordered By:Nisha Stokes; 2. Keep a diary of when and what you eat.; Status:Complete; Done: 26Feb2018 Ordered; For:BMI 50.0-59.9, adult; Ordered By:Nisha Stokes; 3. Call if: You are having difficulty sleeping (insomnia).; Status:Complete; Done: 26Feb2018 Ordered; For:BMI 50.0-59.9, adult; Ordered By:Nisha Stokes; 4. We encourage all of our patients to exercise regularly. 30 minutes of exercise or physical activity five or more days a week is recommended for children and adults.; Status:Complete; Done: 26Feb2018 Ordered; For:BMI 50.0-59.9, adult; Ordered By:Nisha Stokes; 5. Call if: You feel thirsty most of the time.; Status:Complete; Done: 26Feb2018 Ordered; For:BMI 50.0-59.9, adult; Ordered By:Nisha Stokes; 6. Call if: You feel your heart is beating very fast or skipping beats.; Status:Complete; Done: 26Feb2018 Ordered; For:BMI 50.0-59.9, adult; Ordered By:Nisha Stokes; 7. Call if: You have pain in your abdomen.; Status:Complete; Done: 26Feb2018 Ordered; For:BMI 50.0-59.9, adult; Ordered By:Nisha Stokes; 8. Call 911 if: You have sudden or severe chest pain with shortness of breath, rapid breathing, or cough.; Status:Complete; Done: 26Feb2018 Ordered; For:BMI 50.0-59.9, adult; Ordered By:Nisha Stokes; 9. Seek Immediate Medical Attention if: You experience a new kind of chest pain (angina) or pressure.; Status:Complete; Done: 26Feb2018 Ordered; For:BMI 50.0-59.9, adult; Ordered By:Nisha Stokes; Hypertension 10. Lisinopril-Hydrochlorothiazide 20-12.5 MG Oral Tablet; TAKE 2 TABLETS ONCE A DAY Rx By: Nisha Stokes; Dispense: 90 Days ; #:180 Tablet; Refill: 1; For: Hypertension; ELIF = N; Verified Transmission to [facility] #[id number]; Last Updated By: Katelin Enrique; 02/26/2018 9:35:22 AM 11. We encourage you to begin to make lifestyle changes to help control your blood pressure. These may include losing weight, increasing your activity level, limiting salt in your diet, decreasing alcohol intake, and eating a diet low in fat and rich in fruits and vegetables.; Status:Complete; Done: 26Feb2018 Ordered; For:Hypertension; Ordered By:Nisha Stokes; 12. Call if: You become dizzy or lightheaded, especially when you stand up after sitting for a while.; Status:Complete; Done: 26Feb2018 Ordered; For:Hypertension; Ordered By:Nisha Stokes; 13. Follow-up visit in 6 months Outpatient Follow-up Status: Complete Done: 26Feb2018 Ordered; For: Hypertension; Ordered By: Nisha Stokes Performed: Due: 12Mar2018; Last Updated By: Mayra Kaiser; 02/26/2018 9:30:15 AM 14. We want to put you on the DASH diet for 2000 calories.; Status:Complete; Done: 26Feb2018 Ordered; For:Hypertension; Ordered By:Nisha Stokes; 15. Call if: You develop double vision (see two of everything).; Status:Complete; Done: 26Feb2018 Ordered; For:Hypertension; Ordered By:Nisha Stokes; 16. Call if: Your blood pressure is frequently higher than 140/90.; Status:Complete; Done: 26Feb2018 Ordered; For:Hypertension; Ordered By:Nisha Stokes; 17. Call 911 if: You experience a new kind of chest pain (angina) or pressure.; Status:Complete; Done: 26Feb2018 Ordered; For:Hypertension; Ordered By:Nisha Stokes; 18. Call 911 if: You have any symptoms of a stroke.; Status:Complete; Done: 26Feb2018 Ordered; For:Hypertension; Ordered By:Nisha Stokes; 19. Seek Immediate Medical Attention if: You have a severe headache that will not go away.; Status:Complete; Done: 26Feb2018 Ordered; For:Hypertension; Ordered By:Nisha Stokes; 20. Seek Immediate Medical Attention if: Your blood pressure is greater than 250/120 for 2 consecutive readings.; Status:Complete; Done: 26Feb2018 Ordered; For:Hypertension; Ordered By:Nisha Stokes; HTN - BP is a little low today. Pt asymptomatic. Will change/decrease dose of lisinopril/HCTZ and pt is to monitor her BP at home and let me know if results <100/60 or >140/90. BMI - Pt has lost 7 lbs. Dietary and TLC's discussed. Continued weight loss encouraged. Pt to follow up in 6 months. Routine fasting labs ordered. Signatures Electronically signed by : Nisha Stokes APN; Feb 26 2018 9:41AM HAT BLOCK BENCH HAND (Author) Electronically signed by : Jarrell Sevilla M.D.; Mar 25 2018 7:16PM HAT BLOCK BENCH HAND BLOCK BENCH HAND documented in this encounter Plan of Treatment Upcoming Encounters Date Type Department Care Team (Late st Contact Info) Description 06/12/2024 8:20 AM HAT BLOCK BENCH HAND Allied Health/Nurse Visit [facility] Family & Internal [address] [address] 11/11/2024 9:00 AM CDT Allied Health/Nurse Visit [facility] Internal [address] [address] Nisha Stokes APNP [address] [place] [address] documented as of this encounter Visit Diagnoses Not on filedocumented in this encounter
--- OUTSIDE RECORDS SUMMARY | 2024-06-03 20:29 | XMS_ITS | Encounter Summary ---
Author Organization [facility] Address [address] [place] [address]. [place] [address] [place] [address] Care Team Providers Care Supervisor Asphalt Paving Name Role Phone Unavailable Primary Care Provider Unavailabl e Encounter Details Date Type Department Care Team (Latest Contact Info) Description 10/24/2017 Abstract [facility] Pam Eric MD Social History Tobacco Use Types Packs/Day Years Used Date Smoking Tobacco: Never Assessed Comments Unknown Sex and Gender Information Value Date Recorded Sex Assigned at Female 05/07/2024 12:02 PM WINK CUTTER OPERATOR Legal Sex Female 8:55 PM CDT Gender Identity Female 05/07/2024 12:02 PM WINK CUTTER OPERATOR Sexual Orientation Not on file documented as of this encounter Progress Notes * Generic Conversion MD Hernesto - 10/24/2017 9:18 AM CDT [facility] Authorization Release of Information First Name: Yur[facility] initial: Last Name: Maik Jauregui Michelle authorize [facility] to release any and all healthcare information about me to my [facility] personal health record for my own uses and purposes. I acknowledge that such healthcare information may include the following: x-rays, clinical diagnosis, histories of present illnesses, immunizations, allergies, prescription drug information, laboratory results, diagnostic screening and testing, clinical procedures, medical research, clinical trials, billing, account, and insurance information. I acknowledge that such healthcare information may include information regarding mental health screenings and/or treatment, including psychotherapy notes; HIV/AIDS, infectious disease, sexually transmitted infection testing, screening, diagnosis, and/or treatment; genetic testing; history of domestic violence, child abuse, and/or family abuse; and, substance/alcohol use and treatment history. I acknowledge that with this authorization [facility] may disclose any information or records (within the scope of the authorization) that [facility] has received about me from other healthcare Practices or facilities. [facility] may, within its discretion, withhold from disclosure any of the above information as permitted or required by law. Access to treatment or services may not be denied to me if I decline to sign this Authorization or revoke my Authorization. However, without this Authorization, my Practice will not electronically release my healthcare information to my [facility] personal health record. I may revoke this Authorization at any time. Such revocation will promptly take effect except to the extent that [facility] already has acted based on this Authorization. I may revoke this Authorization by removing [facility] as a health care Practice with whichI want to be connected on my [facility] account or providing my request to [facility]. However, I acknowledge that data previously submitted by [facility] as authorized by me prior to my subsequent revocation of this Authorization will remain in my [facility] account. I understand that I may delete my [facility] account any time. This authorization shall end upon the earliest of: a) the termination of the connection between my healthcare Practice and my [facility] Account; or b) upon my written request submitted to [email or web address]. For Authorized Representatives of Patients younger than 18 years old: This Authorization shall upon the earliest of: (1) the date the minor reaches the age of 18; or (2) the date [facility] receives written revocation from the minor, as an emancipated minor with legal authority to managehis/her own healthcare. I understand that the information submitted to my [facility] is subject to the privacy and security protections of applicable Federal and State laws. I further understand and acknowledge that the manner in which [facility] protects my personal information is detailed in the [facility] Privacy Policy and the [facility] Terms of Use. I understand that [facility] is not responsible for the security of data stored in the [facility] database, and that the owners of [facility] are responsible for ensuring the securityof the data stored in [facility]. I have the right to receive a copy of this Authorization and may do so by clicking [Print] above. Signed on 10/24/2017 Please complete the following information: Yuridia Pleitez 1970 If signing on behalf of a Patient, please complete the following: Relationship to Patient: [Place x in the appropriate box below] [X] Patient [ ] Parent/Guardian/Other Legal Health Science Writer By clicking [I ACCEPT], I acknowledge and agree to the terms of this Authorization. documented in this encounter Plan of Treatment Upcoming Encounters Date Type Department Care Team (Late st Contact Info) Description 06/12/2024 8:20 AM WINK CUTTER OPERATOR Allied Health/Nurse Visit [facility] Family Internal [address] [phone] 11/11/2024 9:00 AM CDT Allied Health/Nurse Visit [facility] Internal [address] [address] Nisha Stokes APNP [address] [place] [address] documented as of this encounter Visit Diagnoses Not on filedocumented in this encounter
--- OUTSIDE RECORDS SUMMARY | 2024-06-03 20:29 | XMS_ITS | Encounter Summary ---
Author Organization [facility] Address [address] [place] [address]. [place] [address] [place] [address] Care Team Providers Care Tube Teller Name Role Phone Nisha Stokes Toño HIGGINS Primary Care Provider [phone] Encounter Details Date Type Department Care Team (Latest Contact Info) Description 01/04/2022 Scan HEALTH INFO SRVCS Scanned, Documents Social [...] Sex Assigned at Female 05/07/2024 12:02 PM JEWEL HOLE FINISH OPENER Legal Sex Female 8:55 PM CDT Gender Identity Female 05/07/2024 12:02 PM JEWEL HOLE FINISH OPENER Sexual Orientation Not on file documented as of this encounter Plan of Treatment Upcoming Encounters Date Type Department Care Team (Late st Contact Info) Description 06/12/2024 8:20 AM JEWEL HOLE FINISH OPENER Allied Health/Nurse Visit [facility] Medical [facility] Family & Internal Medicine [address] [address] 11/11/2024 9:00 AM CDT Allied Health/Nurse Visit [facility] Family & Internal Medicine - [address] [phone] Nisha Stokes APNP [address] [place] [address] documented as of this encounter Visit Diagnoses Not on filedocumented in this encounter Additional Health Concerns Assessment Noted Time PHQ-9 Depression Total Score: 0 11/18/19 22 9:27 AM CDT documented as of this encounter Care Teams Tube Teller Relationship Specialty Start Date End Date Nisha Stokes APNP [address] [place] [address] PCP - General NURSE PRACTITIONER 09/20/18 documented as of this encounter
--- OUTSIDE RECORDS SUMMARY | 2024-06-03 20:29 | XMS_ITS | Encounter Summary ---
Author Organization [facility] Address [address] [place] [address]. [place] [address] [place] [address] Care Team Providers Care Sharemilker Name Role Phone Nisha Stokes GISELA Primary Care Provider [phone] Reason for Visit * Reason Comments Dilated Eye Exam (SCAN) Encounter Details Date Type Department Care Team ([facility] Contact Info) Description 12/04/2023 Scan HEALTH INFO SRVCS Scanned, Doc Med [...] Sex Assigned at Female 05/07/2024 12:02 PM PATROLLER Legal Sex Female 8:55 PM CDT Gender Identity Female 05/07/2024 12:02 PM PATROLLER Sexual Orientation Not on file documented as of this encounter Plan of Treatment Upcoming Encounters Date Type Department Care Team ([facility] Contact Info) Description 06/12/2024 8:20 AM PATROLLER Allied Health/Nurse Visit [facility] Medical [facility] Family & Internal Medicine [address] [phone] 11/11/2024 9:00 AM CDT Allied Health/Nurse Visit [facility] Medical Group Family & Internal Medicine - [place] [address] [place] [address] Nisha Stokes APNP [address] [place] [address] documented as of this encounter Procedures Procedure Name Priority Date/Time Associated Diagnosis Comments DIABETIC RETINOPATHY EXAM (NEGATIVE)(SCAN ORDER) Routine 12/04/2023 documented in this encounter Results * DIABETIC RETINOPATHY EXAM (NEGATIVE) (12/04/2023) us Doc [facility] Scanned SCANNING Final Resu lt [facility] ON[facility] documented in this encounter Visit Diagnoses Not on filedocumented in this encounter Additional Health Concerns Assessment Noted Time PHQ-9 Depression Total Score: 0 11/18/19 22 9:27 AM CDT documented as of this encounter Care Teams Sharemilker Relationship Specialty Start Date End Date Nisha Stokes APNP [facility] [place] [address] PCP - General NURSE PRACTITIONER 09/20/18 documented as of this encounter
--- OUTSIDE RECORDS SUMMARY | 2024-06-03 20:29 | XMS_ITS | Encounter Summary ---
Author Organization [facility] Address [address] [place] [address]. [place] [address] [place] [address] Care Team Providers Care Car Body Inspector Name Role Phone Nisha Stokes Primary Care Provider [phone] Reason for Visit * Reason Onset Date Comments Results 11/29/2021 Encounter Details Date Type Department Care Team (Late st Contact Info) Description 11/29/2021 Telephone [facility] Medical Group Family & Internal Medicine [facility] [address] [place] [address] Nisha Stokes APNP [address] [place] [address] Results Social History Tobacco Use [...] Sex Assigned at Female 05/07/2024 12:02 PM PROMOTIONS DIRECTOR Legal Sex Female 8:55 PM CDT Gender Identity Female 05/07/2024 12:02 PM PROMOTIONS DIRECTOR Sexual Orientation Not on file COVID-19 Exposure Response Date Recorded In the last 10 days, have yo u been in contact with someone who was confirmed or suspected to have Coronavirus/COVID-19? No / Unsure 11/17/2021 8:00 AM CDT documented as of this encounter Progress Notes * Maggy Rob MA - 11/29/2021 1:47 PM CDT Called lab they can not add on an A1C. Pt is scheduled for to get an A1C done. Pt said she does not get heavy periods so she thinks she was spotting and on her period at this time. Pt voiced concerns of her heart rate being high. Pt says moving around her heart rate would go to 110. Pt will send a [employer] message with BP readings. Pt said BP readings through November 18-November 20 they were 140/90 and 150/90. More info to come on BP readings. BB 11/29/2021 * Maggy Rob MA - 11/29/2021 1:39 PM CDT ----- Message from GISELA Gutierrez sent at 11/29/2021 12:25 PM CDT ----- Glucose sl elevated--would like to check a HGB A1C if possible There was some blood in her urine---if she was not on her cycle I would like this rechecked in a month. documented in this encounter Plan of Treatment Upcoming Encounters Date Type Department Care Team (Late st Contact Info) Description 06/12/2024 8:20 AM PROMOTIONS DIRECTOR Allied Health/Nurse Visit [facility] Medical [facility] Family & Internal Medicine [address] [phone] 11/11/2024 9:00 AM CDT Allied Health/Nurse Visit [facility] Medical [facility] Family & Internal Medicine [facility] [address] [place] [address] Nisha Stokes APNP [address] [place] [address] documented as of this encounter Visit Diagnoses Diagnosis Blood glucose elevated- Primary Other abnormal glucose documented in this encounter Additional Health Concerns Assessment Noted Time PHQ-9 Depression Total Score: 0 11/18/19 22 9:27 AM CDT documented as of this encounter Care Teams Car Body Inspector Relationship Specialty Start Date End Date Nisha Stokes APNP [address] [place] [id number] PCP - General NURSE PRACTITIONER 09/20/18 documented as of this encounter
--- OUTSIDE RECORDS SUMMARY | 2024-06-03 20:29 | XMS_ITS | Encounter Summary ---
Author Organization [facility] Address [address] [place] [address]. [place], [place] [id number] [place] [address] Care Team Providers Care Woodyard Crane Operator Name Role Phone Unavailable Primary Care Provider Unavailabl e Encounter Details Date Type Department Care Team (Latest Contact Info) Description 09/05/2017 Abstract [facility] Medical Group Social History Tobacco Use Types Packs/Day Years Used Date Smoking Tobacco: Never Assessed Comments Unknown Sex and Gender Information Value Date Recorded Sex Assigned at Female 05/07/2024 12:02 PM TRUCK LOADER Legal Sex Female 8:55 PM CDT Gender Identity Female 05/07/2024 12:02 PM TRUCK LOADER Sexual Orientation Not on file documented as of this encounter Plan of Treatment Upcoming Encounters Date Type Department Care Team (Late st Contact Info) Description 06/12/2024 8:20 AM TRUCK LOADER Allied Health/Nurse Visit [facility] Medical [facility] Family & Internal Medicine [address] [address] 11/11/2024 9:00 AM CDT Allied Health/Nurse Visit [facility] Family & Internal Medicine [address] [address] Nisha Stokes APNP [address] [place] [address] documented as of this encounter Visit Diagnoses Not on filedocumented in this encounter
--- OUTSIDE RECORDS SUMMARY | 2024-06-03 20:29 | XMS_ITS | Encounter Summary ---
Author Organization [facility] Address [address] [place] [address]. 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 No / Unsure 12/17/2019 8:47 AM CDT documented as of this encounter Plan of Treatment Upcoming Encounters Date Type Department Care Team (Late st Contact Info) Description 06/12/2024 8:20 AM TENT WORKER Allied Health/Nurse Visit [facility] Medical Group Family & Internal Medicine [address] [phone] 11/11/2024 9:00 AM CDT Allied Health/Nurse Visit [facility] Medical Group Family & Internal Medicine - [place] [address] [place] [address] Nisha Stokes APNP [address] [place] [address] documented as of this encounter Visit Diagnoses Not on filedocumented in this encounter Care Teams Safety Physician Relationship Specialty Start Date End Date Nisha Stokes APNP [facility] [place] [address] PCP - General NURSE PRACTITIONER 09/20/18 documented as of this encounter
--- OUTSIDE RECORDS SUMMARY | 2024-06-03 20:29 | XMS_ITS | Encounter Summary ---
Author Organization [facility] Address [address] [place] [address]. 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 Up from 6.0 last year. Still prediabetic. Diabetes starts at 6.5. Treatment at this time---weight loss, exercise and decreasing ing carb intake in diet. documented in this encounter Plan of Treatment Upcoming Encounters Date Type Department Care Team (Late st Contact Info) Description 06/12/2024 8:20 AM MAIL TELLER Allied Health/Nurse Visit [facility] Medical [facility] Family & Internal Medicine [address] [address] 11/11/2024 9:00 AM CDT Allied Health/Nurse Visit [facility] Family & Internal [address] [address] Nisha Stokes APNP [address] [place] [address] documented as of this encounter Procedures Procedure Name Priority Date/Time Associated Diagnosis Comments HEMOGLOBIN, GLYCOSYLATED Routine 09/26/2018 12:35 PM CDT Elevated glucose documented in this encounter Results * HEMOGLOBIN, GLYCOSYLATED (09/26/2018 12:35 PM CDT) HGB A1C 6.3 4.2 - 6.3 % 09/27/2018 1:02 PM CDT [facility] Comment: ADA GUIDELINES 2010 5.7 TO 6.4% INCREASED RISK OF DIABETES > OR = 6.5% CONSISTENT WITH DIABETES ESTIMATED AVG GLUCOSE 134 mg/dL 09/27/2018 1:02 PM CDT [facility] 09/26/2018 12:3 5 PM CDT Nisha [facility] Final Resul t [facility] [address] [place] [address], documented in this encounter Visit Diagnoses Diagnosis Elevated glucose Other abnormal glucose documented in this encounter Care Teams Fittings Tightener Relationship Specialty Start Date End Date Nisha Stokes APNP [address] [place] [address] PCP - General NURSE PRACTITIONER 09/20/18 documented as of this encounter
--- OUTSIDE RECORDS SUMMARY | 2024-06-03 20:29 | XMS_ITS | Encounter Summary ---
Author Organization [facility] Address [address] [place] [address]. [place] [address] [place] [address] Care Team Providers Care Real Estate Specialist Name Role Phone Unavailable Primary Care Provider Unavailabl e Encounter Details Date Type Department Care Team (Late st Contact Info) Description 09/04/2017 Abstract [facility] Family & Internal Medicine [id number] [place] [address] Nisha Stokes APNP [address] [place] [address] Social History Tobacco Use Types Packs/Day Years Used Date Smoking Tobacco: Never Assessed Comments Unknown Sex and Gender Information Value Date Recorded Sex Assigned at Female 05/07/2024 12:02 PM SENIOR SOUS CHEF Legal Sex Female 8:55 PM CDT Gender Identity Female 05/07/2024 12:02 PM SENIOR SOUS CHEF Sexual Orientation Not on file documented as of this encounter Last Filed Vital Signs Vital Sign Reading Time Taken Comments Blood Pressure 118/86 09/04/2017 2:54 PM CDT Pulse 82 09/04/2017 2:54 PM CDT Temperature - - Respiratory Rate - - Oxygen Saturation - - Inhaled Oxygen Concentration - - Weight 136.6 kg (301 lb 4 oz) 09/04/2017 2:54 PM CDT Height 160 cm (5' 3 ) 09/04/2017 2:54 PM CDT Body Mass Index 53.36 09/04/2017 2:54 PM CDT documented in this encounter Progress Notes * GISELA Gutierrez - 09/04/2017 2:40 PM CDT Reason For Visit New Patient Visit Chief Complaint Patient is here to establish care for HTN and Depression History of Present Illness PHQ-9 Depression Questionnaire: Over the past 2 weeks, how often have you been bothered by the following problems? 1.) Little interest or pleasure in doing things? Not at all. 2.) Feeling down, depressed or hopeless? Not at all. 3.) Trouble falling asleep or sleeping too much? Several days. 4.) Feeling tired or having little energy? Several days. 5.) Poor appetite or overeating? Not at [...] yourself in some way? Not at all. TOTAL SCORE: 2. How difficult have these problems made it for you to do your work, take care of things at home, or get along with people? Not at all. HPI Free Text: Pt here today to get established as a new pt. 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 She is treated for hypertension with lisinopril-HCTZ and is well controlled. She denies any CP, SOB, LUKE, dizziness or heart palpitations. She has been on fluoxetine 20 mg for the past 16 years. She would like to wean off if possible. During the time she was started on this med, she was going through some life changes and felt like she needed it at that time. Her life has changed and would like to come off if possible. She was told not to stop with checking with her provider first. Pt takes Gladis daily for seasonal and home allergies. States symptoms are controlled most of the time. She denies any history of abnormal paps and sees TEXTILE MACHINE MAINTENANCE MECHANIC for this. She has Mirena IUD and is followed by them every year. She is due for routine fasting labs and is due for an update of her Tdap. Hypertension (Follow-Up): The patient presents for follow-up [...] is not checking blood pressure at home.. Blood pressure control has been good. Medications: the patient is adherent with her medication regimen. She denies medication side effects.. Medication(s): a diuretic and an LAURA inhibitor. Disease Management: the patient is doing well with her blood pressure goals.. The patient is due for a lipid panel and a serum creatinine. Depression (Follow-Up): The patient states her depression has improved since the last visit. They have had recurrent episodes of major depression. She describes this as mild. She has no comorbid illnesses. She has had no significant interval events. Interval Symptoms: denies depression, denies depressed mood, denies loss of interest or pleasure inactivities, denies insomnia, denies excessive sleepiness, denies inability to perform normal activities, denies loss of energy, denies feelings of worthlessness, denies feelings of guilt, denies trouble concentrating, denies anxiety and denies sexual dysfunction. Associated symptoms include:. No associated symptoms are reported.. Social Support: the patient has good social support. Medications: the patient is adherent with her medication regimen. She denies medication side effects.. Medication(s): a SSRI. Review of Systems Constitutional: negative. Head and Face: negative. Eyes: negative. ENT: negative. Cardiovascular: negative. Respiratory: negative. Gastrointestinal: negative. Genitourinary: negative. Musculoskeletal: negative. Integumentary negative. Psychiatric: negative. Hematologic and Lymphatic: negative. Neurological Negative. Endocrine Negative. Surgical History 1. History of cholecystectomy Family [...] 1 TABLET BY MOUTH EVERY DAY; Therapy: (Recorded:[id number]) to Recorded 2. Balance B-100 Oral Tablet; Therapy: (Recorded:[id number]) to Recorded 3. FLUoxetine HCl - 20 MG Oral Capsule; Therapy: [id number] to Recorded 4. Lisinopril-Hydrochlorothiazide 20-25 MG Oral Tablet; TAKE ONE TABLET BY MOUTH ONCE DAILY; Therapy: (Recorded:[id number]) to Recorded 5. Multi-Vitamin Oral Tablet; TAKE 1 TABLET BY MOUTH EVERY OTHER DAY AM (HOLD); Therapy: (Recorded:[id number]) to Recorded Allergies 1. Iodine SOLN Vitals Recorded: 04Sep2017 02:54PM Temperature 99.5 F Heart Rate 82 Respiration 18 Systolic 118 Diastolic 86 O2 Saturation 98 Height 5 ft 3 in Weight 301 lb 4 oz BMI Calculated 53.36 BSA Calculated 2.3 Physical Exam Constitutional General appearance: No acute distress, well appearing and well nourished. Eyes Conjunctiva and lids: No swelling, erythema or discharge. Pupils and irises: Equal, round and reactive to light. Ears, Nose, Mouth, and Throat External inspection of ears and nose: Normal. Otoscopic examination: Abnormal. cerumen impaction bilaterally. Oropharynx: Normal with no erythema, edema, exudate or lesions. Pulmonary Respiratory effort: No increased work of breathing or signs of respiratory distress. Auscultation of lungs: Clear to auscultation. Cardiovascular Auscultation of heart: Normal rate and rhythm, normal S1 and S2, without murmurs. Examination of extremities for edema and/or varicosities: Normal. Abdomen Abdomen: Non-tender, no masses. Liver and spleen: No hepatomegaly or splenomegaly. Lymphatic Palpation of lymph nodes in neck: No lymphadenopathy. Musculoskeletal Gait and station: Normal. Digits and nails: Normal without clubbing or cyanosis. Inspection/palpation of joints, bones, and muscles: Normal. Skin Skin and subcutaneous tissue: Normal without rashes or lesions. Neurologic Cranial nerves: Cranial nerves 2-12 intact. Reflexes: 2+ and symmetric. Sensation: No sensory loss. Psychiatric Orientation to person, place, and time: Normal. Mood and affect: Normal. Procedure Indication: tympanic membrane(s) could not be visualized and cerumen impaction in both ears. Prep: hydrogen peroxide was placed in the canal prior to the procedure. Procedure Note: The procedure was performed by the Provider. A ototoscope was placed in the ear canal(s) to visualize the ear canal debris. The ear was cleaned by using warm water irrigation and a curette. Post-Procedure: Patient Status: the patient tolerated the procedure well. Complications: there were no complications. Patient instructions: avoid using q-tips. Follow-up Educ on Debrox.. Counseling The patient was counseled regarding instructions for management, risk factor reductions, patient and family education, impressions, risks and benefits of treatment options and importance of compliance with treatment. total time of encounter was 40 minutes and 25 minutes was spent counseling. Assessment 1. Depression (311) (F32.9) 2. Hypertension (401.9) (I10) 3. Allergic rhinitis (477.9) (J30.9) 4. Need for tetanus booster (V03.7) (Z23) 5. Cerumen impaction (380.4) (H61.20) Plan Allergic rhinitis 1. Avoid exposure to cigarette smoke.; Status:Complete; Done: 57Bkr7691 Ordered; For:Allergic rhinitis; Ordered By:Nisha Stokes; 2. Call if: Breathing starts to have a wheeze or whistling sound.; Status:Complete; Done: 67Bix5076 Ordered; For:Allergic rhinitis; Ordered By:Nisha Stokes; 3. Avoid exposure to things that make your problem worse.; Status:Complete; Done: 03Dbl4390 Ordered; For:Allergic rhinitis; Ordered By:Nisha Stokes; 4. Call if: The symptoms seem worse.; Status:Complete; Done: 12Zyp6558 Ordered; For:Allergic rhinitis; Ordered By:Nisha Stokes; 5. Avoid [id number] cold remedies unless recommended by us.; Status:Complete; Done: 76Xyl0000 Ordered; For:Allergic rhinitis; Ordered By:Nisha Stokes; 6. Call if: You have a severe headache that will not go away.; Status:Complete; Done: 76Ayb7274 Ordered; For:Allergic rhinitis; Ordered By:Nisha Stokes; 7. Drink at least 6 glasses of water or juice a day.; Status:Complete; Done: 53Szg2861 Ordered; For:Allergic rhinitis; Ordered By:Nisha Stokes; 8. Call if: You have difficulty breathing, or you are short of breath more often.; Status:Complete; Done: 40Olt8299 Ordered; For:Allergic rhinitis; Ordered By:Nisha Stokes; 9. Good hand washing is one of the best ways to control the spread of germs.; Status:Complete; Done: 42Pkb4860 Ordered; For:Allergic rhinitis; Ordered By:Nisha Stokes; 10. Call if: You have pain in your ear.; Status:Complete; Done: 72Klj7227 Ordered; For:Allergic rhinitis; Ordered By:Nisha Stokes; 11. How to use a nasal spray.; Status:Complete; Done: 97Ffz1644 Ordered; For:Allergic rhinitis; Ordered By:Nisha Stokes; 12. Call if: You have pain in your face, cheeks or forehead.; Status:Complete; Done: 50Mvx6211 Ordered; For:Allergic rhinitis; Ordered By:Nisha Stokes; 13. How to use saline nose drops.; Status:Complete; Done: 64Cny5625 Ordered; For:Allergic rhinitis; Ordered By:Nisha Stokes; 14. Call if: You have yellow or green nasal discharge.; Status:Complete; Done: 11Oyw9212 Ordered; For:Allergic rhinitis; Ordered By:Nisha Stokes; 15. Several things can be done to allergy-proof the bedroom.; Status:Complete; Done: 07Llm2917 Ordered; For:Allergic rhinitis; Ordered By:Nisha Stokes; 16. Use a cool mist humidifier in the room.; Status:Complete; Done: 65Lvk6081 Ordered; For:Allergic rhinitis; Ordered By:Nisha Stokes; Cerumen impaction 17. Clean the outside of your ears with a washcloth.; Status:Complete; Done: 03Xsa7286 Ordered; For:Cerumen impaction; Ordered By:Nisha Stokes; 18. Call if: New symptoms occur.; Status:Complete; Done: 83Guo6233 Ordered; For:Cerumen impaction; Ordered By:Nisha Stokes; 19. Never put cotton swabs (i.e. Q-tips) inside your child's ears.; Status:Complete; Done: 41Scq6666 Ordered; For:Cerumen impaction; Ordered By:Nisha Stokes; 20. Call if: You are not able to hear as you normally do.; Status:Complete; Done: 40Odf4580 Ordered; For:Cerumen impaction; Ordered By:Nisha Stokes; 21. Never put cotton swabs inside your ears.; Status:Complete; Done: 21Umh0152 Ordered; For:Cerumen impaction; Ordered By:Nisha Stokes; 22. Call if: You have pain in your ear.; Status:Complete; Done: 29Pmq4882 Ordered; For:Cerumen impaction; Ordered By:Nisha Stokes; 23. To remove earwax at home, use a soft-tipped rubber ear syringe.; Status:Complete; Done: 23Ere0080 Ordered; For:Cerumen impaction; Ordered By:Nisha Stokes; Depression 24. FLUoxetine HCl - 10 MG Oral Capsule; Take one capsule daily Rx By: Nisha Stokes; Dispense: 30 Days ; #:30 Capsule; Refill: 0; For: Depression; ELIF = N; Verified Transmission to [facility]; Last Updated By: [facility]; 09/04/2017 3:26:03 PM Hypertension 25. Lisinopril-Hydrochlorothiazide 20-25 MG Oral Tablet; TAKE ONE TABLET BY MOUTH ONCE DAILY Rx By: Nisha Stokes; Dispense: 90 Days ; #:90 Tablet; Refill: 1; For: Hypertension; ELIF = N; Verified Transmission to [facility]; Last Updated By: [facility]; 09/04/2017 3:16:23 PM 26. Begin or continue regular aerobic exercise. Gradually work up to at least 3 sessions of 30 minutes of exercise a week.; Status:Complete; Done: 82Mom1063 Ordered; For:Hypertension; Ordered By:Nisha Stokes; 27. Call if: You become dizzy or lightheaded, especially when you stand up after sitting for a while.; Status:Complete; Done: 88Gov5597 Ordered; For:Hypertension; Ordered By:Nisha Stokes; 28. We encourage you to begin to make lifestyle changes to help control your blood pressure. These may include losing weight, increasing your activity level, limiting salt in your diet, decreasing alcohol intake, and eating a diet low in fat and rich in fruits and vegetables.; Status:Complete; Done: 02Mvv9475 Ordered; For:Hypertension; Ordered By:Nisha Stokes; 29. Call if: You develop double vision (see two of everything).; Status:Complete; Done: 42Abn5635 Ordered; For:Hypertension; Ordered By:Nisha Stokes; 30. We recommend that you bring your body mass index down to 25.; Status:Complete; Done: 67Fsf6460 Ordered; For:Hypertension; Ordered By:Nisha Stokes; 31. Call if: Your blood pressure is frequently higher than 140/90.; Status:Complete; Done: 71Kno2345 Ordered; For:Hypertension; Ordered By:Nisha Stokes; 32. We want to put you on the DASH diet for 2000 calories.; Status:Complete; Done: 41Jtx1322 Ordered; For:Hypertension; Ordered By:Nisha Stokes; 33. Call 911 if: You experience a new kind of chest pain (angina) or pressure.; Status:Complete; Done: 57Jji3429 Ordered; For:Hypertension; Ordered By:Nisha Stokes; 34. Call 911 if: You have any symptoms of a stroke.; Status:Complete; Done: 09Uda7565 Ordered; For:Hypertension; Ordered By:Nisha Stokes; 35. Seek Immediate Medical Attention if: You have a severe headache that will not go away.; Status:Complete; Done: 44Naa8844 Ordered; For:Hypertension; Ordered By:Nisha Stokes; 36. Seek Immediate Medical Attention if: Your blood pressure is greater than 250/120 for 2 consecutive readings.; Status:Complete; Done: 00Qef2658 Ordered; For:Hypertension; Ordered By:Nisha Stokes; Need for tetanus booster 37. Tdap (Boostrix) For: Need for tetanus booster; Ordered By:Nisha Stokes; Effective Date:04Sep2017; Administered by: Yolette Santoyo MA: 09/04/2017 4:09:00 PM; Last Updated By: Yolette Santoyo; 09/04/2017 4:10:13 PM HTN - Stable - continue meds. Allergic rhinitis - Stable. continue meds. Depression - Symptoms stable. Discussed weaning off of meds today and side effects she may experience. Pt still willing to try. Fluoxetine was filled at 10 mg and weaning instructions were discussed in detail with pt. She is to let me know if unable to tolerate. Pt verbalized understanding. Will have pt to follow up with me in 4-6 weeks, sooner if needed. Tetanus updated. Routine fasting labs ordered. GI referral placed for routine screening colonoscopy. Discussion/Summary Negative adult depression screen.. Tobacco use screening completed. PHQ-9 Completed (Score 2). Signatures Electronically signed by : Nisha Stokes APN; Sep 04 2017 7:49PM SENIOR SOUS CHEF (Author) documented in this encounter Plan of Treatment Upcoming Encounters Date Type Department Care Team (Late st Contact Info) Description 06/12/2024 8:20 AM SENIOR SOUS CHEF Allied Health/Nurse Visit [facility] Family & Internal [address] [address] 11/11/2024 9:00 AM CDT Allied Health/Nurse Visit [facility] Family & Internal [address] [address] Nisha Stokes APNP [address] [place] [id number] documented as of this encounter Procedures Procedure Name Priority Date/Time Associated Diagnosis Comments TEST AUTHORIZATION Routine 09/26/2017 8: 32 AM CDT HEMOGLOBIN, GLYCOSYLATED Routine 09/26/2017 8:32 AM CDT T4 AND TSH Routine 09/26/2017 8:32 AM CDT URINALYSIS MICRO ONLY Routine 09/26/2017 8:32 AM CDT COMPREHENSIVE METABOLIC PANEL Routine 09/26/2017 8:32 AM CDT LIPID PANEL Routine 09/26/2017 8:32 AM CDT HEPATITIS C ANTIBODY Routine 09/26/2017 8:32 AM CDT HEPATITIS BE AG, EIA Routine 09/26/2017 8:32 AM CDT CBC W/DIFF AUTOMATED Routine 09/26/2017 8:32 AM CDT VITAMIN D, 25 OH Routine 09/26/2017 8:32 AM CDT URIC ACID BLOOD Routine 09/26/2017 8:32 AM CDT documented in this encounter Results * HEPATITIS BE AG, EIA (09/26/2017 8:32 AM CDT) HEPATITIS BE AG Negative Negative [facility] TO EPIC CONVERSION 09/26/2017 8:32 AM CDT 09/26/2017 8:32 AM CDT Narrative [facility] TO [facility] CONVERSION - 10/04/2017 1:14 PM CDT [id number] 8:49PM by Nisha Stokes: ??Will discuss labs at upcoming appt on 10/13/2017 Result Communication: No patient communication needed at this time us [facility]isha [facility] Final Resul t [facility] TO EPIC CONVERSION * T4 AND TSH (09/26/2017 8:32 AM CDT) TSH 2.620 0.450 - 4.500 uIU/mL [facility] TO [facility]IC CONVERSION 09/26/2017 8:32 AM CDT 09/26/2017 8:32 AM CDT Narrative [facility] TO [facility] CONVERSION - 09/27/2017 11:15 AM CDT [id number] 8:49PM by Nisha Stokes: ??Will discuss labs at upcoming appt on 10/13/2017 Result Communication: No patient communication needed at this time Nisha [facility] Final Resul t Performing Organization Address [facility] de Phone Number [facility] TO EPIC CONVERSION * TEST AUTHORIZATION (09/26/2017 8:32 AM CDT) COMMENT [facility] T O EPIC CONVERSION Comment: Result Comment: Written Authorization Received. Authorization received from DAYANARA BOATENG CMA 10-04-2017 Logged by Jolie Craig 09/26/2017 8:32 AM CDT 09/26/2017 8:32 AM CDT Narrative [facility] TO [facility]IC CONVERSION - 10/04/2017 1:14 PM CDT [id number] 8:49PM by Nisha Stokes: ??Will discuss labs at upcoming appt on 10/13/2017 Result Communication: No patient communication needed at this time Nisha [facility] Final Resul t Performing Organization Address [facility] de Phone Number [facility] TO EPIC CONVERSION * (ABNORMAL) VITAMIN D, 25 OH (09/26/2017 8:32 AM CDT) VITAMIN D 25 HYDROXY S/P/B 26.1(L) 30.0 - 100.0 ng/mL [facility] TO [facility]IC CONVERSION Comment: Result Comment: Vitamin D deficiency has been defined by the [place] of Medicine and an Endocrine Society practice guideline as a level of serum 25-OH vitamin D less than 20 ng/mL (1,2). The Endocrine Society went on to further define vitamin D insufficiency as a level between 21 and 29 ng/mL (2). 1. IOM ([place] of Medicine). 2010. Dietary reference ?? intakes for calcium and D. [place]: The ?? National AcademTechShop Press. 2. Jose MF, Maria Elena [place], Roxane LUKE, et al. ?? Evaluation, treatment, and prevention of vitamin D ?? deficiency: an Endocrine Society clinical practice ?? guideline. JCEM. 2010; 96(7):1911-30. 09/26/2017 8:32 AM CDT 09/26/2017 8:32 AM CDT Narrative [facility] TO EPIC CONVERSION - 09/27/2017 11:15 AM CDT [id number] 8:49PM by Nisha Stokes: ??Will discuss labs at upcoming appt on 10/13/2017 Result Communication: No patient communication needed at this time Nisha [facility] Final Resul t Performing Organization Address [facility] Co de Phone Number [facility] TO EPIC CONVERSION * (ABNORMAL) URINALYSIS MICRO ONLY (09/26/2017 8:32 AM CDT) WBC 0-5 0 - 5 /hpf [facility] TO [facility]IC CONVERSION RBC 0-2 0 - 2 /hpf [facility] TO [facility]IC CONVERSION EPI/HPF >10(A) 0 - 10 /hpf [facility] TO [facility] CONVERSION RENAL EPI [facility] T O EPIC CONVERSION OTHER CASTS (U) Present(A) None seen /lpf [facility] TO [facility]IC CONVERSION OTHER CASTS (U) Hyaline casts N/A [facility] TO [facility]IC CONVERSION CRYSTALS (U) Present(A) N/A [facility] UP TO EPIC CONVERSION SPECIMEN TYPE Amorphous Sediment N/A [facility] TO [facility]IC CONVERSION MUCUS Present Not Estab. [facility] TO [facility]IC CONVERSION BACTERIA (U) Few None seen/Few [facility] TO [facility]IC CONVERSION YEAST [facility] T O EPIC CONVERSION TRICHOMONAS [facility] TO [facility]IC CONVERSION COMMENT [facility] T [facility] EPIC CONVERSION 09/26/2017 8:32 AM CDT 09/26/2017 8:32 AM CDT Narrative [facility] TO EPIC CONVERSION - 09/27/2017 11:15 AM CDT [id number] 8:49PM by Nisha Stokes: ??Will discuss labs at upcoming appt on 10/13/2017 Result Communication: No patient communication needed at this time Nisha [facility] Final Resu lt [facility] TO [facility]IC CONVERSION * (ABNORMAL) COMPREHENSIVE METABOLIC PANEL (09/26/2017 8:32 AM CDT) GLUCOSE 139(H) 65 - 99 mg/dL [facility] TO [facility]IC CONVERSION BUN 18 6 - 24 mg/dL [facility] TO [facility]IC CONVERSION CREATININE S/P/B 0.66 0.57 - 1.00 mg/dL [facility] TO EPIC CONVERSION EGFR NON-AFR. AMER. 105 >59 mL/min/1.7 3 [facility] TO EPIC CONVERSION EGFR AFR. AMER. 121 >59 mL/min/1.7 3 [facility] TO EPIC CONVERSION BUN CREATININE RATIO 27(H) 9 - 23 [facility] TO [facility]IC CONVERSION SODIUM S/P/B 140 134 - 144 mmol/L [facility] TO EPIC CONVERSION POTASSIUM S/P/B 3.6 3.5 - 5.2 mmol/L [facility] TO EPIC CONVERSION CHLORIDE S/P/B 98 96 - 106 mmol/L [facility] TO EPIC CONVERSION TCO2 25 18 - 29 mmol/L [facility] TO EPIC CONVERSION CALCIUM S/P/B 9.2 8.7 - 10.2 mg/dL [facility] TO EPIC CONVERSION PROTEIN 6.8 6.0 - 8.5 g/dL [facility] TO EPIC CONVERSION ALBUMIN S/P/B 4.1 3.5 - 5.5 g/dL [facility] TO EPIC CONVERSION GLOBULIN 2.7 1.5 - 4.5 g/dL [facility] TO EPIC CONVERSION A/G RATIO 1.5 1.2 - 2.2 [facility] T O EPIC CONVERSION BILIRUBIN TOTAL (FLUID) 0.2 0.0 - 1.2 mg/dL [facility] TO EPIC CONVERSION ALKALINE PHOSPHATASE S/P/B 77 39 - 117 IU/L [facility] TO EPIC CONVERSION AST 27 0 - 40 IU/L [facility] TO EPIC CONVERSION ALT 45(H) 0 - 32 IU/L [facility] TO EPIC CONVERSION 09/26/2017 8:32 AM CDT 09/26/2017 8:32 AM CDT Narrative [facility] TO EPIC CONVERSION - 09/27/2017 11:15 AM CDT [id number] 8:49PM by Nisha Stokes: ??Will discuss labs at upcoming appt on 10/13/2017 Result Communication: No patient communication needed at this time us Nisha [facility] Final Resul t [facility] TO EPIC CONVERSION * HEPATITIS C ANTIBODY (09/26/2017 8:32 AM CDT) HEPATITIS C AB <0.1 0.0 - 0.9 s/co ratio [facility] TO EPIC CONVERSION Comment: Result Comment: ?Negative: ? < 0.8 ?Indeterminate: 0.8 - 0.9 ? Positive: ? > 0.9 ? . ?The CDC recommends that a positive HCV antibody result ?be followed up with a HCV Nucleic Acid Amplification ?test ([id number]). 09/26/2017 8:32 AM CDT 09/26/2017 8:32 AM CDT Narrative [facility] TO EPIC CONVERSION - 10/04/2017 1:14 PM CDT [id number] 8:49PM by Nisha Stokes: ??Will discuss labs at upcoming appt on 10/13/2017 Result Communication: No patient communication needed at this time Nisha [facility] Final Resul t [facility] TO EPIC CONVERSION * URIC ACID BLOOD (09/26/2017 8:32 AM CDT) Pathologist [facility] [place] URIC ACID 5.3 2.5 - 7.1 mg/dL [facility] TO EPIC CONVERSION Comment: Result Comment: ? Therapeutic target for gout patients: <6.0 09/26/2017 8:32 AM CDT 09/26/2017 8:32 AM CDT Narrative [facility] TO EPIC CONVERSION - 09/27/2017 11:15 AM CDT [id number] 8:49PM by Nisha Stokes: ??Will discuss labs at upcoming appt on 10/13/2017 Result Communication: No patient communication needed at this time Nisha [facility] Final Resul t Performing Organization Address [facility]/ZIP Co de Phone Number [facility] TO EPIC CONVERSION * (ABNORMAL) CBC W/DIFF AUTOMATED (09/26/2017 8:32 AM CDT) Pathologist [facility] [place] WBC 9.0 3.4 - 10.8 x10E3/uL [facility] TO EPIC CONVERSION RBC 4.82 3.77 - 5.28 x10E6/uL [facility] TO EPIC CONVERSION HEMOGLOBIN MIXED VENOUS 14.3 11.1 - 15.9 g/dL [facility] TO EPIC CONVERSION HCT 43.7 34.0 - 46.6 % [facility] TO EPIC CONVERSION MCV 91 79 - 97 fL [facility] TO EPIC CONVERSION MCH 29.7 26.6 - 33.0 pg [facility] TO EPIC CONVERSION MCHC 32.7 31.5 - 35.7 g/dL [facility] TO EPIC CONVERSION RDW 14.4 12.3 - 15.4 % [facility] TO EPIC CONVERSION PLT 332 150 - 379 x10E3/uL [facility] TO EPIC CONVERSION SEG NEUTROPHILS 64 Not Estab. % [facility] TO EPIC CONVERSION LYMPHOCYTES 22 Not Estab. % [facility] TO EPIC CONVERSION MONOCYTES 11 Not Estab. % [facility] TO EPIC CONVERSION EOSINOPHILS 3 Not Estab. % [facility] TO EPIC CONVERSION BASOPHILS % 0 Not Estab. % [facility] TO EPIC CONVERSION IMMATURE CELLS [facility] OUP TO EPIC CONVERSION ABS. NEUTROPHILS 5.7 1.4 - 7.0 x10E3/uL [facility] TO EPIC CONVERSION ABS. LYMPHOCYTES 2.0 0.7 - 3.1 x10E3/uL [facility] TO EPIC CONVERSION ABS. MONOCYTES 1.0(H) 0.1 - 0.9 x10E3/uL [facility] TO EPIC CONVERSION ABS. EOSINOPHILS 0.3 0.0 - 0.4 x10E3/uL [facility] TO EPIC CONVERSION ABS. BASOPHILS 0.0 0.0 - 0.2 x10E3/uL [facility] TO EPIC CONVERSION IMMATURE CELLS 0 Not Estab. % [facility] TO EPIC CONVERSION ABS. IMMATURE GRANULOCYTES 0.0 0.0 - 0.1 x10E3/uL [facility] TO EPIC CONVERSION NRBC [facility] T O EPIC CONVERSION CBC COMMENT [facility] TO [facility]IC CONVERSION 09/26/2017 8:32 AM CDT 09/26/2017 8:32 AM CDT Narrative [facility] TO EPIC CONVERSION - 09/27/2017 11:15 AM CDT [id number] 8:49PM by Nisha Stokes: ??Will discuss labs at upcoming appt on 10/13/2017 Result Communication: No patient communication needed at this time us i[facility] Final Resul t [facility] TO EPIC CONVERSION * (ABNORMAL) HEMOGLOBIN, GLYCOSYLATED (09/26/2017 8:32 AM CDT) [facility] HGB A1C 6.0(H) 4.8 - 5.6 % [facility] TO EPIC CONVERSION Comment: Result Comment: ?. ? Pre-diabetes: 5.7 - 6.4 ? Diabetes: >6.4 ? Glycemic control for adults with diabetes: <7.0 09/26/2017 8:32 AM CDT 09/26/2017 8:32 AM CDT Narrative [facility] TO EPIC CONVERSION - 10/04/2017 1:14 PM CDT [id number] 8:49PM by Nisha Stokes: ??Will discuss labs at upcoming appt on 10/13/2017 Result Communication: No patient communication needed at this time Nisha [facility] Final Resul t [facility] TO EPIC CONVERSION * (ABNORMAL) LIPID PANEL (09/26/2017 8:32 AM CDT) Pathologist [facility] [place] CHOLESTEROL 148 100 - 199 mg/dL [facility] TO EPIC CONVERSION TRIGLYCERIDES 165(H) 0 - 149 mg/dL [facility] TO EPIC CONVERSION HDL 41 >39 mg/dL [facility] T O EPIC CONVERSION VLDL CALCULATION 33 5 - 40 mg/dL [facility] TO EPIC CONVERSION LDL (CALCULATED) 74 0 - 99 mg/dL [facility] TO EPIC CONVERSION COMMENT [facility] T O EPIC CONVERSION 09/26/2017 8:32 AM CDT 09/26/2017 8:32 AM CDT Narrative [facility] TO EPIC CONVERSION - 09/27/2017 11:15 AM CDT [id number] 8:49PM by Nisha Stokes: ??Will discuss labs at upcoming appt on 10/13/2017 Result Communication: No patient communication needed at this time Nisha [facility] Final Resul t [facility] TO EPIC CONVERSION documented in this encounter Visit Diagnoses Not on filedocumented in this encounter
--- OUTSIDE RECORDS SUMMARY | 2024-06-03 20:29 | XMS_ITS | Encounter Summary ---
Author Organization [facility] Address [address] [place] [address]. [place], [place] [id number] [place] [id number] Care Team Providers Care Technical Designer Name Role Phone Nisha Stokes GISELA Primary Care Provider [phone] Encounter Details Date Type Department Care Team (Latest Contact Info) Description 12/15/2023 Scan HEALTH INFO [facility] Scanned, Doc Med [...] Sex Assigned at Female 05/07/2024 12:02 PM BOATHOUSE KEEPER Legal Sex Female 8:55 PM CDT Gender Identity Female 05/07/2024 12:02 PM BOATHOUSE KEEPER Sexual Orientation Not on file documented as of this encounter Plan of Treatment Upcoming Encounters Date Type Department Care Team (Late st Contact Info) Description 06/12/2024 8:20 AM BOATHOUSE KEEPER Allied Health/Nurse Visit [facility] Family & Internal Medicine [address] [phone] 11/11/2024 9:00 AM CDT Allied Health/Nurse Visit [facility] Family & Internal Medicine - [place] [address] [place] [address] Nisha Stokes APNP [facility] [place] [address] documented as of this encounter Visit Diagnoses Not on filedocumented in this encounter Additional Health Concerns Assessment Noted Time PHQ-9 Depression Total Score: 0 11/18/19 22 9:27 AM CDT documented as of this encounter Care Teams Technical Designer Relationship Specialty Start Date End Date Nisha Stokes APNP [address] [place] [id number] PCP - General NURSE PRACTITIONER 09/20/18 documented as of this encounter
--- OUTSIDE RECORDS SUMMARY | 2024-06-03 20:29 | XMS_ITS | Encounter Summary ---
Author Organization [facility] Address [address] [place] [address]. [place], [place] [address] [place] [address] Care Team Providers Care Budget Record Clerk Name Role Phone Unavailable Primary Care Provider Unavailabl e Encounter Details Date Type Department Care Team (Latest Contact Info) Description 09/14/2017 Abstract [facility] Social History Tobacco Use Types Packs/Day Years Used Date Smoking Tobacco: Never Assessed Comments Unknown Sex and Gender Information Value Date Recorded Sex Assigned at Female 05/07/2024 12:02 PM DESIGN MANAGER Legal Sex Female 8:55 PM CDT Gender Identity Female 05/07/2024 12:02 PM DESIGN MANAGER Sexual Orientation Not on file documented as of this encounter Plan of Treatment Upcoming Encounters Date Type Department Care Team (Late st Contact Info) Description 06/12/2024 8:20 AM DESIGN MANAGER Allied Health/Nurse Visit [facility] Family & Internal Medicine [address] [address] 11/11/2024 9:00 AM CDT Allied Health/Nurse Visit [facility] Family & Internal Medicine [address] [address] Nisha Stokes APNP [address] [place] [phone] documented as of this encounter Visit Diagnoses Not on filedocumented in this encounter
--- OUTSIDE RECORDS SUMMARY | 2024-06-03 20:29 | XMS_ITS | Encounter Summary ---
Author Organization [facility] Address [address] [place] [address]. [place], [place] [id number] [place] [address] Care Team Providers Care Claims Counsel Name Role Phone Nisha Stokes Toño [facility] Primary Care Provider [phone] Encounter Details Date Type Department Care Team (Latest Contact Info) Description 09/22/2022 Travel Social History Tobacco Use Types Packs/Day [...] Sex Assigned at Female 05/07/2024 12:02 PM CLAY BURNER Legal Sex Female 8:55 PM CDT Gender Identity Female 05/07/2024 12:02 PM CLAY BURNER Sexual Orientation Not on file COVID-19 Exposure Response Date Recorded In the last 10 days, have yo u been in contact with someone who was confirmed or suspected to have Coronavirus/COVID-19? No / Unsure 09/22/2022 9:21 AM CDT documented as of this encounter Plan of Treatment Upcoming Encounters Date Type Department Care Team (Late st Contact Info) Description 06/12/2024 8:20 AM CLAY BURNER Allied Health/Nurse Visit [facility] Family & Internal Medicine - [address] [phone] 11/11/2024 9:00 AM CDT Allied Health/Nurse Visit [facility] Family & Internal Medicine - [address] [address] Nisha Stokes APNP [address] [place] [address] documented as of this encounter Visit Diagnoses Not on filedocumented in this encounter Additional Health Concerns Assessment Noted Time PHQ-9 Depression Total Score: 0 11/18/19 9:27 AM CDT documented as of this encounter Care Teams Claims Counsel Relationship Specialty Start Date End Date Nisha Stokes APNP [address] [place] [address] PCP - General NURSE PRACTITIONER 09/20/18 documented as of this encounter
--- OUTSIDE RECORDS SUMMARY | 2024-06-03 20:29 | XMS_ITS | Encounter Summary ---
Author Organization [facility] Address [address] [place] [address]. [place], [place] [address] [place] [address] Care Team Providers Care Medical Research Assistant Name Role Phone Nisha Stokes Primary Care Provider Reason for Visit * Reason Comments Physical Encounter Details Date Type Department Care Team (Late st Contact Info) Description 09/18/2020 8:20 AM CDT Office Visit [facility] Medical Group Family & Internal Medicine [id number] [place] [address] Nisha Stokes APNP [facility] [place] [address] Physical Social History Tobacco Use Types Packs/Day [...] Sex Assigned at Female 05/07/2024 12:02 PM DAYTIME CAREGIVER Legal Sex Female 8:55 PM CDT Gender Identity Female 05/07/2024 12:02 PM DAYTIME CAREGIVER Sexual Orientation Not on file COVID-19 Exposure Response Date Recorded In the last month, have you been in contact with someone who was confirmed or suspected to have Coronavirus / COVID-19? No / Unsure 09/17/2020 1:26 PM CDT documented as of this encounter Last Filed Vital Signs Vital Sign Reading Time Taken Comments Blood Pressure 122/86 09/18/2020 8:37 AM CDT Pulse 70 09/18/2020 8:37 AM CDT Temperature 37.2 ??C (98.9 ??F) 09/18/2020 8:37 AM CD T Respiratory Rate 20 09/18/2020 8:37 AM CDT Oxygen Saturation 97% 09/18/2020 8:37 AM CDT Inhaled Oxygen Concentration - - Weight 131.1 kg (289 lb) 09/18/2020 8:37 AM CDT Height 160 cm (5' 3 ) 09/18/2020 8:37 AM CDT Body Mass Index 51.19 09/18/2020 8:37 AM CDT documented in this encounter Progress Notes * Danae Garcia - 09/18/2020 8:20 AM CDTAddended by: DANAE GARCIA on: 09/21/2020 09:50 AM Modules accepted: Orders * GISELA Gutierrez - 09/18/2020 8:20 AM CDT Images from the original note were not included. [facility] FAMILY AND INTERNAL MEDICINE OFFICE VISIT Reason for Visit: Physical History of Present Illness: GENERAL OFFICE VISIT Encounter Date: 09/18/2020 Chief Complaint: 50-year-old female presents for Physical . The patient is being seen for a health maintenance evaluation. General Health: GOOD Dental Health: Sees dentist regularly Vision Health: Last eye exam < 1 year ago Hearing Health: No hearing problems Immunizations Needed: Due for COVID and Shingrix, TDAP UTD Weight: Morbidly obese Body mass index is 51.19 kg/m??. Physical Activity: Excercises occaisonally Cervical Cancer Screening: due, sees TELE MARKETING EXECUTIVE---denies any abnormals in the past Breast Cancer Screening: Last one was in 01/2020, no hx of abnormals Colorectal Cancer Screening: Done in 2016---will be due again in 2021 Metabolic Screening: Patient needs to be screened today. PHQ-9 Screening Score: 0 Smoking Status: Smoking status: Current Some Day Smoker Types: Cigarettes Smokeless tobacco: Never Used HTN - BP well controlled. Tolerates meds well with no bothersome side effects including cough or facial edema. Denies any CP, SOB, LUKE, dizziness, heart palpitations or lower extremity edema. Vit D Def - takes 5000 IU of Vit D3 daily. Seasonal allergies - takes Gladis daily. Feels symptoms are actually controlled daily. ROS: Review of Systems Constitutional: Negative for chills and fever. HENT: Negative for congestion, sinus pain and sore throat. Eyes: Negative for blurred vision and double vision. Respiratory: Negative for cough and shortness of breath. Cardiovascular: Negative for chest pain and palpitations. Gastrointestinal: Negative for abdominal pain, diarrhea, nausea and vomiting. Genitourinary: Negative for dysuria and urgency. Musculoskeletal: Negative for myalgias. Skin: Negative for itching and rash. Neurological: Negative for dizziness and headaches. Psychiatric/Behavioral: [...] Take 1 tablet by mouth daily., Disp: 90 tablet, Rfl: 3 ??? Multiple Vitamin (MULTI-VITAMIN) tablet, Take 1 tablet by mouth daily. , Disp: , Rfl: ??? Vitamins-Lipotropics (BALANCE B-100) Tab, Take by mouth every other day. Take one Tab every other day, Disp: [...] Social History Socioeconomic History ??? Marital status: Spouse name: Not on file ??? Number of children: Not on file ??? Years of education: Not on file ??? Highest education level: Not on file Occupational History ??? Not on file Social Needs ??? Financial resource strain: Not on file ??? Food insecurity Worry: Not on file Inability: Not on file ??? Transportation needs Medical: Not on file Non-medical: Not on file Tobacco Use ??? Smoking status: Current Some Day Smoker Types: Cigarettes ??? Smokeless tobacco: Never Used Substance and Sexual Activity ??? Alcohol use: Yes Frequency: 2-3 times a week Drinks per session: 1 or 2 ??? Drug use: No ??? Sexual activity: Yes control/protection: I.U.D. Lifestyle ??? Physical activity Days per week: Not on file Minutes per session: Not on file ??? Stress: Not on file Relationships ??? Social connections Talks on phone: Not on file Gets together: Not on file Attends jewish service: Not on file Active member of club or organization: Not on file Attends meetings of clubs or organizations: Not on file Relationship status: Not on file ??? Intimate partner violence Fear of current or ex partner: Not [...] rales. Abdominal: Soft. Bowel sounds are normal. She exhibits no distension and no mass. There is no abdominal tenderness. There is no rebound and no guarding. Musculoskeletal: Normal range of motion. General: No deformity. Lymphadenopathy: She has no cervical adenopathy. Neurological: She is alert and oriented to person, place, and time. Gait normal. Skin: Skin is warm and dry. No rash noted. No erythema. No pallor. Psychiatric: Mood and affect normal. Nursing note and vitals reviewed. Filed Vitals: 09/18/20 0837 BP: 122/86 Pulse: 70 Resp: 20 Temp: 98.9 ??F (37.2 ??C) SpO2: 97% Weight: 131.1 kg (289 lb) Height: 5' 3 (1.6 m) Labs: Labs Reviewed Diagnoses/Impression: 1. General medical examination CBC W/DIFF AUTOMATED LIPID PANEL TSH W/REFLEX VITAMIN D, 25 OH URINALYSIS WI REFLEX TO CULTURE COMPREHENSIVE METABOLIC PANEL 2. BMI 50.0-59.9, adult ([facility]) CBC W/DIFF AUTOMATED LIPID PANEL TSH W/REFLEX VITAMIN D, 25 OH URINALYSIS WI REFLEX TO CULTURE COMPREHENSIVE METABOLIC PANEL 3. Essential hypertension Chronic TSH W/REFLEX URINALYSIS WI REFLEX TO CULTURE COMPREHENSIVE METABOLIC PANEL 4. Vitamin D deficiency Chronic VITAMIN D, 25 OH 5. Seasonal allergies Chronic 6. Hypertension lisinopril-hydroCHLOROthiazide 20-12.5 MG tablet Recommendations and Plan: 1. General medical examination - CBC W/DIFF AUTOMATED; Future - LIPID PANEL; Future - TSH W/REFLEX; Future - VITAMIN D, 25 OH; Future - URINALYSIS WI REFLEX TO CULTURE; Future - COMPREHENSIVE METABOLIC PANEL; Future - COMPREHENSIVE METABOLIC PANEL - VITAMIN D, 25 OH - TSH W/REFLEX - LIPID PANEL - CBC W/DIFF AUTOMATED - URINALYSIS WI REFLEX TO CULTURE Routine fasting labs ordered today. More plan after results. Immunizations up-to-date. Will obtain Covid vaccination in the upcoming future. 2. BMI 50.0-59.9, adult ([facility]) - CBC W/DIFF AUTOMATED; Future - LIPID PANEL; Future - TSH W/REFLEX; Future - VITAMIN D, 25 OH; Future - URINALYSIS WI REFLEX TO CULTURE; Future - COMPREHENSIVE METABOLIC PANEL; Future - COMPREHENSIVE METABOLIC PANEL - VITAMIN D, 25 OH - TSH W/REFLEX - LIPID PANEL - CBC W/DIFF AUTOMATED - URINALYSIS WI REFLEX TO CULTURE Therapeutic lifestyle changes and dietary changes conducive to weight loss were discussed today with patient. We will continue to monitor. I did discuss today with patient that she was a bariatric surgery candidate. Patient has lost 10 pounds over the last 6+ months and would like to try to continue with lifestyle changes and diet. She will consider bariatric surgery in the future if she does notcontinue to lose weight. 3. Essential hypertension - TSH W/REFLEX; Future - URINALYSIS WI REFLEX TO CULTURE; Future - COMPREHENSIVE METABOLIC PANEL; Future - COMPREHENSIVE METABOLIC PANEL - TSH W/REFLEX - URINALYSIS WI REFLEX TO CULTURE Stable. Continue medications. 4. Vitamin D deficiency - VITAMIN D, 25 OH; Future - VITAMIN D, 25 OH 5. Seasonal allergies Stable. Continue as needed use of an histamines. 6. Hypertension - lisinopril-hydroCHLOROthiazide 20-12.5 MG tablet; Take 1 tablet by mouth daily. Dispense: 90 tablet; Refill: 3 Orders Placed This Encounter ??? CBC W/DIFF AUTOMATED ??? LIPID PANEL ??? TSH W/REFLEX ??? VITAMIN D, 25 OH ??? URINALYSIS WI REFLEX TO CULTURE ??? COMPREHENSIVE METABOLIC PANEL ??? lisinopril-hydroCHLOROthiazide 20-12.5 MG tablet Cannot display discharge medications since this is not an admission. PCP: GISELA Gutierrez 09/20/2020 Cosigned by Jarrell Sevilla MD at 09/24/2020 8:53 AM CDT * GISELA Gutierrez - 09/18/2020 8:20 AM CDT Vit D3 elevated---how much daily Vit D [...] st Contact Info) Description 06/12/2024 8:20 AM DAYTIME CAREGIVER Allied Health/Nurse Visit [facility] Family & Internal [address] [address] 11/11/2024 9:00 AM CDT Allied Health/Nurse Visit [facility] Internal [address] [address] Nisha Stokes APNP [address] [place] [address] documented as of this encounter Procedures Procedure Name Priority Date/Time Associated Diagnosis Comments URINALYSIS WI REFLEX TO CULTURE Routine 09/18/2020 9:32 AM CDT General medical examination BMI 50.0-59.9, adult ([facility]) Essential hypertension TSH W/REFLEX Routine 09/18/2020 8:56 AM CDT General medical examination BMI 50.0-59.9, adult ([facility] HHS/HCC) Essential hypertension HEMOGLOBIN, GLYCOSYLATED Routine 09/18/2020 8:56 AM CDT Hyperglycemia COMPREHENSIVE METABOLIC PANEL Routine 09/18/2020 8:56 AM CDT General medical examination BMI 50.0-59.9, adult ([facility] HHS/HCC) Essential hypertension LIPID PANEL Routine 09/18/2020 8:56 AM CDT General medical examination BMI 50.0-59.9, adult ([facility] HHS/HCC) CBC W/DIFF AUTOMATED Routine 09/18/2020 8:56 AM CDT General medical examination BMI 50.0-59.9, adult ([facility]) VITAMIN D, 25 OH Routine 09/18/2020 8:56 AM CDT General medical examination BMI 50.0-59.9, adult ([facility] HHS/[facility]) Vitamin D deficiency documented in this encounter Results * (ABNORMAL) URINALYSIS WI REFLEX TO CULTURE (09/18/2020 9:32 AM CDT) COLOR (U) YELLOW 09/18/2020 8:46 PM CDT [facility] TRANSPARENCY CLEAR CLEAR 09/18/2020 8:46 PM CDT [facility] SPECIFIC GRAVITY (U) 1.010 1.003 - 1.040 09/18/2020 8:46 PM CDT [facility] U PH 5.0 5.0 - 9.0 09/18/2020 8:46 PM CDT [facility] PROTEIN (U) 2+(A) NEGATIVE 09/18/2020 8:46 PM CDT [facility] URINE GLUCOSE 2+(A) NEGATIVE 09/18/2020 8:46 PM CDT [facility] KETONES MG/DL (U) NEGATIVE NEGATIVE 09/18/2020 8:46 PM CDT [facility] BILIRUBIN (U) NEGATIVE NEGATIVE 09/18/2020 8:46 PM T [facility] BLOOD (U) TRACE(A) NEGATIVE 09/18/2020 8:46 PM CDT [facility] UROBILINOGEN 0.2 0.0 - 2.0 EU/DL 09/18/2020 8:46 PM CDT [facility] NITRITES NEGATIVE NEGATIVE 09/18/2020 8:46 PM T [facility] LEUKOCYTES (U) NEGATIVE NEGATIVE 09/18/2020 8:46 PM CDT [facility] REFLEX URINE CULTURE: CULTURE IS NOT INDICATED 09/18/2020 8:46 PM CDT [facility] RBC/HPF 0-3 0 - 3 /HPF 09/18/2020 8:46 PM CDT [facility] WBC/HPF 0-3 0 - 3 /HPF 09/18/2020 8:46 PM CDT [facility] EPI/HPF 0-3 /HPF 09/18/2020 8:46 PM CDT [facility] BACTERIA (U) NONE SEEN NONE SEEN 09/18/2020 8:46 PM CDT [facility] URINE SPECIMEN OBTAINED BY CLEAN CATCH PROCEDURE / Unknown 09/18/2020 9:32 AM CDT Nisha HIGGINS URINE ORDERABLES Final Resu lt Performing Organization Address [facility] de Phone Number [id number] [place] [address], [place] [phone] * (ABNORMAL) HEMOGLOBIN, GLYCOSYLATED (09/18/2020 8:56 AM CDT) HGB A1C 5.9(H) 3.80 - 5.60 % 09/21/2020 11:31 AM CDT [facility] ESTIMATED AVG GLUCOSE 123(H) 74 - 106 MG/DL 09/21/2020 11:31 AM CDT [facility] 09/18/2020 8:56 AM CDT us Nisha HIGGINS LABORATORY Final Resul t Performing Organization Address [facility] Co de Phone Number [address] [address], [place] [phone] * (ABNORMAL) COMPREHENSIVE METABOLIC PANEL (09/18/2020 8:56 AM CDT) SODIUM S/P/B 140 136 - 145 MMOL/L 09/19/2020 2:14 PM CDT [facility] POTASSIUM S/P/B 3.6 3.5 - 5.1 MMOL/L 09/19/2020 2:14 PM CDT [facility] CHLORIDE S/P/B 102 98 - 107 MMOL/L 09/19/2020 2:14 PM CDT [facility] CO2 27.8 21 - 32 MMOL/L 09/19/2020 2:14 PM CDT [facility] [place] GLUCOSE 110(H) 70 - 99 MG/DL 09/19/2020 2:14 PM CDT [facility] BUN 12 6 - 24 MG/DL 09/19/2020 2:14 PM CDT [facility] CREATININE S/P/B 0.72 0.55 - 1.02 MG/DL 09/19/2020 2:14 PM T [facility] CALCIUM S/P/B 9.2 8.4 - 10.5 MG/DL 09/19/2020 2:14 PM CDT [facility] BILIRUBIN TOTAL S/P/B 0.4 0.2 - 1.0 MG/DL 09/19/2020 2:14 PM CDT [facility] ALKALINE PHOSPHATASE S/P/B 78 41 - 108 U/L 09/19/2020 2:14 PM CDT [facility] AST 23 15 - 37 U/L 09/19/2020 2:14 PM CDT [facility] ALT 42 14 - 59 U/L 09/19/2020 2:14 PM CDT [facility] [place] TOTAL PROTEIN S/P/B 7.0 6.4 - 8.2 G/DL 09/19/2020 2:14 PM CDT [facility] ALBUMIN S/P/B 3.7 3.4 - 5.0 G/DL 09/19/2020 2:14 PM CDT [facility] ANION GAP 10.2 5 - 15 MMOL/L 09/19/2020 2:14 PM CDT [facility] Comment:REFERENCE RANGE NOT ESTABLISHED OSMOLALITY (CALC) 290 MOSM/KG 09/19/2020 2:14 PM CDT [facility] Comment:REFERENCE RANGE NOT ESTABLISHED EGFR NON-AFR. AMER. >90 >90 ML/MIN/1 .73 M2 09/19/2020 2:14 PM CDT [facility] EGFR AFR. AMER. >90 >90 ML/MIN/1 .73 M2 09/19/2020 2:14 PM CDT [facility] GFR NOTES THE ESTIMATED GFR IS CALCULATED USING THE 2009 CKD-EPI EQUATION. THE FOLLOWING CATEGORIES FOR GRADING RENAL FUNCTION ARE RECOMMENDED BY THE INTERNATIONAL SOCIETY OF NEPHROLOGY (KDIGO 2012 CLINICAL PRACTICE GUIDELINE). 09/19/2020 2:14 PM CDT [facility] Comment: G1,NORMAL OR HIGH: >89 ml/min/1.73 m2 G2,MILDLY DECREASED: 60-89 ml/min/1.73 m2 G3A,MILDLY TO MODERATELY DECREASED: 45-59 ml/min/1.73 m2 G3B,MODERATELY TO SEVERELY DECREASED: 30-44 ml/min/1.73 m2 G4,SEVERELY DECREASED: 15-29 ml/min/1.73 m2 G5,KIDNEY FAILURE: <15 ml/min/1.73 m2 09/18/2020 8:56 AM CDT Nisha HIGGINS LABORATORY Final Resul t [facility] [address] [place] [address], * (ABNORMAL) VITAMIN D, 25 OH (09/18/2020 8:56 AM CDT) Pathologist [facility] VITAMIN D 25 HYDROXY TOTAL S/P/B 70.9(H) 20 - 50 NG/ML 09/19/2020 2:14 PM CDT [facility] Comment: <10 ng/mL (Severe deficiency) 10 TO 19 ng/mL (Mild to Moderate deficiency) 20 TO 50 ng/mL (Optimum levels) 51 TO 80 ng/mL (Increased risk of hypercalciuria) >80 ng/mL (Toxicity possible) 09/18/2020 8:56 AM CDT Nisha HIGGINS LABORATORY Final Resul t Performing Organization Address City/[facility]/ZIP Co de Phone Number [facility] [address] [place] [address], [place] [phone] * TSH W/REFLEX (09/18/2020 8:56 AM CDT) TSH 1.077 0.358 - 3.740 uIU/ML 09/19/2020 2:14 PM CDT [facility] 09/18/2020 8:56 AM CDT Nisha HIGGISN LABORATORY Final Resul t Performing Organization Address [facility] Co de Phone Number [address] [address], [place] [phone] * (ABNORMAL) LIPID PANEL (09/18/2020 8:56 AM CDT) CHOLESTEROL 167 <200 MG/DL 09/19/2020 2:14 PM CDT [facility] TRIGLYCERIDES 111 <150 MG/DL 09/19/2020 2:14 PM CDT [facility] HDL 44 >40 MG/DL 09/19/2020 2:14 PM CDT [facility] LDL-C 101(H) <100 MG/DL 09/19/2020 2:14 PM CDT [facility] VLDL CALCULATION 22 5 - 28 MG/DL 09/19/2020 2:14 PM CDT [facility] CHOL/HDL RATIO 3.8 0.0 - 4.0 09/19/2020 2:14 PM CDT [facility] LDL/HDL 2.3(H) 0.41 - 2.13 09/19/2020 2:14 PM CDT [facility] NON HDL CHOLESTEROL 123 <140 MG/DL 09/19/2020 2:14 PM CDT [facility] 09/18/2020 8:56 AM CDT us Nisha HIGGINS LABORATORY Final Resul t [facility] [address] [place] [address], * CBC W/DIFF AUTOMATED (09/18/2020 8:56 AM CDT) WBC 7.5 4.0 - 10.8 x10'3/uL 09/18/2020 8:07 PM CDT [facility] RBC 4.71 4.10 - 5.40 x10'6/uL 09/18/2020 8:07 PM CDT [facility] HGB 14.5 12.0 - 16.0 G/DL 09/18/2020 8:07 PM CDT [facility] HCT 42.9 36.0 - 47.0 % 09/18/2020 8:07 PM CDT [facility] MCV 91.1 78.0 - 100.0 FL 09/18/2020 8:07 PM CDT [facility] MCH 30.8 27.0 - 31.0 PG 09/18/2020 8:07 PM CDT [facility] MCHC 33.8 33.0 - 36.0 G/DL 09/18/2020 8:07 PM CDT [facility] RDW 14.2 11.5 - 14.5 % 09/18/2020 8:07 PM CDT [facility] PLT 274 150 - 350 x10'3/uL 09/18/2020 8:07 PM CDT [facility] MPV 10.2 7.4 - 10.4 FL 09/18/2020 8:07 PM CDT [facility] DIFFERENTIAL TYPE AUTOMATED DIFFERENTIAL 09/18/2020 8:07 PM CDT [facility] NEUTROPHILS % 64.7 % 09/18/2020 8:07 PM CDT [facility] LYMPHOCYTES % 24.1 % 09/18/2020 8:07 PM CDT [facility] MONOCYTES % 8.9 % 09/18/2020 8:07 PM CDT [facility] EOSINOPHILS % 2.0 % 09/18/2020 8:07 PM CDT [facility] BASOPHILS % 0.3 % 09/18/2020 8:07 PM CDT [facility] ABS. NEUTROPHILS 4.86 1.60 - 8.30 x10'3/uL 09/18/2020 8:07 PM CDT [facility] ABS. LYMPHOCYTES 1.81 0.80 - 4.70 x10'3/uL 09/18/2020 8:07 PM CDT [facility] ABS. MONOCYTES 0.67 0.00 - 1.50 x10'3/uL 09/18/2020 8:07 PM CDT [facility] ABS. EOSINOPHILS 0.15 0.00 - 0.40 x10'3/uL 09/18/2020 8:07 PM CDT [facility] ABS. BASOPHILS 0.02 0.00 - 0.20 x10'3/uL 09/18/2020 8:07 PM CDT [facility] 09/18/2020 8:56 AM CDT Nisha HIGGINS LABORATORY Final Resul t [facility] [place] [address] [place] [address], documented in this encounter Visit Diagnoses Diagnosis General medical examination- Primary Unspecified general medical examination BMI 50.0-59.9, adult ([facility]) Body Mass Index 50.0-59.9, adult Essential hypertension Unspecified essential hypertension Vitamin D deficiency Unspecified vitamin D deficiency Seasonal allergies Allergic rhinitis, cause unspecified Hypertension, unspecified type Hyperglycemia Other abnormal glucose documented in this encounter Additional Health Concerns Assessment Noted Time PHQ-9 Depression Total Score: 0 09/19/19 21 9:34 AM CDT documented as of this encounter Care Teams Medical Research Assistant Relationship Specialty Start Date End Date Nisha Stokes APNP [facility] [place] [address] PCP - General NURSE PRACTITIONER 09/20/18 documented as of this encounter
--- OUTSIDE RECORDS SUMMARY | 2024-06-03 20:29 | XMS_ITS | Encounter Summary ---
Author Organization [facility] Address [address] [place] [address]. [place] [address] [place] [address] Care Team Providers Care Industrial Truck Mechanic Name Role Phone Divya Nisha Toño HIGGINS Primary Care Provider Encounter Details Date Type Department Care Team (Latest Contact Info) Description 02/12/2020 Scan HEALTH INFO SRVCS Scanned, Documents Social [...] Sex Assigned at Female 05/07/2024 12:02 PM REPRESENTATIVE PERSONAL SERVICE Legal Sex Female 8:55 PM CDT Gender Identity Female 05/07/2024 12:02 PM REPRESENTATIVE PERSONAL SERVICE Sexual Orientation Not on file documented as of this encounter Plan of Treatment Upcoming Encounters Date Type Department Care Team (Late st Contact Info) Description 06/12/2024 8:20 AM REPRESENTATIVE PERSONAL SERVICE Allied Health/Nurse Visit [facility] Medical Group Family & Internal Medicine [address] [address] 11/11/2024 9:00 AM CDT Allied Health/Nurse Visit [facility] Medical [facility] Family & Internal Medicine [address] [address] Nisha Stokes APNP [address] [place] [address] documented as of this encounter Visit Diagnoses Not on filedocumented in this encounter Care Teams Industrial Truck Mechanic Relationship Specialty Start Date End Date Nisha Stokes APNP [address] [place] [address] PCP - General NURSE PRACTITIONER 09/20/18 documented as of this encounter
--- OUTSIDE RECORDS SUMMARY | 2024-06-03 20:29 | XMS_ITS | Encounter Summary ---
Author Organization [facility] Address [facility] [place] [address] [place] [address] Care Team Providers Care Binitrotoluene Operator Name Role Phone Unavailable Primary Care Provider Unavailabl e Encounter Details Date Type Department Care Team (Late Contact Info) Description 09/26/2017 Abstract [facility] Family & Internal Medicine [address] [place] [address] [place] [address] [place] [address] Social History Tobacco Use Types Packs/Day Years Used Date Smoking Tobacco: Never Assessed Comments Unknown Sex and Gender Information Value Date Recorded Sex Assigned at Female 05/07/2024 12:02 PM REFRIGERATION TECHNICIAN Legal Sex Female 8:55 PM CDT Gender Identity Female 05/07/2024 12:02 PM REFRIGERATION TECHNICIAN Sexual Orientation Not on file documented as of this encounter Plan of Treatment Upcoming Encounters Date Type Department Care Team (Late Contact Info) Description 06/12/2024 8:20 AM REFRIGERATION TECHNICIAN Allied Health/Nurse Visit [facility] Family & Internal Medicine [address] [place] [address] 11/11/2024 9:00 AM CDT Allied Health/Nurse Visit [facility] Family & Internal Medicine [address] [phone] Nisha Stokes APNP [address] [place] [address] documented as of this encounter Procedures Procedure Name Priority Date/Time Associated Diagnosis Comments URINALYSIS AUTO DIP Routine 09/26/2017 8 :44 AM CDT documented in this encounter Results * (ABNORMAL) URINALYSIS AUTO DIP (09/26/2017 8:44 AM CDT) COLOR (U) Yellow [facility] T O EPIC CONVERSION TRANSPARENCY Cloudy [facility] P TO EPIC CONVERSION GLUCOSE Negative [facility] CON[facility] BILIRUBIN (U) Negative [facility] UP TO EPIC CONVERSION KETONE (U) Negative [facility] TO EPIC CONVERSION SPECIFIC GRAVITY (U) 1.025 [facility] TO EPIC CONVERSION BLOOD (U) Non Hemolyzed-Tr mathieu(A) [facility] TO EPIC CONVERSION PH (U) 5.5 5.0 - 7.0 [facility] T O EPIC CONVERSION PROTEIN (ELP) (U) Negative [facility] TO EPIC CONVERSION UROBILINOGEN 0.2 E.U./dL [facility] OUP TO EPIC CONVERSION NITRITES neg [facility] T O EPIC CONVERSION LEUKOCYTES (U) Negative [facility] OUP TO EPIC CONVERSION 09/26/2017 8:44 AM CDT 09/26/2017 8:44 AM CDT Narrative [facility] TO EPIC CONVERSION - 09/26/2017 8:44 AM CDT [id number] 8:49PM by Nisha Stokes: ??Will discuss labs at upcoming appt on 10/13/2017 Result Communication: No patient communication needed at this time us Nisha Stokes APNP URINE ORDERABLES Final Resu lt [facility] TO EPIC CONVERSION documented in this encounter Visit Diagnoses Not on filedocumented in this encounter
--- OUTSIDE RECORDS SUMMARY | 2024-06-03 20:29 | XMS_ITS | Encounter Summary ---
Author Organization [facility] Address [address] [place] [address]. [place] [address] [place] [address] Care Team Providers Care Sand Technician Name Role Phone Nisha Stokes Primary Care Provider [phone] Reason for Visit * Reason Onset Date Comments Results 11/25/2021 Encounter Details Date Type Department Care Team (Late st Contact Info) Description 11/25/2021 Telephone [facility] Family & Internal Medicine [facility] [address] [place] [address] Nisha Stokes APNP [address] [place] [address] Results Social History Tobacco Use [...] Sex Assigned at Female 05/07/2024 12:02 PM LIGHT RAIL OPERATOR Legal Sex Female 8:55 PM CDT Gender Identity Female 05/07/2024 12:02 PM LIGHT RAIL OPERATOR Sexual Orientation Not on file COVID-19 Exposure Response Date Recorded In the last 10 days, have yo u been in contact with someone who was confirmed or suspected to have Coronavirus/COVID-19? No / Unsure 11/17/2021 8:00 AM CDT documented as of this encounter Progress Notes * Maggy Rob MA - 11/25/2021 9:09 AM CDT Records request sent over to [facility]. BB 11/25/2021 * Maggy Rob MA - 11/25/2021 9:09 AM CDT ----- Message from Yuridia Pleitez sent at 11/25/2021 8:17 AM CDT ----- Regarding: Colonoscopy order Same Dr as this order @ [facility]. * Maggy Rob MA - 11/25/2021 9:08 AM CDT Records request sent over to [facility]. BB 11/25/2021 * Maggy Rob MA - 11/25/2021 9:08 AM CDT ----- Message from Yuridia Pleitez sent at 11/25/2021 8:17 AM CDT ----- Regarding: Colonoscopy order Same Dr as this order @ [facility]. documented in this encounter Plan of Treatment Upcoming Encounters Date Type Department Care Team (Late st Contact Info) Description 06/12/2024 8:20 AM LIGHT RAIL OPERATOR Allied Health/Nurse Visit [facility] Family & Internal Medicine [address] [address] 11/11/2024 9:00 AM CDT Allied Health/Nurse Visit [facility] & Internal [address] [place] [address] Nisha Stokes APNP [address] [place] [address] documented as of this encounter Visit Diagnoses Not on filedocumented in this encounter Additional Health Concerns Assessment Noted Time PHQ-9 Depression Total Score: 0 11/18/19 22 9:27 AM CDT documented as of this encounter Care Teams Sand Technician Relationship Specialty Start Date End Date Nisha Stokes APNP [address] [place] [address] PCP - General NURSE PRACTITIONER 09/20/18 documented as of this encounter
--- OUTSIDE RECORDS SUMMARY | 2024-06-03 20:29 | XMS_ITS | Encounter Summary ---
Author Organization [facility] Address [address] [place] [address]. [place], [place] [address] [place] [address] Care Team Providers Care Fundraising Manager Name Role Phone Unavailable Primary Care Provider Unavailabl e Encounter Details Date Type Department Care Team (Latest Contact Info) Description 03/27/2018 Scan [facility] , Pam Chandra MD Social History Tobacco Use Types Packs/Day Years Used Date Smoking Tobacco: Never Assessed Comments Unknown Sex and Gender Information Value Date Recorded Sex Assigned at Female 05/07/2024 12:02 PM REGIONAL MARKETING DIRECTOR Legal Sex Female 8:55 PM CDT Gender Identity Female 05/07/2024 12:02 PM REGIONAL MARKETING DIRECTOR Sexual Orientation Not on file documented as of this encounter Plan of Treatment Upcoming Encounters Date Type Department Care Team (Late st Contact Info) Description 06/12/2024 8:20 AM REGIONAL MARKETING DIRECTOR Allied Health/Nurse Visit [facility] Family & Internal Medicine [address] [address] 11/11/2024 9:00 AM CDT Allied Health/Nurse Visit [facility] Family & Internal Medicine [address] [address] Nisha Stokes APNP [address] [place] [address] documented as of this encounter Visit Diagnoses Not on filedocumented in this encounter
--- OUTSIDE RECORDS SUMMARY | 2024-06-03 20:29 | XMS_ITS | Encounter Summary ---
Author Organization [facility] Address [address] [place] [address]. [place] [address] [place] [address] Care Team Providers Care Firer Helper Name Role Phone Nisha Stokes Primary Care Provider Encounter Details Date Type Department Care Team (Late st Contact Info) Description 11/29/2021 Art[employer] Message Enc [facility] Family & Internal Medicine [facility] [address] [place] [address] Nisha Stokes APNP [address] [place] [address] Blood pressure readings Social History Tobacco Use Types Packs/Day Years [...] Sex Assigned at Female 05/07/2024 12:02 PM GRAPHICS PROGRAMMER Legal Sex Female 8:55 PM CDT Gender Identity Female 05/07/2024 12:02 PM GRAPHICS PROGRAMMER Sexual Orientation Not on file COVID-19 Exposure Response Date Recorded In the last 10 days, have yo u been in contact with someone who was confirmed or suspected to have Coronavirus/COVID-19? No / Unsure 12/02/2021 7:35 AM CDT documented as of this encounter Plan of Treatment Upcoming Encounters Date Type Department Care Team (Late st Contact Info) Description 06/12/2024 8:20 AM GRAPHICS PROGRAMMER Allied Health/Nurse Visit [facility] & Internal [address] [address] 11/11/2024 9:00 AM CDT Allied Health/Nurse Visit [address] [address] Nisha Stokes APNP [address] [place] [address] documented as of this encounter Visit Diagnoses Not on filedocumented in this encounter Additional Health Concerns Assessment Noted Time PHQ-9 Depression Total Score: 0 11/18/19 9:27 AM CDT documented as of this encounter Care Teams Firer Helper Relationship Specialty Start Date End Date Nisha Stokes APNP [address] [place] [address] PCP - General NURSE PRACTITIONER 09/20/18 documented as of this encounter
--- OUTSIDE RECORDS SUMMARY | 2024-06-03 20:29 | XMS_ITS | Encounter Summary ---
Author Organization [facility] Address [address] [place] [address]. [place] [address] [place] [address] Care Team Providers Care Shuttle Driver Name Role Phone Nisha Stokes Primary Care Provider [phone] Reason for Visit * Reason Onset Date Comments Results 02/24/2020 Encounter Details Date Type Department Care Team (Late st Contact Info) Description 02/24/2020 Telephone [facility] Medical Group Family & Internal Medicine [facility] [address] [place] [address] Nisha Stokes APNP [address] [place] [address] Results Social History Tobacco Use [...] Sex Assigned at Female 05/07/2024 12:02 PM DIRECTOR DATA PROCESSING Legal Sex Female 8:55 PM CDT Gender Identity Female 05/07/2024 12:02 PM DIRECTOR DATA PROCESSING Sexual Orientation Not on file documented as of this encounter Progress Notes * Reina Burciaga RN - 02/24/2020 5:25 PM CDT Mammogram results Breast Parenchymal Composition: there are scattered brandy of fibroglandular density. Findings: there is no evidence of suspicious mass, calcification, or architectural distortion to suggest malignancy in either breast. There has been no suspicious interval change. Impression 1) no mammographic evidence of malignancy 2) recommend routine screening mammography in one year BI-RADS category 1: negative documented in this encounter Plan of Treatment Upcoming Encounters Date Type Department Care Team (Late st Contact Info) Description 06/12/2024 8:20 AM DIRECTOR DATA PROCESSING Allied Health/Nurse Visit [facility] Internal [address] [address] 11/11/2024 9:00 AM CDT Allied Health/Nurse Visit [facility] Internal [address] [address] Nisha Stokes APNP [facility] [place] [address] documented as of this encounter Visit Diagnoses Not on filedocumented in this encounter Care Teams Shuttle Driver Relationship Specialty Start Date End Date Nisha Stokes APNP [address] [place] [address] PCP - General NURSE PRACTITIONER 09/20/18 documented as of this encounter
== END 2024-05-28 08:17 | disposition home or self-care (01) ==
LOC: ANHSURGERY 08:18
PROVIDERS: Anesthesiology; PCP Registered Nurse; Visit Provider Urology
DX: Z79.899 Other long term (current) drug therapy (principal)
CPT/HCPCS: 36415; 80048

== ENCOUNTER 2024-05-30 01:28 | Day surgery (SDC) | payer OTHER, SELFPAY ==
[2024-05-20 11:43] VITALS: BMI 47.5
--- NOTE | 2024-05-20 12:37 | PC.NURSE ---
Report to the Outpatient Waiting Room, entrance under the green pavilion located off [facility], at time _0900 on date __05/30/24 . Planned Procedure Time: _1100 .? Time changes happen often and if your time is changed the preop area will call you the afternoon before. CALL UROLOGY OFFICE TO VERIFY DATE/TIME OF SURGERY - You and your visitor will be asked to self-screen and do not enter if you have any COVID symptoms. Please call surgeon if you need to reschedule. - A mask is optional within the hospital at this time. Patients may have clear liquids (water, carbonated beverages, clear teas, apple juice) until 3 hours prior to surgery with a maximum of 20 ounces. - No food from midnight until time of surgery and no smoking. This includes no chewing gum, candy or mints. CALL OFFICE RE: RECENT ANTIBIOTIC TREATMENT FOR UTI AND SEE IF YOU NEED ANY FURTHER TESTING; I.E. URINALYSIS Take only the following medications with a SIP of water on the morning of surgery: __NONE DO NOT STOP ANY OF YOUR OTHER PRESCRIPTION MEDICATIONS PRIOR TO SURGERY EXCEPT THE FOLLOWING Medications to discontinue per physician __VITAMINS/SUPPLEMENTS *CONTINUE TO HOLD YOUR ZEPBOUND* Date to take last dose___05/27/24 Please no make-up, nail japanese, hairspray, perfume, deodorant, or body powder the day of surgery.? No jewelry (including any body piercings) or valuables the day of surgery, leave them at home.? Please take a shower or bath the night before, or the morning of, surgery with an antibacterial soap.? Wear comfortable, loose fitting clothing. - Jewelry must be removed prior to entering the operating room.? Rings and piercings that are not removed may be cut off. - The hospital will not accept responsibility for valuables.? - Please leave all valuables, including medications, at home the day of surgery. If you are going home after surgery, a licensed driver/guide must drive you home.? - NO public transportation without another adult if you receive anesthesia. - We recommend that an adult stay with you for 24 hours following discharge. - We also recommend that you do not drive, make important decision, drink alcoholic beverages, or take any drugs that were not prescribed by your health care provider for at least 24 hours after your discharge time. Follow any additional instructions given to you from your surgeon. Telephone instructions given to __SANJIV and asked if any additional questions and then verbalized understanding. Patient advised to call surgeon office or pre surgery nurse liaison [phone] if any additional questions.
--- NOTE | 2024-05-23 14:06 | P.HP_ITS ---
History of Present Illness History of Present Illness Consent: Risks, benefits, and alternatives have been discussed and questions answered. Patient agrees to proceed with procedure. Chief complaint: left renal stones Narrative: Yuridia Pleitez is a 53 year old female with known congenital bilateral single system ureterocele. In February she underwent ESWL for a 10 mm stone in her left kidney. She was left with a 5-6 mm fragment in the left lower pole. She is somewhat symptomatic and is opting for endoscopic intervention. She is aware of the risks including, but not limited to, ureteral injury with need for stent placement, need for additional procedures and recurrent urolithiasis. Review of Systems Review of Systems: All systems reviewed & are unremarkable except as noted in HPI and below PMFSH Family History Family History Other Carcinoma of colon Family history of malignant neoplasm of breast in first degree relative Hypertension Social History Social History Smoking packs per day: 0.5 Smoking cigarettes per day: 10.0 Years smoked: 20 Smoking pack-years: 10.00 Smoking status: Former smoker Tobacco type: cigarettes Smoking end date: 04/21/19 Alcohol intake: current Drinks per week: 2 Substance use: never Substance use type: does not use Living arrangements: with family Spiritual care concerns: No Meds Home Medications and Allergies Home Medications ?Medication ?Instructions ?Recorded ?Confirmed ?Type cholecalciferol (vitamin D3) 50 50 mcg PO DAILY 02/15/24 05/20/24 History mcg (2,000 unit) capsule (Vitamin D3) fexofenadine 180 mg tablet 180 mg PO DAILY 02/15/24 05/20/24 History hydrochlorothiazide 25 mg tablet 25 mg PO HS 02/15/24 05/20/24 History inulin-sorbitol 2 gram chewable 3 tablet PO DAILY 02/15/24 05/20/24 History tablet lisinopril 40 mg tablet 40 mg PO HS 02/15/24 05/20/24 History jgqfrewd-xcoi-lvia 8 mg-folic 400 1 tablet PO DAILY 02/15/24 05/20/24 History mcg-K 50 mcg-lutein 300 mcg tablet (Centrum Silver Women) tirzepatide (weight loss) 2.5 2.5 mg subcut WEEKLY 02/15/24 05/20/24 History mg/0.5 mL subcutaneous pen injector (Zepbound) cefdinir 300 mg capsule 300 mg PO Q12H URINARY TRACT 05/20/24 05/20/24 History INFECTION Allergies Allergy/AdvReac Type Severity Reaction Status Date / Time Iodinated Contrast Media Allergy Severe Hives Verified 02/23/24 09:37 Exam Const: General: no acute distress Resp: Effort & Inspection: normal respiratory effort GI: Inspection: non-distended GI Palp: No abdominal tenderness and No Guarding due to palpation present (GI) Auscultation: normal bowel sounds Assessment and Plan Assessment and plan (1) Left renal stone: Code(s): N20.0 - Calculus of kidney Status: Acute Assessment and Plan: * Cystoscopy, left ureteroscopy with stone extraction, possible, laser lithotripsy, possible retrograde pyelogram and stent placement
--- NOTE | ~2024-05-30 | XR_ITS ---
EXAMINATION: XR retrograde pyelo w/stent LT DATE: 05/30/2024 12:04 INDICATION: Left internal ureteral stent placement TECHNIQUE: Fluoroscopic images from a left internal ureteral stent placement are submitted for review . 37 seconds of fluoroscopy time. FINDINGS: There is a left double-J internal ureteral stent projecting in expected position, with proximal [place] loop at the level of the renal pelvis and distal loop in the pelvis within the bladder lumen. There i s an IUD projecting over the pelvis. IMPRESSION: 1. Left internal ureteral stent placement. Please refer to real-time procedural findings for detail s. Reviewed, dictated and finalized at location B. ETRICS/GYNECOLOGY NURSE IMPRESSION: 1. Left internal ureteral stent placement. Please refer to real-time procedur al findings for details.
--- NOTE | 2024-05-30 06:24 | WPDHPUPDATE1 ---
History and Physical Update Update Date/Time: 05/30/24 06:24 History and Physical has been reviewed, including an updated exam of the patient. There are NO changes in the patient's condition. Risks, benefits, and alternatives have been discussed and questions answered. Patient agrees to proceed with procedure.
--- NOTE | 2024-05-30 10:59 | WPDANESEPPF ---
Anes - Initial Pre Proc Eval Procedure: Operation Date: 05/30/24 12:00 Proposed Procedures p Cystoscopy, Left Ureteroscopy, Left Retrograde Pyelogram, Left Stone Extraction, Left Stent Placement, Possible Holmium Laser - Zeferino Kumari MD Date/Time: 05/30/24 10:59 Surgeon: Zeferino Kumari MD Pre Op Diagnosis: left renal stones Patient Data Age: 53 Gender: F Height: 1.6 m Weight: 121.8 kg Allergies Allergy/AdvReac Type Severity Reaction Status Date / Time Iodinated Contrast Media Allergy Severe Hives Verified 02/23/24 09:37 Home Medications ?Medication ?Instructions ?Recorded ?Confirmed ?Type cholecalciferol (vitamin D3) 50 50 mcg PO DAILY 02/15/24 05/20/24 History mcg (2,000 unit) capsule (Vitamin D3) fexofenadine 180 mg tablet 180 mg PO DAILY 02/15/24 05/20/24 History hydrochlorothiazide 25 mg tablet 25 mg PO HS 02/15/24 05/20/24 History inulin-sorbitol 2 gram chewable 3 tablet PO DAILY 02/15/24 05/20/24 History tablet lisinopril 40 mg tablet 40 mg PO HS 02/15/24 05/20/24 History kqmlnnhw-tkbs-jpen 8 mg-folic 400 1 tablet PO DAILY 02/15/24 05/20/24 History mcg-K 50 mcg-lutein 300 mcg tablet (Centrum Silver Women) tirzepatide (weight loss) 2.5 2.5 mg subcut WEEKLY 02/15/24 05/20/24 History mg/0.5 mL subcutaneous pen injector (Zepbound) cefdinir 300 mg capsule 300 mg PO Q12H URINARY TRACT 05/20/24 05/20/24 History INFECTION Patient hx anesthesia problems: none Family hx anesthesia problems: none Results Review: All pre-operative results and documents have been reviewed as part of the pre-operative evaluation. [facility] Past Medical History Medical History (Updated 05/30/24 @ 10:59 by Jose Remy MD) Morbid obesity Family History Family History Other Carcinoma of colon Family history of malignant neoplasm of breast in first degree relative Hypertension Social History Social History Smoking packs per day: 0.5 Smoking cigarettes per day: 10.0 Years smoked: 10 Smoking pack-years: 5.00 Smoking status: Former smoker Tobacco type: cigarettes Smoking end date: 02/14/19 Alcohol intake: current Drinks per week: 2 Substance use: never Substance use type: does not use Living arrangements: with family Spiritual care concerns: No Anes - Eval Final PreProcedure Day of Procedure 05/30/24 10:59 Patient weight: morbidly obese Heart: regular rate and rhythm Lungs: clear to auscultation Airway: Mallampati scale class II Neurological: alert and oriented Last oral intake: >/= 8 hours ASA classification: III Emergent: no Anesthesia type and monitoring: general LMA and standard monitoring Results Review: All pre-operative results and documents have been reviewed as part of the pre-operative evaluation. Informed Consent: The patient's anesthetic plan and its attendant risks and benefits were discussed with the patient/family/POA. Questions were solicited and answers provided to the satisfaction of the patient/family/POA.
[2024-05-30 11:03] VITALS: BP 142/86; PULSE 63; TEMP 36.3; O2SAT 95; BMI 49.1
[2024-05-30] MEDS: LACTATED RINGERS 1,000 ML 30 ML IV CONT (11:05)
[2024-05-30] MEDS: ceFAZolin 3 GM/D5W 100 ML 100 ML IVPB (11:22)
--- NOTE | 2024-05-30 12:03 | W.PM.PROC2 ---
Procedure Note - Detailed Date of Procedure 05/30/24 Pre-op Diagnosis Left renal stones Post-op Diagnosis Same Procedure Performed Cystoscopy, left ureteroscopy with laser lithotripsy, stone extraction, retrograde pyelogram and left stent placement Surgeon Zeferino Kumari MD Anesthesia General Description of Procedure patient is brought to the operative suite she has prepped draped in routine sterile fashion while in dorsal lithotomy position after the uneventful induction of a general endotracheal anesthetic. Cystoscopy was undertaken with a 19 F rigid cystoscope. Bladder neck and urethra endoscopically normal. She has known bilateral congenital ureterocele is a which had been identified on prior cystoscopy. 0.035 in glidewire was advanced into her left renal pelvis and the distal ureter was dilated with an 8 F 10 F dilator. An 11 F 13 F ureteral access sheath was placed. Her CIS 8 and 9 mm left renal calculus is in the renal pelvis. I manipulated it into an upper pole calyx. Using a 200 micron Domo laser fiber I dusted the stone into small pieces all less than 3 mm. The larger pieces were extracted with a 1.9 F disposable stone basket. Retrograde pyelogram was obtained to outline the renal pelvis to ensure appropriate placement of a 4.8 F variable length stent with the proximal coil in the renal pelvis and distal coil in the bladder. Scopes and wires were removed she was taken recovery room good condition Drains Yes Packing No Pathology Yes
[2024-05-30 12:09] VITALS: BP 120/76; PULSE 80; RESP 16; TEMP 36.3; O2SAT 97
[2024-05-30 12:24] VITALS: BP 123/72; PULSE 71; RESP 15; O2SAT 97
[2024-05-30 12:40] VITALS: BP 134/64; PULSE 71; RESP 18
[2024-05-30 13:35] VITALS: BP 130/70; PULSE 59; RESP 18
== END 2024-05-30 13:30 | disposition home or self-care (01) ==
PROVIDERS: PCP Registered Nurse; Visit Provider Urology
PROC: (CPT 52352; principal; 2024-05-30 12:00)
DX: N20.0 Calculus of kidney (principal); E66.01 Morbid (severe) obesity due to excess calories; Z68.42 Body mass index [BMI] 45.0-49.9, adult; Z79.899 Other long term (current) drug therapy; Z79.4 Long term (current) use of insulin; Z79.85 Long-term (current) use of injectable non-insulin antidiabetic drugs; Z87.891 Personal history of nicotine dependence; Z80.0 Family history of malignant neoplasm of digestive organs; Z80.3 Family history of malignant neoplasm of breast
CPT/HCPCS: 52356; 74420; 82365; 88300; C1758; C1769; C1894; C2617; J0690; J1100; J2405; J2704; J7120; Q9966

== ENCOUNTER 2024-06-21 14:52 | Outpatient (CLI) | payer OTHER, SELFPAY ==
--- NOTE | ~2024-06-21 | MM_ITS ---
EXAMINATION: MM screening kristi BI w case HISTORY: Screening TECHNIQUE: Craniocaudal and mediolateral oblique 3-D tomosynthesis images were obtained and synthetic 2-D images were generated. CAD analysis was submitted and interpreted. COMPARISON: Comparison to multiple prior studies sequentially, with oldest reviewed study dated 02/16. BREAST PARENCHYMAL COMPOSITION: Not Dense: The breasts are almost entirely fatty. FINDINGS: There is no evidence of suspicious mass, calcification, or architectural distortion to sugg est malignancy in either breast. There has been no suspicious interval change. IMPRESSION: 1. No mammographic evidence of malignancy. 2. Recommend routine screening mammography in one year. BI-RADS Category 1: Negative Reviewed, dictated and finalized at location B. IER APPRENTICE
--- OUTSIDE RECORDS SUMMARY | 2024-06-21 14:56 | XMS_ITS | Encounter Summary ---
Author Organization [facility] Address [address] [place] [address]. [place] [address] [place] [address] Care Team Providers Care Line Supervisor Name Role Phone Nisha Stokes Primary Care Provider Encounter Details Date Type Department Care Team (Late st Contact Info) Description 11/24/2021 [employer] Message Enc [facility] Medical Group Family & Internal Medicine [facility] [address] [place] [address] Nisha Stokes APNP [address] [place], [place] [phone] Colonoscopy order Social History Tobacco Use Types [...] Assigned at Female 05/07/2024 12:02 PM METAL BUILDING ASSEMBLER Legal Sex Female 8:55 PM CDT Gender Identity Female 05/07/2024 12:02 PM METAL BUILDING ASSEMBLER Sexual Orientation Not on file COVID-19 Exposure Response Date Recorded In the last 10 days, have yo u been in contact with someone who was confirmed or suspected to have Coronavirus/COVID-19? No / Unsure 11/17/2021 8:00 AM CDT documented as of this encounter Plan of Treatment Upcoming Encounters Date Type Department Care Team (Late st Contact Info) Description 11/11/2024 9:00 AM CDT Allied Health/Nurse Visit [facility] Medical Group Family & Internal Medicine [address] [address] Nisha Stokes APNP [address] [place] [address] documented as of this encounter Visit Diagnoses Not on filedocumented in this encounter Additional Health Concerns Assessment Noted Time PHQ-9 Depression Total Score: 0 11/18/19 22 9:27 AM CDT documented as of this encounter Care Teams Line Supervisor Relationship Specialty Start Date End Date Nisha Stokes APNP [address] [place] [address] PCP - General NURSE PRACTITIONER 09/20/18 documented as of this encounter
--- OUTSIDE RECORDS SUMMARY | 2024-06-21 14:56 | XMS_ITS | Data Portability ---
Author Organization [facility] Address [address] [place] [address] Care Team Providers Care Blocking Machine Operator Second Name Role Phone KARSTEN RICHARD Primary Care Provider [phone] Assessment Encounter Date Assessment Date Assessment LastModified [...] Imaging MAMMO, screening, bilateral 2023 024 tabner1 [facility], [address], [place], [address], 16:03:00 Medication Orders None recorded. Patient TargetsNo targets recorded. Patient InstructionsNo instructions recorded. Reason for Referral None Reported. Results Created Date Observation Date Name Description Value Unit Range Abnormal Flag Note LastModifiedBy Organization Detail LastModifiedTime 12/04/19 22 12/03/2021 IMAGE GUIDE D PAP AND HPV REGAR DLESS image guided Pap, HPV regardless of Pap result SEE RESULT S BELOW CASE REPOR T: Cytol ogy Gynec ologi andry Repor t Case: [id number] Autho david singh Provi ganesh: Winter garza , Brandie Culver cted: 12/03 1256 CERTIFIED ORTHOPTIST Order ing Locat ion: [place] Path[facility] logcolt [...] as clini josephine baltazar nted. Not Available [facility] [address] [place], [address], 12/08/2021 21:50:05 09/06/19 24 09/06/2023 IMAGE GUIDE D PAP AND HPV REGAR DLESS image guided Pap, HPV regardless of Pap result SEE RESULT S BELOW CASE REPOR T: Cytol ogy Gynec ologi andry Repor t Case: [id number] Autho david singh Provi ganesh: Jimenze Wilson Colle cted: 09/05 1719 CERTIFIED ORTHOPTIST Order ing Locat ion: [place] Patho logy [...] as clini josephine baltazar nted. Not Available [facility] ([facility]) [address], [place], [address], 09/11/2023 21:17:17 Result Notes None recorded. Problems Name Problem SNOMED Code Status Onset Date Resolution Date Notes Provider Name and Address Organization Details Recorded Time SNOMED CT Concept Completed 201712/02/2021 Encntr for analysis engineer exam (general) (routine) w/o abn findings; Practice ID: [id number] Karsten Michael [facility] 2 17:45:36 Insertio n of intraute rine contrace ptive device Completed 201612/02/2021 Encounter for insertion of intrauter ine contracep tive device;Re corded Elsewhere : No Locati on: [facility] So urce: EHR Chron ic: N Practic e ID: 0001 Bill able Time: 08:15:[address] [facility] 2 17:45:37 Pregnanc y test negative [id number] Completed 201612/02/2021 Encounter for test, result negative; Recorded Elsewhere : No Locati on: [facility] So urce: EHR Chron ic: N Practic e ID: 0001 Bill able Time: 08:15:[address] [facility] 2 17:45:36 Family planning surveill ance Completed 201112/02/2021 Contracep tive surveilla nce, unspecifi ed;Record ed Elsewhere : No Locati on: [facility] So urce: EHR Chron ic: N Practic e ID: 0001 Bill able Time: 08:45:[address] [facility] 2 17:45:36 Removal of intraute rine device Completed 201612/02/2021 Encounter for removal of intrauter ine contracep tive device;Re corded Elsewhere : No Locati on: [facility] So urce: EHR Chron ic: N Practic e ID: 0001 Bill able Time: 09:15:[address] [facility] 2 17:45:37 Screenin g for malignan t neoplasm of cervix Completed 201112/02/2021 Screening for malignant neoplasms of the cervix;Re corded Elsewhere : No Locati on: [facility] So urce: EHR Chron ic: N Practic e ID: 0001 Bill able Time: 08:45:00 AM Karsten Michael [facility] [address] 17:45:[address] Concept Completed 201612/02/2021 Encntr for general adult medical exam w/o abnormal findings; Recorded Elsewhere : No Locati on: [facility] So urce: EHR Chron ic: N Practic e ID: 0001 Bill able Time: 02:30:00 PM Karsten Michael [facility] 2 17:45:36 Screenin g for malignan t neoplasm of rectum Completed 201112/02/2021 Screening for malignant neoplasms of the rectum;Re corded Elsewhere : No Locati on: [facility] So urce: EHR Chron ic: N Practic e ID: 0001 Bill able Time: 08:45:00 AM Karsten Michael [facility] 2 17:45:36 Body mass index 30+ - obesity [id number] Completed 201712/02/2021 Body mass index (BMI) 50-59.9 , adult;Rec orded Elsewhere : No Locati on: [facility] So urce: EHR Chron ic: N Practic e ID: 0001 Bill able Time: 06:00:00 PM Karsten Michael [facility] 2 17:45:36 Speciali zed medical examinat ion Completed 201112/02/2021 Gynecolog ical Examinati on;Record ed Elsewhere : No Locati on: [facility] So urce: EHR Chron ic: N Practic e ID: 0001 Bill able Time: 08:45:00 AM Karsten Michael [facility] 2 17:45:37 Contrace ptive sheath status [id number] Completed 201612/02/2021 IUD follow up;Record ed Elsewhere : No Locati on: [facility] So urce: EHR Chron ic: N Practic e ID: 0001 Bill able Time: 03:00:00 PM Karsten Michael [facility] 17:45:36 Screenin g for malignan t neoplasm of colon Completed 201012/02/2021 Special screening for malignant neoplasms , colon;Pra ctice ID: [address] [facility] 17:45:36 Problem Notes None recorded. Procedures Surgical History Date Name Laterality Status Provider Name and Address Organization Details Recorded Time 12/04/19 22 Date of Last Pap Smear completed [facility] 09/06/2023 16:26:34 05/22/19 22 Date of Last Mammogram completed [facility] 09/06/2023 16:27:21 10/18/19 18 completed [facility] 12/03/2021 10:39:08 10/18/19 18 Date of Last Colonoscopy completed [facility] 12/03/2021 10:39:08 10/06/19 16 Cholecystectomy completed [facility] 12/03/2021 10:44:19 Imaging Results None recorded. Procedure Notes None recorded. Medical Equipment None Reported. Allergies Allergen ID Allergen Name Allergen Category Reaction Reaction Severity Criticality Documentation Date Start Date Code Code System Note Provider Name and Address Organization Details Recorded Time 65180 lisinopri l medicatio n Not available Not available Not available 05/08/[address] [facility] 10:38:57 34149 iodine medicatio n Not available Not available Not available 05/08/2020 5933 RxNorm Comme nt: [facility]at [facility]; Not Available [facility] 0 14:14:57 48397 fexofenad ine medicatio n Not available Not available Not available 12/03/2021 73656 RxNorm Karsten [place], [place] - [facility] 2 10:39:41 Medications Name Sig [...] Prescrib ed Elsewher e: Yes Loca tion: [facility] odify By: adarsh herrera DateTime : 11/08/19 12 08:45:00 AM Not Available Not Available Not Available cranberry fruit 400 mg capsule 11/03 completed Prescrib ed Elsewher e: Yes Loca tion: [facility] odify By: adarsh herrera DateTime : 11/08/19 12 08:45:00 AM Not Available Not Available Not Available hydrochlo rothiazid e 25 mg tablet TAKE 1 TABLET BY MOUTH EVERY DAY IN THE MORNING active Not Available Not Available No t Available Prozac 10 mg capsule take 2 capsule by oral route every day 12/06 completed Prescrib ed Elsewher e: Yes Loca tion: [facility] odify By: nirav herrera DateTime : 11/08/19 12 08:45:00 AM Not Available Not Available Not Available lisinopri l 40 mg tablet TAKE 1 TABLET BY MOUTH EVERY DAY active Not Available Not Available No t Available lisinopri l 2.5 mg tablet take 1 tablet by oral route every day 12/02 completed Prescrib ed Elsewher e: Yes Loca tion: [facility] odify By: janene randolph DateTime : 11/08/19 12 08:45:00 AM Not Available Not Available Not Available Vitamins and Minerals tablet 11/03 completed Prescrib ed Elsewher e: Yes Loca tion: [facility] deborah [facility] odify By: adarsh herrera DateTime : 11/08/19 12 08:45:00 AM Not Available Not Available Not Available NuvaRing 0.12 mg-0.015 mg/24 hr vaginal insert 1 vaginal ring by vaginal route every month leave in place for 3 weeks, remove for 1 week 11/03 completed Prescrib ed Elsewher e: No [facility] By: adarsh rosariounter DateTime : 09/20/19 12 01:56:55 PM Not Available Not Available Not Available Vitamin D3 active Not Available Not Available Not Available multivita min active Not Available Not Available Not Available Gladis 30 mg/5 mL oral suspensio n 12/02 completed Prescrib ed Elsewher e: Yes Loca tion: [facility] odify By: janene randolph DateTime : 11/08/19 12 08:45:00 AM Not Available Not Available Not Available Vitals Date Recorded Body height Body mass index (BMI) Body weight Systolic blood pressure Diastolic blood pressure Provider Name and Address Organization Details Last Updated DateTime 12/03/2021 158.75 cm 53.8 kg/m2 697178.1 2 g 110 mm[Hg] 80 mm[Hg] Karsten Michael [facility] 2 10:38:52 Date Recorded Body height Body mass index (BMI) Body weight Systolic blood pressure Diastolic blood pressure Provider Name and Address Organization Details Last Updated DateTime 09/06/2023 158.75 cm 50.4 kg/m2 479567.8 6 g 122 mm[Hg] 81 mm[Hg] Gloria Laura [facility] 4 16:25:13 Social History Question Answer [...] Or The Highest Degree You Have Received? 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 [id number] Information not available 12/03/2021 Do You Use [...] SNOMED-CT Code Diagnosis ICD10 Code Diagnosis Note [id number] Vanessa Medina [facility] [address],[place] [address] 12/03/2021 09:48:36 12/03/2021 11:07:14 Gynecologic examination [id number] Z01.419 Take Calcium with Vitamin D 12-1500mg daily. Do monthly self breast exams. It is advised to get annual flu shot in the fall and she could obtain at [facility] or [facility] care clinic. If you haven't received the [...] PCPDexa Screen naRoutine Labs UTD PCPmammo ordered [id number] Vanessa Medina [facility] [address],[place] [address] 09/06/2023 16:15:33 09/06/2023 21:39:10 Gynecologic examination 92122629 Z01.419 Z11.51 Take Calcium with Vitamin D 12-1500mg daily. Do monthly self breast exams. It is advised to get annual flu shot in the fall and [facility]. If you haven't received the [...] Labs UTD PCPmammo ordered Screening mammography 24 608411 Z12.31 Health Concerns Section Related Observation LastModified by Organization Detai ls LastModified Time None Recorded Concern Status LastModified by Organization Details LastModified Time None Recorded Advance Directives Directive N: Payers Encounter Date Sequence Insurance Name Policy Number Policy Vega Covered Member ID Vega Member ID Guarantor Name 12/03/[address] [facility] [id number] Yuridia Pleitez [id number] Yuridia Pleitez 09/06/[address] [place] [id number] Yuridia Pleitez [id number] Yuridia Pleitez Notes Date Note Type Note [...] screening Vanessa Medina, [place]- [address], [place], [address], [facility] 12/03/2021 10:59:15 09/06/2023 text/html Annual Real Estate Agent Post-MenopausalRep orted bypatient.Menopaus al Symptoms:no menopausal symptoms; [...] mammogram; history of recent colonoscopy Vanessa Medina [facility]- [address], [place], [address], [facility] 09/06/2023 19:14:35 OBGyn Episode No OBEpisode recorded.
--- OUTSIDE RECORDS SUMMARY | 2024-06-21 14:56 | XMS_ITS | Encounter Summary ---
Author Organization [facility] Address [address] [place] [address]. [place] [address] [place] [address] Care Team Providers Care Facility Security Officer Name Role Phone Nisha Stokes Primary Care Provider Encounter Details Date Type Department Care Team (Late st Contact Info) Description 11/29/2021 [employer] Message Enc [facility] Medical Group Family & Internal Medicine [facility] [address] [place] [address] Nisha Stokes APNP [address] [place] [address] Blood pressure readings Social History [...] Assigned at Female 05/07/2024 12:02 PM MANAGER BEHAVIOR Legal Sex Female 8:55 PM CDT Gender Identity Female 05/07/2024 12:02 PM MANAGER BEHAVIOR Sexual Orientation Not on file COVID-19 Exposure [...] 11/11/2024 9:00 AM CDT Allied Health/Nurse Visit [facility] Medical Group Family & Internal Medicine [address] [address] Nisha Stokes APNP [address] [place] [address] documented as of this encounter Visit Diagnoses Not on filedocumented in this encounter Additional Health Concerns Assessment Noted Time PHQ-9 Depression Total Score: 0 11/18/19 9:27 AM CDT documented as of this encounter Care Teams Facility Security Officer Relationship Specialty Start Date End Date Nisha Stokes APNP [address] [place] [address] PCP - General NURSE PRACTITIONER 09/20/18 documented as of this encounter
--- OUTSIDE RECORDS SUMMARY | 2024-06-21 14:56 | XMS_ITS | Clinical Summary ---
Author Organization [facility] Address [address] [place] [address]. [place] [address] [place] [address] Care Team Providers Care Tape Cutter Name Role Phone Nisha Stokes Primary Care Provider [phone] Allergies Active Allergy Reactions Criticality Noted Date Comments Iodine Unknown,Hives Medium 09/04/2017 Seasonal Unknown 09/26/2018 Medications cholecalciferol 125 MCG (5000 UT) Tab Take 1 tablet (5,000 Units total) by mouth daily. Active fexofenadine 180 MG tablet Take 1 tablet (180 mg total) by mouth daily. Active Multiple Vitamin (MULTI-VITAMIN) tablet Take 1 tablet by mouth daily. Active lisinopril (PRINIVIL) 40 MG tabletIndications :Primary hypertension Take 1 tablet (40 mg total) by mouth daily. 90 tablet 3 4 Active hydroCHLOROthiazi de (HYDRODIURIL) 25 MG tabletIndications :Primary hypertension Take 1 tablet (25 mg total) by mouth every morning. 90 tablet 3 4 Active Misc Natural Products (FIBER 7 OR) Active cefdinir (OMNICEF) 300 MG Cap capsuleIndication s:UTI (urinary tract infection) Take 1 capsule (300 mg total) by mouth 2 (two) times daily. 20 capsule 4 Active Active Problems Problem Noted Date Diagnosed Date Seasonal allergies 09/18/2020 Vitamin D deficiency 10/13/2017 Elevated liver enzymes 09/29/2017 Hypertension 09/04/2017 Resolved Problems Problem Noted Date Diagnosed Date Resolved Date BMI 50.0-59.9, adult ([facility]) 10/13/2017 01/25/2024 Encounters Date Type Department Care Team Description 05/30/2024 Scan [facility] Scanned, [facility] Procedure (SCAN); Image (SCAN); Pathology (SCAN) 05/28/2024 Scan [facility] Scanned, [facility] Lab (SCAN) 05/16/[address] [address] Nisha Stokes APNP Lab Results 05/07/2024 12:00 PM ACCOUNTS RECEIVABLE CLERK Office Visit [address] [address] Porter Abdalla, UTI (Dysuria, decreased output. The patient is currently being treated for a kidney stone. The patient has a procedure scheduled for 05/2023. The patient states she had a teledoc visit and was prescribed an abx for 5 days. ) 05/07/2024 - 05/07/2024 11:59 PM ACCOUNTS RECEIVABLE CLERK [facility] [address] [place] [address] Porter Abdalla, DO Discharge Disposition: Home or Self Care (Routine Discharge) 05/07/2024 Travel 05/06/2024 MyChart Message Enc [address] [address] Nisha Stokes APNP Possible uti 04/10/2024 Scan [facility] SRVCS Scanned, [facility] 04/02/2024 Scan HEALTH INFO SRVCS Scanned, Doc [facility] Image (SCAN) from Last 3 Months Immunizations Name Administration Dates Next Due FLUCELVAX (ccIIV3, TRIVALENT, 0.5mL) 01/22/2024 Fluzone 6 Months+ Quad (0.5 mL Prefilled Syringe) 02/12/2020 Hepatitis B(Engerix B Adult) 05/07/2024 Influenza Adult (Generic) 02/06/2022,02/01/2021, 02/13/2020 MODERNA COVID-19 (12+) MRNA, LNP-S, PF, 100 MCG/ 0.5 ML DOSE 11/09/2020,10/09/2020 MODERNA COVID-19 (DANCE MASTER RA CHANTEL), MRNA, LNP-S, PF, 50 MCG/ [...] Sex Assigned at Female 05/07/2024 12:02 PM ACCOUNTS RECEIVABLE CLERK Legal Sex Female 8:55 PM CDT Gender Identity Female 05/07/2024 12:02 PM ACCOUNTS RECEIVABLE CLERK Sexual Orientation Not on file Last Filed Vital Signs Vital Sign Reading Time Taken Comments Blood Pressure 114/70 05/07/2024 12:04 PM ACCOUNTS RECEIVABLE CLERK Pulse 100 05/07/2024 12:04 PM ACCOUNTS RECEIVABLE CLERK Temperature 36.8 ??C (98.2 ??F) 05/07/2024 1 2:04 PM ACCOUNTS RECEIVABLE CLERK Respiratory Rate 16 05/07/2024 12:0 4 PM ACCOUNTS RECEIVABLE CLERK Oxygen Saturation 98% 05/07/2024 12: 04 PM ACCOUNTS RECEIVABLE CLERK Inhaled Oxygen Concentration - - Weight 122.1 kg (269 lb 1.6 oz) 024 12:04 PM ACCOUNTS RECEIVABLE CLERK Height 160 cm (5' 3 ) 05/07/2024 12:04 PM ACCOUNTS RECEIVABLE CLERK Body Mass Index 47.67 05/07/2024 12:04 PM ACCOUNTS RECEIVABLE CLERK Plan of Treatment Upcoming Encounters Date Type Department Care Team (Late st Contact Info) Description 11/11/2024 9:00 AM CDT Allied Health/Nurse Visit [facility] Family & Internal Medicine - [address] [phone] Nisha Stokes APNP [address] [place] [address] Health Maintenance Due Date Last Done Comments Cervical Cancer Screening Pap with HPV Testing (Age 30 to 64) Every 5 Years 09/14/1999 PHQ-2 (Physician Benton) 05/22/2024 12/07/2023 Hepatitis B Vaccines (2 of 3 - 19+ 3-dose series) 06/04/2024 05/07/2024 Annual Physical 12/06/2024 12/07/2023, 10/21, 09/18/2020, Additional history exists Mammogram Screening 12/06/2024 02/17/2020 Postpone d from 02/16/2022 (Going to Outside Clinic) PHQ-2 (Physician SharedReviews) 12/06/2024 12/07/2023 Cervical Cancer Screening Pap Smear (Age 30 [...] 01/22/2024, 01/20, 02/01/2021, Additional history exists Meningococcal B Vaccine Aged Out No l onger eligible based on patient's age to complete this topic Meningococcal Vaccine Aged Out No liana taty eligible based on patient's age to complete this topic RSV Immunizations Under 20 Months Aged Out No longer eligible based on patient's age to complete this topic Procedures Procedure Name Priority Date/Time Associated Diagnosis Comments PATHOLOGY GENERIC (SCAN ORDER) 05/30/2024 IMAGE GENERIC 05/30/2024 PROCEDURE GENERIC (SCAN ORDER) 05/30/2024 OUTSIDE LAB (SCAN ORDER) 05/28/2024 URINE BACTERIA CULTURE Routine 05/07/2024 12:20 PM ACCOUNTS RECEIVABLE CLERK UTI symptoms Benign essential microscopic hematuria URINALYSIS AUTO DIP Routine 05/07/2024 UTI symptoms IMAGE GENERIC 04/02/2024 MAMMOGRAM GENERIC (SCAN ORDER) 02/17/2020 COLONOSCOPY GENERIC (SCAN ORDER) 10/17/2017 HEPATITIS C ANTIBODY Routine 09/26/2017 8:32 AM CDT from Last 3 Months or Most Recently Relevant to Health Maintenance Results * PATHOLOGY GENERIC (SCAN ORDER) (05/30/2024) 05/30/2024 [employer] [facility] Scanned SCANNING Final Resu lt * IMAGE GENERIC (05/30/2024) Only the most recent of2 resultswithin the time period is included. Anatomical Region Laterality Modality Other 05/30/2024 [employer] [facility] Scanned SCANNING Final Resu lt * PROCEDURE GENERIC (SCAN ORDER) (05/30/2024) 05/30/2024 [employer] [facility] Scanned SCANNING Final Resu lt * OUTSIDE LAB (SCAN ORDER) (05/28/2024) 05/28/2024 [facility] Scanned SCANNING Final Resu lt * URINE BACTERIA CULTURE (05/07/2024 12:20 PM ACCOUNTS RECEIVABLE CLERK) SPEC DESCRIPTION URINE CLEAN CATCH 05/07/2024 12:20 PM ACCOUNTS RECEIVABLE CLERK [facility] SPECIAL REQUESTS NO SPECIAL REQUEST 05/07/2024 12:20 PM ACCOUNTS RECEIVABLE CLERK [facility] CULTURE RESULT EQUAL OR >100,000 CFU/mL ENTEROCOCCUS FAECALIS 05/10/2024 9:55 AM ACCOUNTS RECEIVABLE CLERK [facility] URINE SPECIMEN OBTAINED BY CLEAN CATCH PROCEDURE / Unknown 05/07/2024 12:20 PM ACCOUNTS RECEIVABLE CLERK 05/07/2024 6:25 PM ACCOUNTS RECEIVABLE CLERK Narrative Organism Antibiotic Method Susceptibility Enterococcus faecalis [...] MICROBIOLOGY - GENERAL O RDERABLES Final Result [facility] [address] [place] [address], [id number] * (ABNORMAL) URINALYSIS AUTO DIP (05/07/2024) COLOR (U) DARK YELLOW YELLOW -[facility] TRANSPARENCY TURBID(A) CLEAR MG-SOUT H [facility] GLUCOSE (U) NEGATIVE NEGATIVE MG/DL [facility] BILIRUBIN (U) 1+ (SMALL)(A) NEGATIVE [facility] KETONES MG/DL (U) 15 (SMALL 1+)(A) NEGATIVE MG/DL [facility] SPECIFIC GRAVITY (U) 1.025 1.001 - 1.035 [facility] BLOOD (U) MODERATE (Non Hemolyzed, Intact, About 50 rbc/uL)(A) NEGATIVE [facility] U PH 5.5 5.0 - 9.0 [facility] PROTEIN (U) 2+ (100)(A) NEGATIVE mg/dL [facility] UROBILINOGEN 0.2 0.2 - 1.0 EU/dL = mg/dL [facility] NITRITES NEGATIVE NEGATIVE MG/DL [facility] LEUKOCYTES (U) 1+ (SMALL)(A) NEGATIVE [facility] URINE SPECIMEN OBTAINED BY CLEAN CATCH PROCEDURE / Unknown 05/07/2024 us Porter Abdalla DO URINE ORDERABLES Final R esult [facility] [address] [place] [address], * MAMMOGRAM GENERIC (02/17/2020) Anatomical Region Laterality [...] with a HCV Nucleic Acid Amplification ?test ([id number]). 09/26/2017 8:32 AM CDT 09/26/2017 8:32 AM CDT Narrative [facility] TO EPIC CONVERSION - 10/04/2017 1:14 PM CDT [id number] 8:49PM by Nisha Stokes: ??Will discuss labs at upcoming appt on 10/13/2017 Result Communication: No patient communication needed at this time us Nisha Stokes AP LABORATORY Final Resul t [facility] TO EPIC CONVERSION from Last 3 Months or Most Recently Relevant to Health Maintenance Insurance [facility] Care Teams Tape Cutter Relationship Specialty Start Date End Date Nisha Stokes APNP [address] [place] [address] PCP - General NURSE PRACTITIONER 09/20/18
== END 2024-06-21 14:53 | disposition home or self-care (01) ==
LOC: ANHIMG 14:54
PROVIDERS: PCP Registered Nurse; Visit Provider Nurse Practitioner Obstetrics & Gynecology
DX: Z12.31 Encounter for screening mammogram for malignant neoplasm of breast (principal)
CPT/HCPCS: 77063; 77067

== ENCOUNTER 2024-07-24 10:41 | Outpatient (CLI) | payer OTHER, SELFPAY ==
--- NOTE | ~2024-07-24 | XR_ITS ---
XR abdomen/kub 1V Ordering provider: Zeferino Kumari MD History: . lt renal stone HX LITHROTRIPSY . Comparison: None. FINDINGS: BOWEL: Nonobstructive bowel gas pattern. ORGANOMEGALY: None. SIGNIFICANT PATHOLOGIC CALCIFICATIONS: Stone in the left kidney lower pole. OTHER: No free air is seen under the diaphragm. Degenerative changes of the spine. Left sacroiliitis. IMPRESSION: NO ACUTE ABDOMINAL FINDINGS. Stone in the left kidney lower pole. Reviewed, dictated and finalized at location A. R TRAINER
--- OUTSIDE RECORDS SUMMARY | 2024-07-24 12:14 | XMS_ITS | Encounter Summary ---
Author Organization [facility] Address [facility] [place] [address] Care Team Providers Care Fundraising Officer Name Role Phone Nisha Stokes Primary Care Provider [phone] Encounter Details Date Type Department Care Team (Late st Contact Info) Description 11/24/2021 Percellohart Message Enc [facility] Family & Internal Medicine [facility] [address] [place] [address] Nisha Stokes APNP [address] [place], [place] [id number] Colonoscopy order Social History Tobacco Use Types [...] Sex Assigned at Female 05/07/2024 12:02 PM CROSSBAR FRAME WIRER Legal Sex Female 8:55 PM CDT Gender Identity Female 05/07/2024 12:02 PM CROSSBAR FRAME WIRER Sexual Orientation Not on file COVID-19 Exposure [...] 11/11/2024 9:00 AM CDT Allied Health/Nurse Visit [facility] Family & Internal Medicine - [place] [address] [place] [phone] Nisha Stokes APNP [address] [place] [id number] documented as of this encounter Visit Diagnoses Not on filedocumented in this encounter Additional Health Concerns Assessment Noted Time PHQ-9 Depression Total Score: 0 11/18/19 9:27 AM CDT documented as of this encounter Care Teams Fundraising Officer Relationship Specialty Start Date End Date Nisha Stokes APNP [address] [place] [id number] PCP - General NURSE PRACTITIONER 09/20/18 documented as of this encounter
--- OUTSIDE RECORDS SUMMARY | 2024-07-24 12:14 | XMS_ITS | Data Portability ---
Author Organization [facility] [place] Address [address] [place] [address] Care Team Providers Care Theater Education Teacher Name Role Phone KARSTEN RICHARD Primary Care [...] Organization Details Last Modified Time Details Appointments [facility] 2024 08:00A HARRY Lawson Not available Not available Not available Lab None recorded. Referral None recorded. Procedures None recorded. Surgeries None recorded. Imaging MAMMO, screening , bilateral 2023 024 [email or web address], [address], [place], [address], 10/05/2023 16:03:00 Medication Orders None recorded. Patient TargetsNo [...] t Case: [id number] Autho david francisco Provi ganesh: Jimenez Wilson Colle cted: 12/03 1256 [address] Order ing Locat ion: [place] [facility] Recei rayo: 12/04 0214 First Scree n: DeLuc mai, Amanda, CT Rescr een: Isabel Cardenas, CT Speci men: Yu avila Pap - Image d, Cervi x STATE MENT OF ADEQU ACY: Satis facto ry for evalu ation Trans forma tion zone compo nent prese nt FINAL DIAGN OSIS: Negat della for Intra epith elial Enoch chairez or Katlyn cline (NIL) . Elect usman [...] as clini josephine baltazar nted. Not Available [facility] [address] [place], [address], 12/08/2021 21:50:05 09/06/19 24 09/06/2023 IMAGE GUIDE D PAP AND HPV REGAR DLESS image guided Pap, HPV regardless of Pap result SEE RESULT S BELOW CASE REPOR T: Cytol ogy Gynec ologi andry Repor t Case: [id number] Autho david singh Provi ganesh: Jimenez Wilson Colle cted: 09/05 1719 [address] Order ing Locat ion: [place] Patho [place] [...] andry and/o r histo rical findi ngs, fur er inves tigat ion is recom marta d, as clini josephine baltazar nted. Not Available [facility] (Lab) [address], [place], [address], 09/11/2023 21:17:17 06/25/1906/21/2024 MAMMO , maureendeborah margaritajessi singh carinajulio No observ ation record ed. [place] [address] [facility] [address], [place], [address], 06/25/2024 09:02:44 Result Notes None recorded. Problems Name Problem SNOMED Code Status Onset Date Resolution Date Notes Provider Name and Address Organization Details Recorded Time SNOMED CT Concept Completed 201712/02/2021 Encntr for ob/gyn nurse exam (general) (routine) w/o abn findings; Practice ID: [id number] Karsten [facility] 2 17:45:36 Insertio n of intraute rine contrace ptive device Completed 201612/02/2021 Encounter for insertion of intrauter ine contracep tive device;Re corded Elsewhere : No Locati on: [facility] So urce: EHR Chron ic: N Practic e ID: 0001 Bill able Time: 08:15:00 AM Karsten [facility] 2 17:45:37 Pregnanc y test negative [id number] Completed 201612/02/2021 Encounter for test, result negative; Recorded Elsewhere : No Locati on: [facility] So urce: EHR Chron ic: N Practic e ID: 0001 Bill able Time: 08:15:00 AM Karsten [facility] 2 17:45:36 Family planning surveill ance Completed 201112/02/2021 Contracep tive surveilla nce, unspecifi ed;Record ed Elsewhere : No Locati on: [facility] So urce: EHR Chron ic: N Practic e ID: 0001 Bill able Time: 08:45:00 AM Karsten [facility] 2 17:45:36 Removal of intraute rine device Completed 201612/02/2021 Encounter for removal of intrauter ine contracep tive device;Re corded Elsewhere : No Locati on: [facility] So urce: EHR Chron ic: N Practic e ID: 0001 Bill able Time: 09:15:00 AM Karsten Michael [facility] 2 17:45:37 Screenin g for malignan t neoplasm of cervix Completed 201112/02/2021 Screening for malignant neoplasms of the cervix;Re corded Elsewhere : No Locati on: [facility] So urce: EHR Chron ic: N Practic e ID: 0001 Bill able Time: 08:45:00 AM Karsten [facility] 2 17:45:[address] Concept Completed 201612/02/2021 Encntr for general adult medical exam w/o abnormal findings; Recorded Elsewhere : No Locati on: [facility] So urce: EHR Chron ic: N Practic e ID: 0001 Bill able Time: 02:30:00 PM Kartsen Michael [facility] 2 17:45:36 Screenin g for malignan t neoplasm of rectum Completed 201112/02/2021 Screening for malignant neoplasms of the rectum;Re corded Elsewhere : No Locati on: [facility] So urce: EHR Chron ic: N Practic e ID: 0001 Bill able Time: 08:45:00 AM Karsten Michael [facility] 2 17:45:36 Body mass index 30+ - obesity [id number] Completed 201712/02/2021 Body mass index (BMI) 50-59.9 , adult;Rec orded Elsewhere : No Locati on: [facility] So urce: EHR Chron ic: N Practic e ID: 0001 Bill able Time: 06:00:00 PM Karsten Michael [facility] 2 17:45:36 [facility] Completed 201112/02/2021 Gynecolog ical Examinati on;Record ed Elsewhere : No Locati on: [facility] So urce: EHR Chron ic: N Practic e ID: 0001 Bill able Time: 08:45:00 AM Karsten Michael [facility] 2 17:45:37 Contrace ptive sheath status [id number] Completed 201612/02/2021 IUD follow up;Record ed Elsewhere : No Locati on: [facility] So urce: EHR Chron ic: N Practic e ID: 0001 Bill able Time: 03:00:00 PM Karsten Michael [facility] 2 17:45:36 Screenin g for malignan t neoplasm of colon Completed 201012/02/2021 Special screening for malignant neoplasms , colon;Pra ctice ID: 0001 Karsten [facility] 2 17:45:36 Problem Notes None recorded. Procedures Surgical History Date Name Laterality Status Provider Name and Address Organization Details Recorded Time 12/04/19 22 Date of Last Pap Smear completed Gloria [facility] 09/06/2023 16:26:34 05/22/19 22 Date of Last Mammogram completed Gloria Valentín [facility] 09/06/2023 16:27:21 10/18/19 18 completed [facility] 12/03/2021 10:39:08 10/18/19 18 Date of Last Colonoscopy completed [facility] 12/03/2021 10:39:08 10/06/19 16 Cholecystectomy completed [facility] 12/03/2021 10:44:19 Imaging Results Imaging Date Name Status LastModified by [facility] Details LastModified Time 06/21/2024 MAMMO, screening, bilateral active [facility] [address], [place], [address], 06/25/2024 09:02:44 Procedure Notes None recorded. Medical Equipment None Reported. Allergies Allergen ID Allergen Name Allergen Category Reaction Reaction Severity Criticality Documentation Date Start Date Code Code System Note Provider Name and Address Organization Details Recorded Time 06902 lisinopri l medicatio n Not available Not available Not available 05/08/2020 04762 RxNorm Karsten [facility] 2 10:38:57 23447 iodine medicatio n Not available Not available Not available 05/08/2020 5933 RxNorm Comme nt: [facility]; [facility] Available [facility] 14:14:57 38462 fexofenad ine medicatio n Not available Not available Not available 12/03/2021 75961 RxNorm Karsten [facility], [facility] 2 10:39:41 Medications Name Sig [...] Prescrib ed Elsewher e: Yes Loca tion: [facility] odify By: adarsh Cabrera ncounter DateTime : 11/08/19 12 08:45:00 AM Not Available Not Available Not Available cranberry fruit 400 mg capsule 11/03 completed Prescrib ed Elsewher e: Yes Loca tion: [facility] M odify By: adarsh Cabrera ncounter DateTime : 11/08/19 12 08:45:00 AM Not Available Not Available Not Available hydrochlo rothiazid e 25 mg tablet TAKE 1 TABLET BY MOUTH EVERY DAY IN THE MORNING active Not Available Not Available No t Available Prozac 10 mg capsule take 2 capsule by oral route every day 12/06 completed Prescrib ed Elsewher e: Yes Loca tion: Alfie cabrera [facility] odify By: nirav herrera DateTime : 11/08/19 12 08:45:00 AM Not Available Not Available Not Available lisinopri l 40 mg tablet TAKE 1 TABLET BY MOUTH EVERY DAY active Not Available Not Available No t Available lisinopri l 2.5 mg tablet take 1 tablet by oral route every day 12/02 completed Prescrib ed Elsewher e: Yes Loca tion: Alfie [facility] odify By: janene randolph DateTime : 11/08/19 12 08:45:00 AM Not Available Not Available Not Available Vitamins and Minerals tablet 11/03 completed Prescrib ed Elsewher e: Yes [facility] By: adarsh herrera DateTime : 11/08/19 12 08:45:00 AM Not Available Not Available Not Available NuvaRing 0.12 mg-0.015 mg/24 hr vaginal insert 1 vaginal ring by vaginal route every month leave in place for 3 weeks, remove for 1 week 11/03 completed Prescrib ed Elsewher e: No [facility] By: adarsh herrera DateTime : 09/20/19 12 01:56:55 PM Not Available Not Available Not Available Vitamin D3 active Not Available Not Available Not Available multivita min active Not Available Not Available Not Available Gladis 30 mg/5 mL oral suspensio n 12/02 completed Prescrib ed Elsewher e: Yes Loca tion: Alfie [facility] odify By: janene randolph DateTime : 11/08/19 12 08:45:00 AM Not Available Not Available Not Available Vitals Date Recorded Body height Body mass index (BMI) Body weight Systolic blood pressure Diastolic blood pressure Provider Name and Address Organization Details Last Updated DateTime 12/03/2021 158.75 cm 53.8 kg/m2 091052.1 2 g 110 mm[Hg] 80 mm[Hg] Karsten Michael [facility] 2 10:38:52 Date Recorded Body height Body mass index (BMI) Body weight Systolic blood pressure Diastolic blood pressure Provider Name and Address Organization Details Last Updated DateTime 09/06/2023 158.75 cm 50.4 kg/m2 134709.8 6 g 122 mm[Hg] 81 mm[Hg] Gloria Laura [facility] 4 16:25:13 Social History Question [...] Or The Highest Degree You Have Received? 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 [id number] Information not available 12/03/2021 Do You Use [...] SNOMED-CT Code Diagnosis ICD10 Code Diagnosis Note [id number] Vanessa Medina , [facility] [address] [address] 12/03/2021 09:48:36 12/03/2021 11:07:14 Gynecologic examination 36932590 Z01.419 Take Calcium with Vitamin D 12-1500mg daily. Do monthly self breast exams. It is advised to get annual flu shot in the fall and she could obtain at [facility] or [facility] care clinic. If you haven't received the [...] PCPDexa Screen naRoutine Labs UTD PCPmammo ordered [id number] HARRY Cha[facility] [address] [address] 09/06/2023 16:15:33 09/06/2023 21:39:10 Gynecologic examination 99110075 Z01.419 Z11.51 Take Calcium with Vitamin D 12-1500mg daily. Do monthly self breast exams. It is advised to get annual flu shot in the fall and she could obtain at [facility] or [facility] clinic. If you haven't received the Tdap [...] Labs UTD PCPmammo ordered Screening mammography 24 333627 Z12.31 Health Concerns Section Related Observation LastModified by Organization Detai ls LastModified Time None Recorded Concern Status LastModified by Organization Details LastModified Time None Recorded Advance Directives Directive N: Payers Encounter Date Sequence Insurance Name Policy Number Policy Vega Covered Member ID Vega Member ID Guarantor Name 12/03/2021 1 [facility] [id number] Yuridia Pleitez [id number] Yuridia Pleitez 09/06/2023 1 [facility] [id number] Yuridia Pleitez [id number] Yuridia Pleitez Notes Date Note Type Note [...] mammogram; Up to date on colonoscopy screening SUNITHA Cha [address], [place], [address], [facility] 12/03/2021 10:59:15 09/06/2023 text/html Annual Mechanical Detailer Post-MenopausalRep orted bypatient.Menopaus al Symptoms:no menopausal symptoms; [...] to schedule mammogram; history of recent colonoscopy TODD Cha [address], [place], [address], [facility] 09/06/2023 19:14:35 OBGyn Episode No OBEpisode recorded.
--- OUTSIDE RECORDS SUMMARY | 2024-07-24 12:14 | XMS_ITS | Encounter Summary ---
Author Organization [facility] Address Formerly [facility] [place] [address] Care Team Providers Care Assistant Chief Of Police Name Role Phone Nisha Stokes Primary Care Provider [phone] Encounter Details Date Type Department Care Team (Late st Contact Info) Description 11/29/2021 Tr[place]hart Message Enc [facility] Family & Internal Medicine [facility] [address] [place] [address] Nisha Stokes APNP [address] [place], [place] [phone] Blood pressure readings Social History Tobacco Use [...] Sex Assigned at Female 05/07/2024 12:02 PM CIVIL ENGINEERING SPECIALIST Legal Sex Female 8:55 PM CDT Gender Identity Female 05/07/2024 12:02 PM CIVIL ENGINEERING SPECIALIST Sexual Orientation Not on file COVID-19 Exposure [...] 11/11/2024 9:00 AM CDT Allied Health/Nurse Visit [facility] Family & Internal Medicine - [address] [phone] Nisha Stokes APNP [address] [place] [phone] documented as of this encounter Visit Diagnoses Not on filedocumented in this encounter Additional Health Concerns Assessment Noted Time PHQ-9 Depression Total Score: 0 11/18/19 9:27 AM CDT documented as of this encounter Care Teams Assistant Chief Of Police Relationship Specialty Start Date End Date Nisha Stokes APNP [address] [place] [phone] PCP - General NURSE PRACTITIONER 09/20/18 documented as of this encounter
--- OUTSIDE RECORDS SUMMARY | 2024-07-24 12:14 | XMS_ITS | Clinical Summary ---
Author Organization [facility] Address [facility] [place] [address] Care Team Providers Care Cheesemaker Name Role Phone Divya Nisha Toño HIGGINS Primary Care Provider [phone] Allergies Active Allergy Reactions Criticality Noted Date [...] Diagnosed Date Resolved Date BMI 50.0-59.9, adult ([facility]) 10/13/2017 01/25/2024 Encounters Date Type Department Care Team Description 06/24/2024 Scan [facility] Scanned, [facility] Colonoscopy Report (SCAN); Lab (SCAN) 06/21/2024 Scan [facility] Scanned, [facility] Mammogram (SCAN) 05/30/2024 Scan [facility] Scanned, [facility] Procedure (SCAN); Image (SCAN); Pathology (SCAN) 05/28/2024 Scan [facility] Scanned, [facility] Lab (SCAN) 05/16/2024 Telephone [facility] Internal [address] [phone] Nisha Stokes APNP Lab Results 05/07/2024 12:00 PM BROADCAST JOURNALIST Office Visit [address] [phone] Porter Abdalla, UTI (Dysuria, decreased output. The patient is currently being treated for a kidney stone. The patient has a procedure scheduled for 05/2023. The patient states she had a teledoc visit and was prescribed an abx for 5 days. ) 05/07/2024 - 05/07/2024 11:59 PM BROADCAST JOURNALIST Hospital Encounter [facility] [address] Porter Abdalla, DO Discharge Disposition: Home or Self Care (Routine Discharge) 05/07/2024 Travel 05/06/2024 MyChart Message Enc [address] [phone] Nisha Stokes APNP Possible uti from Last 3 Months Immunizations Name Administration Dates Next Due FLUCELVAX (ccIIV3, TRIVALENT, 0.5mL) 01/22/2024 Fluzone 6 Months+ Quad (0.5 mL Prefilled Syringe) 02/12/2020 Hepatitis B(Engerix B Adult) 05/07/2024 Influenza Adult (Generic) 02/06/2022,02/01/2021, 02/13/2020 MODERNA COVID-19 (12+) MRNA, LNP-S, PF, 100 MCG/ 0.5 ML DOSE 11/09/2020,10/09/2020 MODERNA COVID-19 (GAS FURNACE INSTALLER RA CHANTEL), MRNA, LNP-S, PF, 50 MCG/ [...] Sex Assigned at Female 05/07/2024 12:02 PM BROADCAST JOURNALIST Legal Sex Female 8:55 PM CDT Gender Identity Female 05/07/2024 12:02 PM BROADCAST JOURNALIST Sexual Orientation Not on file Last Filed Vital Signs Vital Sign Reading Time Taken Comments Blood Pressure 114/70 05/07/2024 12:04 PM BROADCAST JOURNALIST Pulse 100 05/07/2024 12:04 PM BROADCAST JOURNALIST Temperature 36.8 C (98.2 F) 05/07/2024 12:04 PM BROADCAST JOURNALIST Respiratory Rate 16 05/07/2024 12:0 4 PM BROADCAST JOURNALIST Oxygen Saturation 98% 05/07/2024 12: 04 PM BROADCAST JOURNALIST Inhaled Oxygen Concentration - - Weight 122.1 kg (269 lb 1.6 oz) 024 12:04 PM BROADCAST JOURNALIST Height 160 cm (5' 3 ) 05/07/2024 12:04 PM BROADCAST JOURNALIST Body Mass Index 47.67 05/07/2024 12:04 PM BROADCAST JOURNALIST Plan of Treatment Upcoming Encounters Date Type Department Care Team (Late st Contact Info) Description 11/11/2024 9:00 AM CDT Allied Health/Nurse Visit [facility] Family & Internal Medicine - [address] [phone] Nisha Stokes APNP [address] [place] [address] Health Maintenance Due Date Last Done Comments Cervical Cancer Screening Pap with HPV Testing (Age 30 to 64) Every 5 Years 09/14/1999 PHQ-2 (Physician [place]) 05/22/2024 12/07/2023 Hepatitis B Vaccines (2 of 3 - 19+ 3-dose series) 06/04/2024 05/07/2024 Annual Physical 12/06/2024 12/07/2023, 10/21, 09/18/2020, Additional history exists Mammogram Screening 06/21/2026 06/21/2024, Cervical Cancer Screening Pap Smear (Age 30 to 64) Every 3 Years 09/05/2026 09/06/2023, 12/03/2021 Cervical Cancer Screening with HPV 09/05/2026 DTaP, Tdap and Td Vaccines (2 - Td or Tdap) 09/05/2027 09/04/2017 Colorectal Cancer Screening Colonoscopy (10 Years) 06/24/2034 06/24/2024, 10/17/2017 Hepatitis C Completed 09/26/2017 Zoster Vaccines [...] Associated Diagnosis Comments OUTSIDE LAB (SCAN ORDER) 06/24/2024 COLONOSCOPY GENERIC (SCAN ORDER) 06/24/2024 MAMMOGRAM GENERIC (SCAN ORDER) 06/21/2024 PATHOLOGY GENERIC (SCAN ORDER) 05/30/2024 IMAGE GENERIC 05/30/2024 PROCEDURE GENERIC (SCAN ORDER) 05/30/2024 OUTSIDE LAB (SCAN ORDER) 05/28/2024 URINE BACTERIA CULTURE Routine 05/07/2024 12:20 PM BROADCAST JOURNALIST UTI symptoms Benign essential microscopic hematuria URINALYSIS AUTO DIP Routine 05/07/2024 UTI symptoms HEPATITIS C ANTIBODY Routine 09/26/2017 8:32 AM CDT from Last 3 Months or Most Recently Relevant to Health Maintenance Results * OUTSIDE LAB (SCAN ORDER) (06/24/2024) Only the most recent of2 resultswithin the time period is included. 06/24/2024 Instilling [facility] Scanned SCANNING Final Resu lt * COLONOSCOPY GENERIC (SCAN ORDER) (06/24/2024) 06/24/2024 Instilling [facility] Scanned SCANNING Final Resu lt * MAMMOGRAM GENERIC (SCAN ORDER) (06/21/2024) Anatomical Region Laterality Modality Other 06/21/2024 [facility] Scanned SCANNING Final Resu lt * PATHOLOGY GENERIC (SCAN ORDER) (05/30/2024) 05/30/2024 Instilling [facility] Scanned SCANNING Final Resu lt * IMAGE GENERIC (05/30/2024) Anatomical Region Laterality Modality Other 05/30/2024 [facility] Scanned SCANNING Final Resu lt * PROCEDURE GENERIC (SCAN ORDER) (05/30/2024) 05/30/2024 [facility] Scanned SCANNING Final Resu lt * URINE BACTERIA CULTURE (05/07/2024 12:20 PM BROADCAST JOURNALIST) SPEC DESCRIPTION URINE CLEAN CATCH 05/07/2024 12:20 PM BROADCAST JOURNALIST [facility] SPECIAL REQUESTS NO SPECIAL REQUEST 05/07/2024 12:20 PM BROADCAST JOURNALIST [facility] CULTURE RESULT EQUAL OR >100,000 CFU/mL ENTEROCOCCUS FAECALIS 05/10/2024 9:55 AM BROADCAST JOURNALIST [facility] URINE SPECIMEN OBTAINED BY CLEAN CATCH PROCEDURE / Unknown 05/07/2024 12:20 PM BROADCAST JOURNALIST 05/07/2024 6:25 PM BROADCAST JOURNALIST Narrative Organism Antibiotic Method Susceptibility Enterococcus faecalis [...] MICROBIOLOGY - GENERAL O RDERABLES Final Result [facility] [address] [place] [address], [phone] * (ABNORMAL) URINALYSIS AUTO DIP (05/07/2024) COLOR (U) DARK YELLOW YELLOW [facility] TRANSPARENCY TURBID(A) CLEAR [facility] GLUCOSE (U) NEGATIVE NEGATIVE MG/DL [facility] BILIRUBIN (U) 1+ (SMALL)(A) NEGATIVE [facility] KETONES MG/DL (U) 15 (SMALL 1+)(A) NEGATIVE MG/DL [facility] SPECIFIC GRAVITY (U) 1.025 1.001 - 1.035 [facility] BLOOD (U) MODERATE (Non Hemolyzed, Intact, About 50 rbc/uL)(A) NEGATIVE [facility] U PH 5.5 5.0 - 9.0 [facility] PROTEIN (U) 2+ (100)(A) NEGATIVE mg/dL [facility] UROBILINOGEN 0.2 0.2 - 1.0 EU/dL = mg/dL [facility] NITRITES NEGATIVE NEGATIVE MG/DL [facility] LEUKOCYTES (U) 1+ (SMALL)(A) NEGATIVE [facility] URINE SPECIMEN OBTAINED BY CLEAN CATCH PROCEDURE / Unknown 05/07/2024 us Porter Abdalla DO URINE ORDERABLES Final R esult [facility] [address] [place] [address], * HEPATITIS C ANTIBODY (09/26/2017 8:32 AM CDT) HEPATITIS C AB <0.1 0.0 - 0.9 s/co ratio [facility] TO EPIC CONVERSION Comment: Result Comment: Negative: < 0.8 Indeterminate: 0.8 - 0.9 Positive: > 0.9 . The CDC recommends that a positive HCV antibody result be followed up with a HCV Nucleic Acid Amplification test ([id number]). 09/26/2017 8:32 AM CDT 09/26/2017 8:32 AM CDT Narrative [facility] TO EPIC CONVERSION - 10/04/2017 1:14 PM CDT [id number] 8:49PM by Nisha Stokes: Will discuss labs at upcoming appt on 10/13/2017 Result Communication: No patient communication needed at this time us Nisha [facility] Final Resul t [facility] TO EPIC CONVERSION from Last 3 Months or Most Recently Relevant to Health Maintenance Insurance [facility] Care Teams Cheesemaker Relationship Specialty Start Date End Date Nsiha Stokes APNP [address] [place], [place] [phone] PCP - General NURSE PRACTITIONER 09/20/18
== END 2024-07-24 10:42 | disposition home or self-care (01) ==
PROVIDERS: PCP Registered Nurse; Visit Provider Urology
DX: N20.0 Calculus of kidney (principal)
CPT/HCPCS: 74018

== ENCOUNTER 2025-01-24 12:25 | Outpatient (CLI) | payer OTHER, SELFPAY ==
--- NOTE | ~2025-01-24 | XR_ITS ---
EXAMINATION: XR abdomen/kub 1V DATE: 01/24/2025 12:38 INDICATION: Left renal stone TECHNIQUE: A supine view of the abdomen on 2 radiographs was obtained. COMPARISON: 07/24/2024 FINDINGS: No significant change in a 4 mm stone projecting over the lower pole of the left kidney. Unchanged pattern of round phleboliths in the pelvis. No other evident urolithiasis. Cholecystectomy clips in right upper quadrant. Normal bowel gas pattern. Visualized lower lungs are clear with no pleural effusion. Heart size is normal. Severe lower lumbar facet osteoarthritis. Previously seen IUD has been removed. IMPRESSION: 1. Unchanged 4 mm stone at the lower pole of the left kidney. Reviewed, dictated and finalized at location A.
== END 2025-01-24 12:26 | disposition home or self-care (01) ==
PROVIDERS: PCP Registered Nurse; Visit Provider Urology
DX: N20.0 Calculus of kidney (principal)
CPT/HCPCS: 74018